=== PATIENT | female | born 1945 | race Caucasian/White ===

== ENCOUNTER 2016-12-31 19:03 | Observation (INO) ==
[2016-12-31] MEDS ORDERED: Naloxone 0.4 MG/ML INJ IVP PRN (21:11)
[2016-12-31] MEDS ORDERED: *HR* Dextrose 50 % in Water (Syg) 50 ML SYRINGE IVP PRN (21:20)
[2016-12-31] MEDS ORDERED: Dextrose Gel 15 GM PO PRN ×2 (21:20)
[2016-12-31] MEDS ORDERED: D5% in Water 1,000 ML IVC PRN (21:20)
--- NOTE | 2016-12-31 21:20 | Internal Med History&Physical ---
Date of Encounter: 12/31/16 Time of Encounter: 21:20 Assessment and Plan (1) Chest pain Current visit: Yes Status: Acute patient with a history of CAD s/p right PDA stent comes in with chest pain atypical in nature, but with significant risk factors as well as history of CAD it will be reasonable to order stress test to r/o ACS, NPO post midnight for that reason, further management depends on test results, continue her existing home CAD medications Qualifiers: Chest pain type: intercostal pain Qualified Code(s): R07.82 - Intercostal pain (2) COPD (chronic obstructive pulmonary disease) Current visit: Yes Status: Chronic stable, will do PRN nebs Qualifiers: COPD type: emphysema Emphysema type: centrilobular Qualified Code(s): J43.2 - Centrilobular emphysema (3) Dyspepsia Current visit: Yes Status: Acute related to her GERD, will continue pepcid (4) Essential hypertension Current visit: Yes Status: Chronic will continue home antihypertensives with BP monitoring (5) Morbid obesity with BMI of 40.0-44.9, adult Current visit: Yes Status: Chronic will benefit from dietary counseling (6) Type 2 diabetes mellitus Current visit: Yes Status: Chronic poorly controlled with hyperglycemia, her A1c was 9.7% in 08/2015, she is on terminal clerk insulin, will continue this with sliding scale insulin for hyperglycemia coverage, will update A1c Qualifiers: Diabetes mellitus complication status: with neurologic complications Diabetes mellitus complication detail: with polyneuropathy Diabetes mellitus terminal clerk insulin use: with alf use Qualified Code(s): E11.42 - Type 2 diabetes mellitus with diabetic polyneuropathy; Z79.4 - [facility] (current) use of insulin; Z79.4 - [facility] (current) use of insulin; Z79.4 - rat exterminator ( current) use of insulin; Z79.4 - [facility] (current) use of insulin (7) CKD (chronic kidney disease) stage 3, GFR 30-59 ml/min Current visit: Yes Status: Chronic seems largely stable, will avoid nephrotoxins, renally dose all medications and follow BMP Internal Medicine - H&P: HPI Chief complaint: Chest pain Admitted From: Hospital to Hospital Transfer Plans for Post Hospital Care: Home History of present illness: Ms. Corbin is a 71 year old female with a history of CAD s/p multiple stents most recent in the right PDA in 11/2014 who comes in today with chest pain. She was reportedly in her usual state of health until a few hours prior to presentation when she began experiencing left-sided chest pain that was dull/ achy in character progressed to pressure like. Per patient the pain was "like someone sitting on my chest". The chest pain radiated to below her left breast across the left flank to the back and left neck. The pain was intermittent in timing, 8/10 in severity, was associated with diaphoresis, lightheadedness, feeling of apprehension, and nausea but no vomiting. Pain improved with nitroglycerin sublingual. Pain started around 2 PM today whilst she was in her primary care physician's office. She initially presented to the ER of [facility] where her EKG was unremarkable for ischemia, initial troponin was unremarkable. She was transferred here for further evaluation and management. Past Med Surg Social Fam HX - Past Medical History Medical history: asthma, cancer, CHF, coronary artery disease, diabetes, fibromyalgia, GERD, hyperlipidemia, hypertension, myocardial infarction, osteoporosis, renal disease, syncope, other Psychiatric history: anxiety, bipolar, depression - Past Surgical History Surgical History: angioplasty/stent, appendectomy, cancer surgery, cholecystectomy, hysterectomy, orthopedic, other - Social History Smoking Status: Former smoker Smokeless Tobacco Status: No Alcohol use: none Drug use: none - Family History Mother Living Status: Sister Living Status: Hx Family Respiratory Disorders: Yes (Lung cancer) Brother Adopted: No Family Member Ethnicity: Non- Living Status: Still Living Hx Family Cardiac Disorders: Yes Hx Family Respiratory Disorders: Yes Hx Family Cancer: Yes Hx Family GI Disorders: No Hx Family Endocrine Disorder: No Hx Family Neuromuscular Disorders: No Hx Family Neurologic Disorders: No Hx Family HEENT Disorders: No Hx Family Autoimmune Disorders: No Father Living Status: Hx Family Cardiac Disorders: Yes Internal Medicine - H&P: Meds BuPROPion XL (24 HR) [Wellbutrin Xl] 150 mg PO DAILY 11/22/14 [History] Cholecalciferol (Vitamin D3) [Vitamin D3] 50,000 unit PO QWEEK 11/22/14 [History ] Fenofibrate [Tricor] 48 mg PO HS 11/22/14 [History] Fluticasone Propionate [Flovent Hfa] 12 gm IH BID PRN 11/22/14 [History] Ranolazine [Ranexa] 1,000 mg PO BID 11/22/14 [History] Trazodone HCl [Oleptro ER] 100 mg PO BID 11/22/14 [History] Aspirin Enteric Coated [Aspirin EC] 81 mg PO DAILY 01/09/15 [History] Acetaminophen [Tylenol] 650 mg PO Q6HR PRN #0 tablet 06/15/15 [Rx] Folic Acid 1 tab PO DAILY #30 tablet 07/16/15 [Rx] Alprazolam [Xanax] 1 mg PO QID PRN 08/30/15 [History] Clopidogrel [Plavix] 75 mg PO DAILY tablet 08/30/15 [Rx] Doxepin [Sinequan] 50 mg PO HS 08/30/15 [History] GuaiFENesin ER [Mucinex] 1,200 mg PO BID PRN #30 tbbp.12hr 08/30/15 [Rx] Insulin Glargine [Lantus] 90 unit SQ HS 08/30/15 [History] Insulin LISPRO [HumaLOG] 0 units SQ TIDWM 08/30/15 [History] Montelukast [Singulair] 10 mg PO HS 08/30/15 [History] Ondansetron ODT [Zofran ODT] 4 mg SL Q8HR PRN 08/30/15 [History] Polyethylene Glycol 3350 [MiraLAX] 17 gm PO DAILY PRN 08/30/15 [History] Ranitidine Oral Soln [Zantac] 150 mg PO DAILY 08/30/15 [History] Tizanidine HCl 4 mg PO HS PRN 08/30/15 [History] Zolpidem Tartrate 12.5 mg SL HS 08/30/15 [History] traMADol [Ultram] 50 mg PO QID PRN 08/30/15 [History] HYDROcodone/Acet 10/325 mg [[place] 10-325 mg] 1 tab PO Q6HR PRN #12 tab 05/01/16 [Rx] Ondansetron [Zofran] 8 mg PO Q8HR PRN #10 tablet 05/01/16 [Rx] DiphenhydraMINE [Benadryl] 25 mg PO Q6HR #20 capsule 07/17/16 [Rx] predniSONE [PredniSONE] 10 mg PO DAILY #5 tablet 07/17/16 [Rx] 3 Allergy/AdvReac Type Severity Reaction Status Date / Time Iodinated Contrast- Oral and Allergy Rash Verified 07/30/16 23:16 IV Dye iron Allergy Hives Verified 07/30/16 23:16 [place] Allergy Nausea Verified 07/30/16 23:16 Sulfa (Sulfonamide Allergy Hives Verified 07/30/16 23:16 Antibiotics) All Systems PM: A 10-system review of systems was performed and is negative for pertinent findings except as documented above in the HPI. - Constitutional Vitals: Temp Pulse Resp BP Pulse Ox 98.2 F 93 14 151/83 95 12/31/16 21:10 12/31/16 21:10 12/31/16 21:10 12/31/16 21:10 12/31/16 21:10 GENERAL: Adult female, obese looking, lying in bed, Alert, not in obvious pain or distress HEENT: NC/AT, EOMI, PERRLA, anicteric sclera, normal conjunctiva, supple, clear nares, moist mucous membranes, RESP: Lungs are clear to auscultation bilaterally, with good AE, no crackles or wheeze CARDIO: Normal heart sounds with RRR, no murmurs, no JVD, no ankle edema GI: Soft, full, diffuse abdominal tenderness mostly in the epigastric area but no guarding, no organomegaly felt, normal bowel sounds heard MUSCULOSKELETAL: Grossly normal movements bilaterally, no deformities noted, NEUROLOGIC: CN 2-12 intact grossly. No gross motor/sensory deficit appreciated, PSYCHIATRY: AAO x 3. Mood is fair SKIN: no skin rash or ulcers noted Internal Med - H&P Results - EKG Data -: EKG Interpreted by Myself (from referring hospital) - Diagnostic Studies Chest x-ray Status: image reviewed by me (from referring hospital)
[2016-12-31] MEDS: *HR* Heparin 5,000 UNIT/ML VIAL SQ SCH (22:09)
[2016-12-31] MEDS: traZODone 50 MG TABLET PO SCH (22:09)
[2016-12-31] MEDS: ALPRAZolam 1 MG TABLET PO PRN (22:22)
[2016-12-31] MEDS: Insulin DETEMIR 100 UNIT/ML X5UNITS SQ SCH (22:48)
[2017-01-01] MEDS: Insulin LISPRO 300 UNITS/3 ML VIAL SQ SCH ×4 (00:14→18:45)
[2017-01-01 05:50] LABS: Hemoglobin A1C 9.5 %
[2017-01-01 05:54] LABS: Calcium 9.9 mg/dL (8.6-10.8); Magnesium 1.6 mg/dL (1.6-2.6); Potassium 4.3 mEq/L (3.5-4.5)
[2017-01-01] MEDS ORDERED: Regadenoson 0.4 MG/5 ML SYRINGE IVP ONE (06:13)
[2017-01-01] MEDS: *HR* Heparin 5,000 UNIT/ML VIAL SQ SCH ×3 (06:49→21:22)
[2017-01-01] MEDS: *HR* Morphine 2 MG/ML SYRINGE IVP PRN ×3 (08:22→21:22)
[2017-01-01] MEDS: traZODone 50 MG TABLET PO SCH ×2 (10:34→21:22)
[2017-01-01] MEDS: Ranolazine 500 MG TAB.ER.12H PO SCH ×2 (10:34→21:22)
[2017-01-01] MEDS: Famotidine 20 MG TABLET PO SCH (10:35)
[2017-01-01] MEDS: BuPROPion XL (24 HR) 150 MG TABLET PO SCH (10:35)
[2017-01-01] MEDS: Aspirin Enteric Coated 81 MG Tablet PO SCH (10:35)
[2017-01-01] MEDS ORDERED: Acetaminophen 325 MG TABLET PO PRN (13:21)
--- NOTE | 2017-01-01 18:49 | Internal Med Progress Note ---
Date of Encounter: 01/01/17 Time of Encounter: 13:45 - Assessment and plan (1) Chest pain Current Visit: Yes Status: Acute Assessment and plan: The patient with a history of coronary artery disease status post right PDA stent, and multiple other stents, was at primary care office when she began having midsternal chest pain with radiation to both right and left chest. The pain is not reproducible to palpation, with movement, or with deep inspiration. She reports the pain being dull/achy, as well as being a pressure. She states it feels like someone sitting on her chest. The pain was intermittent, 8 /10 in severity and had associated diaphoresis, lightheadedness, feeling of apprehension, and nausea but no vomiting. Patient has several month history of nausea, vomiting, and diarrhea and that is why she was at primary care office to begin with. Per patient, the pain improved with nitroglycerin sublingual. EKG was normal sinus rhythm, troponins were negative 3. EKG at outlying emergency department where she came from showed sinus tach with a rate of 108, QRS 82 SD interval 180 QTC 418. The chest x-ray was negative for any acute cardiopulmonary process. Patient's last echocardiogram was in November,. Limited echo showed LVEF was 55-60% with normal LV structure and function and normal wall motion. Patient is a 2 day stress test, will finish test tomorrow. Qualifiers: Chest pain type: intercostal pain Qualified Code(s): R07.82 - Intercostal pain (2) CKD (chronic kidney disease) stage 3, GFR 30-59 ml/min Current Visit: Yes Status: Chronic Assessment and plan: Patient with history of CK D stage IV, states that she was recently told she is stage III. Serum creatinine is 1.90 GFR is 26. GFR is down from earlier values this year. Gentle IV hydration with 0.9 normal saline at 50 mL holes in our overnight. Avoid nephrotoxins. Patient will need to follow with Dr. Chowdary on discharge. (3) Morbid obesity with BMI of 40.0-44.9, adult Current Visit: Yes Status: Chronic Assessment and plan: Chronic. Lifestyle changes. (4) Type 2 diabetes mellitus Current Visit: Yes Status: Chronic Assessment and plan: Poorly controlled diabetes. Hemoglobin A1c is 9.5. While admitted, patient will continue sliding scale insulin, Accu-Cheks before meals at bedtime, and a diabetic diet. Qualifiers: Diabetes mellitus complication status: with neurologic complications Diabetes mellitus complication detail: with polyneuropathy Diabetes mellitus assisted insulin use: with joint terminal attack controller use Qualified Code(s): E11.42 - Type 2 diabetes mellitus with diabetic polyneuropathy; Z79.4 - moth exterminator (current) use of insulin; Z79.4 - shelter (current) use of insulin; Z79.4 - shelter ( current) use of insulin; Z79.4 - shelter (current) use of insulin (5) COPD (chronic obstructive pulmonary disease) Current Visit: Yes Status: Chronic Assessment and plan: No acute exacerbation. Patient is stable. Will continue home medications and when necessary duo nebs. Qualifiers: COPD type: emphysema Emphysema type: centrilobular Qualified Code(s): J43.2 - Centrilobular emphysema (6) Essential hypertension Current Visit: Yes Status: Chronic Assessment and plan: Well-controlled in inpatient setting. Continue home medications. Continue to monitor vital signs. (7) CAD (coronary artery disease) Current Visit: Yes Status: Chronic Assessment and plan: Chronic. Patient will complete 2 day stress tomorrow. Continue aspirin, Plavix, TriCor, Ranexa. Consider cardiology consultation based on results of stress test tomorrow. Qualifiers: Coronary Disease-Associated Artery/Lesion type: [place] artery [place] vs. transplanted heart: [place] heart Associated angina: with unspecified angina Qualified Code(s): I25.119 - Atherosclerotic heart disease of [place] coronary artery with unspecified angina pectoris (8) DVT prophylaxis Current Visit: Yes Status: Acute Assessment and plan: Heparin subcutaneous daily. - Time Spent With Patient less than 15 minutes - Subjective Interval history: Patient was seen and assessed at bedside at 1345. She is a 2 day stress test. Patient reports that she was on her doctor's office to be evaluated for several month history of nausea, vomiting, diarrhea she began having right and left sided chest pain. She was sent to the emergency department for evaluation. She says that the pain remains. It is not reproducible with movement, deep inspiration, or palpation. She reports headache and was requesting Percocet from student nurse. When I asked her what she normally takes for headache, she says she normally takes Tylenol. Patient is tender to palpation over most of body. She reports a history of fibromyalgia. She states that everything hurts. Pending outcome of stress test, patient will most likely be ready for discharge tomorrow. - Constitutional Vitals: Temp Pulse Resp BP Pulse Ox 98.2 F 58 18 106/65 96 01/01/17 15:47 01/01/17 15:47 01/01/17 15:47 01/01/17 15:47 01/01/17 15:47 General appearance: Present: mild distress, A&O X 3, pleasant, answers questions appropriately. Absent: cooperative - Head Head exam: Present: atraumatic, normal inspection, normocephalic - Eye Eye exam: Present: normal appearance, conjuntiva pink, sclera anicteric - Neck Neck exam general surgery: Present: supple, trachea midline. Absent: lymphadenopathy, tenderness - Respiratory Respiratory exam: Present: decreased breath sounds, CTAB. Absent: accessory muscle use, chest wall tenderness, rales, rhonchi, stridor, wheezes - Cardiovascular Cardiovascular exam: Present: RRR, +S1, +S2. Absent: diastolic murmur, gallop, irregular rhythm, rubs, systolic murmur - GI/Abdominal GI/Abdominal exam: Present: distended, normal bowel sounds, soft, tenderness, no peritoneal signs. Absent: hepatomegaly - Extremities Exam Extremities exam: Present: pedal edema, tenderness, warm, radial pulses palpable and symmetrical. Absent: calf tenderness, cyanotic, normal inspection - Neurological Exam Neurological exam: Present: alert, oriented X3, no focal deficits. Absent: facial droop, speech deficit - Skin Skin exam: Present: dry, intact, normal color, warm. Absent: rash Internal Medicine: Result - Labs CBC & Chem 7: 01/01/17 04:59 Labs: BMP 01/01/17 04:59 Sodium 136 Potassium 4.3 Chloride 104 Carbon Dioxide 25 BUN 14 Creatinine 1.90 H Glucose 235 H Calcium 9.9 Cardiac Enzymes 12/31/16 01/01/17 Range/Units 21:39 04:59 Troponin I 0.01 0.01 (0-0.03) ng/mL Consult Discharge Plan - Plan Referrals: Jonna Mcdermott, PACKAGER HAND [Primary Care Provider] -
[2017-01-01] MEDS: ALPRAZolam 1 MG TABLET PO PRN (21:21)
[2017-01-01] MEDS: Insulin DETEMIR 100 UNIT/ML X5UNITS SQ SCH (21:21)
[2017-01-01] MEDS: Fenofibrate 54 MG TABLET PO SCH (21:22)
[2017-01-02] MEDS: Insulin LISPRO 300 UNITS/3 ML VIAL SQ SCH ×4 (00:01→18:18)
[2017-01-02 05:05] LABS: Basophils % 0.7 %; Eosinophils # 0.3 K/mcL (0.0-0.6); Eosinophils % 5.3 %; Hematocrit 36.5 % (35.3-44.9); Hemoglobin 11.9 g/dL (11.5-15.4); Immature Granulocytes % 0.2 % (0-4); Lymphocytes # 2.8 K/mcL (0.6-4.6); Lymphocytes % 49.1 %; Mean Corpuscular HGB Conc 32.6 g/dL (31.6-35.5); Mean Corpuscular Hemoglobin 28.2 pg (28.0-33.3); Mean Corpuscular Volume 86.5 fL (83.0-100.0); Mean Platelet Volume 10.6 fL (9.4-12.4); Monocytes # 0.7 K/mcL (0.0-1.3); Monocytes % 11.6 %; Neutrophils # 1.9 K/mcL (1.6-8.9); Nucleated Red Blood Cells 0.4 /100 WBC (0); Platelet Count 195 K/mcL (140-400); Red Blood Count 4.22 M/mcL (3.82-4.97); Red Cell Distribution Width 13.2 % (11.5-14.5); Segmented Neutrophils % 33.1 %
[2017-01-02 05:15] LABS: Calcium 9.4 mg/dL (8.6-10.8); Potassium 4.4 mEq/L (3.5-4.5)
[2017-01-02] MEDS: *HR* Heparin 5,000 UNIT/ML VIAL SQ SCH ×3 (05:15→21:48)
[2017-01-02] MEDS: traZODone 50 MG TABLET PO SCH ×2 (08:00→21:49)
[2017-01-02] MEDS: Ranolazine 500 MG TAB.ER.12H PO SCH ×2 (08:00→21:48)
[2017-01-02] MEDS: Aspirin Enteric Coated 81 MG Tablet PO SCH (08:00)
[2017-01-02] MEDS: BuPROPion XL (24 HR) 150 MG TABLET PO SCH (08:00)
[2017-01-02] MEDS: Famotidine 20 MG TABLET PO SCH (08:00)
[2017-01-02] MEDS: *HR* Morphine 2 MG/ML SYRINGE IVP PRN ×3 (08:02→22:06)
[2017-01-02] MEDS: ALPRAZolam 1 MG TABLET PO PRN (18:17)
--- NOTE | 2017-01-02 19:44 | Internal Med Progress Note ---
Date of Encounter: 01/02/17 Time of Encounter: 14:00 - Assessment and plan (1) Chest pain Current Visit: Yes Status: Acute Assessment and plan: The patient with a history of coronary artery disease status post right PDA stent, and multiple other stents, was at primary care office when she began having midsternal chest pain with radiation to both right and left chest. The pain is not reproducible to palpation, with movement, or with deep inspiration. She reports the pain being dull/achy, as well as being a pressure. She states it feels like someone sitting on her chest. The pain was intermittent, 8 /10 in severity and had associated diaphoresis, lightheadedness, feeling of apprehension, and nausea but no vomiting. Patient has several month history of nausea, vomiting, and diarrhea and that is why she was at primary care office to begin with. Per patient, the pain improved with nitroglycerin sublingual. EKG was normal sinus rhythm, troponins were negative 3. EKG at outlying emergency department where she came from showed sinus tach with a rate of 108, QRS 82 IA interval 180 QTC 418. The chest x-ray was negative for any acute cardiopulmonary process. Patient's last echocardiogram was in November,. Limited echo showed LVEF was 55-60% with normal LV structure and function and normal wall motion. Stress test was completed today. She has a gated EF of 66% there is a medium size, severe intensity, fixed perfusion defect involving the basal to mid inferolateral wall. Findings are consistent with AL. There is no evidence of reversible myocardial ischemia. I discussed these findings with cardiology PIPE WELDER, she agrees these are not significant for acute, reversible infarct. She has denied chest pain today. The pain is not reproducible with deep inspiration, movement, or palpation. We will continue telemetry since patient is going to be here until Wednesday. Qualifiers: Chest pain type: intercostal pain Qualified Code(s): R07.82 - Intercostal pain (2) CKD (chronic kidney disease) stage 3, GFR 30-59 ml/min Current Visit: Yes Status: Chronic Assessment and plan: Patient with history of CK D stage IV, states that she was recently told she is stage III. Serum creatinine is 1.74 GFR is 29. Anal function is improving since arrival. Gentle IV hydration with 0.9 normal saline at 50 mL overnight. Avoid nephrotoxins. Patient will need to follow with Dr. Chowdary on discharge. (3) Morbid obesity with BMI of 40.0-44.9, adult Current Visit: Yes Status: Chronic Assessment and plan: Chronic. Lifestyle changes. (4) Type 2 diabetes mellitus Current Visit: Yes Status: Chronic Assessment and plan: Poorly controlled diabetes. Hemoglobin A1c is 9.5. While admitted, patient will continue sliding scale insulin, Accu-Cheks before meals at bedtime, and a diabetic diet. Qualifiers: Diabetes mellitus complication status: with neurologic complications Diabetes mellitus complication detail: with polyneuropathy Diabetes mellitus mcfp insulin use: with rodent exterminator use Qualified Code(s): E11.42 - Type 2 diabetes mellitus with diabetic polyneuropathy; Z79.4 - long term acute care registered nurse (current) use of insulin; Z79.4 - long term acute care registered nurse (current) use of insulin; Z79.4 - long term acute care registered nurse ( current) use of insulin; Z79.4 - long term acute care registered nurse (current) use of insulin (5) COPD (chronic obstructive pulmonary disease) Current Visit: Yes Status: Chronic Assessment and plan: No acute exacerbation. Patient is stable. Will continue home medications and when necessary duo nebs. Continue telemetry Pulse ox with vital signs. Qualifiers: COPD type: emphysema Emphysema type: centrilobular Qualified Code(s): J43.2 - Centrilobular emphysema (6) Essential hypertension Current Visit: Yes Status: Chronic Assessment and plan: Well-controlled in inpatient setting. Continue home medications. Continue to monitor vital signs. (7) CAD (coronary artery disease) Current Visit: Yes Status: Chronic Assessment and plan: Chronic. Stress test was negative for acute infarct or ischemia Continue aspirin, Plavix, TriCor, Ranexa. Qualifiers: Coronary Disease-Associated Artery/Lesion type: [place] artery [place] vs. transplanted heart: [place] heart Associated angina: with unspecified angina Qualified Code(s): I25.119 - Atherosclerotic heart disease of [place] coronary artery with unspecified angina pectoris (8) DVT prophylaxis Current Visit: Yes Status: Acute Assessment and plan: Heparin subcutaneous daily. - Time Spent With Patient less than 15 minutes - Subjective Interval history: Patient was seen and assessed at bedside at 1400. Patient is alert, awake, oriented. She states that she is excited to go home and sleep in her own bed and that she has not been resting well here. She denies chest pain today. She denies shortness of breath, nausea, vomiting, diarrhea, headache, blurred vision , stiff neck. Patient is aware that stress test was negative, she was thankful. Is getting ready to discharge patient, a family member called and requested to speak with me. I was unable to speak with this person rationally as he was yelling and threatening that patient was not to be sent home because she has not been treated appropriately. He says he is going to file a complaint with Medicare. He was directed to the cook house laborer, patient will be held until Wednesday when appeal can be reviewed by Medicare. According to primary nurse, patient has had no need for nausea, she has had no diarrhea since arrival. She did not report any nausea, vomiting, diarrhea, or abdominal pain to me today. Stool panel as well as stool occult blood and C. difficile are ordered. If patient has bowel movement, it will be sent to lab for evaluation. Son states that patient has diarrhea every single day constantly for the last 2 months. - Constitutional Vitals: Temp Pulse Resp BP Pulse Ox 98.2 F 93 16 146/59 99 01/02/17 19:00 01/02/17 19:00 01/02/17 19:00 01/02/17 19:00 01/02/17 19:00 General appearance: Present: mild distress, A&O X 3, pleasant, no acute distress , answers questions appropriately. Absent: cooperative - Head Head exam: Present: atraumatic, normal inspection, normocephalic - Eye Eye exam: Present: normal appearance, conjuntiva pink, sclera anicteric - Neck Neck exam general surgery: Present: supple, trachea midline. Absent: lymphadenopathy, tenderness - Respiratory Respiratory exam: Present: CTAB. Absent: accessory muscle use, decreased breath sounds, rales, rhonchi, wheezes - Cardiovascular Cardiovascular exam: Present: RRR, +S1, +S2. Absent: diastolic murmur, gallop, rubs, systolic murmur - GI/Abdominal GI/Abdominal exam: Present: normal bowel sounds, soft. Absent: distended, hepatomegaly, tenderness - Extremities Exam Extremities exam: Present: normal capillary refill, warm, radial pulses palpable and symmetrical. Absent: calf tenderness, cyanotic, pedal edema, tenderness - Neurological Exam Neurological exam: Present: alert, oriented X3, no focal deficits. Absent: facial droop, speech deficit - Skin Skin exam: Present: dry, intact, normal color, warm. Absent: rash Internal Medicine: Result - Labs CBC & Chem 7: 01/02/17 04:43 01/02/17 04:43 Labs: Short CBC 01/02/17 Range/Units 04:43 WBC 5.6 (4.3-11.1) K/mcL Hgb 11.9 D (11.5-15.4) g/dL Hct 36.5 (35.3-44.9) % Plt Count 195 (140-400) K/mcL Neutrophils # 1.9 (1.6-8.9) K/mcL BMP 01/02/17 04:43 Sodium 134 L Potassium 4.4 Chloride 103 Carbon Dioxide 23 BUN 15 Creatinine 1.74 H Glucose 251 H Calcium 9.4 Consult Discharge Plan - Plan Referrals: Jonna Mcdermott, EXAMINATION SUPERVISOR [Primary Care Provider] -
[2017-01-02] MEDS: Insulin DETEMIR 100 UNIT/ML X5UNITS SQ SCH (21:48)
[2017-01-02] MEDS: Fenofibrate 54 MG TABLET PO SCH (21:48)
[2017-01-03] MEDS: ALPRAZolam 1 MG TABLET PO PRN ×3 (00:14→17:59)
[2017-01-03] MEDS: Insulin LISPRO 300 UNITS/3 ML VIAL SQ SCH ×4 (00:27→17:58)
[2017-01-03] MEDS: *HR* Morphine 2 MG/ML SYRINGE IVP PRN ×3 (02:07→17:59)
[2017-01-03] MEDS: *HR* Heparin 5,000 UNIT/ML VIAL SQ SCH ×3 (06:33→21:28)
[2017-01-03 07:43] LABS: Calcium 9.4 mg/dL (8.6-10.8); Potassium 4.8 mEq/L (3.5-4.5)
[2017-01-03] MEDS: Ranolazine 500 MG TAB.ER.12H PO SCH ×2 (09:07→21:27)
[2017-01-03] MEDS: Famotidine 20 MG TABLET PO SCH (09:07)
[2017-01-03] MEDS: BuPROPion XL (24 HR) 150 MG TABLET PO SCH (09:08)
[2017-01-03] MEDS: Aspirin Enteric Coated 81 MG Tablet PO SCH (09:08)
[2017-01-03] MEDS: traZODone 50 MG TABLET PO SCH ×2 (09:08→21:27)
--- NOTE | 2017-01-03 09:14 | Internal Med Progress Note ---
Date of Encounter: 01/03/17 Time of Encounter: 07:50 - Assessment and plan (1) Chest pain Current Visit: Yes Status: Acute Assessment and plan: Patient with a history of coronary artery disease status post right PDA stent, and multiple other stents, was at primary care office when she began having midsternal chest pain with radiation to both right and left chest. The pain is not reproducible to palpation, with movement, or with deep inspiration. She reports the pain being dull/achy, as well as being a pressure. She states it felt like someone was sitting on her chest. The pain was intermittent, 8/10 in severity and had associated diaphoresis, lightheadedness, feeling of apprehension, and nausea but no vomiting. Patient has several month history of nausea, vomiting, and diarrhea and that is why she was at primary care office to begin with. Per patient, the chest pain improved with nitroglycerin sublingual. EKG was normal sinus rhythm, troponins were negative 3. EKG at outlying emergency department where she came from showed sinus tach with a rate of 108, QRS 82 UT interval 180 QTC 418. The chest x-ray was negative for any acute cardiopulmonary process. Patient's last echocardiogram was in November,. Limited echo showed LVEF was 55-60% with normal LV structure and function and normal wall motion. Stress test was completed today. She has a gated EF of 66% there is a medium size, severe intensity, fixed perfusion defect involving the basal to mid inferolateral wall. Findings are consistent with [place]. There is no evidence of reversible myocardial ischemia. I discussed these findings with cardiology SOLAR SYSTEM INSTALLER, she agrees these are not significant for acute, reversible infarct. She has denied chest pain again today. We will continue telemetry, aspirin and nitroglycerin as needed for chest pain. Continue to monitor vital signs and labs, patient condition. Qualifiers: Chest pain type: intercostal pain Qualified Code(s): R07.82 - Intercostal pain (2) CKD (chronic kidney disease) stage 3, GFR 30-59 ml/min Current Visit: Yes Status: Chronic Assessment and plan: Patient with history of CK D stage IV, states that she was recently told she is stage III. Serum creatinine is 1.46 GFR is 35. Renal function is improving since arrival. Avoid nephrotoxins. Patient will need to follow with Dr. Chowdary on discharge. (3) Morbid obesity with BMI of 40.0-44.9, adult Current Visit: Yes Status: Chronic Assessment and plan: Chronic. Lifestyle modifications. (4) Type 2 diabetes mellitus Current Visit: Yes Status: Chronic Assessment and plan: Poorly controlled diabetes. Hemoglobin A1c is 9.5. While admitted, patient will continue sliding scale insulin, Accu-Cheks before meals at bedtime, and a diabetic diet. Qualifiers: Diabetes mellitus complication status: with neurologic complications Diabetes mellitus complication detail: with polyneuropathy Diabetes mellitus group home insulin use: with group home use Qualified Code(s): E11.42 - Type 2 diabetes mellitus with diabetic polyneuropathy; Z79.4 - dedicated intermodal truck driver (current) use of insulin; Z79.4 - [facility] (current) use of insulin; Z79.4 - dedicated intermodal truck driver ( current) use of insulin; Z79.4 - dedicated intermodal truck driver (current) use of insulin (5) COPD (chronic obstructive pulmonary disease) Current Visit: Yes Status: Chronic Assessment and plan: No acute exacerbation. Patient is stable. Will continue home medications and PRN Duo nebs. Continue telemetry Pulse ox with vital signs. Oxygen as needed to maintain sats greater than 92%. Qualifiers: COPD type: emphysema Emphysema type: centrilobular Qualified Code(s): J43.2 - Centrilobular emphysema (6) Essential hypertension Current Visit: Yes Status: Chronic Assessment and plan: Well-controlled in inpatient setting. Continue home medications. Continue to monitor vital signs. (7) CAD (coronary artery disease) Current Visit: Yes Status: Chronic Assessment and plan: Chronic. Stress test was negative for acute infarct or ischemia Continue aspirin, Plavix, TriCor, Ranexa. Continue telemetry and monitoring vital signs. Aspirin and nitroglycerin for chest pain as needed. Qualifiers: Coronary Disease-Associated Artery/Lesion type: [place] artery [place] vs. transplanted heart: [place] heart Associated angina: with unspecified angina Qualified Code(s): I25.119 - Atherosclerotic heart disease of [place] coronary artery with unspecified angina pectoris (8) DVT prophylaxis Current Visit: Yes Status: Acute Assessment and plan: Heparin subcutaneous daily. - Time Spent With Patient less than 15 minutes - Subjective Interval history: Patient was seen and assessed this morning at 7:50 AM. She was asleep, however arouses easily. Patient states she feels "better". She denies diarrhea. She states that it "comes and goes" and states that he has been "several days" since she has had any diarrhea. She still denies nausea and vomiting. She has not had any anti-emetics to this point. She states the only time she vomits is when she has spicy foods. Stool studies are still ordered and pending. Abdomen is soft and nontender to palpation with bowel sounds present. She denies headache, blurred vision, cough, fever, chills, chest pain, shortness of breath. Patient states this morning she is ready to go home and sleep in her own bed. - Constitutional Vitals: Temp Pulse Resp BP Pulse Ox 97.4 F L 72 16 105/64 99 01/03/17 08:21 01/03/17 08:21 01/03/17 08:21 01/03/17 08:21 01/03/17 08:21 General appearance: Present: mild distress, A&O X 3, pleasant, no acute distress , answers questions appropriately. Absent: cooperative - Head Head exam: Present: atraumatic, normal inspection, normocephalic - Eye Eye exam: Present: normal appearance, conjuntiva pink, sclera anicteric - Neck Neck exam general surgery: Present: supple, trachea midline. Absent: lymphadenopathy, tenderness - Respiratory Respiratory exam: Present: CTAB. Absent: accessory muscle use, chest wall tenderness, rales, respiratory distress, rhonchi, wheezes - Cardiovascular Cardiovascular exam: Present: RRR, +S1, +S2. Absent: diastolic murmur, gallop, rubs, systolic murmur - GI/Abdominal GI/Abdominal exam: Present: normal bowel sounds, soft. Absent: distended, hepatomegaly, tenderness - Extremities Exam Extremities exam: Present: normal inspection, pedal edema, warm, radial pulses palpable and symmetrical. Absent: calf tenderness, cyanotic, tenderness - Neurological Exam Neurological exam: Present: alert, oriented X3, no focal deficits. Absent: facial droop, speech deficit - Skin Skin exam: Present: dry, intact, normal color, warm. Absent: rash Internal Medicine: Result - Labs CBC & Chem 7: 01/02/17 04:43 01/03/17 06:27 Labs: BMP 01/03/17 06:27 Sodium 135 L Potassium 4.8 H Chloride 104 Carbon Dioxide 25 BUN 14 Creatinine 1.46 H Glucose 218 H Calcium 9.4 Consult Discharge Plan - Plan Referrals: Jonna Mcdermott CNP [Primary Care Provider] -
[2017-01-03] MEDS: Insulin DETEMIR 100 UNIT/ML X5UNITS SQ SCH (21:27)
[2017-01-03] MEDS: Fenofibrate 54 MG TABLET PO SCH (21:27)
[2017-01-04] MEDS: Insulin LISPRO 300 UNITS/3 ML VIAL SQ SCH ×2 (00:24→06:40)
[2017-01-04] MEDS: *HR* Morphine 2 MG/ML SYRINGE IVP PRN (00:25)
[2017-01-04] MEDS: *HR* Heparin 5,000 UNIT/ML VIAL SQ SCH (06:23)
[2017-01-04 07:21] VITALS: BP 149/77
[2017-01-04] MEDS: traZODone 50 MG TABLET PO SCH (09:54)
[2017-01-04] MEDS: Ranolazine 500 MG TAB.ER.12H PO SCH (09:54)
[2017-01-04] MEDS: Famotidine 20 MG TABLET PO SCH (09:54)
[2017-01-04] MEDS: Aspirin Enteric Coated 81 MG Tablet PO SCH (09:54)
[2017-01-04] MEDS: BuPROPion XL (24 HR) 150 MG TABLET PO SCH (09:54)
--- NOTE | 2017-01-04 10:06 | Discharge Summary ---
Date of Encounter: 01/04/17 Time of Encounter: 09:30 - Discharge Diagnosis (1) Chest pain Priority: Primary Status: Resolved Comments: Patient with a history of coronary artery disease status post right PDA stent, and multiple other stents, was at primary care office when she began having midsternal chest pain with radiation to both right and left chest. The pain is not reproducible to palpation, with movement, or with deep inspiration. She reports the pain being dull/achy, as well as being a pressure. She states it felt like someone was sitting on her chest. The pain was intermittent, 8/10 in severity and had associated diaphoresis, lightheadedness, feeling of apprehension, and nausea but no vomiting. Patient has several month history of nausea, vomiting, and diarrhea and that is why she was at primary care office to begin with. Per patient, the chest pain improved with nitroglycerin sublingual. EKG was normal sinus rhythm, troponins were negative 3. EKG at outlying emergency department where she came from showed sinus tach with a rate of 108, QRS 82 [place] interval 180 QTC 418. The chest x-ray was negative for any acute cardiopulmonary process. Patient's last echocardiogram was in November,. Limited echo showed LVEF was 55-60% with normal LV structure and function and normal wall motion. Stress test was completed today. She has a gated EF of 66% there is a medium size, severe intensity, fixed perfusion defect involving the basal to mid inferolateral wall. Findings are consistent with [place]. There is no evidence of reversible myocardial ischemia. I discussed these findings with cardiology SENIOR CONSTRUCTION MANAGER, she agrees these are not significant for acute, reversible infarct. She has denied chest pain again today. Pain is not reproducible with movement, deep inspiration, or palpation. Pt will be discharged today and will continue her normal home medications. Qualifiers: Chest pain type: intercostal pain Qualified Code(s): R07.82 - Intercostal pain (2) CKD (chronic kidney disease) stage 3, GFR 30-59 ml/min Priority: Secondary Status: Chronic Comments: Renal function has returned patient's baseline. Serum creatinine is 1.46 today , GFR is 35. Continue to avoid nephrotoxins after discharge. Follow up with primary care and nephrology as scheduled. (3) Morbid obesity with BMI of 40.0-44.9, adult Priority: Secondary Status: Chronic Comments: Chronic. Lifestyle changes. (4) Type 2 diabetes mellitus Priority: Secondary Status: Chronic Comments: Hemoglobin A1c is 9.5. Patient has poorly controlled diabetes. At discharge, patient will continue her normal home medications, as well as Accu-Cheks per her routine at home. Patient will need close follow-up with primary care. She could probably benefit from diabetes education. Qualifiers: Diabetes mellitus complication status: with neurologic complications Diabetes mellitus complication detail: with polyneuropathy Diabetes mellitus group home insulin use: with group home use Qualified Code(s): E11.42 - Type 2 diabetes mellitus with diabetic polyneuropathy; Z79.4 - intermodal dispatcher (current) use of insulin; Z79.4 - intermodal dispatcher (current) use of insulin; Z79.4 - intermodal dispatcher ( current) use of insulin; Z79.4 - intermodal dispatcher (current) use of insulin (5) COPD (chronic obstructive pulmonary disease) Priority: Secondary Status: Chronic Comments: No acute exacerbation. Patient is stable. Will continue home medications after discharge. Continue O2 as needed. Lungs are clear and diminished throughout posterior lung shah. Patient is in no respiratory distress. There is no wheezing, stridor, rales, rhonchi. Qualifiers: COPD type: emphysema Emphysema type: centrilobular Qualified Code(s): J43.2 - Centrilobular emphysema (6) Essential hypertension Priority: Secondary Status: Chronic Comments: Patient's blood pressures been well controlled, at goal for age. Continue home medications. Continue monitoring blood pressure and report findings to primary care. (7) CAD (coronary artery disease) Priority: Secondary Status: Chronic Comments: Chronic. Stress test was negative for acute infarct or ischemia. Patient denies chest pain. Continue aspirin, Plavix, TriCor, Ranexa. Qualifiers: Coronary Disease-Associated Artery/Lesion type: [place] artery [place] vs. transplanted heart: [place] heart Associated angina: with unspecified angina Qualified Code(s): I25.119 - Atherosclerotic heart disease of [place] coronary artery with unspecified angina pectoris (8) DVT prophylaxis Priority: Secondary Status: Acute Comments: Heparin subcutaneous daily. Patient has been up to chair. - Discharge Medications Home Medications: Cholecalciferol (Vitamin D3) [Vitamin D3] 50,000 unit PO QWEEK 11/22/14 [History ] Fenofibrate [Tricor] 48 mg PO HS 11/22/14 [History] Fluticasone Propionate [Flovent Hfa] 12 gm IH BID PRN 11/22/14 [History] Ranolazine [Ranexa] 1,000 mg PO BID 11/22/14 [History] Aspirin Enteric Coated [Aspirin EC] 81 mg PO DAILY 01/09/15 [History] Folic Acid 1 tab PO DAILY #30 tablet 07/16/15 [Rx] Clopidogrel [Plavix] 75 mg PO DAILY tablet 08/30/15 [Rx] Doxepin [Sinequan] 50 mg PO HS 08/30/15 [History] Insulin Glargine [Lantus] 90 unit SQ HS 08/30/15 [History] Insulin LISPRO [HumaLOG] 0 units SQ TIDWM 08/30/15 [History] Montelukast [Singulair] 10 mg PO HS 08/30/15 [History] Ondansetron ODT [Zofran ODT] 4 mg SL Q8HR PRN 08/30/15 [History] Polyethylene Glycol 3350 [MiraLAX] 17 gm PO DAILY PRN 08/30/15 [History] Atenolol 100 mg PO DAILY 01/01/17 [History] Atorvastatin Calcium [Lipitor] 80 mg PO HS 01/01/17 [History] Fluticasone Propionate [Flovent Diskus] 1 puff IH BID 01/01/17 [History] Furosemide [Lasix] 40 mg PO QID 01/01/17 [History] Gabapentin [Neurontin] 400 mg PO QID 01/01/17 [History] HydrOXYzine 10 mg PO BID 01/01/17 [History] Liraglutide [Victoza 2-Cristian] 1.2 mg SQ DAILY 01/01/17 [History] Oxycodone HCl/Acetaminophen [Percocet 10-325 mg Tablet] 1 tab PO Q8H PRN [History] Ranitidine HCl [Zantac] 300 mg PO DAILY 01/01/17 [History] Trazodone HCl 100 mg PO HS 01/01/17 [History] buPROPion HCl [Bupropion HCl Sr] 200 mg PO DAILY 01/01/17 [History] ALPRAZolam [Xanax 1 MG Tablet] 1 mg PO QID PRN tablet 01/04/17 [Rx] BuPROPion XL (24 HR) [Wellbutrin Xl] 150 mg PO DAILY tab.er.24h 01/04/17 [Rx] traZODone [TraZODone] 100 mg PO BID tablet 01/04/17 [Rx] Allergies/Adverse Reactions: 3 Allergy/AdvReac Type Severity Reaction Status Date / Time Iodinated Contrast- Oral and Allergy Rash Verified 07/30/16 23:16 IV Dye iron Allergy Hives Verified 07/30/16 23:16 [place] Allergy Nausea Verified 07/30/16 23:16 Sulfa (Sulfonamide Allergy Hives Verified 07/30/16 23:16 Antibiotics) Date of admission: 12/31/16 20:59 Primary care physician: Jonna Mcdermott CNP Consults: 01/01/17 12:40 Consult to Physical Therapy [CONS] Routine Comment: Evaluate, develop and implement POC Reason for Consult: weakness she receives outpatient therapy at home may need SNIF 01/01/17 12:41 Consult to Occupational Therapy [CONS] Routine Comment: Evaluate, develop and implement POC Reason for Consult: weakness was receiving outpatient therapy may need SNIF Discharging clinician: Aidee Preciado Anticipated date of discharge: 01/04/17 - Patient Status Disposition: Home, Self-Care Condition: Good Functional capacity at discharge: uses cane/walker Overall status at discharge: patient is back to baseline - Discharge Instructions Follow Up With: Jonna Mcdermott CNP [Primary Care Provider] - Additional Instructions: Follow up with your family doctor to discuss your hospital stay. Return for continued workup for abdominal pain, nausea, and diarrhea. Take your medications as directed. Return to the closest ER as needed for other problems or concerns, or if your symptoms return or worsen. Return to your normal activities as tolerated. Discuss your uncontrolled diabetes with your family doctor, I recommend that you see healthcare educator. - Diet and Activity Activity: increase activity as tolerated Diet: diabetic diet Hospital course: Ms. Corbin is a 71 year old female who presented to the emergency department from her primary care office with complaint of chest pain. All workup was negative. Patient denies chest pain. Family member states the patient has had persistent diarrhea for 2 months daily multiple times a day. He felt the patient should be worked up while she was in the hospital for this. Patient did not have diarrhea, she denied abdominal pain, nausea or vomiting to me when I assessed her daily. Her abdomen is soft and nontender to palpation. She has bowel sounds. Patient reports that she has no pain, however she was taking IV morphine fairly regularly. Her vital signs have been stable. Patient has told me all along that she is ready to go home. Initially it was stated that the family member was going to appeal her case with Medicare, however per drug abuse social worker he is unable to do so since patient is observation status. The patient states that she was given a cab voucher to go home, she will use this today. She states that her son will be home when she gets there. See assessment and plan per hospital course. Patient's vital signs are stable. Labs were within normal limits and stable. Patient is ready for discharge. - Time Spent with Patient Total time spent providing and/or coordinating discharge services: Less than 30 minutes - Constitutional Vitals: Temp Pulse Resp BP Pulse Ox 98.1 F 81 17 149/77 98 01/04/17 07:18 01/04/17 07:18 01/04/17 07:18 01/04/17 07:18 01/04/17 07:18 General appearance: Present: mild distress, A&O X 3, pleasant, no acute distress , answers questions appropriately. Absent: cooperative - Head Head exam: Present: atraumatic, normal inspection, normocephalic - Eye Eye exam: Present: normal appearance, conjuntiva pink, sclera anicteric - Neck Neck exam general surgery: Present: supple, trachea midline. Absent: lymphadenopathy, tenderness - Respiratory Respiratory exam: Present: decreased breath sounds, CTAB. Absent: accessory muscle use, chest wall tenderness, rales, respiratory distress, rhonchi, wheezes - Cardiovascular Cardiovascular exam: Present: RRR, +S1, +S2. Absent: diastolic murmur, gallop, rubs, systolic murmur - GI/Abdominal GI/Abdominal exam: Present: normal bowel sounds, soft, no peritoneal signs. Absent: distended, hepatomegaly, tenderness - Extremities Exam Extremities exam: Present: warm, radial pulses palpable and symmetrical. Absent : calf tenderness, cyanotic, pedal edema - Neurological Exam Neurological exam: Present: alert, oriented X3, no focal deficits - Skin Skin exam: Present: dry, intact, normal color, rash, warm
== END 2017-01-04 11:40 | disposition home or self-care (01) ==
LOC: 3BNU
PROVIDERS: ADMIT Internal Medicine; ATTEND Registered Nurse

== ENCOUNTER 2017-02-07 16:50 | Inpatient (IN) ==
[2017-02-07] MEDS ORDERED: Acetaminophen IV 1,000 MG/100 ML INFUS..BTL IVPB ONE (19:52)
[2017-02-07] MEDS ORDERED: D5% in Water 1,000 ML IVC PRN (20:09)
[2017-02-07] MEDS ORDERED: Naloxone 0.4 MG/ML INJ IVP PRN (20:10)
[2017-02-07] MEDS ORDERED: Dextrose Gel 15 GM PO PRN ×2 (20:15)
[2017-02-07] MEDS ORDERED: *HR* Dextrose 50 % in Water (Syg) 50 ML SYRINGE IVP PRN ×2 (20:15→20:41)
[2017-02-07] MEDS ORDERED: 0.9 % Sodium Chloride 1,000 ML IVC SCH (20:15)
[2017-02-07] MEDS ORDERED: *HR* Metoprolol 5 MG/5 ML VIAL IVP ONE (20:17)
[2017-02-07] MEDS ORDERED: D5% in 0.45% NACL w KCl 20 MEQ/1,000 ML MLS IVC PRN (20:41)
[2017-02-07] MEDS ORDERED: Insulin Regular, Human 100 UNIT/ML IV PRN (20:41)
[2017-02-07] MEDS ORDERED: Insulin Human Regular 100 UNIT in 0.9 % Sodium Chloride 100 ML IVC SCH (20:45)
[2017-02-07] MEDS ORDERED: 0.45 % Sodium Chloride w/KCl 20 MEQ/1,000 ML MLS IVC PRN (20:45)
--- NOTE | 2017-02-07 20:52 | Internal Med History&Physical ---
<Rory Gold - Last Filed: 02/07/17 21:55> Date of Encounter: 02/07/17 Time of Encounter: 20:50 Assessment and Plan (1) Sepsis Current visit: Yes Status: Acute Unclear etiology. Leukocytosis, with a leftward shif, lactic acidosis, febrile 103.7, tachycardis and AMS changes UA unremarkable, CXR no acute pulmonary process, urine tox negative BCX2 stat, CBC, BMP stat, lactic acid stat and again at midnight Volume replacement 1L fluid bolus now then 70mh/hr d/t h/o CHF Start emperic ATB coverge with Vancomycin 1gm Q12 hrs, and Merrem 1gm q12hrs Continuous tele, continuous O2 monitoring CBC, CMP, mg, phos in the morning Qualifiers: Sepsis type: sepsis due to unspecified organism Qualified Code(s): A41.9 - Sepsis, unspecified organism (2) DKA (diabetic ketoacidoses) Current visit: Yes Status: Acute Patient presents with acidosis, hyperglycemia, ketones in her urine in an anion gap of 19 She is a poorly controlled diabetic. Metabolic panel reveals CASTRO Found unresponsive and continues to have altered mental status Initiate DKA protocol, 0.9 NS bolus x 1 liter then 70ml/hr Start 0.45 saline with 20meq potassium per DKA protocol rate Every hour Accu-Cheks, start insulin gtt Recheck BMP now then Q4hrs Qualifiers: Diabetes mellitus type: type 2 Diabetes mellitus complication detail: without coma Qualified Code(s): E13.10 - Other specified diabetes mellitus with ketoacidosis without coma (3) Poorly controlled diabetes mellitus Current visit: Yes Status: Chronic Hemoglobin A1c in reveals hemoglobin A1c of 9.5. Patient being admitted today due to DKA. Hold home dose of basal insulin and sliding scale. Placed patient on insulin drip. See plan above (4) [id number] kidney injury Current visit: Yes Status: Acute Unclear etiology. Patient has Sepsis and it may be the cause but dehydration d/ t volume loss associated with DKA is also in the differential avoid nephrotoxins, recheck serum Cr in the morning Fluid replacement per Sepsis protocol Qualifiers: Acute renal failure type: unspecified Chronic kidney disease stage: stage 4 (severe) Qualified Code(s): N17.9 - Acute kidney failure, unspecified; N18.4 - Chronic kidney disease, stage 4 (severe); N18.4 - Chronic kidney disease , stage 4 (severe); N18.4 - Chronic kidney disease, stage 4 (severe); N18.4 - Chronic kidney disease, stage 4 (severe) (5) Altered mental status Current visit: Yes Status: Acute AMS changes of unknown etiology. Was found unresponsive this afternoon by her son I suspect it is due to sepsis of unknow origin but could also be r/t new DX of DKA [facility] reports she is admitted frequently and that this is a definite change from her baseline. Appears to have expressive aphasia upon exam, unable to follow commands I do not believe she is had a CVA, but d/t AMS I will continue to monitor closely and workup further MRi head and brain without contrast in the morning neuro check per protocol, NIHSS now, elevate HOB Qualifiers: Altered mental status type: delirium Qualified Code(s): R41.0 - Disorientation, unspecified (6) Hypertensive emergency Current visit: Yes Status: Acute Upon [facility] patient's systolic blood pressure greater than 200. She continues to be hypertensive. She takes a BB for her blood pressure at home. It is unknown if she has taken a dose today as she was found unresponsive. Metoprolol 5mg IVP now and metoprolol 5mg IVP Q6hrs prn for SBP greater than 160 (7) DVT prophylaxis Current visit: Yes Status: Acute Heparin 5000 units SC BID Internal Medicine - H&P: HPI Chief complaint: DKA, SIRS, AMS, HTN urgency Admitted From: Home Plans for Post Hospital Care: Home History of present illness: Ms. Corbin is a 71 year old female with a PMH of asthma, fibromyalgia, CHF, CAD , DM, HLD, HTN, [place], osteoporosis, syncope and stage III renal disease. She presents to [facility] today from an H via EMS. All information obtained from chart review. It is reported the patient was found down by her son for an undetermined amount of time on the floor covered in stool and urine from head to toe. The patient was unresponsive at time of EMS arrival. When presenting to [facility] she was found to have altered mental status changes, [facility] a [facility] is normally alert and oriented. Additionally, she was noted to have hypertensive emergency with systolic blood pressures greater than 200s. Workup at outlying facility revealed lactic acidosis 5.9 leukocytosis and hyperglycemia. Patient continued to have alterations in mental status and changes in level of consciousness and was sent to [facility] for further workup and evaluation Past Med Surg Social Fam HX - Past Medical History Medical history: asthma, cancer, CHF, coronary artery disease, diabetes, fibromyalgia, GERD, hyperlipidemia, hypertension, myocardial infarction, osteoporosis, renal disease, syncope, other Psychiatric history: anxiety, bipolar, depression - Past Surgical History Surgical History: angioplasty/stent, appendectomy, cancer surgery, cholecystectomy, hysterectomy, orthopedic, other - Social History Smoking Status: Former smoker Smokeless Tobacco Status: No Alcohol use: none Drug use: none - Family History Mother History Unknown: Yes Living Status: Sister History Unknown: Yes Living Status: Hx Family Respiratory Disorders: Yes (Lung cancer) Brother History Unknown: Yes Adopted: No Family Member Ethnicity: Non- Living Status: Still Living Hx Family Cardiac Disorders: Yes Hx Family Respiratory Disorders: Yes Hx Family Cancer: Yes Hx Family GI Disorders: No Hx Family Endocrine Disorder: No Hx Family Neuromuscular Disorders: No Hx Family Neurologic Disorders: No Hx Family HEENT Disorders: No Hx Family Autoimmune Disorders: No Father History Unknown: Yes Adopted: No Family Member Ethnicity: Non- Living Status: Hx Family Cardiac Disorders: Yes Hx Family Respiratory Disorders: No Hx Family Cancer: No Hx Family GI Disorders: No Hx Family Endocrine Disorder: No Hx Family Neuromuscular Disorders: No Hx Family Neurologic Disorders: No Hx Family HEENT Disorders: No Hx Family Autoimmune Disorders: No Internal Medicine - H&P: Meds Cholecalciferol (Vitamin D3) [Vitamin D3] 50,000 unit PO QWEEK 11/22/14 [History ] Fenofibrate [Tricor] 48 mg PO HS 11/22/14 [History] Fluticasone Propionate [Flovent Hfa] 12 gm IH BID PRN 11/22/14 [History] Ranolazine [Ranexa] 1,000 mg PO BID 11/22/14 [History] Aspirin Enteric Coated [Aspirin EC] 81 mg PO DAILY 01/09/15 [History] Folic Acid 1 tab PO DAILY #30 tablet 07/16/15 [Rx] Clopidogrel [Plavix] 75 mg PO DAILY tablet 08/30/15 [Rx] Doxepin [Sinequan] 50 mg PO HS 08/30/15 [History] Insulin Glargine [Lantus] 90 unit SQ HS 08/30/15 [History] Insulin LISPRO [HumaLOG] 0 units SQ TIDWM 08/30/15 [History] Montelukast [Singulair] 10 mg PO HS 08/30/15 [History] Ondansetron ODT [Zofran ODT] 4 mg SL Q8HR PRN 08/30/15 [History] Polyethylene Glycol 3350 [MiraLAX] 17 gm PO DAILY PRN 08/30/15 [History] Atenolol 100 mg PO DAILY 01/01/17 [History] Atorvastatin Calcium [Lipitor] 80 mg PO HS 01/01/17 [History] Fluticasone Propionate [Flovent Diskus] 1 puff IH BID 01/01/17 [History] Furosemide [Lasix] 40 mg PO QID 01/01/17 [History] Gabapentin [Neurontin] 400 mg PO QID 01/01/17 [History] HydrOXYzine 10 mg PO BID 01/01/17 [History] Liraglutide [Victoza 2-Cristian] 1.2 mg SQ DAILY 01/01/17 [History] Oxycodone HCl/Acetaminophen [Percocet 10-325 mg Tablet] 1 tab PO Q8H PRN [History] Ranitidine HCl [Zantac] 300 mg PO DAILY 01/01/17 [History] Trazodone HCl 100 mg PO HS 01/01/17 [History] buPROPion HCl [Bupropion HCl Sr] 200 mg PO DAILY 01/01/17 [History] ALPRAZolam [Xanax 1 MG Tablet] 1 mg PO QID PRN tablet 01/04/17 [Rx] BuPROPion XL (24 HR) [Wellbutrin Xl] 150 mg PO DAILY tab.er.24h 01/04/17 [Rx] traZODone [TraZODone] 100 mg PO BID tablet 01/04/17 [Rx] 3 Allergy/AdvReac Type Severity Reaction Status Date / Time Iodinated Contrast- Oral and Allergy Rash Verified 07/30/16 23:16 IV Dye iron Allergy Hives Verified 07/30/16 23:16 [place] Allergy Nausea Verified 07/30/16 23:16 Sulfa (Sulfonamide Allergy Hives Verified 07/30/16 23:16 Antibiotics) ROS unobtainable: due to mental status All Systems PM: A 10-system review of systems was performed and is negative for pertinent findings except as documented above in the HPI. - Constitutional Vitals: Temp Pulse Resp BP 103.7 F H 122 20 177/114 02/07/17 19:47 02/07/17 19:47 02/07/17 19:47 02/07/17 19:47 General appearance: Present: mild distress, obese Exam: Responsive to loud verbal stimuli, ill-appearing obese female, - Head Head exam: Present: atraumatic, normocephalic - Eye Eye exam: Present: PERRL, conjuntiva pink, sclera anicteric. Absent: EOMI ([place]) , periorbital swelling, periorbital tenderness Pupils: Present: PERRL - Neck Neck exam general surgery: Present: supple, trachea midline. Absent: lymphadenopathy - Respiratory Respiratory exam: Present: decreased breath sounds, CTAB, tachypnea. Absent: rales, rhonchi, wheezes - Cardiovascular Cardiovascular exam: Present: RRR, +S1, +S2, tachycardia. Absent: diastolic murmur, irregular rhythm, JVD, systolic murmur - GI/Abdominal GI/Abdominal exam: Present: hypoactive bowel sounds, soft. Absent: tenderness - Extremities Exam Extremities exam: Present: normal capillary refill, warm, radial pulses palpable and symmetrical. Absent: calf tenderness, mottling, pedal edema, tenderness - Neurological Exam Neurological exam: Present: altered, speech deficit. Absent: strengths equal and symetr throughout ([place]), facial droop - Expanded Neurological Exam Neurological exam expanded: Present: expressive aphasia Patient oriented to: Absent: person, place, time Speech: Present: expressive aphasia Coma Scale Eye Opening: To Pain Coma Scale Motor Response: Localizes to Pain Coma Scale Verbal Response: Confused Coma Scale Total: 11 - Skin Skin exam: Present: dry, intact Internal Med - H&P Results - Labs CBC & Chem 7: 02/07/17 21:31 - Diagnostic Studies CT scan - head Status: image reviewed by me Additional comments: Negative for hemorrhage, mass effect or midline shift. Diffuse atrophic changes with findings suggestive of chronic microvascular ischemia. 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 Chest x-ray Status: image reviewed by me Additional comments: No acute pulmonary process. <Jesi Sears Last Filed: 02/07/17 23:56> Date of Encounter: 02/07/17 Internal Medicine - H&P: HPI History of present illness: Ms. Corbin is a 71 year old female All Systems PM: A 10-system review of systems was performed and is negative for pertinent findings except as documented above in the HPI. - Constitutional Vitals: Temp Pulse Resp BP Pulse Ox 100.7 F H 114 16 131/89 100 02/07/17 22:30 02/07/17 22:30 02/07/17 22:30 02/07/17 22:30 02/07/17 22:30 Internal Med - H&P Results - Labs CBC & Chem 7: 02/07/17 21:31 02/07/17 21:26 Labs: Short CBC 02/07/17 Range/Units 21:31 WBC 13.0 H (4.3-11.1) K/mcL Hgb 13.3 D (11.5-15.4) g/dL Hct 40.1 (35.3-44.9) % Plt Count 214 (140-400) K/mcL Neutrophils # 11.5 H (1.6-8.9) K/mcL BMP 02/07/17 21:26 Sodium 138 Potassium 4.8 H Chloride 103 Carbon Dioxide 21 BUN 15 Creatinine 1.67 H Glucose 378 H Calcium 9.9 Cardiac Enzymes 02/07/17 Range/Units 21:26 Troponin I 0.03 (0-0.03) ng/mL - Attending Attestation Patient independently seen and examined at bedside. patient admitted for sepsis of unknown etiology. will treat empirically with IV abx, IV fluids at this time. Lactic acidosis can be secondary to underlying sepsis/DKA. Improved since hospitalization Continue insulin gtt as per DKA protocol. continue accuchecks q1h and bmp q4h. LA q4h until normalization NPO at this time Noted to be in sinus tach and asymptomatic, denying any chest pain or sob BP better controlled Unclear of patient's baseline mental status. Awaiting verification of patient's home medications Case discussed with ARIC Gold, I agree with his documented findings, assessment, and plan.
[2017-02-07] MEDS ORDERED: Insulin DETEMIR 100 UNIT/ML X5UNITS SQ SCH (21:00)
[2017-02-07] MEDS ORDERED: Meropenem 1,000 MG in 0.9 % Sodium Chloride Mini Bag 100 ML IVPB SCH (21:35)
[2017-02-07 21:37] LABS: Basophils % 0.2 %; Hematocrit 40.1 % (35.3-44.9); Hemoglobin 13.3 g/dL (11.5-15.4); Immature Granulocytes % 0.2 % (0-4); Lymphocytes % 7.7 %; Mean Corpuscular HGB Conc 33.2 g/dL (31.6-35.5); Mean Corpuscular Hemoglobin 27.9 pg (28.0-33.3); Mean Corpuscular Volume 84.2 fL (83.0-100.0); Mean Platelet Volume 10.8 fL (9.4-12.4); Monocytes # 0.4 K/mcL (0.0-1.3); Monocytes % 3.2 %; Neutrophils # 11.5 K/mcL (1.6-8.9); Platelet Count 214 K/mcL (140-400); Red Blood Count 4.76 M/mcL (3.82-4.97); Red Cell Distribution Width 13.1 % (11.5-14.5); Segmented Neutrophils % 88.7 %
[2017-02-07] MEDS ORDERED: Vancomycin 1,500 MG in D5% in Water 250 ML IVPB ONE (22:00)
[2017-02-07 22:57] LABS: Calcium 9.9 mg/dL (8.6-10.8); Potassium 4.8 mEq/L (3.5-4.5)
[2017-02-07] MEDS: 0.9 % Sodium Chloride 1,000 ML IVC SCH ×2 (23:17→23:44)
[2017-02-08] MEDS ORDERED: Insulin LISPRO 300 UNITS/3 ML VIAL SQ SCH
[2017-02-08 00:38] LABS: Calcium 10.3 mg/dL (8.6-10.8); Potassium 4.8 mEq/L (3.5-4.5)
[2017-02-08] MEDS ORDERED: D5% in Water 1,000 ML IVC PRN (02:33)
[2017-02-08] MEDS ORDERED: *HR* Dextrose 50 % in Water (Syg) 50 ML SYRINGE IVP PRN (02:33)
[2017-02-08] MEDS ORDERED: Dextrose Gel 15 GM PO PRN ×2 (02:33)
[2017-02-08] MEDS ORDERED: D5% in 0.45% NACL 1,000 ML IVC SCH (02:45)
[2017-02-08] MEDS: Meropenem 1,000 MG in Water for inj. (sterile) 10 ML IVP SCH ×2 (02:57→08:42)
[2017-02-08 03:00] LABS: Basophils % 0.3 %; Hematocrit 36.7 % (35.3-44.9); Hemoglobin 12.2 g/dL (11.5-15.4); Immature Granulocytes % 0.3 % (0-4); Immature Platelets 4.6 % (1.1-6.1); Lymphocytes # 2.8 K/mcL (0.6-4.6); Lymphocytes % 18.7 %; Mean Corpuscular HGB Conc 33.2 g/dL (31.6-35.5); Mean Corpuscular Hemoglobin 28.2 pg (28.0-33.3); Mean Corpuscular Volume 84.8 fL (83.0-100.0); Mean Platelet Volume 10.8 fL (9.4-12.4); Monocytes # 1.4 K/mcL (0.0-1.3); Monocytes % 9.1 %; Neutrophils # 10.8 K/mcL (1.6-8.9); Platelet Count 231 K/mcL (140-400); Red Blood Count 4.33 M/mcL (3.82-4.97); Red Cell Distribution Width 13.2 % (11.5-14.5); Segmented Neutrophils % 71.6 %
[2017-02-08] MEDS: Insulin DETEMIR 100 UNIT/ML X5UNITS SQ SCH (03:08)
[2017-02-08] MEDS: *HR* Metoprolol 5 MG/5 ML VIAL IVP SCH ×4 (03:10→16:47)
[2017-02-08 03:18] LABS: Albumin 2.8 g/dL (3.5-5.0); Albumin/Globulin Ratio 0.7 (1.1-2.2); Bilirubin,Total 0.4 mg/dL (0.2-1.2); Calcium 9.3 mg/dL (8.6-10.8); Globulin 3.8 g/dL (2.4-3.5); Magnesium 1.6 mg/dL (1.6-2.6); Phosphorous 1.9 mg/dL (2.3-4.7); Potassium 4.2 mEq/L (3.5-4.5); Total Protein 6.6 g/dL (6.0-8.3)
[2017-02-08] MEDS: Insulin LISPRO 300 UNITS/3 ML VIAL SQ SCH ×5 (04:17→21:51)
[2017-02-08] MEDS ORDERED: Vancomycin 1,000 MG in D5% in Water 250 ML IVPB SCH (06:00)
[2017-02-08] MEDS: *HR* Heparin 5,000 UNIT/ML VIAL SQ SCH ×2 (07:03→16:47)
[2017-02-08 08:24] LABS: Calcium 9.2 mg/dL (8.6-10.8)
[2017-02-08 08:25] LABS: Potassium 4.8 mEq/L (3.5-4.5)
[2017-02-08] MEDS ORDERED: Acyclovir 500 MG in D5% in Water 250 ML IVPB SCH (11:00)
[2017-02-08 12:04] LABS: Calcium 9.6 mg/dL (8.6-10.8); Potassium 4.3 mEq/L (3.5-4.5)
[2017-02-08] MEDS ORDERED: Acetaminophen IV 500 MG/50 ML INFUS..BTL IVPB PRN (13:07)
[2017-02-08] MEDS ORDERED: Haloperidol Lactate 5 MG/ML VIAL IVP STA (13:46)
[2017-02-08] MEDS ORDERED: Haloperidol Lactate 5 MG/ML VIAL ONE (13:47)
[2017-02-08] MEDS ORDERED: Ringers Solution, Lactated 500 ML IVC ONE (15:22)
[2017-02-08] MEDS ORDERED: Potassium Phosphate 44 MEQ in 0.9 % Sodium Chloride 250 ML IVPB ONE (15:30)
[2017-02-08] MEDS ORDERED: Haloperidol Lactate 5 MG/ML VIAL IVP PRN (16:06)
--- NOTE | 2017-02-08 16:15 | Internal Med Progress Note ---
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; Z79.4 - [facility] (current) use of insulin; 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 - Constitutional Vitals: Temp Pulse Resp BP Pulse Ox 100.6 F H 102 20 155/71 97 02/08/17 11:56 02/08/17 15:16 02/08/17 11:56 02/08/17 11:56 02/08/17 15:16 General appearance: Present: mild distress, obese Internal Medicine: Result - Labs CBC & Chem 7: 02/08/17 02:42 02/08/17 11:43 Labs: Short CBC 02/07/17 02/08/17 Range/Units 21:31 02:42 WBC 13.0 H 15.0 H (4.3-11.1) K/mcL Hgb 13.3 D 12.2 (11.5-15.4) g/dL Hct 40.1 36.7 (35.3-44.9) % Plt Count 214 231 (140-400) K/mcL Neutrophils # 11.5 H 10.8 H (1.6-8.9) K/mcL BMP 02/07/17 02/08/17 02/08/17 21:26 00:15 02:42 Sodium 138 136 136 Potassium 4.8 H 4.8 H 4.2 Chloride 103 102 106 Carbon Dioxide 21 22 21 BUN 15 15 17 Creatinine 1.67 H 1.65 H 1.44 H Glucose 378 H 373 H 240 H Calcium 9.9 10.3 9.3 02/08/17 02/08/17 08:02 11:43 Sodium 136 137 Potassium 4.8 H 4.3 Chloride 107 107 Carbon Dioxide 19 21 BUN 16 13 Creatinine 1.32 H 1.34 H Glucose 250 H 209 H Calcium 9.2 9.6 Cardiac Enzymes 02/07/17 02/08/17 02/08/17 Range/Units 21:26 02:42 08:02 Troponin I 0.03 0.05 H* 0.06 H* (0-0.03) ng/mL Liver Function 02/08/17 Range/Units 02:42 Total Bilirubin 0.4 (0.2-1.2) mg/dL AST 16 (5-34) Units/L ALT 28 (0-55) Units/L Alkaline Phosphatase 49 (38-126) Units/L Albumin 2.8 L D (3.5-5.0) g/dL Consult Discharge Plan - Plan Referrals: Jonna Mcdermott, ARIC [Primary Care Provider] - (OFFICE WILL NOT SCHEDULE A FOLLOW UP APPOINTMENT UNTIL THEY ARE DISCHARGES)
--- NOTE | 2017-02-08 16:37 | Neurology - Consult Note ---
Date of Encounter: 02/08/17 Time of Encounter: 16:00 Assessment and Plan (1) Encephalopathy Current Visit: Yes Status: Acute This patient was found to be unresponsive at home was also in DKA and now very agitated at times though she is moving all 4 extremities the symptoms consistent with metabolic toxic encephalopathy/acute delirium. At the moment does not look like patient had an acute stroke due to the fact that she is moving all 4 extremities but certainly there is a possibility of lacunar infarction. On the other hand certainly infectious etiologies remains in the differential she is already being on broad-spectrum antibiotics as well as on acyclovir. At this time to be very difficult to do a spinal tap due to the agitation and at the same time because of her body habitus it would be very difficult bedside attempt, she may need in radiology. Regardless suggested that she should continue on antibiotics for now for any underlying sepsis at the same time continue to treat her DKA also check for a lacunar infarct and need an MRI of the brain will get an EEG to make sure no underlying seizure type of activity also check for any medication that may be contributing to her symptoms (2) DKA (diabetic ketoacidoses) Current Visit: Yes Status: Acute Qualifiers: Diabetes mellitus type: type 2 Diabetes mellitus complication detail: with coma Qualified Code(s): E11.11 - Type 2 diabetes mellitus with ketoacidosis with coma History of Present Illness HPI: Ms. Corbin is a 71 year old female with PMH of asthma, fibromyalgia, CHF, CAD, DM, HLD, HTN, [place], osteoporosis, syncope and stage III renal disease. was admitted via ER brought in by EMS, was found down by her son for an undetermined amount of time on the floor covered in stool and urine from head to toe. The patient was unresponsive at time of EMS arrival. she was seen at [place] , CT of head was negative, transferred to [place], she was noted to have hypertensive emergency with systolic blood pressures greater than 200s. she had lactic acidosis 5.9 leukocytosis and hyperglycemia. Patient continued to have mental status and changes, been treated for DKA. Noted to be significantly agitated she was taking to the MRI as was not able to lay still as she got very aggressive and has to be sedated she has received multiple doses of Haldol and is very sleepy now Past Med Surg Social Fam HX - Past Medical History Medical history: asthma, cancer, CHF, coronary artery disease, diabetes, fibromyalgia, GERD, hyperlipidemia, hypertension, myocardial infarction, osteoporosis, renal disease, syncope, other Psychiatric history: anxiety, bipolar, depression - Past Surgical History Surgical History: angioplasty/stent, appendectomy, cancer surgery, cholecystectomy, hysterectomy, orthopedic, other - Social History Smoking Status: Former smoker Smokeless Tobacco Status: No Alcohol use: none Drug use: none - Family History Mother History Unknown: Yes Living Status: Sister History Unknown: Yes Living Status: Hx Family Respiratory Disorders: Yes (Lung cancer) Brother History Unknown: Yes Adopted: No Family Member Ethnicity: Non- Living Status: Still Living Hx Family Cardiac Disorders: Yes Hx Family Respiratory Disorders: Yes Hx Family Cancer: Yes Hx Family GI Disorders: No Hx Family Endocrine Disorder: No Hx Family Neuromuscular Disorders: No Hx Family Neurologic Disorders: No Hx Family HEENT Disorders: No Hx Family Autoimmune Disorders: No Father History Unknown: Yes Adopted: No Family Member Ethnicity: Non- Living Status: Hx Family Cardiac Disorders: Yes Hx Family Respiratory Disorders: No Hx Family Cancer: No Hx Family GI Disorders: No Hx Family Endocrine Disorder: No Hx Family Neuromuscular Disorders: No Hx Family Neurologic Disorders: No Hx Family HEENT Disorders: No Hx Family Autoimmune Disorders: No Medications and Allergies Cholecalciferol (Vitamin D3) [Vitamin D3] 50,000 unit PO QWEEK 11/22/14 [History ] Fenofibrate [Tricor] 48 mg PO HS 11/22/14 [History] Ranolazine [Ranexa] 1,000 mg PO BID 11/22/14 [History] Aspirin Enteric Coated [Aspirin EC] 81 mg PO DAILY 01/09/15 [History] Doxepin [Sinequan] 50 mg PO HS 08/30/15 [History] Insulin Glargine [Lantus] 90 unit SQ HS 08/30/15 [History] Insulin LISPRO [HumaLOG] 0 units SQ TIDWM 08/30/15 [History] Ondansetron ODT [Zofran ODT] 4 mg SL Q8HR PRN 08/30/15 [History] Polyethylene Glycol 3350 [MiraLAX] 17 gm PO DAILY PRN 08/30/15 [History] Atorvastatin Calcium [Lipitor] 80 mg PO HS 01/01/17 [History] Gabapentin [Neurontin] 400 mg PO QID 01/01/17 [History] HydrOXYzine 10 mg PO BID 01/01/17 [History] Liraglutide [Victoza 2-Cristian] 1.2 mg SQ DAILY 01/01/17 [History] Oxycodone HCl/Acetaminophen [Percocet 10-325 mg Tablet] 1 tab PO Q8H PRN [History] Ranitidine HCl [Zantac] 300 mg PO DAILY 01/01/17 [History] buPROPion HCl [Bupropion HCl Sr] 200 mg PO DAILY 01/01/17 [History] Trazodone HCl 300 mg PO HS 02/08/17 [History] 3 Allergy/AdvReac Type Severity Reaction Status Date / Time Iodinated Contrast- Oral and Allergy Rash Verified 07/30/16 23:16 IV Dye iron Allergy Hives Verified 07/30/16 23:16 [place] Allergy Nausea Verified 07/30/16 23:16 Sulfa (Sulfonamide Allergy Hives Verified 07/30/16 23:16 Antibiotics) All Systems: not Able to obtain due to mental status changes and sedation as per history she was confused since admission but moving all 4 extremities equally Physical Examination - Vital Signs Vital Signs: Initial Vital Signs Temp Pulse Resp BP 103.7 F H 122 20 177/114 02/07/17 19:47 02/07/17 19:47 02/07/17 19:47 02/07/17 19:47 - Constitutional General appearance: comfortable, other (limited neuro exam, patient has just received sedation very sedated now but arousable she opened eyes able to say her name and but did not follow any commands and goes to sleep again. Pupils are reactive, no facial asymmetry seems to localize pain and withdraws to the deep and equally moving all 4 extremities equally. Reflexes are symmetrical and downgoing toes bilaterally) Results - Laboratory Findings CBC and BMP: 02/08/17 02:42 02/08/17 11:43 Abnormal lab findings: Abnormal lab results WBC 15.0 K/mcL (4.3-11.1) H 02/08/17 02:42 Neutrophils # 10.8 K/mcL (1.6-8.9) H 02/08/17 02:42 Monocytes # 1.4 K/mcL (0.0-1.3) H 02/08/17 02:42 Creatinine 1.34 mg/dL (0.57-1.11) H 02/08/17 11:43 Est GFR ( Amer) 47 (> 60) L 02/08/17 11:43 Est GFR (Non-Af Amer) 39 (> 60) L 02/08/17 11:43 Glucose 209 mg/dL (70-99) H 02/08/17 11:43 POC Glucose 208 (58-89) H 02/08/17 11:19 Lactic Acid 2.4 mmol/L (0.5-2.2) H 02/08/17 09:48 Phosphorus 1.9 mg/dL (2.3-4.7) L 02/08/17 02:42 Troponin I 0.06 ng/mL (0-0.03) H* 02/08/17 08:02 Albumin 2.8 g/dL (3.5-5.0) L D 02/08/17 02:42 Globulin 3.8 g/dL (2.4-3.5) H 02/08/17 02:42 Albumin/Globulin Ratio 0.7 (1.1-2.2) L 02/08/17 02:42 - Diagnostic Findings Additional findings: CT scan of the head in the emergency room did not show any bleed or infarct. Consult Discharge Plan - Plan Referrals: Jonna Mcdermott CNP [Primary Care Provider] - (OFFICE WILL NOT SCHEDULE A FOLLOW UP APPOINTMENT UNTIL THEY ARE DISCHARGES)
[2017-02-08] MEDS: MetroNIDAZOLE 500 MG/100 ML 500 MG/100 ML BAG IVPB SCH (16:43)
[2017-02-08] MEDS: cefTRIAXone 2,000 MG in Water for inj. (sterile) 20 ML IVP SCH (16:46)
--- NOTE | 2017-02-08 16:49 | Internal Med Progress Note ---
<TamaraTerry lai - Last Filed: 02/08/17 17:01> Date of Encounter: 02/08/17 Time of Encounter: 16:47 - Assessment and plan (1) Sepsis Current Visit: Yes Status: Acute Assessment and plan: Patient presented with leukocytosis, fever, tachycardia. Source remains unclear but likely either a GI infection or DOPSTER infection. Patient has had persistent diarrhea, GI panel pending. Given the patient's encephalopathy or covering for DOPSTER infection including herpes encephalitis. Continue antimicrobial therapy with vancomycin, Rocephin, Flagyl, acyclovir. Lactate remains persistently elevated, will give fluids, trend lactate Qualifiers: Sepsis type: sepsis due to unspecified organism Qualified Code(s): A41.9 - Sepsis, unspecified organism (2) Encephalopathy Current Visit: Yes Status: Acute Assessment and plan: Cause unclear, possibly related to underlying psychiatric disorder. DOPSTER infection cannot be ruled out. So far the patient has been unable to get an MRI or EEG given her altered mental status and agitation. We are also unable to perform an LP due to agitation and safety concerns. Treating empirically with vancomycin, Rocephin, and acyclovir. We will attempt to obtain MRI this evening. Neurology has been consulted. Haldol when necessary for agitation. (3) Hyperglycemia due to type 2 diabetes mellitus Current Visit: Yes Status: Acute Assessment and plan: Unlikely that the patient was not sure DKA, her anion gap metabolic acidosis was likely related to lactic acidosis. Patient's sugars have improved and her gap is now closed. Continue sliding scale insulin. Qualifiers: Diabetes mellitus long-term insulin use: with watermelon inspector use Qualified Code( s): E11.65 - Type 2 diabetes mellitus with hyperglycemia; Z79.4 - intermediate card tender ( current) use of insulin; Z79.4 - intermediate card tender (current) use of insulin; Z79.4 - intermediate card tender (current) use of insulin; Z79.4 - MCC (current) use of insulin (4) Hypertension Current Visit: Yes Status: Acute Assessment and plan: Patient's systolic blood pressures greater than 200 upon arrival, may be contributing to her altered mental status however this appears unlikely as she remains altered despite blood pressure improvement. PRES may be contributing as well, continue IV metoprolol for blood pressure control until the patient is able to take by mouth meds. Qualifiers: Hypertension type: essential hypertension Qualified Code(s): I10 - Essential (primary) hypertension (5) Ecduw-po-vxqurzg kidney injury Current Visit: Yes Status: Acute Assessment and plan: Likely related dehydration. Kidney function has improved with fluid hydration. Patient has good urine output. Qualifiers: Acute renal failure type: unspecified Chronic kidney disease stage: stage 3 (moderate) Qualified Code(s): N17.9 - Acute kidney failure, unspecified; N18.3 - Chronic kidney disease, stage 3 (moderate); N18.3 - Chronic kidney disease, stage 3 (moderate) - Subjective Interval history: Patient seen and examined at bedside. Patient is awake but minimally responsive. She will respond to verbal commands but in appropriately. She will answer yes to every question aasked. She does not appear to be in any acute distress. - Constitutional Vitals: Temp Pulse Resp BP Pulse Ox 98.2 F 99 18 154/77 98 02/08/17 16:25 02/08/17 16:25 02/08/17 16:25 02/08/17 16:25 02/08/17 16:25 General appearance: Present: A&O X 0, disheveled, obese. Absent: answers questions appropriately - Respiratory Respiratory exam: Present: decreased breath sounds. Absent: rales, rhonchi, wheezes - Cardiovascular Cardiovascular exam: Present: tachycardia (regular). Absent: gallop, rubs, systolic murmur - GI/Abdominal GI/Abdominal exam: Present: diminished bowel sounds, soft. Absent: distended, tenderness - Extremities Exam Extremities exam: Present: pedal edema (1+) - Neurological Exam Neurological exam: Present: altered Additional comments: Patient is responsive to painful and verbal stimuli but does not answer questions appropriately. She moves all 4 extremities spontaneously. Does not appear to be in any acute distress. Internal Medicine: Result - Labs CBC & Chem 7: 02/08/17 02:42 02/08/17 11:43 Labs: Short CBC 02/07/17 02/08/17 Range/Units 21:31 02:42 WBC 13.0 H 15.0 H (4.3-11.1) K/mcL Hgb 13.3 D 12.2 (11.5-15.4) g/dL Hct 40.1 36.7 (35.3-44.9) % Plt Count 214 231 (140-400) K/mcL Neutrophils # 11.5 H 10.8 H (1.6-8.9) K/mcL BMP 02/07/17 02/08/17 02/08/17 21:26 00:15 02:42 Sodium 138 136 136 Potassium 4.8 H 4.8 H 4.2 Chloride 103 102 106 Carbon Dioxide 21 22 21 BUN 15 15 17 Creatinine 1.67 H 1.65 H 1.44 H Glucose 378 H 373 H 240 H Calcium 9.9 10.3 9.3 02/08/17 02/08/17 08:02 11:43 Sodium 136 137 Potassium 4.8 H 4.3 Chloride 107 107 Carbon Dioxide 19 21 BUN 16 13 Creatinine 1.32 H 1.34 H Glucose 250 H 209 H Calcium 9.2 9.6 Cardiac Enzymes 02/07/17 02/08/17 02/08/17 Range/Units 21:26 02:42 08:02 Troponin I 0.03 0.05 H* 0.06 H* (0-0.03) ng/mL Liver Function 02/08/17 Range/Units 02:42 Total Bilirubin 0.4 (0.2-1.2) mg/dL AST 16 (5-34) Units/L ALT 28 (0-55) Units/L Alkaline Phosphatase 49 (38-126) Units/L Albumin 2.8 L D (3.5-5.0) g/dL Consult Discharge Plan - Plan Referrals: Jonna Mcdermott, CAR REPAIRER APPRENTICE [Primary Care Provider] - (OFFICE WILL NOT SCHEDULE A FOLLOW UP APPOINTMENT UNTIL THEY ARE DISCHARGES) <Maycol Wild - Last Filed: 02/08/17 18:40> Date of Encounter: 02/08/17 - Assessment and plan (1) Acute metabolic encephalopathy Current Visit: Yes Status: Acute Assessment and plan: Cause unknown at this time. 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 Current Visit: Yes Status: Suspected (4) Hypertensive urgency Current Visit: Yes Status: Acute (5) Hyperglycemia due to type 2 diabetes mellitus Current Visit: Yes Status: Chronic Qualifiers: Diabetes mellitus long-term insulin use: with long-term use Qualified Code( s): E11.65 - Type 2 diabetes mellitus with hyperglycemia; Z79.4 - intermediate card tender ( current) use of insulin; Z79.4 - MCC (current) use of insulin; Z79.4 - MCC (current) use of insulin; Z79.4 - intermediate card tender (current) use of insulin (6) CAD (coronary artery disease) Current Visit: Yes Status: Chronic Qualifiers: Coronary Disease-Associated Artery/Lesion type: [place] artery [place] vs. transplanted heart: [place] heart Associated angina: with unspecified angina Qualified Code(s): I25.119 - Atherosclerotic heart disease of [place] coronary artery with unspecified angina pectoris (7) Hyperlipidemia Current Visit: Yes Status: Chronic Qualifiers: Hyperlipidemia type: mixed hyperlipidemia Qualified Code(s): E78.2 - Mixed hyperlipidemia (8) CKD (chronic kidney disease) stage 3, GFR 30-59 ml/min Current Visit: No Status: Chronic - Constitutional Vitals: Temp Pulse Resp BP Pulse Ox 98.2 F 94 18 154/77 98 02/08/17 16:25 02/08/17 17:07 02/08/17 16:25 02/08/17 16:25 02/08/17 17:07 Internal Medicine: Result - Labs CBC & Chem 7: 02/08/17 02:42 02/08/17 11:43 Labs: Short CBC 02/07/17 02/08/17 Range/Units 21:31 02:42 WBC 13.0 H 15.0 H (4.3-11.1) K/mcL Hgb 13.3 D 12.2 (11.5-15.4) g/dL Hct 40.1 36.7 (35.3-44.9) % Plt Count 214 231 (140-400) K/mcL Neutrophils # 11.5 H 10.8 H (1.6-8.9) K/mcL BMP 02/07/17 02/08/17 02/08/17 21:26 00:15 02:42 Sodium 138 136 136 Potassium 4.8 H 4.8 H 4.2 Chloride 103 102 106 Carbon Dioxide 21 22 21 BUN Creatinine 1.67 H 1.65 H 1.44 H Glucose 378 H 373 H 240 H Calcium 9.9 10.3 9.3 02/08/17 02/08/17 08:02 11:43 Sodium 136 137 Potassium 4.8 H 4.3 Chloride 107 107 Carbon Dioxide 19 21 BUN 16 13 Creatinine 1.32 H 1.34 H Glucose 250 H 209 H Calcium 9.2 9.6 Cardiac Enzymes 02/07/17 02/08/17 02/08/17 Range/Units 21:26 02:42 08:02 Troponin I 0.03 0.05 H* 0.06 H* (0-0.03) ng/mL Liver Function 02/08/17 Range/Units 02:42 Total Bilirubin 0.4 (0.2-1.2) mg/dL AST 16 (5-34) Units/L ALT 28 (0-55) Units/L Alkaline Phosphatase 49 (38-126) Units/L Albumin 2.8 L D (3.5-5.0) g/dL - Attending Attestation I examined this patient and my medical decision-making was reviewed with the Resident Physician on 02/08/17. I agree with the documented findings, disposition and treatment plan as described except to the extent set forth below. Ms Corbin has been admitted for acute encephalopathy and concern for encephalitis versus other infection. She remains moderate to high risk due to the potential for worsening clinical status. Ms Corbin was not responsive this AM. She went to MRI and became very confused and agitated. She was given Haldol and is now sedated. She is having loose stools at times. She has also had recorded fevers here. Unable to get history from patient. Exam Alert. Confused. - earlier Mucus membranes moist Heart reg No wheeze Abd soft Moves all extremities. I/P 1. Acute encephalopathy - ? infection versus other (? psych). Placed on meds to cover DOPSTER infection. Neuro eval. MRI pending. 2. DM 3. Lactic acidosis - resolving Further diagnoses and plan as above.
[2017-02-08] MEDS: Acyclovir 700 MG in D5% in Water 250 ML IVPB SCH (21:42)
[2017-02-09] MEDS: *HR* Metoprolol 5 MG/5 ML VIAL IVP SCH ×4 (00:20→16:18)
[2017-02-09] MEDS: MetroNIDAZOLE 500 MG/100 ML 500 MG/100 ML BAG IVPB SCH ×3 (00:20→16:20)
[2017-02-09] MEDS: Insulin LISPRO 300 UNITS/3 ML VIAL SQ SCH ×6 (00:26→20:13)
[2017-02-09] MEDS ORDERED: Vancomycin 1,500 MG in D5% in Water 250 ML IVPB ONE (01:00)
[2017-02-09 05:32] LABS: Basophils # 0.1 K/mcL (0.0-0.2); Basophils % 0.6 %; Eosinophils # 0.2 K/mcL (0.0-0.6); Hemoglobin 12.1 g/dL (11.5-15.4); Immature Granulocytes % 0.2 % (0-4); Lymphocytes # 4.2 K/mcL (0.6-4.6); Lymphocytes % 39.2 %; Mean Corpuscular HGB Conc 32.7 g/dL (31.6-35.5); Mean Corpuscular Volume 85.6 fL (83.0-100.0); Mean Platelet Volume 11.2 fL (9.4-12.4); Monocytes # 0.9 K/mcL (0.0-1.3); Monocytes % 8.4 %; Neutrophils # 5.3 K/mcL (1.6-8.9); Platelet Count 199 K/mcL (140-400); Red Blood Count 4.32 M/mcL (3.82-4.97); Red Cell Distribution Width 13.5 % (11.5-14.5); Segmented Neutrophils % 49.6 %
[2017-02-09 05:43] LABS: Calcium 9.2 mg/dL (8.6-10.8); Magnesium 1.9 mg/dL (1.6-2.6); Potassium 3.7 mEq/L (3.5-4.5)
[2017-02-09 05:44] LABS: Phosphorous 3.1 mg/dL (2.3-4.7)
[2017-02-09] MEDS: *HR* Heparin 5,000 UNIT/ML VIAL SQ SCH ×2 (06:26→16:20)
--- NOTE | 2017-02-09 08:36 | Internal Med Progress Note ---
<Sahil Sutton - Last Filed: 02/09/17 13:19> Date of Encounter: 02/09/17 Time of Encounter: 08:29 - Assessment and plan (1) Sepsis Current Visit: Yes Status: Acute Assessment and plan: Patient presented with leukocytosis (WBC 13.0), fever, tachycardia. Potential etiologies GI infection or RECREATION CLERK infection. When patient came to she admitted to diarrhea x3 months which continues. GI panel pending. Given the patient's encephalopathy we are covering for RECREATION CLERK infection including herpes encephalitis. Continue antimicrobial therapy with vancomycin, Rocephin, Flagyl, acyclovir. Lactate initially elevated, given IV fluids and normalized yesterday at 1.4 Qualifiers: Sepsis type: sepsis due to unspecified organism Qualified Code(s): A41.9 - Sepsis, unspecified organism (2) Encephalopathy Current Visit: Yes Status: Acute Assessment and plan: We appreciate neurology input, consult yesterday: Think stroke less likely because moving all 4 extremities but lacunar infarct possible. Infectious etiology in differential however LP difficult given agitation and body habitus, may need interventional radiology. Agree with continued antibiotics, treat DKA , check MRI for possible lacunar infarct. EEG ordered yesterday afternoon to check for underlying seizure type of activity, pending as of this morning. We will continue vancomycin, Rocephin, Flagyl and acyclovir. Patient's state more amenable to MRI today. Will hold on LP for now pending neurology recommendations. Haldol when necessary for agitation (3) Hyperglycemia due to type 2 diabetes mellitus Current Visit: Yes Status: Chronic Assessment and plan: DKA thought to be less likely, her anion gap metabolic acidosis was likely related to lactic acidosis. Patient's sugars have improved and her gap is now closed. Will change sliding scale insulin to AC/HS Qualifiers: Diabetes mellitus halfway insulin use: with halfway use Qualified Code( s): E11.65 - Type 2 diabetes mellitus with hyperglycemia; Z79.4 - intermodal truck driver ( current) use of insulin; Z79.4 - intermodal truck driver (current) use of insulin; Z79.4 - intermodal truck driver (current) use of insulin; Z79.4 - intermodal truck driver (current) use of insulin (4) Hypertension Current Visit: Yes Status: Acute Assessment and plan: Patient's systolic blood pressures greater than 200 upon arrival, may be contributing to her altered mental status however this appears unlikely as she remains altered despite blood pressure improvement. Posterior reversible encephalopathy syndrome may be contributing as well, continue IV metoprolol for blood pressure control until the patient is able to take PO meds Qualifiers: Hypertension type: essential hypertension Qualified Code(s): I10 - Essential (primary) hypertension (5) Bhyxd-hu-wtonnmu kidney injury Current Visit: Yes Status: Acute Assessment and plan: Likely related to dehydration. Kidney function has improved with fluid hydration. Patient has good urine output. Qualifiers: Acute renal failure type: unspecified Chronic kidney disease stage: stage 3 (moderate) Qualified Code(s): N17.9 - Acute kidney failure, unspecified; N18.3 - Chronic kidney disease, stage 3 (moderate); N18.3 - Chronic kidney disease, stage 3 (moderate) - Subjective Interval history: Ms. Corbin is a 71 year old female with PMH of asthma, fibromyalgia, CHF, CAD, DM, HLD, HTN, [place], osteoporosis, syncope and stage III renal disease. Admitted by Dr. Sears 02/07 for unresponsiveness, found down on the floor by her son for an undetermined amount of time covered in stool and urine. At outside hospital she had altered mental status and hypertensive emergency with systolic blood pressures greater than 200s. Workup revealed lactic acidosis 5.9 leukocytosis and hyperglycemia and patient was transferred to [facility] This morning patient is alert and interactive which is a significant improvement from her status yesterday based on provider notes. She does not recall what happened at home prior to becoming unresponsive. She reports mild substernal chest pain but denies palpitation, shortness of breath, headache, or pain elsewhere. - Constitutional Vitals: Temp Pulse Resp BP Pulse Ox 98.6 F 90 20 149/78 90 02/09/17 07:41 02/09/17 07:41 02/09/17 07:41 02/09/17 07:41 02/09/17 07:41 General appearance: Present: no acute distress, obese, answers questions appropriately - Respiratory Respiratory exam: Present: CTAB. Absent: rales, rhonchi, wheezes, tachypnea - Cardiovascular Cardiovascular exam: Present: RRR. Absent: diastolic murmur, gallop, rubs, systolic murmur - GI/Abdominal GI/Abdominal exam: Present: soft. Absent: distended, tenderness - Extremities Exam Extremities exam: Present: pedal edema (1+) Internal Medicine: Result - Labs CBC & Chem 7: 02/09/17 04:34 02/09/17 04:34 Labs: Short CBC 02/09/17 Range/Units 04:34 WBC 10.8 (4.3-11.1) K/mcL Hgb 12.1 (11.5-15.4) g/dL Hct 37.0 (35.3-44.9) % Plt Count 199 (140-400) K/mcL Neutrophils # 5.3 (1.6-8.9) K/mcL BMP 02/08/17 02/09/17 11:43 04:34 Sodium 137 137 Potassium 4.3 3.7 Chloride 107 106 Carbon Dioxide 21 22 BUN 13 13 Creatinine 1.34 H 1.17 H Glucose 209 H 149 H Calcium 9.6 9.2 Cardiac Enzymes 02/08/17 Range/Units 08:02 Troponin I 0.06 H* (0-0.03) ng/mL Consult Discharge Plan - Plan Referrals: Jonna Mcdermott CNP [Primary Care Provider] - (OFFICE WILL NOT SCHEDULE A FOLLOW UP APPOINTMENT UNTIL THEY ARE DISCHARGES) <Jesi Sears - Last Filed: 02/09/17 17:25> Date of Encounter: 02/09/17 Time of Encounter: 12:10 - Constitutional Vitals: Temp Pulse Resp BP Pulse Ox 98.4 F 86 18 156/76 63 02/09/17 15:36 02/09/17 15:36 02/09/17 15:36 02/09/17 15:36 02/09/17 15:36 Internal Medicine: Result - Labs CBC & Chem 7: 02/09/17 04:34 02/09/17 04:34 Labs: Short CBC 02/09/17 Range/Units 04:34 WBC 10.8 (4.3-11.1) K/mcL Hgb 12.1 (11.5-15.4) g/dL Hct 37.0 (35.3-44.9) % Plt Count 199 (140-400) K/mcL Neutrophils # 5.3 (1.6-8.9) K/mcL BMP 02/09/17 04:34 Sodium 137 Potassium 3.7 Chloride 106 Carbon Dioxide 22 BUN 13 Creatinine 1.17 H Glucose 149 H Calcium 9.2 - Attending Attestation Patient independently seen and examined at bedside. Patient is a 71-year-old female admitted for DKA, metabolic encephalopathy, sepsis of unknown etiology. Patient much more awake and alert today, does not recall the preceding events to her hospitalization or the last 2 days of her hospitalization. Currently she is alert oriented 3. She denies any discomfort at this time. Continues to have watery diarrhea, reported of having 2 bowel movements today. We will continue empiric antibiotic coverage. Schedule for MRI head today. Neurology input appreciated. Blood glucose better controlled. Case discussed with resident physician Sahil Sutotn, I agree with this documented findings, assessment, and plan.
[2017-02-09] MEDS: Acyclovir 700 MG in D5% in Water 250 ML IVPB SCH ×2 (09:57→20:03)
[2017-02-09] MEDS: Insulin DETEMIR 100 UNIT/ML X5UNITS SQ SCH (10:25)
[2017-02-09] MEDS: Acetaminophen 325 MG TABLET PO PRN ×2 (14:30→21:27)
--- NOTE | 2017-02-09 15:17 | Neurology Progress Note ---
Date of Encounter: 02/09/17 Time of Encounter: 07:35 Assessment and Plan (1) Encephalopathy Current Visit: Yes Status: Acute Patient is in much better shape today she is able to have a conversation on neurological examination did not see any focal neurological deficit to be suggestive of a stroke at the same time no clinical signs and symptoms to be suggestive of STILL PUMP OPERATOR infection at this time I suspect that she likely has metabolic toxic encephalopathy related to her significantly elevated elevated blood sugar and note that seemed to resolved. She is on broad-spectrum antibiotics and there is no sign of the infection perhaps could be tapered off and discontinued will review the EEG today and I think that it will show any significant abnormalities again no focal neurological deficits on her current neurological examination other treatment is as per primary care team (2) DKA (diabetic ketoacidoses) Current Visit: Yes Status: Acute Qualifiers: Diabetes mellitus type: type 2 Diabetes mellitus complication detail: without coma Qualified Code(s): E13.10 - Other specified diabetes mellitus with ketoacidosis without coma Subjective Interval history: Patient seen as an follow-up she seemed to be doing much better as compared to yesterday mental status changes has resolved and now she is able to have a communication not able to recall much of the events from yesterday overall she is doing much better now Objective - Constitutional Vitals: Temp Pulse Resp BP Pulse Ox 98.6 F 100 20 175/76 96 02/09/17 11:34 02/09/17 11:34 02/09/17 11:34 02/09/17 11:34 02/09/17 11:34 - Neurological Exam Sensorimotor examination: Present: intact Motor Examination: Present: grossly full strength in all extremities Sensation intact: Present: intact Reflex and gait examination: intact Reflexes: Biceps: 1+, Triceps: 1+, Brachioradialis: 1+, Patella: 1+, Achilles: 1 + Mental Status Examination: Present: awake, alert, oriented to person, oriented to place, oriented to time, follows commands appropriately, answers questions appropriately, makes eye contact, follows simple commands, localizes noxious stimulation Cranial nerve examination: Present: PERRL, EOMI, visual shah intact, mastication intact, no facial asymmetry is present Results - Laboratory Findings CBC and BMP: 02/09/17 04:34 02/09/17 04:34 Abnormal lab findings: Abnormal lab results Creatinine 1.17 mg/dL (0.57-1.11) H 11/21/17 04:34 Est GFR ( Amer) 55 (> 60) L 02/09/17 04:34 Est GFR (Non-Af Amer) 46 (> 60) L 02/09/17 04:34 Glucose 149 mg/dL (70-99) H 02/09/17 04:34 POC Glucose 241 (58-89) H 02/09/17 12:29 Troponin I 0.06 ng/mL (0-0.03) H* 02/08/17 08:02 Albumin 2.8 g/dL (3.5-5.0) L D 02/08/17 02:42 Globulin 3.8 g/dL (2.4-3.5) H 02/08/17 02:42 Albumin/Globulin Ratio 0.7 (1.1-2.2) L 02/08/17 02:42 Consult Discharge Plan - Plan Referrals: Jonna Mcdermott, TRAFFIC CONTROL FLAGGER [Primary Care Provider] - (OFFICE WILL NOT SCHEDULE A FOLLOW UP APPOINTMENT UNTIL THEY ARE DISCHARGES)
[2017-02-09] MEDS: cefTRIAXone 2,000 MG in Water for inj. (sterile) 20 ML IVP SCH (16:19)
[2017-02-09 18:35] LABS: Bilirubin,Urine Negative (Negative); Blood,Urine Trace (Negative); Clarity,Urine Clear (Clear); Color,Urine Yellow (Yellow); Glucose,Urine (UA) >=1000 mg/dL (Normal); Ketones,Urine Negative (Negative); Leukocyte Esterase,Urine Negative (Negative); Nitrite,Urine Negative (Negative); Protein,Urine 30 mg/dL (Neg-Trace); Specific Gravity,Urine 1.024 (1.010-1.025); Urobilinogen,Urine Normal (Normal)
[2017-02-09 18:37] LABS: Bacteria,Urine None Seen per hpf (None-Few); Hyaline Casts,Urine None Seen per lpf (None-Few); Squamous Epithelial Cell,Urine Many per lpf (None-Few)
--- NOTE | 2017-02-09 20:34 | EEG/EMG/Oth Biometrics Report ---
EEG Procedure Report Date of procedure: 02/09/17 EEG Procedure: Routine EEG Procedure Note: Routine 18-channel digital EEG was obtained to rule out any seizure activity or focal abnormalities. FINDINGS: Background rhythm during awake stage shows well-organized, well- developed, average voltage 8 to 9 hertz alpha activity in the posterior regions. It blocks with eye opening and it is bilaterally synchronous and symmetrical. No [id number] discharges or any lateralizing abnormalities are seen. Photic stimulation did not produce any abnormalities. Hyperventilation was not performed f No abnormalities were found during the procedure. Intermittent EMG artifacts were seen. Stage II sleep was not achieved. IMPRESSION: Normal awake study. No epileptiform discharges or any other paroxysmal activities or focal abnormalities seen.
--- NOTE | 2017-02-10 00:07 | Event Note ---
<Ilya Soto - Last Filed: 02/10/17 00:05> Date of Encounter: 02/09/17 Time of Encounter: 23:30 Responded to nursing page with MRI result - performed 02/08/17 and demonstrated subacute infarcts within the right frontal lobe, right temporal lobe, and both cerebellar hemispheres. The infarcts within the cerebellum are mildly hemorrhagic vs artifact. Patient was conversing without deficit during exam Neuro examination was completely benign with no signs or symptoms of CVA - Sensoimotor, Motor, sensation and reflexes intact. Supine leg lift intact. No pronator drift present. - Awake, alert, oriented to person/place/time, follows commands - PERRL, EOMI, visual shah intact, no facial asymmetry No new orders or changes at this time. Patient in stable condition. Neuro team will re-evaluate tomorrow. <Toi Bo - Last Filed: 02/10/17 04:35> Date of Encounter: 02/10/17
[2017-02-10] MEDS: MetroNIDAZOLE 500 MG/100 ML 500 MG/100 ML BAG IVPB SCH ×2 (00:15→08:45)
[2017-02-10 00:17] LABS: Adenovirus F 40/41 PCR Not detected (Not detect); Astrovirus PCR Not detected (Not detect); C.difficile Toxin A/B by PCR Not detected (Not detect); Campylobacter by PCR Not detected (Not detect); Cryptosporidium by PCR Not detected (Not detect); Cyclospora cayetanensis PCR Not detected (Not detect); E. coli O157 by PCR Not detected (Not detect); Entamoeba histolytica PCR Not detected (Not detect); Enteroaggregative E.coli(EAEC) Not detected (Not detect); Enteropathogenic E.coli(EPEC) Not detected (Not detect); Enterotoxigenic E.coli (ETEC) Not detected (Not detect); Giardia lamblia PCR Not detected (Not detect); Norovirus GI/GII PCR Not detected (Not detect); Plesiomonas shigelloides PCR Not detected (Not detect); Rotavirus A PCR Not detected (Not detect); Salmonella PCR Not detected (Not detect); Sapovirus PCR Not detected (Not detect); Shig/EnteroinvasiveE coli EIEC Not detected (Not detect); Shigalike tox-prod E coli STEC Not detected (Not detect); Vibrio PCR Not detected (Not detect); Vibrio cholerae PCR Not detected (Not detect); Yersinia enterocolitica PCR Not detected (Not detect)
[2017-02-10] MEDS: Insulin LISPRO 300 UNITS/3 ML VIAL SQ SCH ×6 (00:17→20:45)
[2017-02-10] MEDS: *HR* Metoprolol 5 MG/5 ML VIAL IVP SCH ×4 (00:28→18:20)
[2017-02-10] MEDS: Vancomycin 1,500 MG in D5% in Water 250 ML IVPB SCH (01:17)
--- NOTE | 2017-02-10 01:53 | Event Note ---
Date of Encounter: 02/10/17 Time of Encounter: 00:15 RN called regarding patient's MRI brain report. This has been reviewed. 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 Patient also has infarct in the cerebellum, with microhemorrhages. I have discussed with on-call neurologist Dr. Dale. He advised to hold off on Aspirin and stop heparin subcutaneous. Advised to continue neurochecks and NIH. He will evaluate patient in the morning. No further intervention required at this time for microhemorrhages. On examination patient is awake and alert. Not in any distress. She is awake and alert and oriented 3. I have done a neuro exam on her. Patient has no focal neurological deficits. Her speech is normal. Cranial nerves intact. Strength 5/5 in all extremities. Patient's only complaint is a mild headache in the frontal region. Describes it as throbbing, rates it 6/10. Denies chest pain or shortness of breath or dizziness. States she feels better at this time. No other acute events or complaints. Heart rate 84, blood pressure 166/74, O2 sat 98% on room air. Heart S1-S2 positive. Lungs bilateral good air entry. Plan is to continue all current medications. Stop heparin subcutaneous. Hold off on aspirin. Patient will be on SCDs for DVT prophylaxis. Echocardiogram and carotid Doppler pending. Continue neurochecks and NIH at this time.
[2017-02-10] MEDS: *HR* Morphine 2 MG/ML SYRINGE IVP PRN ×2 (02:27→12:25)
[2017-02-10 04:20] LABS: Basophils % 0.6 %; Eosinophils # 0.4 K/mcL (0.0-0.6); Eosinophils % 5.5 %; Hematocrit 35.6 % (35.3-44.9); Hemoglobin 11.5 g/dL (11.5-15.4); Immature Granulocytes % 0.1 % (0-4); Lymphocytes # 2.3 K/mcL (0.6-4.6); Lymphocytes % 33.4 %; Mean Corpuscular HGB Conc 32.3 g/dL (31.6-35.5); Mean Corpuscular Hemoglobin 27.6 pg (28.0-33.3); Mean Corpuscular Volume 85.6 fL (83.0-100.0); Mean Platelet Volume 10.8 fL (9.4-12.4); Monocytes # 0.6 K/mcL (0.0-1.3); Neutrophils # 3.6 K/mcL (1.6-8.9); Platelet Count 180 K/mcL (140-400); Red Blood Count 4.16 M/mcL (3.82-4.97); Red Cell Distribution Width 13.3 % (11.5-14.5); Segmented Neutrophils % 52.4 %
[2017-02-10 04:33] LABS: BUN/Creatinine Ratio 10 (6-26); Blood Urea Nitrogen 11 mg/dL (7-20); Calcium 9.1 mg/dL (8.6-10.8); Carbon Dioxide 24 mEq/L (19-29); Chloride 107 mEq/L (98-109); Glucose 148 mg/dL (70-99); Magnesium 1.9 mg/dL (1.6-2.6); Osmolality,Calculated 290 (280-300); Potassium 3.7 mEq/L (3.5-4.5); Sodium 139 mEq/L (136-145); eGFR For African Americans > 60 (> 60); eGFR For Non-African Americans 51 (> 60)
[2017-02-10] MEDS: Acyclovir 700 MG in D5% in Water 250 ML IVPB SCH (08:44)
[2017-02-10] MEDS: Insulin DETEMIR 100 UNIT/ML X5UNITS SQ SCH (08:45)
[2017-02-10] MEDS ORDERED: Perflutren Lipid Microsphere 1.3 ML in 0.9 % Sodium Chloride 8.7 ML IVP ONE (10:40)
--- NOTE | 2017-02-10 10:59 | Neurology Progress Note ---
Date of Encounter: 02/10/17 Time of Encounter: 07:25 Assessment and Plan (1) CVA (cerebral vascular accident) Current Visit: Yes Status: Acute This patient who was admitted earlier with unresponsiveness also fond to have elevated blood pressure, and was in DKA, has improvement in her mental status and now on imaging studies she was found to have right hemispheric infarct as well as bilateral cerebellar infarct and mild hemorrhage in the ischemic area. At this time I suspect that this patient probably has infarct along with her elevated blood pressure and DKA. She did not have any clinical signs and symptoms from the stroke and particularly no paralysis needed any significant dysmetria from the cerebellar stroke , she would likely have some difficulty with her gait and balance but at this time gait was not tested. Considering significant ischemia in the posterior circulation I would suggest get CT angiogram or MRA of the head and neck and particularly to look for any vertebral basilar stenosis or any embolic source. She is also scheduled to get an echocardiogram as well. She has been complaining of these mild headaches which could be due to the cerebellar infarct. There is not much benefit of using any steroids from cytotoxic edema as usually it is not much helpful especially in someone with the recent DKA and continued elevation of the blood sugar may make her symptoms worse. Suggestive treat headaches symptomatically avoiding NSAIDs She has been off all antiplatelet agent as well as any subcutaneous heparin since due to the hemorrhagic component in her cerebellar infarct. Clinically at this time she is quite stable did not have any clinical signs and symptoms and particularly no focal motor weakness suggest repeating imaging studies in the next 2 or 3 days to document the stability. Continue to monitor her blood pressure keep it is stable range due to the hemorrhage competent I would recommend that should be within normal limit as much as possible. Continued to have frequent neuro checks and continue to treat her hyperglycemia. 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 (2) Encephalopathy Current Visit: Yes Status: Acute resolved now back to baseline, no evidence of Seizure, EEG is negative (3) DKA (diabetic ketoacidoses) Current Visit: Yes Status: Acute Qualifiers: Diabetes mellitus type: type 2 Diabetes mellitus complication detail: without coma Qualified Code(s): E13.10 - Other specified diabetes mellitus with ketoacidosis without coma Subjective Interval history: Patient seen as an follow-up , she seem to be stable, she denies any other symptoms except headaches which she has been having since yesterday without any visual changes no evidence of any other focal motor weakness. Patient had an MRI of the brain last night shows an evidence of multiple infarct in her right hemisphere as well as bilateral cerebellar infarct with evidence of mild hemorrhage in the ischemic area. Antiplatelet agent as well as subcutaneous heparin has been discontinued. Her blood pressure and blood sugar seems to be stable mental status changes has resolved and now she is able to have a communication not able to recall much of the events from yesterday overall she is doing much better now Objective - Constitutional Vitals: Temp Pulse Resp BP Pulse Ox 98.1 F 87 18 168/77 97 02/10/17 07:44 02/10/17 07:44 02/10/17 07:44 02/10/17 07:44 02/10/17 07:44 - Neurological Exam Sensorimotor examination: Present: intact Motor Examination: Present: grossly full strength in all extremities, full strength in all major muscle groups Sensation intact: Present: intact Reflex and gait examination: intact Reflexes: Biceps: 1+, Triceps: 1+, Brachioradialis: 1+, Patella: 1+, Achilles: 1 + Mental Status Examination: Present: awake, alert, oriented to person, oriented to place, oriented to time, follows commands appropriately, answers questions appropriately, makes eye contact, follows simple commands, localizes noxious stimulation Cranial nerve examination: Present: PERRL, EOMI, visual shah intact, mastication intact, no facial asymmetry is present - VTE Documentation of Mechanical Device: Intermittent pneumatic compression device Results - Laboratory Findings CBC and BMP: 02/10/17 04:00 02/10/17 04:00 Abnormal lab findings: Abnormal lab results MCH 27.6 pg (28.0-33.3) L 02/10/17 04:00 Est GFR (Non-Af Amer) 51 (> 60) L 02/10/17 04:00 Glucose 148 mg/dL (70-99) H 02/10/17 04:00 POC Glucose 148 (58-89) H 02/10/17 07:47 Troponin I 0.06 ng/mL (0-0.03) H* 02/08/17 08:02 Albumin 2.8 g/dL (3.5-5.0) L D 02/08/17 02:42 Globulin 3.8 g/dL (2.4-3.5) H 02/08/17 02:42 Albumin/Globulin Ratio 0.7 (1.1-2.2) L 02/08/17 02:42 Urine Protein 30 mg/dL (Neg-Trace) H 02/09/17 18:21 Urine Glucose (UA) >=1000 mg/dL (Normal) H 02/09/17 18:21 Urine Blood Trace (Negative) H 02/09/17 18:21 Urine Microscopic RBC 3-5 per hpf (0-3) H 02/09/17 18:21 Urine Microscopic WBC 5-15 per hpf (0-3) H 02/09/17 18:21 Ur Squamous Epith Cells Many per lpf (None-Few) H 02/09/17 18:21 - Diagnostic Findings Additional findings: mRi of Brain, showed Subacute infarcts within the right frontal lobe, right temporal lobe, and both cerebellar hemispheres. The infarcts within the cerebellum are mildly hemorrhagic. Consult Discharge Plan - Plan Referrals: Jonna Mcdermott CNP [Primary Care Provider] - 02/17/17 12:30 pm ()
[2017-02-10] MEDS: Acetaminophen 325 MG TABLET PO PRN (12:24)
[2017-02-10] MEDS ORDERED: Acetaminophen 325 MG TABLET PO PRN (12:55)
--- NOTE | 2017-02-10 15:20 | Internal Med Progress Note ---
<Terry Tariq - Last Filed: 02/10/17 15:18> Date of Encounter: 02/10/17 Time of Encounter: 15:18 - Assessment and plan (1) Sepsis Current Visit: Yes Status: Resolved Assessment and plan: Patient presented with leukocytosis (WBC 13.0), fever, tachycardia. These have resolved. Potential etiologies GI infection or [employer]ER infection however the source remains unclear. GI panel was unremarkable. MRI and EEG are not indicative of a viral encephalitis. Flagyl and acyclovir had been discontinued. Continue with Rocephin and vancomycin, if the patient continues to improve clinically then we will likely discontinue vancomycin tomorrow. Qualifiers: Sepsis type: sepsis due to unspecified organism Qualified Code(s): A41.9 - Sepsis, unspecified organism (2) Encephalopathy Current Visit: Yes Status: Resolved Assessment and plan: Resolved. Patient is alert and oriented 3 and appears to back and her baseline mental status. Likely related to acute CVA. MRI shows multiple infarcts including bilateral cerebellar infarcts as well as frontal lobe infarct which are likely the cause of the patient's altered mental status. (3) CVA (cerebral vascular accident) Current Visit: Yes Status: Acute Assessment and plan: Patient underwent MRI which revealed subacute infarct within the right frontal lobe, right temporal lobe, and both cerebellar hemispheres. The cerebellar hemispheres are mildly hemorrhagic. Antiplatelet and DVT prophylaxis heparin were discontinued given the hemorrhagic nature of her cerebellar infarcts. At this point her symptoms appear to have resolved. 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 No rupture evident. Discussed with neurology, they will continue to follow the patient. They did recommend repeat imaging in 2-3 days to document stability. Continue every 4 neuro checks. 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 Patient's sugars have improved and her gap is now closed. Continue Levemir 45 units daily Will change sliding scale insulin to AC/HS, blood sugars have been under good control Qualifiers: Diabetes mellitus alf insulin use: with alf use Qualified Code( s): E11.65 - Type 2 diabetes mellitus with hyperglycemia; Z79.4 - [place] ( current) use of insulin; Z79.4 - meterman (current) use of insulin; Z79.4 - [place]erman (current) use of insulin; Z79.4 - meterman (current) use of insulin (5) Hypertension Current Visit: Yes Status: Chronic Assessment and plan: Patient's systolic blood pressures greater than 200 upon arrival, may be contributing to her altered mental status however this appears unlikely as she remains altered despite blood pressure improvement. Blood pressures under better control but will allow for some permissive hypertension in the setting of acute CVA. Continue Lopressor 5 mg IV every 6 hours. Qualifiers: Hypertension type: essential hypertension Qualified Code(s): I10 - Essential (primary) hypertension (6) [id number] kidney injury Current Visit: Yes Status: Resolved Assessment and plan: Likely related to dehydration in the setting of severe hyperglycemia. Kidney function has improved with fluid hydration. Patient has good urine output. Qualifiers: Acute renal failure type: unspecified Chronic kidney disease stage: stage 3 (moderate) Qualified Code(s): N17.9 - Acute kidney failure, unspecified; N18.3 - Chronic kidney disease, stage 3 (moderate); N18.3 - Chronic kidney disease, stage 3 (moderate) (7) Diarrhea Current Visit: Yes Status: Acute Assessment and plan: Patient reports continued diarrhea, up to every 2 hours. GI panel for infectious causes was performed and found to be negative. Will check fecal electrolytes, and treat symptomatically with loperamide 2 mg as needed. Qualifiers: Diarrhea type: unspecified type Qualified Code(s): R19.7 - Diarrhea, unspecified - Subjective Interval history: Patient seen and examined at bedside. Patient is awake alert and conversing normally. She reports diarrhea. Otherwise she states that she feels good. She feels like her normal self. She denies confusion, weakness, paralysis, chest pain, shortness of breath. - Constitutional Vitals: Temp Pulse Resp BP Pulse Ox 98 F 93 15 145/60 97 02/10/17 11:49 02/10/17 11:49 02/10/17 11:49 02/10/17 11:49 02/10/17 11:49 General appearance: Present: A&O X 3, no acute distress, obese, answers questions appropriately - Respiratory Respiratory exam: Present: CTAB. Absent: rales, rhonchi, wheezes - Cardiovascular Cardiovascular exam: Present: RRR. Absent: gallop, rubs, systolic murmur - GI/Abdominal GI/Abdominal exam: Present: normal bowel sounds, soft. Absent: distended, tenderness - Extremities Exam Extremities exam: Present: pedal edema (1+), warm. Absent: tenderness - Neurological Exam Neurological exam: Present: alert, CN II-XII intact, oriented X3, no focal deficits, strengths equal and symetr throughout. Absent: facial droop Internal Medicine: Result - Labs CBC & Chem 7: 02/10/17 04:00 02/10/17 04:00 Labs: Short CBC 02/10/17 Range/Units 04:00 WBC 6.9 (4.3-11.1) K/mcL Hgb 11.5 (11.5-15.4) g/dL Hct 35.6 (35.3-44.9) % Plt Count 180 (140-400) K/mcL Neutrophils # 3.6 (1.6-8.9) K/mcL BMP 02/10/17 04:00 Sodium 139 Potassium 3.7 Chloride 107 Carbon Dioxide 24 BUN 11 Creatinine 1.07 Glucose 148 H Calcium 9.1 Urine 02/09/17 Range/Units 18:21 Urine Color Yellow (Yellow) Urine Clarity Clear (Clear) Urine pH 6.0 (5.0-8.0) pH Units Ur Specific [place] 1.024 (1.010-1.025) Urine Protein 30 H (Neg-Trace) mg/dL Urine Glucose (UA) >=1000 H (Normal) mg/dL - Impressions Impressions Brain MRI 02/08/17 20:20 IMPRESSION: Subacute infarcts within the right frontal lobe, right temporal lobe, and both cerebellar hemispheres. The infarcts within the cerebellum are mildly hemorrhagic. The findings were sent to the Radiology Results Communication [facility] at 10:58 pm on 02/09/2017to be communicated to a licensed caregiver. D/ / Bharat Dan MD / Bharat Dan MD Interpreting Provider: Bharat Dan MD Head MRA 02/10/17 10:01 IMPRESSION: 1. No focal stenosis of the [place]. 2. Question of a 2 mm inferiorly projecting aneurysm arising in the region of the anterior communicating artery. These results were sent to the [facility] Communication [facility] ([facility]) on 02/10/2017 at 1:57 pm to be communicated to the referring/covering health care provider/office. D/ / Kaden Lanza MD / Kaden Lanza MD Interpreting Provider: Kaden Lanza MD Echocardiogram 02/10/17 23:47 Impressions: LVEF 70%. Normal LV chamber size and function. Mild concentric left ventricular hypertrophy. Mild left ventricular diastolic dysfunction. Normal right ventricular structure and function. No significant valvular dysfunction. Unable to estimate RVSP due to lack of TR jet. Suboptimal image quality, but no obvious evidence of a PFO with agitated saline contrast. Left Ventricular Wall Motion: Rest Echo Findings All wall segments showed normal motion. Findings: Study Quality * Technically adequate exam. ECG Findings * Sinus tachycardia. Left Ventricle * LVEF 70%. * Normal LV chamber size and function. * Mild concentric left ventricular hypertrophy. * Mild left ventricular diastolic dysfunction. Right Ventricle * Normal right ventricular structure and function. Left Atrium * Mildly dilated left atrium. Right Atrium * Normal right atrial size. Interatrial Septum * Suboptimal image quality, but no obvious evidence of a PFO with agitated saline contrast. Aortic Valve * Aortic valve not well visualized. * No aortic regurgitation. * No aortic stenosis. Mitral Valve * Normal mitral valve structure and function. * No mitral regurgitation. * No mitral stenosis. Tricuspid Valve * Normal tricuspid valve structure and function. * No tricuspid regurgitation. * Unable to estimate RVSP due to lack of TR jet. Pulmonic Valve * Pulmonic valve not well visualized. Aorta * Normally sized aortic root. Pericardium * The pericardium appears normal. IVC * Normal IVC dimensions and inspiratory collapse. Pulmonary Artery * Normal visualized portions of the main pulmonary artery. - VTE Documentation of Mechanical Device: Intermittent pneumatic compression device Consult Discharge Plan - Plan Referrals: Jonna Mcdermott CNP [Primary Care Provider] - 02/17/17 12:30 pm () <Jesi Sears - Last Filed: 02/10/17 17:25> Date of Encounter: 02/10/17 - Constitutional Vitals: Temp Pulse Resp BP Pulse Ox 97.9 F 82 18 152/70 98 02/10/17 16:18 02/10/17 16:18 02/10/17 16:18 02/10/17 16:18 02/10/17 16:18 Internal Medicine: Result - Labs CBC & Chem 7: 02/10/17 04:00 02/10/17 04:00 Labs: Short CBC 02/10/17 Range/Units 04:00 WBC 6.9 (4.3-11.1) K/mcL Hgb 11.5 (11.5-15.4) g/dL Hct 35.6 (35.3-44.9) % Plt Count 180 (140-400) K/mcL Neutrophils # 3.6 (1.6-8.9) K/mcL BMP 02/10/17 04:00 Sodium 139 Potassium 3.7 Chloride 107 Carbon Dioxide 24 BUN 11 Creatinine 1.07 Glucose 148 H Calcium 9.1 Urine 02/09/17 Range/Units 18:21 Urine Color Yellow (Yellow) Urine Clarity Clear (Clear) Urine pH 6.0 (5.0-8.0) pH Units Ur Specific [place] 1.024 (1.010-1.025) Urine Protein 30 H (Neg-Trace) mg/dL Urine Glucose (UA) >=1000 H (Normal) mg/dL - Impressions Impressions Brain MRI 02/08/17 20:20 IMPRESSION: Subacute infarcts within the right frontal lobe, right temporal lobe, and both cerebellar hemispheres. The infarcts within the cerebellum are mildly hemorrhagic. The findings were sent to the Radiology Results Communication [facility] at 10:58 pm on 02/09/2017to be communicated to a licensed caregiver. D/ / Bharat Dan MD / Bharat Dan MD Interpreting Provider: Bharat Dan MD Head MRA 02/10/17 10:01 IMPRESSION: 1. No focal stenosis of the [place]. 2. Question of a 2 mm inferiorly projecting aneurysm arising in the region of the anterior communicating artery. These results were sent to the [facility] ([facility]) on 02/10/2017 at 1:57 pm to be communicated to the referring/covering health care provider/office. D/ / Kaden Lanza MD / Kaden Lanza MD Interpreting Provider: Kaden Lanza MD Echocardiogram 02/10/17 23:47 Impressions: LVEF 70%. Normal LV chamber size and function. Mild concentric left ventricular hypertrophy. Mild left ventricular diastolic dysfunction. Normal right ventricular structure and function. No significant valvular dysfunction. Unable to estimate RVSP due to lack of TR jet. Suboptimal image quality, but no obvious evidence of a PFO with agitated saline contrast. Left Ventricular Wall Motion: Rest Echo Findings All wall segments showed normal motion. Findings: Study Quality * Technically adequate exam. ECG Findings * Sinus tachycardia. Left Ventricle * LVEF 70%. * Normal LV chamber size and function. * Mild concentric left ventricular hypertrophy. * Mild left ventricular diastolic dysfunction. Right Ventricle * Normal right ventricular structure and function. Left Atrium * Mildly dilated left atrium. Right Atrium * Normal right atrial size. Interatrial Septum * Suboptimal image quality, but no obvious evidence of a PFO with agitated saline contrast. Aortic Valve * Aortic valve not well visualized. * No aortic regurgitation. * No aortic stenosis. Mitral Valve * Normal mitral valve structure and function. * No mitral regurgitation. * No mitral stenosis. Tricuspid Valve * Normal tricuspid valve structure and function. * No tricuspid regurgitation. * Unable to estimate RVSP due to lack of TR jet. Pulmonic Valve * Pulmonic valve not well visualized. Aorta * Normally sized aortic root. Pericardium * The pericardium appears normal. IVC * Normal IVC dimensions and inspiratory collapse. Pulmonary Artery * Normal visualized portions of the main pulmonary artery. - Attending Attestation Patient independently seen and examined at bedside. Pt had MRI yesterday evening and reported to have subacute infarct within the right frontal lobe, right temporal lobe, and both cerebellar hemispheres. The cerebellar hemispheres are mildly hemorrhagic. Aspirin and DVT ppx was discontinued. 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 Holliday informed). Pt's neurological exam negative for any focal deficits. D/C Flagyl and Acyclovir continue one more day of empiric Vanco and Ceftriaxone, if remains clinically stable, likely d/c IV abx in am BG better controlled Case discussed with resident physician Terry Tariq, I agree with his documented findings, assessment, and plan except as listed above
[2017-02-10] MEDS: cefTRIAXone 2,000 MG in Water for inj. (sterile) 20 ML IVP SCH (18:11)
[2017-02-10] MEDS: *HR* OxyCODONE Immed Rel 5 MG TABLET PO PRN ×2 (18:21→23:02)
--- NOTE | 2017-02-10 20:05 | Electrocardiograph Report ---
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
[2017-02-10] MEDS: Fenofibrate 54 MG TABLET PO SCH (20:44)
[2017-02-11] MEDS: *HR* Metoprolol 5 MG/5 ML VIAL IVP SCH ×5 (02:15→23:57)
[2017-02-11] MEDS: Insulin LISPRO 300 UNITS/3 ML VIAL SQ SCH ×7 (02:23→23:57)
[2017-02-11] MEDS: Vancomycin 1,500 MG in D5% in Water 250 ML IVPB SCH (03:28)
[2017-02-11 06:10] LABS: BUN/Creatinine Ratio 6 (6-26); Blood Urea Nitrogen 6 mg/dL (7-20); Calcium 8.9 mg/dL (8.6-10.8); Carbon Dioxide 22 mEq/L (19-29); Chloride 108 mEq/L (98-109); Glucose 163 mg/dL (70-99); Magnesium 1.6 mg/dL (1.6-2.6); Osmolality,Calculated 287 (280-300); Potassium 3.6 mEq/L (3.5-4.5); Sodium 138 mEq/L (136-145); eGFR For African Americans > 60 (> 60); eGFR For Non-African Americans 59 (> 60)
[2017-02-11 06:17] LABS: Basophils % 0.6 %; Eosinophils # 0.5 K/mcL (0.0-0.6); Eosinophils % 7.6 %; Hematocrit 35.3 % (35.3-44.9); Hemoglobin 11.5 g/dL (11.5-15.4); Immature Granulocytes % 0.2 % (0-4); Lymphocytes # 2.2 K/mcL (0.6-4.6); Lymphocytes % 34.7 %; Mean Corpuscular HGB Conc 32.6 g/dL (31.6-35.5); Mean Corpuscular Volume 85.9 fL (83.0-100.0); Mean Platelet Volume 10.8 fL (9.4-12.4); Monocytes # 0.6 K/mcL (0.0-1.3); Monocytes % 9.8 %; Platelet Count 195 K/mcL (140-400); Red Blood Count 4.11 M/mcL (3.82-4.97); Red Cell Distribution Width 13.5 % (11.5-14.5); Segmented Neutrophils % 47.1 %
[2017-02-11] MEDS: Insulin DETEMIR 100 UNIT/ML X5UNITS SQ SCH (08:30)
--- NOTE | 2017-02-11 08:34 | Internal Med Progress Note ---
<Sahil Sutton - Last Filed: 02/11/17 08:31> Date of Encounter: 02/11/17 Time of Encounter: 08:31 - Assessment and plan (1) Sepsis Current Visit: Yes Status: Resolved Assessment and plan: Patient presented with leukocytosis (WBC 13.0), fever, tachycardia. These have resolved. Potential etiologies GI infection or LIQUOR GALLERY OPERATOR infection however the source remains unclear. GI panel was unremarkable. MRI and EEG are not indicative of a viral encephalitis. Flagyl and acyclovir had been discontinued. Continue Rocephin, patient is maintaining improved mental status and will discuss discontinuing vancomycin Qualifiers: Sepsis type: sepsis due to unspecified organism Qualified Code(s): A41.9 - Sepsis, unspecified organism (2) CVA (cerebral vascular accident) Current Visit: Yes Status: Acute Assessment and plan: MRI revealed subacute infarct within the right frontal lobe, right temporal lobe , and both cerebellar hemispheres. The cerebellar hemispheres are mildly hemorrhagic. Antiplatelet and DVT prophylaxis heparin were discontinued given the hemorrhagic nature of her cerebellar infarcts. At this point her symptoms appear to have resolved. 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 No rupture evident. Discussed with neurology, they will continue to follow the patient. They did recommend repeat imaging in 2-3 days ( 02/12-02/13) to document stability. 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 Patient is alert and oriented 3 and appears to back and her baseline mental status. MRI shows multiple infarcts including bilateral cerebellar infarcts as well as frontal lobe infarct which are likely the cause of the patient's altered mental status. (4) Hyperglycemia due to type 2 diabetes mellitus Current Visit: Yes Status: Chronic Assessment and plan: DKA thought to be less likely, her anion gap metabolic acidosis was likely related to lactic acidosis. Patient's sugars have improved and her gap is now closed. Continue Levemir 45 units daily, blood sugars have been under good control Qualifiers: Diabetes mellitus termite treater insulin use: with termite treater use Qualified Code( s): E11.65 - Type 2 diabetes mellitus with hyperglycemia; Z79.4 - custodial ( current) use of insulin; Z79.4 - termite exterminator helper (current) use of insulin; Z79.4 - termite exterminator helper (current) use of insulin; Z79.4 - termite exterminator helper (current) use of insulin (5) Hypertension Current Visit: Yes Status: Chronic Assessment and plan: Patient's systolic blood pressures greater than 200 upon arrival in setting of ischemic and mild hemorrhagic infarct. Neurology recommends keeping blood pressure within normal range as much as possible due to hemorrhagic component of stroke. Blood pressure has been stable around 140/70 with a couple of elevated readings last night. Continue Lopressor 5 mg IV every 6 hours Qualifiers: Hypertension type: essential hypertension Qualified Code(s): I10 - Essential (primary) hypertension (6) [id number] kidney injury Current Visit: Yes Status: Resolved Assessment and plan: Likely related to dehydration in the setting of severe hyperglycemia. Kidney function continues to improve with fluid hydration. Patient has good urine output Qualifiers: Acute renal failure type: unspecified Chronic kidney disease stage: stage 3 (moderate) Qualified Code(s): N17.9 - Acute kidney failure, unspecified; N18.3 - Chronic kidney disease, stage 3 (moderate); N18.3 - Chronic kidney disease, stage 3 (moderate) (7) Diarrhea Current Visit: Yes Status: Acute Assessment and plan: Diarrhea is slowing down, none since yesterday. GI panel for infectious causes was performed and found to be negative. Fecal electrolytes pending, will treat symptomatically with loperamide 2 mg as needed. Qualifiers: Diarrhea type: unspecified type Qualified Code(s): R19.7 - Diarrhea, unspecified - Subjective Interval history: Ms. Corbin is a 71 year old female with PMH of asthma, fibromyalgia, CHF, CAD, DM, HLD, HTN, DE, osteoporosis, syncope and stage III renal disease. Admitted by Dr. Sears 02/07 for unresponsiveness, found down on the floor by her son for an undetermined amount of time covered in stool and urine. At outside hospital she had altered mental status and hypertensive emergency with systolic blood pressures greater than 200s. Workup revealed lactic acidosis 5.9 leukocytosis and hyperglycemia and patient was transferred to [facility] Patient seen and examined at bedside this morning. She was awake and alert and conversing with me normally. No diarrhea since yesterday discussed that antidiarrheal is on board and patient should request this if her diarrhea returns. She denies confusion, weakness, paralysis, chest pain, shortness of breath - Constitutional Vitals: Temp Pulse Resp BP Pulse Ox 99.1 F 84 18 141/77 97 02/11/17 07:43 02/11/17 07:43 02/11/17 07:43 02/11/17 07:43 02/11/17 07:43 General appearance: Present: A&O X 3, no acute distress, obese, answers questions appropriately - Respiratory Respiratory exam: Present: CTAB. Absent: accessory muscle use, rales, rhonchi, wheezes - Cardiovascular Cardiovascular exam: Present: RRR, +S1, +S2. Absent: diastolic murmur, gallop, rubs, systolic murmur - GI/Abdominal GI/Abdominal exam: Present: normal bowel sounds, soft, tenderness (mild and diffuse), no peritoneal signs. Absent: distended - Extremities Exam Extremities exam: Present: warm. Absent: calf tenderness, cyanotic, pedal edema - Neurological Exam Neurological exam: Present: alert, oriented X3, no focal deficits. Absent: facial droop, speech deficit Internal Medicine: Result - Labs CBC & Chem 7: 02/11/17 05:50 02/11/17 05:50 Labs: Short CBC 02/11/17 Range/Units 05:50 WBC 6.3 (4.3-11.1) K/mcL Hgb 11.5 (11.5-15.4) g/dL Hct 35.3 (35.3-44.9) % Plt Count 195 (140-400) K/mcL Neutrophils # 3.0 (1.6-8.9) K/mcL BMP 02/11/17 05:50 Sodium 138 Potassium 3.6 Chloride 108 Carbon Dioxide 22 BUN 6 L Creatinine 0.93 Glucose 163 H Calcium 8.9 - Impressions Impressions Head MRA 02/10/17 10:01 IMPRESSION: 1. No focal stenosis of the [place]. 2. Question of a 2 mm inferiorly projecting aneurysm arising in the region of the anterior communicating artery. These results were sent to the [facility] ([facility]) on 02/10/2017 at 1:57 pm to be communicated to the referring/covering health care provider/office. D/ / Kaden Lanza MD / Kaden Lanza MD Interpreting Provider: Kaden Lanza MD Echocardiogram 02/10/17 23:47 Impressions: LVEF 70%. Normal LV chamber size and function. Mild concentric left ventricular hypertrophy. Mild left ventricular diastolic dysfunction. Normal right ventricular structure and function. No significant valvular dysfunction. Unable to estimate RVSP due to lack of TR jet. Suboptimal image quality, but no obvious evidence of a PFO with agitated saline contrast. Left Ventricular Wall Motion: Rest Echo Findings All wall segments showed normal motion. Findings: Study Quality * Technically adequate exam. ECG Findings * Sinus tachycardia. Left Ventricle * LVEF 70%. * Normal LV chamber size and function. * Mild concentric left ventricular hypertrophy. * Mild left ventricular diastolic dysfunction. Right Ventricle * Normal right ventricular structure and function. Left Atrium * Mildly dilated left atrium. Right Atrium * Normal right atrial size. Interatrial Septum * Suboptimal image quality, but no obvious evidence of a PFO with agitated saline contrast. Aortic Valve * Aortic valve not well visualized. * No aortic regurgitation. * No aortic stenosis. Mitral Valve * Normal mitral valve structure and function. * No mitral regurgitation. * No mitral stenosis. Tricuspid Valve * Normal tricuspid valve structure and function. * No tricuspid regurgitation. * Unable to estimate RVSP due to lack of TR jet. Pulmonic Valve * Pulmonic valve not well visualized. Aorta * Normally sized aortic root. Pericardium * The pericardium appears normal. IVC * Normal IVC dimensions and inspiratory collapse. Pulmonary Artery * Normal visualized portions of the main pulmonary artery. - VTE Documentation of Mechanical Device: Intermittent pneumatic compression device Consult Discharge Plan - Plan Referrals: Jonna Mcdermott CNP [Primary Care Provider] - 02/17/17 12:30 pm () <Chico Fink - Last Filed: 02/11/17 13:13> Date of Encounter: 02/11/17 - Constitutional Vitals: Temp Pulse Resp BP Pulse Ox 99.3 F 100 18 157/73 98 02/11/17 11:28 02/11/17 11:28 02/11/17 11:28 02/11/17 11:28 02/11/17 11:28 Internal Medicine: Result - Labs CBC & Chem 7: 02/11/17 05:50 02/11/17 05:50 Labs: Short CBC 02/11/17 Range/Units 05:50 WBC 6.3 (4.3-11.1) K/mcL Hgb 11.5 (11.5-15.4) g/dL Hct 35.3 (35.3-44.9) % Plt Count 195 (140-400) K/mcL Neutrophils # 3.0 (1.6-8.9) K/mcL BMP 02/11/17 05:50 Sodium 138 Potassium 3.6 Chloride 108 Carbon Dioxide 22 BUN 6 L Creatinine 0.93 Glucose 163 H Calcium 8.9 - Impressions Impressions Head MRA 02/10/17 10:01 IMPRESSION: 1. No focal stenosis of the [place]. 2. Question of a 2 mm inferiorly projecting aneurysm arising in the region of the anterior communicating artery. These results were sent to the [facility] ([facility]) on 02/10/2017 at 1:57 pm to be communicated to the referring/covering health care provider/office. D/ / Kaden Lanza MD / Kaden Lanza MD Interpreting Provider: Kaden Lanza MD Echocardiogram 02/10/17 23:47 Impressions: LVEF 70%. Normal LV chamber size and function. Mild concentric left ventricular hypertrophy. Mild left ventricular diastolic dysfunction. Normal right ventricular structure and function. No significant valvular dysfunction. Unable to estimate RVSP due to lack of TR jet. Suboptimal image quality, but no obvious evidence of a PFO with agitated saline contrast. Left Ventricular Wall Motion: Rest Echo Findings All wall segments showed normal motion. Findings: Study Quality * Technically adequate exam. ECG Findings * Sinus tachycardia. Left Ventricle * LVEF 70%. * Normal LV chamber size and function. * Mild concentric left ventricular hypertrophy. * Mild left ventricular diastolic dysfunction. Right Ventricle * Normal right ventricular structure and function. Left Atrium * Mildly dilated left atrium. Right Atrium * Normal right atrial size. Interatrial Septum * Suboptimal image quality, but no obvious evidence of a PFO with agitated saline contrast. Aortic Valve * Aortic valve not well visualized. * No aortic regurgitation. * No aortic stenosis. Mitral Valve * Normal mitral valve structure and function. * No mitral regurgitation. * No mitral stenosis. Tricuspid Valve * Normal tricuspid valve structure and function. * No tricuspid regurgitation. * Unable to estimate RVSP due to lack of TR jet. Pulmonic Valve * Pulmonic valve not well visualized. Aorta * Normally sized aortic root. Pericardium * The pericardium appears normal. IVC * Normal IVC dimensions and inspiratory collapse. Pulmonary Artery * Normal visualized portions of the main pulmonary artery. - Attending Attestation (1) Sepsis Current Visit: Yes Status: Resolved Assessment and plan: Patient presented with leukocytosis (WBC 13.0), fever, tachycardia. These have resolved. Potential etiologies GI infection or LIQUOR GALLERY OPERATOR infection however the source remains unclear. GI panel was unremarkable. MRI and EEG are not indicative of a viral encephalitis. Flagyl and acyclovir had been discontinued. Continue Rocephin, patient is maintaining improved mental status and will discuss discontinuing vancomycin Qualifiers: Sepsis type: sepsis due to unspecified organism Qualified Code(s): A41.9 - Sepsis, unspecified organism (2) CVA (cerebral vascular accident) Current Visit: Yes Status: Acute Assessment and plan: MRI revealed subacute infarct within the right frontal lobe, right temporal lobe , and both cerebellar hemispheres. The cerebellar hemispheres are mildly hemorrhagic. Antiplatelet and DVT prophylaxis heparin were discontinued given the hemorrhagic nature of her cerebellar infarcts. At this point her symptoms appear to have resolved. 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 No rupture evident. Discussed with neurology, they will continue to follow the patient. They did recommend repeat imaging in 2-3 days ( 02/12-02/13) to document stability. 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 Patient is alert and oriented 3 and appears to back and her baseline mental status. MRI shows multiple infarcts including bilateral cerebellar infarcts as well as frontal lobe infarct which are likely the cause of the patient's altered mental status. (4) Hyperglycemia due to type 2 diabetes mellitus Current Visit: Yes Status: Chronic Assessment and plan: DKA thought to be less likely, her anion gap metabolic acidosis was likely related to lactic acidosis. Patient's sugars have improved and her gap is now closed. Continue Levemir 45 units daily, blood sugars have been under good control I indepently interviewed and examined this pt. I agree with the findings, assessement and plan of Dr. Sutton, Texture Artist. Neurology note reviewed. Agree with stopping abx (rocephin.vanco, as well as acyclovir) as LIQUOR GALLERY OPERATOR infection less likely. Pt clinically improved. Antiplatelets on hold for now as recc by neurology. BS remain under good control. Continue to increase activity. All else as above.
[2017-02-11] MEDS: *HR* OxyCODONE Immed Rel 5 MG TABLET PO PRN ×2 (08:37→14:41)
[2017-02-11] MEDS ORDERED: Aminoglycoside Consult 1 EACH MC ONE (11:39)
--- NOTE | 2017-02-11 12:12 | Neurology Progress Note ---
Date of Encounter: 02/11/17 Time of Encounter: 12:08 Assessment and Plan (1) Encephalopathy Current Visit: Yes Status: Resolved As stated previously are believed that the acute encephalopathy was likely multifactorial; I believe that metabolic disturbances from the DKA, hypertension , and acute cerebral infarcts and underlying infection may all have played a role. However this time she is improved clinically. I would recommend withholding all anticoagulation and antiplatelet therapy at least over the next 2 weeks or so to allow the brain to heal from the hemorrhages. Sometime in this interim I would recommend a transesophageal echocardiogram to further rule out the possibility of an embolic source for the multiple infarcts. If no embolic source is identified then I would recommend restarting aspirin 325 mg unless there is some other contraindication. I will also recommend having her seen and evaluated by a neuro-interventionalist perhaps Dr. López at [facility] for further assessment of the anterior communicating aneurysm, and to comment on whether or not it should be watched or ablated. I will like to follow up with her within the next 2 weeks or so after she is discharged to be assured that things are in place. Subjective Interval history: The chart is reviewed, the patient was seen and examined independently. Case was discussed and signed out to me by Dr. Dale. Patient today is back to her normal cognitive baseline. She is currently sitting up in the chair and one of the MAs is tending to her hair. She is alert and oriented. Etiology of the mental status change was likely met multifactorial including acute cerebral infarcts, and sepsis. The MRA scan of the brain does reveal a small possible aneurysm in the region of the anterior communicating artery. The posterior circulation however was intact. Echocardiogram did not reveal a PFO or embolic source. Carotid duplex Doppler study was normal. She is off anticoagulation as well as antiplatelet therapy due to the slight hemorrhagic transformation of the infarcts in the cerebellar hemispheres bilaterally. However the MRI scans did not reveal any evidence of edema or mass effect. Objective - Constitutional Vitals: Temp Pulse Resp BP Pulse Ox 99.3 F 100 18 157/73 98 02/11/17 11:28 02/11/17 11:28 02/11/17 11:28 02/11/17 11:28 02/11/17 11:28 - Neurological Exam Sensorimotor examination: Present: intact Motor Examination: Present: grossly full strength in all extremities, full strength in all major muscle groups Sensation intact: Present: intact Reflex and gait examination: intact Mental Status Examination: Present: awake, alert, oriented to person, oriented to place, oriented to time, follows commands appropriately, answers questions appropriately, no agnosia, no aphasia, no aproxia, lucid, makes eye contact, follows simple commands, localizes noxious stimulation Cranial nerve examination: Present: PERRL, EOMI, visual shah intact, sensory to face intact, mastication intact, no facial asymmetry is present, no dysarthria, hearing is intact symmetrically - VTE Documentation of Mechanical Device: Intermittent pneumatic compression device Results - Laboratory Findings CBC and BMP: 02/11/17 05:50 02/11/17 05:50 Abnormal lab findings: Abnormal lab results BUN 6 mg/dL (7-20) L 02/11/17 05:50 Est GFR (Non-Af Amer) 59 (> 60) L 02/11/17 05:50 Glucose 163 mg/dL (70-99) H 02/11/17 05:50 POC Glucose 168 (58-89) H 02/11/17 01:28 Troponin I 0.06 ng/mL (0-0.03) H* 02/08/17 08:02 Albumin 2.8 g/dL (3.5-5.0) L D 02/08/17 02:42 Globulin 3.8 g/dL (2.4-3.5) H 02/08/17 02:42 Albumin/Globulin Ratio 0.7 (1.1-2.2) L 02/08/17 02:42 Urine Protein 30 mg/dL (Neg-Trace) H 02/09/17 18:21 Urine Glucose (UA) >=1000 mg/dL (Normal) H 02/09/17 18:21 Urine Blood Trace (Negative) H 02/09/17 18:21 Urine Microscopic RBC 3-5 per hpf (0-3) H 02/09/17 18:21 Urine Microscopic WBC 5-15 per hpf (0-3) H 02/09/17 18:21 Ur Squamous Epith Cells Many per lpf (None-Few) H 02/09/17 18:21 Consult Discharge Plan - Plan Referrals: Jonna Mcdermott CNP [Primary Care Provider] - 02/17/17 12:30 pm ()
[2017-02-11] MEDS: cefTRIAXone 2,000 MG in Water for inj. (sterile) 20 ML IVP SCH (17:57)
[2017-02-11] MEDS: Fenofibrate 54 MG TABLET PO SCH (20:44)
[2017-02-12] MEDS: Insulin LISPRO 300 UNITS/3 ML VIAL SQ SCH ×5 (04:11→20:52)
[2017-02-12] MEDS: *HR* OxyCODONE Immed Rel 5 MG TABLET PO PRN ×2 (04:25→15:28)
[2017-02-12 04:44] LABS: Basophils % 0.5 %; Eosinophils # 0.4 K/mcL (0.0-0.6); Eosinophils % 6.4 %; Hematocrit 36.4 % (35.3-44.9); Hemoglobin 11.8 g/dL (11.5-15.4); Immature Granulocytes % 0.2 % (0-4); Lymphocytes % 36.9 %; Mean Corpuscular HGB Conc 32.4 g/dL (31.6-35.5); Mean Corpuscular Hemoglobin 27.7 pg (28.0-33.3); Mean Corpuscular Volume 85.4 fL (83.0-100.0); Mean Platelet Volume 10.8 fL (9.4-12.4); Monocytes # 0.7 K/mcL (0.0-1.3); Neutrophils # 2.4 K/mcL (1.6-8.9); Platelet Count 222 K/mcL (140-400); Red Blood Count 4.26 M/mcL (3.82-4.97); Red Cell Distribution Width 13.4 % (11.5-14.5)
[2017-02-12 04:53] LABS: BUN/Creatinine Ratio 5 (6-26); Calcium 9.3 mg/dL (8.6-10.8); Carbon Dioxide 24 mEq/L (19-29); Chloride 108 mEq/L (98-109); Glucose 138 mg/dL (70-99); Magnesium 1.8 mg/dL (1.6-2.6); Osmolality,Calculated 287 (280-300); Potassium 3.6 mEq/L (3.5-4.5); Sodium 139 mEq/L (136-145); eGFR For African Americans > 60 (> 60); eGFR For Non-African Americans 57 (> 60)
[2017-02-12 05:00] LABS: Blood Urea Nitrogen 5 mg/dL (7-20)
[2017-02-12] MEDS: *HR* Metoprolol 5 MG/5 ML VIAL IVP SCH ×2 (06:01→11:12)
[2017-02-12] MEDS: Insulin DETEMIR 100 UNIT/ML X5UNITS SQ SCH (09:34)
--- NOTE | 2017-02-12 16:32 | Internal Med Progress Note ---
<Sahil Sutton - Last Filed: 02/12/17 16:30> Date of Encounter: 02/12/17 Time of Encounter: 08:00 - Assessment and plan (1) Sepsis Current Visit: Yes Status: Resolved Assessment and plan: Patient presented with leukocytosis (WBC 13.0), fever, tachycardia. These have resolved. Potential etiologies GI infection or TAX MANAGER CPA infection however the source remains unclear. GI panel was unremarkable. MRI and EEG are not indicative of a viral encephalitis. Vancomycin, Flagyl and acyclovir have been discontinued. Continue Rocephin, patient is maintaining improved mental status Qualifiers: Sepsis type: sepsis due to unspecified organism Qualified Code(s): A41.9 - Sepsis, unspecified organism (2) CVA (cerebral vascular accident) Current Visit: Yes Status: Acute Assessment and plan: MRI revealed subacute infarct within the right frontal lobe, right temporal lobe , and both cerebellar hemispheres. The cerebellar hemispheres are mildly hemorrhagic. Antiplatelet and DVT prophylaxis heparin were discontinued given the hemorrhagic nature of her cerebellar infarcts. At this point her symptoms appear to have resolved. 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 No rupture evident. Discussed with neurology, they will continue to follow the patient. Repeat MRI brain as per neurology recommendations still pending. 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 Patient is alert and oriented 3 and appears to back and her baseline mental status. MRI shows multiple infarcts including bilateral cerebellar infarcts as well as frontal lobe infarct which are likely the cause of the patient's altered mental status. (4) Hyperglycemia due to type 2 diabetes mellitus Current Visit: Yes Status: Chronic Assessment and plan: DKA thought to be less likely, her anion gap metabolic acidosis was likely related to lactic acidosis. Patient's sugars have improved and her gap is now closed. Continue Levemir 45 units daily, blood sugars have been under good control Qualifiers: Diabetes mellitus alf insulin use: with alf use Qualified Code( s): E11.65 - Type 2 diabetes mellitus with hyperglycemia; Z79.4 - FDC ( current) use of insulin; Z79.4 - veneer sawyer (current) use of insulin; Z79.4 - FDC (current) use of insulin; Z79.4 - veneer sawyer (current) use of insulin (5) Hypertension Current Visit: Yes Status: Chronic Assessment and plan: Patient's systolic blood pressures greater than 200 upon arrival in setting of ischemic and mild hemorrhagic infarct. Neurology recommends keeping blood pressure within normal range as much as possible due to hemorrhagic component of stroke. Blood pressure has been stable around 140/70 with a few elevated readings. Continue Lopressor 5 mg IV every 6 hours Qualifiers: Hypertension type: essential hypertension Qualified Code(s): I10 - Essential (primary) hypertension (6) [id number]-axlfmvh kidney injury Current Visit: Yes Status: Resolved Assessment and plan: Likely related to dehydration in the setting of severe hyperglycemia. Kidney function continues to improve with fluid hydration. Patient has good urine output Qualifiers: Acute renal failure type: unspecified Chronic kidney disease stage: stage 3 (moderate) Qualified Code(s): N17.9 - Acute kidney failure, unspecified; N18.3 - Chronic kidney disease, stage 3 (moderate); N18.3 - Chronic kidney disease, stage 3 (moderate) (7) Diarrhea Current Visit: Yes Status: Acute Qualifiers: Diarrhea type: unspecified type Qualified Code(s): R19.7 - Diarrhea, unspecified - Subjective Interval history: Ms. Corbin is a 71 year old female with PMH of asthma, fibromyalgia, CHF, CAD, DM, HLD, HTN, MD, osteoporosis, syncope and stage III renal disease. Admitted by Dr. Sears 02/07 for unresponsiveness, found down on the floor by her son for an undetermined amount of time covered in stool and urine. At outside hospital she had altered mental status and hypertensive emergency with systolic blood pressures greater than 200s. Workup revealed lactic acidosis 5.9 leukocytosis and hyperglycemia and patient was transferred to [facility] Patient seen and examined at bedside this morning. She was awake and alert and conversing with me normally and mental status is stable. She denies confusion, weakness, paralysis, chest pain, shortness of breath - Constitutional Vitals: Temp Pulse Resp BP Pulse Ox 98.3 F 90 18 178/82 98 02/12/17 15:30 02/12/17 15:30 02/12/17 15:30 02/12/17 15:30 02/12/17 15:30 General appearance: Present: A&O X 3, no acute distress, obese, answers questions appropriately - Respiratory Respiratory exam: Present: CTAB. Absent: accessory muscle use, rales, rhonchi, wheezes - Cardiovascular Cardiovascular exam: Present: RRR, +S1, +S2. Absent: diastolic murmur, gallop, rubs, systolic murmur - GI/Abdominal GI/Abdominal exam: Present: normal bowel sounds, soft, no peritoneal signs. Absent: distended, tenderness - Extremities Exam Extremities exam: Present: warm, radial pulses palpable and symmetrical. Absent : pedal edema, tenderness - Neurological Exam Neurological exam: Present: oriented X3, no focal deficits Internal Medicine: Result - Labs CBC & Chem 7: 02/12/17 04:29 02/12/17 04:29 Labs: Short CBC 02/12/17 Range/Units 04:29 WBC 5.5 (4.3-11.1) K/mcL Hgb 11.8 (11.5-15.4) g/dL Hct 36.4 (35.3-44.9) % Plt Count 222 (140-400) K/mcL Neutrophils # 2.4 (1.6-8.9) K/mcL BMP 02/12/17 04:29 Sodium 139 Potassium 3.6 Chloride 108 Carbon Dioxide 24 BUN 5 L Creatinine 0.96 Glucose 138 H Calcium 9.3 - VTE Documentation of Mechanical Device: Intermittent pneumatic compression device Consult Discharge Plan - Plan Referrals: Jonna Mcdermott CNP [Primary Care Provider] - 02/17/17 12:30 pm () <Chico Fink - Last Filed: 02/12/17 16:45> Date of Encounter: 02/12/17 - Constitutional Vitals: Temp Pulse Resp BP Pulse Ox 98.3 F 90 18 178/82 98 02/12/17 15:30 02/12/17 15:30 02/12/17 15:30 02/12/17 15:30 02/12/17 15:30 Internal Medicine: Result - Labs CBC & Chem 7: 02/12/17 04:29 02/12/17 04:29 Labs: Short CBC 02/12/17 Range/Units 04:29 WBC 5.5 (4.3-11.1) K/mcL Hgb 11.8 (11.5-15.4) g/dL Hct 36.4 (35.3-44.9) % Plt Count 222 (140-400) K/mcL Neutrophils # 2.4 (1.6-8.9) K/mcL BMP 02/12/17 04:29 Sodium 139 Potassium 3.6 Chloride 108 Carbon Dioxide 24 BUN 5 L Creatinine 0.96 Glucose 138 H Calcium 9.3 - Attending Attestation I performed an independent interview and examine this patient. I agree with the findings, assessment, and plan of Dr. Sutton, buyer internship. Her encephalopathy has resolved. She continues to have high blood pressure and RE inhibitor was added as well, especially given her recent stroke. Neurology input is appreciated and she will start aspirin in the future. This is currently being held due to microhemorrhages. Patient has shown no further signs of sepsis and tomorrow will be day 7 of Rocephin. Anticipate we can stop antibiotics at that time. He continues to do well. We will continue to monitor. All else as outlined above.
[2017-02-12] MEDS: cefTRIAXone 2,000 MG in Water for inj. (sterile) 20 ML IVP SCH (17:47)
[2017-02-12] MEDS: Fenofibrate 54 MG TABLET PO SCH (19:36)
[2017-02-12] MEDS: Acetaminophen 325 MG TABLET PO PRN (19:37)
[2017-02-13] MEDS: *HR* OxyCODONE Immed Rel 5 MG TABLET PO PRN ×2 (00:02→06:09)
[2017-02-13] MEDS: Insulin LISPRO 300 UNITS/3 ML VIAL SQ SCH ×3 (00:05→08:23)
[2017-02-13] MEDS: Acetaminophen 325 MG TABLET PO PRN (04:13)
[2017-02-13 05:42] LABS: Basophils % 0.5 %; Eosinophils # 0.3 K/mcL (0.0-0.6); Eosinophils % 5.3 %; Hematocrit 35.8 % (35.3-44.9); Hemoglobin 11.6 g/dL (11.5-15.4); Immature Granulocytes % 0.3 % (0-4); Lymphocytes # 2.6 K/mcL (0.6-4.6); Lymphocytes % 42.1 %; Mean Corpuscular HGB Conc 32.4 g/dL (31.6-35.5); Mean Corpuscular Hemoglobin 27.8 pg (28.0-33.3); Mean Corpuscular Volume 85.6 fL (83.0-100.0); Mean Platelet Volume 10.7 fL (9.4-12.4); Monocytes # 0.6 K/mcL (0.0-1.3); Monocytes % 10.6 %; Neutrophils # 2.5 K/mcL (1.6-8.9); Platelet Count 226 K/mcL (140-400); Red Blood Count 4.18 M/mcL (3.82-4.97); Red Cell Distribution Width 13.5 % (11.5-14.5); Segmented Neutrophils % 41.2 %
[2017-02-13 05:55] LABS: BUN/Creatinine Ratio 6 (6-26); Blood Urea Nitrogen 6 mg/dL (7-20); Calcium 9.5 mg/dL (8.6-10.8); Carbon Dioxide 23 mEq/L (19-29); Chloride 107 mEq/L (98-109); Glucose 159 mg/dL (70-99); Magnesium 1.4 mg/dL (1.6-2.6); Osmolality,Calculated 285 (280-300); Potassium 3.7 mEq/L (3.5-4.5); Sodium 137 mEq/L (136-145); eGFR For African Americans > 60 (> 60); eGFR For Non-African Americans 55 (> 60)
[2017-02-13 07:07] VITALS: BP 177/89
--- NOTE | 2017-02-13 08:32 | Discharge Summary ---
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 (3) Encephalopathy Priority: Primary Status: Resolved (4) Hyperglycemia due to type 2 diabetes mellitus Priority: Secondary Status: Chronic Qualifiers: Diabetes mellitus intermediate insulin use: with terminal manager use Qualified Code( s): E11.65 - Type 2 diabetes mellitus with hyperglycemia; Z79.4 - ocean transportation intermediary ( current) use of insulin; Z79.4 - skilled nursing (current) use of insulin; Z79.4 - skilled nursing (current) use of insulin; Z79.4 - skilled nursing (current) use of insulin (5) Hypertension Priority: Secondary Status: Chronic Qualifiers: Hypertension type: essential hypertension Qualified Code(s): I10 - Essential (primary) hypertension (6) Efqub-do-aihbvtj kidney injury Priority: Secondary Status: Resolved Qualifiers: Acute renal failure type: unspecified Chronic kidney disease stage: stage 3 (moderate) Qualified Code(s): N17.9 - Acute kidney failure, unspecified; N18.3 - Chronic kidney disease, stage 3 (moderate); N18.3 - Chronic kidney disease, stage 3 (moderate) (7) Diarrhea Priority: Secondary Status: Acute Qualifiers: Diarrhea type: unspecified type Qualified Code(s): R19.7 - Diarrhea, unspecified - Discharge Medications Home Medications: Cholecalciferol (Vitamin D3) [Vitamin D3] 50,000 unit PO QWEEK 11/22/14 [History ] Fenofibrate [Tricor] 48 mg PO HS 11/22/14 [History] Ranolazine [Ranexa] 1,000 mg PO BID 11/22/14 [History] Doxepin [Sinequan] 50 mg PO HS 08/30/15 [History] Insulin Glargine [Lantus] 90 unit SQ HS 08/30/15 [History] Insulin LISPRO [HumaLOG] 0 units SQ TIDWM 08/30/15 [History] Ondansetron ODT [Zofran ODT] 4 mg SL Q8HR PRN 08/30/15 [History] Polyethylene Glycol 3350 [MiraLAX] 17 gm PO DAILY PRN 08/30/15 [History] Atorvastatin Calcium [Lipitor] 80 mg PO HS 01/01/17 [History] Gabapentin [Neurontin] 400 mg PO QID 01/01/17 [History] HydrOXYzine 10 mg PO BID 01/01/17 [History] Liraglutide [Victoza 2-Crsitian] 1.2 mg SQ DAILY 01/01/17 [History] Oxycodone HCl/Acetaminophen [Percocet 10-325 mg Tablet] 1 tab PO Q8H PRN [History] Ranitidine HCl [Zantac] 300 mg PO DAILY 01/01/17 [History] buPROPion HCl [Bupropion HCl Sr] 200 mg PO DAILY 01/01/17 [History] Trazodone HCl 300 mg PO HS 02/08/17 [History] Lisinopril [Zestril] 10 mg PO DAILY tablet 02/13/17 [Rx] Metoprolol [Lopressor] 50 mg PO BID tablet 02/13/17 [Rx] Allergies/Adverse Reactions: 3 Allergy/AdvReac Type Severity Reaction Status Date / Time Iodinated Contrast- Oral and Allergy Rash Verified 07/30/16 23:16 IV Dye iron Allergy Hives Verified 07/30/16 23:16 Register Allergy Nausea Verified 07/30/16 23:16 Sulfa (Sulfonamide Allergy Hives Verified 07/30/16 23:16 Antibiotics) Procedures/tests Complete & Pending: Procedures Performed prior 72 hours Category Date Time Status MR angio head wo con [MR] Routine MRI 02/10/17 10:01 Completed MR head/brain wo con [MR] Routine MRI 02/12/17 08:00 Completed EV carotid duplex imaging BI Stat Y 02/10/17 23:47 Completed EV echocardiogram w enhance Routine Y 02/10/17 23:47 Completed Date of admission: 02/07/17 19:04 Primary care physician: Jonna Mcdermott CNP Consults: 02/08/17 11:37 Consult to Interpret Exam [CONS] Routine Consulting Provider: Mayuri Dale I Consult to Interpret Exam: Interpret EEG Consult to Neurology [CONS] Routine Consulting Provider: Neu[facility] Reason for Consult: AMS Call Completed: Yes 02/08/17 14:22 Consult to Speech Therapy [CONS] Routine Comment: Evaluate, develop and implement POC Reason for Consult: AMS Call Completed: No 02/09/17 07:52 Consult to Invasive Line Access Team [CONS] Routine Reason for Consult: no IV and difficult stick Line Type: EPIV 02/09/17 09:54 Consult to Occupational Therapy [CONS] Routine Comment: Evaluate, develop and implement POC Reason for Consult: difficult with ADLs Consult to Physical Therapy [CONS] Routine Comment: Evaluate, develop and implement POC Reason for Consult: difficult walking Discharging clinician: Chico Fink Anticipated date of discharge: 02/13/17 - Patient Status Disposition: Home Health Service Condition: Fair Functional capacity at discharge: uses cane/walker Overall status at discharge: patient is progressing back to baseline - Ambulatory Orders Ambulatory Orders: ECG holter monitor [ECG] Time Frame: 5 Days, Facility: [facility], Location: Cardiopulmonary Svc Consult to Home Health [CONS] Time Frame: 5 Days, Facility: [facility], Location: Home Health Services EV FARIBA transesophageal echo Time Frame: 5 Days, Facility: [facility], Location: Radiology - Discharge Instructions Instructions: Lisinopril (By mouth), Meal Planning with Diabetes Exchanges (DC) , Hemorrhagic Stroke (DC) Follow Up With: Dalila Dominguez CNP [Advanced Practice Nurse] - (WEB REQUEST SENT 02/13/17. OFFICE WILL CALL YOU WITH APPOINTMENT TO GET FARIBA SCHEDULED.) Terry Holliday DO [Partnered Physician] - (Web request sent to physicians office, they will call you with an appointment. ) Taye Post [Non-Partnered Physician] - (71 yoF with recent CVA, imaging revealed anterior communicating aneurism. Watch vs. ablate. [facility] to schedule appointment.) Jonna Mcdermott CNP [Primary Care Provider] - 02/17/17 12:30 pm () Interval History: Patient seen and examined at bedside this morning. She is maintaining her return to baseline mental status. Hospital course: Ms. Corbin is a 71 year old female with PMH of asthma, fibromyalgia, CHF, CAD, DM, HLD, HTN, [place], osteoporosis, syncope and stage III renal disease. Admitted to [facility] 02/07 for unresponsiveness, found down on the floor by her son for an undetermined amount of time covered in stool and urine. At outside hospital she had altered mental status and hypertensive emergency with systolic blood pressures greater than 200s. Workup revealed lactic acidosis 5.9 leukocytosis and hyperglycemia and patient was transferred to [facility]. Patient was septic with leukocytosis, fever, and tachycardia all of which have since resolved. MRI brain revealed subacute infarct within the right frontal lobe, right temporal lobe, and both cerebellar hemispheres. Also , the cerebellar hemispheres were mildly hemorrhagic. Antiplatelet and DVT prophylaxis heparin were discontinued given the hemorrhagic component of her cerebellar infarcts. Following several days in the hospital, patient had a remarkable return to her baseline mental status. She was evaluated by PT/OT who recommends continuation of her pre-existing home health visits where they will do physical and occupational rehabilitation. Her blood pressure fluctuated somewhat during her hospital stay and lisinopril 10 mg daily was added to her home antihypertensive regimen. Repeat MRI showed stable changes relative to her initial infarct/hemorrhage. 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 Given her stable MRI findings, neurology has recommended resuming aspirin in 1-2 weeks which would be sometime during the week of January 23 - Time Spent with Patient Total time spent providing and/or coordinating discharge services: Greater than 30 minutes - Constitutional Vitals: Temp Pulse Resp BP Pulse Ox 98.4 F 71 17 177/89 95 02/13/17 06:58 02/13/17 04:10 02/13/17 06:58 02/13/17 06:58 02/13/17 06:58 General appearance: Present: A&O X 3, no acute distress, obese, answers questions appropriately - Respiratory Respiratory exam: Present: CTAB. Absent: accessory muscle use, rales, rhonchi, wheezes - Cardiovascular Cardiovascular exam: Present: RRR, +S1, +S2. Absent: diastolic murmur, gallop, rubs, systolic murmur - GI/Abdominal GI/Abdominal exam: Present: normal bowel sounds, soft, no peritoneal signs. Absent: distended, tenderness - Extremities Exam Extremities exam: Present: warm, radial pulses palpable and symmetrical. Absent : calf tenderness, cyanotic, pedal edema - Neurological Exam Neurological exam: Present: alert, oriented X3, no focal deficits - VTE Documentation of Mechanical Device: Intermittent pneumatic compression device <Chico Fink Shar - Last Filed: 02/13/17 12:43> Date of Encounter: 02/13/17 Procedures/tests Complete & Pending: Procedures Performed prior 72 hours Category Date Time Status MR head/brain wo con [MR] Routine MRI 02/12/17 08:00 Completed EV carotid duplex imaging BI Stat Y 02/10/17 23:47 Completed EV echocardiogram w enhance Routine Y 02/10/17 23:47 Completed Date of admission: 02/07/17 19:04 Primary care physician: Jonna Mcdermott CNP Consults: 02/08/17 11:37 Consult to Interpret Exam [CONS] Routine Consulting Provider: Mayuir Dale I Consult to Interpret Exam: Interpret EEG Consult to Neurology [CONS] Routine Consulting Provider: Neurology [facility] Reason for Consult: AMS Call Completed: Yes 02/08/17 14:22 Consult to Speech Therapy [CONS] Routine Comment: Evaluate, develop and implement POC Reason for Consult: AMS Call Completed: No 02/09/17 07:52 Consult to Invasive Line Access Team [CONS] Routine Reason for Consult: no IV and difficult stick Line Type: EPIV 02/09/17 09:54 Consult to Occupational Therapy [CONS] Routine Comment: Evaluate, develop and implement POC Reason for Consult: difficult with ADLs Consult to Physical Therapy [CONS] Routine Comment: Evaluate, develop and implement POC Reason for Consult: difficult walking Hospital course: Ms. Corbin is a 71 year old female - Time Spent with Patient Total time spent providing and/or coordinating discharge services: - Constitutional Vitals: Temp Pulse Resp BP Pulse Ox 98.4 F 71 17 177/89 95 02/13/17 06:58 02/13/17 04:10 02/13/17 06:58 02/13/17 06:58 02/13/17 06:58 - Attending Attestation I personally examined and interviewed this patient. I agree with the findings, assessment, and plan of Dr. Sutton, internet cafe manager. Patient stable for discharge. We did uptitrate her blood pressure medications to include lisinopril given her recent stroke. She will need close outpatient follow-up of her blood pressure. She will remain off all antiplatelet agents for at least 2 weeks. He will follow up with her primary care physician within the next week or so, as well as neurology for any further testing as discussed above. Patient otherwise has a nonfocal neurological exam and is feeling well, and is stable for discharge. To a total of 34 minutes was spent on discharge and coordination of care. Please see discharge summary for details.
[2017-02-13] MEDS: Insulin DETEMIR 100 UNIT/ML X5UNITS SQ SCH (08:45)
--- NOTE | 2017-02-13 10:51 | Physician Discharge Referral ---
Home Health/Hosp Referral Info Transfer to: Home Health Provider in Charge Post Discharge: PCP - Diagnosis (1) Sepsis Priority: Secondary Status: Resolved (2) CVA (cerebral vascular accident) Priority: Primary Status: Acute (3) Encephalopathy Priority: Primary Status: Resolved (4) Hyperglycemia due to type 2 diabetes mellitus Priority: Secondary Status: Chronic (5) Hypertension Priority: Secondary Status: Chronic (6) Hslqz-re-ofkrqva kidney injury Priority: Secondary Status: Resolved (7) Diarrhea Priority: Secondary Status: Acute - Respiratory Orders Smoking Cessation: Smoking cessation has been advised. For more information, call the [place] Tobacco Quit Line at 3-663-EFDT-NOW. - Diet/Nutrition Diet/Nutrition Orders: Regular - Activity Activity Orders: Up ad naman - Services Needed Following services are medically necessary services: Physical Therapy, Occupational Therapy - Transfer Medications Home Medications: Cholecalciferol (Vitamin D3) [Vitamin D3] 50,000 unit PO QWEEK 11/22/14 [History ] Fenofibrate [Tricor] 48 mg PO HS 11/22/14 [History] Ranolazine [Ranexa] 1,000 mg PO BID 11/22/14 [History] Aspirin Enteric Coated [Aspirin EC] 81 mg PO DAILY 01/09/15 [History] Doxepin [Sinequan] 50 mg PO HS 08/30/15 [History] Insulin Glargine [Lantus] 90 unit SQ HS 08/30/15 [History] Insulin LISPRO [HumaLOG] 0 units SQ TIDWM 08/30/15 [History] Ondansetron ODT [Zofran ODT] 4 mg SL Q8HR PRN 08/30/15 [History] Polyethylene Glycol 3350 [MiraLAX] 17 gm PO DAILY PRN 08/30/15 [History] Atorvastatin Calcium [Lipitor] 80 mg PO HS 01/01/17 [History] Gabapentin [Neurontin] 400 mg PO QID 01/01/17 [History] HydrOXYzine 10 mg PO BID 01/01/17 [History] Liraglutide [Victoza 2-Cristian] 1.2 mg SQ DAILY 01/01/17 [History] Oxycodone HCl/Acetaminophen [Percocet 10-325 mg Tablet] 1 tab PO Q8H PRN [History] Ranitidine HCl [Zantac] 300 mg PO DAILY 01/01/17 [History] buPROPion HCl [Bupropion HCl Sr] 200 mg PO DAILY 01/01/17 [History] Trazodone HCl 300 mg PO HS 02/08/17 [History] Lisinopril [Zestril] 10 mg PO DAILY tablet 02/13/17 [Rx] Metoprolol [Lopressor] 50 mg PO BID tablet 02/13/17 [Rx] Allergies/Adverse Reactions: 3 Allergy/AdvReac Type Severity Reaction Status Date / Time Iodinated Contrast- Oral and Allergy Rash Verified 07/30/16 23:16 IV Dye iron Allergy Hives Verified 07/30/16 23:16 [place] Allergy Nausea Verified 07/30/16 23:16 Sulfa (Sulfonamide Allergy Hives Verified 07/30/16 23:16 Antibiotics) Certification: Further, I certify that my clinical findings support that this patient is homebound (i.e. absences from home require considerable and taxing effort and are for medical reasons or [facility] or infrequently or short duration when for other reasons) because: Homebound Reason: Patient requires assistance of a person or device to safely leave home, Leaving home requires considerable and taxing effort due to condition Attestation: My signature below is to certify that this patient is under my care and that I, or nurse practitioner, or a physician's sound assistant working with me, has a face-to -face encounter with this patient.
== END 2017-02-13 11:40 | disposition home health service (06) | DRG 871 ==
LOC: SUATTDRO 19:04 → 2NNU 19:04
PROVIDERS: ADMIT Internal Medicine; ATTEND Internal Medicine

== ENCOUNTER 2017-07-25 00:13 | Inpatient (IN) ==
[2017-07-25] MEDS ORDERED: Naloxone 0.4 MG/ML INJ IVP PRN (03:21)
[2017-07-25] MEDS ORDERED: Ringers Solution, Lactated 1,000 ML IVC SCH (03:30)
[2017-07-25] MEDS ORDERED: *HR* Dextrose 50 % in Water (Syg) 50 ML SYRINGE IVP PRN (03:48)
[2017-07-25] MEDS ORDERED: D5% in Water 1,000 ML IVC PRN (03:48)
[2017-07-25] MEDS ORDERED: Dextrose Gel 15 GM/37.5 ML TUBE PO PRN ×2 (03:48)
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
[2017-07-25] MEDS ORDERED: *HR* Heparin 5,000 UNIT/ML VIAL SQ SCH (06:00)
[2017-07-25 07:43] LABS: Basophils % 0.2 %; Eosinophils # 0.1 K/mcL (0.0-0.6); Eosinophils % 0.6 %; Hematocrit 33.1 % (35.3-44.9); Hemoglobin 10.7 g/dL (11.5-15.4); Immature Granulocytes % 0.2 % (0-4); Lymphocytes # 1.8 K/mcL (0.6-4.6); Lymphocytes % 18.3 %; Mean Corpuscular HGB Conc 32.3 g/dL (31.6-35.5); Mean Corpuscular Hemoglobin 28.3 pg (28.0-33.3); Mean Corpuscular Volume 87.6 fL (83.0-100.0); Monocytes # 1.1 K/mcL (0.0-1.3); Monocytes % 11.2 %; Neutrophils # 6.8 K/mcL (1.6-8.9); Platelet Count 197 K/mcL (140-400); Red Blood Count 3.78 M/mcL (3.82-4.97); Red Cell Distribution Width 13.9 % (11.5-14.5); Segmented Neutrophils % 69.5 %
[2017-07-25 07:57] LABS: Calcium 9.6 mg/dL (8.6-10.3); Magnesium 1.6 mg/dL (1.6-2.6); Potassium 4.7 mEq/L (3.5-5.1); Troponin I 3.1 ng/mL (< 0.04)
[2017-07-25] MEDS: Insulin LISPRO 300 UNITS/3 ML VIAL SQ SCH ×4 (08:49→20:16)
[2017-07-25 09:05] LABS: Estimated Average Glucose 237 mg/dl; Hemoglobin A1C 9.9 %
[2017-07-25] MEDS ORDERED: *HR* Heparin 5,000 UNIT/ML VIAL IVP ONE (15:53)
[2017-07-25] MEDS ORDERED: *HR* Heparin 5,000 UNIT/ML VIAL IVP PRN ×2 (15:53)
--- NOTE | 2017-07-25 15:59 | Event Note ---
Date of Encounter: 07/25/17 Time of Encounter: 15:50 seen and examined at bedside. Patient is new to me, information obtained from chart review and patient report although patient is only alert to self, she did she is in the hospital. She does report intermittent chest pain. Points to the middle of chest but unable to describe. (1 ) Sepsis presented with fever, tachycardia, confusion, due to likely UTI; continue IV hydration and antibiotics; lactic acid normal; monitor vital signs closely; (2) Acute kidney injury superimposed on chronic kidney disease baseline serum creatinine around 1.4-1.5, currently at 2.47; likely due to rhabdomyolysis, dehydration and UTI; continue IV hydration and monitor serum creatinine closely; avoid nephrotoxins; monitor urine output; holding home RE (3) Acute metabolic encephalopathy baseline mental status unclear but probably oriented per ER records; confusion likely due to CASTRO and UTI; CT head showed no acute abnormality. fall precautions and supportive care; PT/OT evaluation; social services specialist consult for safe discharge; patient will benefit from placement. Alert to self and knows she is in a hospital on 07/25 exam. No family at bedside for collateral. (4) Rhabdomyolysis likely due to multiple falls; poor history; monitor serum CK levels closely, admitted with 2482; continue IV hydration and monitor urine output; troponin elevation may be due to sepsis and rhabdomyolysis; repeat CK trending down. (5) Urinary tract infection initial UA in the ER suggestive of UTI, culture pending; continue IV Rocephin; (6) CAD (coronary artery disease) h/o- coronary stents; resume home meds when med rec is available; serial troponin 3.1, 3.6. Patient did report chest pain. Start heparin drip. Cardiology consult. Monitor on telemetry. (7) COPD (chronic obstructive pulmonary disease) PRN breathing treatments and supplemental O2; not in acute exacerbation; (8) Hypertension BP currently low; hold antihypertensives and continue IV hydration; (9) Type 2 diabetes mellitus Accucheck blood glucose monitoring with basal bolus insulin regimen; diabetic diet; check HbA1C;
[2017-07-25] MEDS: 0.9 % Sodium Chloride 1,000 ML IVC SCH (16:27)
[2017-07-25] MEDS: Heparin 25,000 UNIT/500 ML D5W 25,000 UNIT/500 ML BAG IVC SCH (16:29)
[2017-07-25 16:44] LABS: Hematocrit 31.9 % (35.3-44.9); Hemoglobin 10.2 g/dL (11.5-15.4); Mean Corpuscular Hemoglobin 28.3 pg (28.0-33.3); Mean Corpuscular Volume 88.6 fL (83.0-100.0); Mean Platelet Volume 10.3 fL (9.4-12.4); Platelet Count 194 K/mcL (140-400); Red Cell Distribution Width 13.8 % (11.5-14.5)
[2017-07-25 16:50] LABS: INR 1.3
[2017-07-25 16:53] LABS: Activated Partial Thrombo Time 28.5 Seconds (26.0-36.0)
[2017-07-25] MEDS: Acetaminophen 325 MG TABLET PO PRN (20:15)
[2017-07-25] MEDS: Fenofibrate 54 MG TABLET PO SCH (20:16)
[2017-07-25] MEDS: Ranolazine 500 MG TAB.ER.12H PO SCH (20:16)
[2017-07-25] MEDS ORDERED: *HR* HYDROcodone/Acet 5/325 mg TABLET PO PRN (22:53)
[2017-07-25] MEDS: cefTRIAXone 2,000 MG in Water for inj. (sterile) 20 ML 20 ML IVPB SCH (23:27)
[2017-07-26] MEDS: 0.9 % Sodium Chloride 1,000 ML IVC SCH ×3 (02:04→13:04)
[2017-07-26 02:22] LABS: Calcium 9.2 mg/dL (8.6-10.3); Potassium 4.3 mEq/L (3.5-5.1)
[2017-07-26 03:10] LABS: Hematocrit 29.1 % (35.3-44.9); Hemoglobin 9.3 g/dL (11.5-15.4); Mean Corpuscular Hemoglobin 28.7 pg (28.0-33.3); Mean Corpuscular Volume 89.8 fL (83.0-100.0); Mean Platelet Volume 10.5 fL (9.4-12.4); Platelet Count 169 K/mcL (140-400); Red Blood Count 3.24 M/mcL (3.82-4.97)
[2017-07-26] MEDS: Ranolazine 500 MG TAB.ER.12H PO SCH ×2 (08:08→21:41)
[2017-07-26] MEDS: Acetaminophen 325 MG TABLET PO PRN (08:10)
[2017-07-26] MEDS: Insulin LISPRO 300 UNITS/3 ML VIAL SQ SCH ×4 (08:10→21:42)
[2017-07-26 08:14] LABS: Troponin I 2.44 ng/mL (< 0.04)
--- NOTE | 2017-07-26 11:22 | Cardiology Consult Note ---
Date of Encounter: 07/26/17 Time of Encounter: 09:30 Assessment and Plan (1) Elevated troponin Current Visit: Yes Status: Acute Per cardiology: -Troponins elevated 0.09, 3.1, 3.65, 3.52, 2.44 in the setting of sepsis, ?UTI, CASTRO on CKD, rhabdomyolysis. NSTEMI vs demand ischemia. -Reports chronic chest pain, different from angina. -Chest pain reproduceable with palpation. -ECG with no acute ischemic changes -On statin, ranexa, heparin drip. -11/2014 C with 30% proximal and mid LAD, 50% OM2, 20% ramus, 90% RPDA with BMS placed. -TTE 01/2017 with LVEF 70%, mild concentric LVH, mild diastolic dysufnction, no segmental wall motion abnormalities. -TTE pending -Will add asa, BB -Further recommendations pending TTE. (2) Hrbga-ce-wooedpg kidney injury Current Visit: No Status: Chronic Per cardiology: -Baseline creatinine 1.3-1.6. -Creatinine on admission 2.47, now down trending. -Per primary service, likely rhabdomyolysis. -Management per primary service. Qualifiers: Acute renal failure type: unspecified Chronic kidney disease stage: unspecified stage Qualified Code(s): N17.9 - Acute kidney failure, unspecified ; N18.9 - Chronic kidney disease, unspecified; N18.9 - Chronic kidney disease, unspecified Discussion w patient/family: The assessment and plan as outlined above was discussed with the patient who expressed understanding and agreement. All questions were answered. Thank you for involving us in the care of your patient. Please call with any questions. Discussed and reviewed with . History of Present Illness Consult date: 07/25/17 Requesting physician: Vikki Smith Consult reason: chest pain, elevated troponin Chief complaint: fall History of present illness: Ms. Corbin is a 71 year old female with a relevant past medical history of CAD s /p [place] and PCI, lung cancer, HTN, HLD, TAMMIE, CKD, bipolar, GERD, depression, anxiety who presented to [facility] after a fall at home. Patient reports that she fall frequently at home. States she does not lose consciousness. Patient reports some intermittent chest pain that has been chronic. Denies current chest pain. Patient reports this chronic chest pain is different from previous angina. Denies increased shortness of breath or increased fatigue. Past Med Surg Social Fam HX - Past Medical History Attestation: Yes The following information was validated with the patient. Source: patient, old records reviewed Medical history: asthma, cancer, CHF, coronary artery disease, CVA, diabetes, fibromyalgia, GERD, hyperlipidemia, hypertension, myocardial infarction, osteoporosis, renal disease, syncope, other Psychiatric history: anxiety, bipolar, depression - Past Surgical History Surgical History: angioplasty/stent, appendectomy, cancer surgery, cholecystectomy, hysterectomy, orthopedic, other - Social History Smoking Status: Former smoker Smokeless Tobacco Status: No Alcohol use: none Drug use: none - Family History Mother Living Status: Sister Living Status: Hx Family Cardiac Disorders: Yes Hx Family Respiratory Disorders: Yes (Lung cancer) Brother Adopted: No Family Member Ethnicity: Non- Living Status: Still Living Hx Family Cardiac Disorders: Yes Hx Family Respiratory Disorders: Yes Hx Family Cancer: Yes Hx Family GI Disorders: No Hx Family Endocrine Disorder: No Hx Family Neuromuscular Disorders: No Hx Family Neurologic Disorders: No Hx Family HEENT Disorders: No Hx Family Autoimmune Disorders: No Father Adopted: No Family Member Ethnicity: Non- Living Status: Hx Family Cardiac Disorders: Yes Hx Family Respiratory Disorders: No Hx Family Cancer: No Hx Family GI Disorders: No Hx Family Endocrine Disorder: No Hx Family Neuromuscular Disorders: No Hx Family Neurologic Disorders: No Hx Family HEENT Disorders: No Hx Family Autoimmune Disorders: No Medications and Allergies Cholecalciferol (Vitamin D3) [Vitamin D3] 50,000 unit PO FR 11/22/14 [History] Fenofibrate [Tricor] 48 mg PO HS 11/22/14 [History] Ranolazine [Ranexa] 1,000 mg PO BID 11/22/14 [History] Doxepin [Sinequan] 50 mg PO HS 08/30/15 [History] Insulin Glargine [Lantus] 90 unit SQ HS 08/30/15 [History] Insulin LISPRO [HumaLOG] 30 - 50 units SQ TIDWM 08/30/15 [History] Gabapentin [Neurontin] 400 mg PO TID 01/01/17 [History] HydrOXYzine 10 mg PO BID 01/01/17 [History] Liraglutide [Victoza 2-Cristian] 1.2 mg SQ DAILY 01/01/17 [History] Ranitidine HCl [Zantac] 300 mg PO DAILY 01/01/17 [History] buPROPion HCl [Bupropion HCl Sr] 200 mg PO DAILY 01/01/17 [History] Trazodone HCl 300 mg PO HS 02/08/17 [History] Lisinopril [Zestril] 10 mg PO DAILY tablet 02/13/17 [Rx] Dicyclomine [Bentyl] 10 mg PO QID 02/27/17 [History] Acetaminophen [Tylenol] 650 mg PO Q6HR PRN #16 tablet 06/12/17 [Rx] Ciprofloxacin [Cipro] 500 mg PO BID 07/24/17 [History] Atorvastatin Calcium [Lipitor] 80 mg PO HS 07/25/17 [History] Cyclobenzaprine [Flexeril] 10 mg PO BID 07/25/17 [History] Montelukast [Singulair] 10 mg PO DAILY 07/25/17 [History] Pantoprazole Sodium [Protonix] 40 mg PO DAILY 07/25/17 [History] 3 Allergy/AdvReac Type Severity Reaction Status Date / Time Iodinated Contrast- Oral and Allergy Rash Verified 07/24/17 21:15 IV Dye iron Allergy Hives Verified 07/24/17 21:15 [place] Allergy Nausea Verified 07/24/17 21:15 Sulfa (Sulfonamide Allergy Hives Verified 07/24/17 21:15 Antibiotics) All Systems Review: The remainder of the systems were reviewed and are negative - Constitutional Constitutional: frequent falls - Cardiovascular Cardiovascular: as per HPI, chest pain at rest Physical Examination Vital Signs, Last 4 Hours Temp Pulse Resp BP Pulse Ox 07/26/17 07:21 100.1 F H 99 18 108/66 93 General: Conversant, No Apparent Distress HEENT: Atraumatic, Normocephaly, Mucus Membranes Moist Neck: No JVD, Normal carotid pulses Cardiac: Reg Rate and Rhythm, Normal S1 and S2, No Murmur Lungs: Normal Breath Sounds, No Wheeze, Rales, Rhonchi Neuro: Alert and responsive, No focal deficits noted Abdomen: Soft, Non-Tender Skin: No rashes noted on visualized skin Musculoskeletal: Other (Chest pain reproduceable with palpation. ) Extremities: No Clubbing, No Cyanosis, Normal Pulses, Other (Mild bilateral lower extremity edema noted. ) Results 07/26/17 01:31 07/26/17 01:31 Lab Results Active Medications Acetaminophen (Tylenol) 650 mg PO Q6HR PRN PRN Reason: Mild Pain/Fever Stop: 01/24/18 03:22 Last Admin: 07/26/17 08:10 Dose: 650 mg Hydrocodone Bitart/Acetaminophen (Felt 5-325 Mg) 1 tab PO Q6HR PRN PRN Reason: BREAKTHROUGH PAIN Stop: 01/24/18 22:54 Last Admin: 07/25/17 23:28 Dose: 1 tab Atorvastatin Calcium (Lipitor) 80 mg PO HS KATIA Stop: 01/24/18 21:01 Last Admin: 07/25/17 20:15 Dose: 80 mg Dextrose/Water (Dextrose 50% (Syg)) 25 ml IVP AD PRN PRN Reason: Hypoglycemia Stop: 01/24/18 03:49 Fenofibrate (Tricor) 54 mg PO HS KATIA PRN Reason: Protocol Stop: 01/24/18 21:01 Last Admin: 07/25/17 20:16 Dose: 54 mg Glucagon (Glucagen) 1 mg IM ONCE PRN PRN Reason: Hypoglycemia Stop: 01/24/18 03:49 Glucose (Gluctose) 15 gm PO ONCE PRN PRN Reason: Hypoglycemia Stop: 01/24/18 03:49 Glucose (Gluctose) 30 gm PO ONCE PRN PRN Reason: Hypoglycemia Stop: 01/24/18 03:49 Heparin Sodium (Porcine) (Heparin) 4,000 unit IVP Q6HR PRN PRN Reason: SEE COMMENTS Stop: 01/24/18 15:54 Heparin Sodium (Porcine) (Heparin) 2,000 unit IVP Q6H PRN PRN Reason: SEE COMMENTS Stop: 01/24/18 15:54 Last Admin: 07/26/17 08:07 Dose: 2,000 unit Ceftriaxone Sodium 2,000 mg/ (Sterile Water) 20 mls @ 40 mls/hr IVPB Q24H KATIA Stop: 01/24/18 23:01 Last Admin: 07/25/17 23:27 Dose: 40 mls/hr Dextrose (Dextrose 5%) 1,000 mls @ 100 mls/hr IVC .Q10H PRN PRN Reason: HYPOGLYCEMIA Stop: 01/24/18 03:49 Sodium Chloride (0.9 % Sodium Chloride) 1,000 mls @ 100 mls/hr IVC .Q10H KATIA Stop: 01/24/18 10:01 Last Admin: 07/26/17 05:44 Dose: Not Given Heparin Sodium/Dextrose (Heparin 25,000 Unit/500 Ml D5w) 25,000 unit in 500 mls @ 20 mls/hr IVC .Q24H KATIA PRN Reason: Protocol Stop: 01/24/18 16:01 Last Titration: 07/26/17 08:11 Dose: 24 mls/hr Insulin Human Lispro (Humalog) 0 units SQ TIDAC KATIA PRN Reason: Protocol Stop: 01/24/18 07:31 Last Admin: 07/26/17 08:10 Dose: 4 units Insulin Human Lispro (Humalog) 0 units SQ HS KATIA PRN Reason: Protocol Stop: 01/24/18 21:01 Last Admin: 07/25/17 20:16 Dose: 3 units Naloxone HCl (Narcan) 0.4 mg IVP Q2MIN PRN PRN Reason: SEE COMMENTS Stop: 01/24/18 03:22 Ranolazine (Ranexa) 1,000 mg PO BID [facility] Stop: 01/24/18 21:01 Last Admin: 07/26/17 08:08 Dose: 1,000 mg Laboratory Tests 07/24/17 07/25/17 07/25/17 21:30 06:00 11:53 Hgb Creatinine 2.47 H 2.06 H Creatine Kinase 2482 H 2478 H 1798 H Troponin I 0.09 H* 3.10 H* 07/25/17 07/25/17 07/25/17 11:53 17:42 17:42 Hgb Creatinine Creatine Kinase 1792 H Troponin I 3.65 H* 3.52 H* 07/26/17 07/26/17 01:31 01:31 Hgb 9.3 L Creatinine 1.59 H Creatine Kinase Troponin I 2.44 H* - Imaging and Cardiology Chest Xray: report reviewed Stress Test: report reviewed Echo: report reviewed Cardiac cath: report reviewed - EKG Interpretation EKG results cardiology: personally reviewed (ECG with ST, HR 105.), other ( Telemetry reviewed with average HR previous 12 hours noted to be 104, ST. PVCs noted.) Consult Discharge Plan - Plan Referrals: Jonna Mcdermott, MAINTENANCE AND REPAIR WORKER [Primary Care Provider] -
[2017-07-26] MEDS ORDERED: Perflutren Lipid Microsphere 1.3 ML in 0.9 % Sodium Chloride 8.7 ML IVP ONE (11:44)
[2017-07-26] MEDS: Metoprolol XL (24 HR) Succ 25 MG TAB.ER.24H PO SCH (13:00)
[2017-07-26] MEDS: Aspirin Enteric Coated 81 MG Tablet PO SCH (13:00)
--- NOTE | 2017-07-26 13:53 | Internal Med Progress Note ---
Date of Encounter: 07/26/17 Time of Encounter: 13:48 - Assessment and plan (1) CAD (coronary artery disease) Current Visit: Yes Status: Chronic Assessment and plan: per hx. 11/2014 [facility] with 30% proximal and mid LAD, 50% OM2, 20% ramus, 90% RPDA with BMS placed. Serial troponins elevated 0.09, 3.1, 3.65, 3.52, 2.44 and in the setting of sepsis, UTI, CASTRO on CKD, rhabdomyolysis. Evaluated by Cardiology who noted NSTEMI vs demand ischemia. Cont heparin gtt for now. Repeat echo pending. Cont ASA, statin, Ranexa, BB. Further recommendations pending repeat echo Qualifiers: Coronary Disease-Associated Artery/Lesion type: [place] artery [place] vs. transplanted heart: [place] heart Associated angina: without angina Qualified Code(s): I25.10 - Atherosclerotic heart disease of [place] coronary artery without angina pectoris (2) Rhabdomyolysis Current Visit: Yes Status: Inactive Assessment and plan: Secondary to fall. CK 2482 on admission, now trending down. Continue IV fluids. Monitor repeat CK. Qualifiers: Rhabdomyolysis type: non-traumatic Qualified Code(s): M62.82 - Rhabdomyolysis (3) Urinary tract infection Current Visit: Yes Status: Acute Assessment and plan: UA suggestive of UTI, culture pending; continue IV Rocephin (day 2) Qualifiers: Urinary tract infection type: acute cystitis Hematuria presence: without hematuria Qualified Code(s): N30.00 - Acute cystitis without hematuria (4) Acute kidney injury superimposed on chronic kidney disease Current Visit: Yes Status: Acute Assessment and plan: Cr 2.47 on admission (baseline 1.4-1.5); likely due to rhabdomyolysis, dehydration and UTI. Renal function improving with IV fluids. Avoid nephrotoxic agents as possible. Holding home RE. Monitor repeat renal function (5) Acute metabolic encephalopathy Current Visit: Yes Status: Suspected Assessment and plan: confusion likely due to CASTRO and UTI; CT head showed no acute abnormality. Mentation back to baseline, LOC 4. No further workup indicated at this time. (6) Hyperlipidemia Current Visit: Yes Status: Chronic Assessment and plan: per hx. Cont home statin Qualifiers: Hyperlipidemia type: mixed hyperlipidemia Qualified Code(s): E78.2 - Mixed hyperlipidemia (7) COPD (chronic obstructive pulmonary disease) Current Visit: Yes Status: Chronic Assessment and plan: per hx. No evidence of exacerbation. Continue home inhalers, PRN breathing treatments Qualifiers: COPD type: emphysema Emphysema type: centrilobular Qualified Code(s): J43.2 - Centrilobular emphysema (8) Type 2 diabetes mellitus Current Visit: Yes Status: Chronic Assessment and plan: per hx. Hgb A1c 9.9%. Holding home oral hypoglycemics. SSI. 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 [facility] use Diabetes mellitus complication status: with kidney complications Diabetes mellitus complication detail: with chronic kidney disease Chronic kidney disease stage : stage 3 (moderate) Qualified Code(s): E11.22 - Type 2 diabetes mellitus with diabetic chronic kidney disease; N18.3 - Chronic kidney disease, stage 3 ( moderate); N18.3 - Chronic kidney disease, stage 3 (moderate); Z79.4 - skilled nursing (current) use of insulin; Z79.4 - superintendent marine oil terminal (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 Resolving Qualifiers: Sepsis type: sepsis due to unspecified organism Qualified Code(s): A41.9 - Sepsis, unspecified organism (11) Hypertension Current Visit: Yes Status: Chronic Assessment and plan: per hx. BP soft/borderline. Holding home RE. Low dose BB added per Cardiology. Monitor BP Qualifiers: Hypertension type: essential hypertension Qualified Code(s): I10 - Essential (primary) hypertension (12) DVT prophylaxis Current Visit: Yes Status: Acute Assessment and plan: heparin gtt - Time Spent With Patient Total time spent is greater than 50% in coordination of care (as documented) at patient's floor/unit and/or counseling patient: - Subjective Interval history: Seen and examined at the bedside, she is now LOC X4. Says she feel better. Still having left hip pain. No CP or SOB - Constitutional Vitals: Temp Pulse Resp BP Pulse Ox 98.8 F 81 16 113/70 98 07/26/17 11:38 07/26/17 11:38 07/26/17 11:38 07/26/17 11:38 07/26/17 11:38 General appearance: Present: A&O X 3, morbidly obese, no acute distress. Absent : answers questions appropriately - Head Head exam: Present: atraumatic, normocephalic - Eye Eye exam: Present: PERRL, conjuntiva pink, sclera anicteric Pupils: Present: PERRL - Neck Neck exam general surgery: Present: supple, trachea midline. Absent: lymphadenopathy - Respiratory Respiratory exam: Present: CTAB. Absent: accessory muscle use, rales, rhonchi, wheezes - Cardiovascular Cardiovascular exam: Present: RRR, +S1, +S2. Absent: diastolic murmur, gallop, rubs, systolic murmur - GI/Abdominal GI/Abdominal exam: Present: normal bowel sounds, soft, no peritoneal signs. Absent: distended, tenderness - Extremities Exam Extremities exam: Present: pedal edema, warm, radial pulses palpable and symmetrical. Absent: calf tenderness, cyanotic - Neurological Exam Neurological exam: Present: CN II-XII intact, oriented X3, no focal deficits. Absent: pronater drift, facial droop, speech deficit - Skin Skin exam: Present: dry, intact Internal Medicine: Result - Labs CBC & Chem 7: 07/26/17 01:31 07/26/17 01:31 Labs: Short CBC 07/25/17 07/26/17 Range/Units 16:18 01:31 WBC 7.5 6.0 (4.3-11.1) K/mcL Hgb 10.2 L 9.3 L (11.5-15.4) g/dL Hct 31.9 L 29.1 L (35.3-44.9) % Plt Count 194 169 (140-400) K/mcL BMP 07/26/17 01:31 Sodium 133 L Potassium 4.3 Chloride 105 Carbon Dioxide 24 BUN 22 Creatinine 1.59 H Glucose 208 H Calcium 9.2 Cardiac Enzymes 07/25/17 07/26/17 Range/Units 17:42 01:31 Troponin I 3.52 H* 2.44 H* (< 0.04) ng/mL - ABG Interpretation ABG results: PT/INR, D-dimer PT 14.0 Seconds (9.4-12.1) H 07/25/17 16:18 Consult Discharge Plan - Plan Referrals: Jonna Mcdermott CNP [Primary Care Provider] -
[2017-07-26] MEDS: Heparin 25,000 UNIT/500 ML D5W 25,000 UNIT/500 ML BAG IVC SCH (18:10)
[2017-07-26] MEDS: Doxycycline 100 MG in 0.9 % Sodium Chloride Mini Bag 100 ML IVPB SCH (18:10)
[2017-07-26] MEDS: Fenofibrate 54 MG TABLET PO SCH (21:41)
[2017-07-26] MEDS: cefTRIAXone 2,000 MG in Water for inj. (sterile) 20 ML 20 ML IVPB SCH (23:04)
[2017-07-27] MEDS: 0.9 % Sodium Chloride 1,000 ML IVC SCH ×2 (04:36→15:00)
[2017-07-27 05:01] LABS: Hematocrit 26.8 % (35.3-44.9); Hemoglobin 8.7 g/dL (11.5-15.4); Mean Corpuscular HGB Conc 32.5 g/dL (31.6-35.5); Mean Corpuscular Hemoglobin 28.3 pg (28.0-33.3); Mean Corpuscular Volume 87.3 fL (83.0-100.0); Mean Platelet Volume 10.3 fL (9.4-12.4); Platelet Count 181 K/mcL (140-400); Red Blood Count 3.07 M/mcL (3.82-4.97); Red Cell Distribution Width 14.1 % (11.5-14.5)
[2017-07-27 05:17] LABS: Calcium 8.9 mg/dL (8.6-10.3); Potassium 3.9 mEq/L (3.5-5.1)
[2017-07-27 05:21] LABS: Troponin I 1.49 ng/mL (< 0.04)
[2017-07-27 05:27] LABS: Heparin anti-factor XA UFH 0.79 IU/mL (0.30-0.70)
[2017-07-27] MEDS: Doxycycline 100 MG in 0.9 % Sodium Chloride Mini Bag 100 ML IVPB SCH ×2 (05:43→16:57)
[2017-07-27] MEDS: Ranolazine 500 MG TAB.ER.12H PO SCH ×2 (07:48→21:32)
[2017-07-27] MEDS: Aspirin Enteric Coated 81 MG Tablet PO SCH (07:48)
[2017-07-27] MEDS: Metoprolol XL (24 HR) Succ 25 MG TAB.ER.24H PO SCH (07:48)
[2017-07-27] MEDS: Acetaminophen 325 MG TABLET PO PRN (07:49)
[2017-07-27] MEDS: Insulin LISPRO 300 UNITS/3 ML VIAL SQ SCH ×4 (07:50→21:32)
--- NOTE | 2017-07-27 09:45 | Cardiology Progress Note ---
Date of Encounter: 07/27/17 Time of Encounter: 08:30 Assessment and Plan (1) Elevated troponin Current Visit: Yes Status: Acute Per cardiology: -Troponins elevated 0.09, 3.1, 3.65, 3.52, 2.44, 1.49 in the setting of sepsis, ?UTI, CASTRO on CKD, rhabdomyolysis. NSTEMI vs demand ischemia. -Reported chronic chest pain, different from angina. Denies current chest pain. -ECG with no acute ischemic changes -On statin, ranexa, heparin drip, asa, BB. -11/2014 [facility] with 30% proximal and mid LAD, 50% OM2, 20% ramus, 90% RPDA with BMS placed. -TTE 01/2017 with LVEF 70%, mild concentric LVH, mild diastolic dysufnction, no segmental wall motion abnormalities. -TTE with LVEF 65%, no segmental wall motion abnormalities. -Discussed and reviewed with , do not suspect NSTEMI, suspect demand ischemia related to above. NO cardiac rehab consulted warranted. -Will discontinue heparin drip. -Of note, patient states she follows with assistant account executive in [place], recommend patient follow up with primary assistant account executive after discharge. (2) [id number] kidney injury Current Visit: No Status: Chronic Per cardiology: -Baseline creatinine 1.3-1.6. -Creatinine on admission 2.47, now down trending. -Per primary service, likely rhabdomyolysis. -Management per primary service. Qualifiers: Acute renal failure type: unspecified Chronic kidney disease stage: unspecified stage Qualified Code(s): N17.9 - Acute kidney failure, unspecified ; N18.9 - Chronic kidney disease, unspecified; N18.9 - Chronic kidney disease, unspecified Discussion w patient/family: The assessment and plan as outlined above was discussed with the patient who expressed understanding and agreement. All questions were answered. Thank you for involving us in the care of your patient. Please call with any questions. Discussed and reviewed with . Subjective Principal diagnosis: Fall Interval history: Patient denies current chest pain. States she feels well today. Objective Vital Signs, Last 4 Hours Temp Pulse Resp BP Pulse Ox 07/27/17 07:37 98.2 F 85 16 162/65 97 General: Conversant, No Apparent Distress HEENT: Atraumatic, Normocephaly, Mucus Membranes Moist Neck: No JVD, Normal carotid pulses Cardiac: Reg Rate and Rhythm, Normal S1 and S2, No Murmur Lungs: Normal Breath Sounds, No Wheeze, Rales, Rhonchi Neuro: Alert and responsive, No focal deficits noted Abdomen: Soft, Non-Tender Skin: No rashes noted on visualized skin Musculoskeletal: No Chest Wall Tenderness Extremities: No Clubbing, No Cyanosis, Normal Pulses, Other (Mild bilateral pedal edema. ) Results 07/27/17 04:30 07/27/17 04:30 Lab Results Impressions Echocardiogram 07/26/17 16:10 Impressions: LVEF 65%. Not al LV segments were well visualized, but overall LVEF is normal. Mild concentric left ventricular hypertrophy. Mild left ventricular diastolic dysfunction. Normal right ventricular structure and function. Mild aortic regurgitation. No evidence of pulmonary hypertension. Findings: Study Quality * Technically sub-optimal due to poor echocardiographic windows. ECG Findings * Normal sinus rhythm. Left Ventricle * LVEF 65%. Not al LV segments were well visualized, but overall LVEF is normal. * Normal LV chamber size. Mild concentric left ventricular hypertrophy. * Mild left ventricular diastolic dysfunction. Right Ventricle * Normal right ventricular structure and function. Left Atrium * Mildly dilated left atrium. Right Atrium * Normal right atrial size. Interatrial Septum * Interatrial septum not well evaluated. Aortic Valve * Aortic valve not well visualized. * Mild aortic regurgitation. * No aortic stenosis. Mitral Valve * Normal mitral valve structure and function. * No mitral regurgitation. * No mitral stenosis. Tricuspid Valve * Normal tricuspid valve structure and function. * Trace tricuspid regurgitation. * No evidence of pulmonary hypertension. Pulmonic Valve * Normal pulmonic valve structure and function. * No pulmonic regurgitation. Aorta * Normally sized aortic root. Pericardium * Trivial pericardial effusion. IVC * Normal IVC dimensions and inspiratory collapse. Pulmonary Artery * Normal visualized portions of the main pulmonary artery. Chest CT 07/26/17 17:00 IMPRESSION: Stable examination with stable post treatment changes of the right lung. No new or enlarging pulmonary nodules. No evidence of metastatic disease. D/ / 07/26/2017 22:19:18 Mt Medina MD / leora Interpreting Provider: Mt Medina MD Active Medications Acetaminophen (Tylenol) 650 mg PO Q6HR PRN PRN Reason: Mild Pain/Fever Stop: 01/24/18 03:22 Last Admin: 07/27/17 07:49 Dose: 650 mg Hydrocodone Bitart/Acetaminophen ([place] 5-325 Mg) 1 tab PO Q6HR PRN PRN Reason: BREAKTHROUGH PAIN Stop: 01/24/18 22:54 Last Admin: 07/25/17 23:28 Dose: 1 tab Aspirin (Aspirin Ec) 81 mg PO DAILY KATIA Stop: 01/25/18 12:01 Last Admin: 07/27/17 07:48 Dose: 81 mg Atorvastatin Calcium (Lipitor) 80 mg PO HS KATIA Stop: 01/24/18 21:01 Last Admin: 07/26/17 21:42 Dose: 80 mg Dextrose/Water (Dextrose 50% (Syg)) 25 ml IVP AD PRN PRN Reason: Hypoglycemia Stop: 01/24/18 03:49 Fenofibrate (Tricor) 54 mg PO HS KATIA PRN Reason: Protocol Stop: 01/24/18 21:01 Last Admin: 07/26/17 21:41 Dose: 54 mg Glucagon (Glucagen) 1 mg IM ONCE PRN PRN Reason: Hypoglycemia Stop: 01/24/18 03:49 Glucose (Gluctose) 15 gm PO ONCE PRN PRN Reason: Hypoglycemia Stop: 01/24/18 03:49 Glucose (Gluctose) 30 gm PO ONCE PRN PRN Reason: Hypoglycemia Stop: 01/24/18 03:49 Heparin Sodium (Porcine) (Heparin) 4,000 unit IVP Q6HR PRN PRN Reason: SEE COMMENTS Stop: 01/24/18 15:54 Last Admin: 07/26/17 23:02 Dose: 4,000 unit Heparin Sodium (Porcine) (Heparin) 2,000 unit IVP Q6H PRN PRN Reason: SEE COMMENTS Stop: 01/24/18 15:54 Last Admin: 07/26/17 08:07 Dose: 2,000 unit Ceftriaxone Sodium 2,000 mg/ (Sterile Water) 20 mls @ 40 mls/hr IVPB Q24H KATIA Stop: 01/24/18 23:01 Last Infusion: 07/26/17 23:35 Dose: Infused Dextrose (Dextrose 5%) 1,000 mls @ 100 mls/hr IVC .Q10H PRN PRN Reason: HYPOGLYCEMIA Stop: 01/24/18 03:49 Sodium Chloride (0.9 % Sodium Chloride) 1,000 mls @ 100 mls/hr IVC .Q10H [facility] Stop: 01/24/18 10:01 Last Admin: 07/27/17 04:36 Dose: 100 mls/hr Heparin Sodium/Dextrose (Heparin 25,000 Unit/500 Ml D5w) 25,000 unit in 500 mls @ 20 mls/hr IVC .Q24H KATIA PRN Reason: Protocol Stop: 01/24/18 16:01 Last Titration: 07/27/17 06:29 Dose: 22 mls/hr Doxycycline Hyclate 100 mg/ (Sodium Chloride) 100 mls @ 100 mls/hr IVPB Q12HR [facility] Stop: 01/25/18 18:01 Last Admin: 07/27/17 05:43 Dose: 100 mls/hr Insulin Human Lispro (Humalog) 0 units SQ TIDAC [facility] PRN Reason: Protocol Stop: 01/24/18 07:31 Last Admin: 07/27/17 07:50 Dose: 4 units Insulin Human Lispro (Humalog) 0 units SQ HS [facility] PRN Reason: Protocol Stop: 01/24/18 21:01 Last Admin: 07/26/17 21:42 Dose: 3 units Metoprolol Succinate (Toprol Xl) 12.5 mg PO DAILY [facility] Stop: 01/25/18 12:01 Last Admin: 07/27/17 07:48 Dose: 12.5 mg Naloxone HCl (Narcan) 0.4 mg IVP Q2MIN PRN PRN Reason: SEE COMMENTS Stop: 01/24/18 03:22 Ranolazine (Ranexa) 1,000 mg PO BID [facility] Stop: 01/24/18 21:01 Last Admin: 07/27/17 07:48 Dose: 1,000 mg Laboratory Tests 07/25/17 07/25/17 07/27/17 06:00 07:31 04:30 Hgb 10.7 L D 8.7 L Creatinine 2.06 H Troponin I 07/27/17 07/27/17 04:30 04:30 Hgb Creatinine 1.15 Troponin I 1.49 H* - Imaging and Cardiology Chest Xray: report reviewed Echo: report reviewed - EKG Interpretation EKG results cardiology: other (Telemetry reviewed with average HR previous 12 hours noted to be 82, SR. PVCS, PACs noted. One run of atrial tachycardia noted , lasting 8 beats.) Consult Discharge Plan - Plan Referrals: Jonna Mcdermott CNP [Primary Care Provider] -
--- NOTE | 2017-07-27 15:16 | Internal Med Progress Note ---
Date of Encounter: 07/27/17 Time of Encounter: 09:40 - Assessment and plan (1) Hyperlipidemia Current Visit: Yes Status: Chronic Assessment and plan: Chronic. Continue statin. Qualifiers: Hyperlipidemia type: mixed hyperlipidemia Qualified Code(s): E78.2 - Mixed hyperlipidemia (2) CAD (coronary artery disease) Current Visit: Yes Status: Chronic Assessment and plan: Chronic. November, echo showed 30% proximal and mid LAD, 50% OM2, 20% ramus, 90% RPDA with BMS placed in right PDA. Serial troponins elevated 0.09, 3.1, 3.65, 3.52, 2.44 and in the setting of sepsis, UTI, CASTRO on CKD, rhabdomyolysis. Evaluated by Cardiology who noted NSTEMI vs demand ischemia. Heparin drip stopped this morning by cardiology. Repeat echo showed an LVEF of 60%, mild concentric LV hypertrophy, mild LV DD, mild AR Cont ASA, statin, Ranexa, BB. Continue telemetry. Qualifiers: Coronary Disease-Associated Artery/Lesion type: [place] artery [place] vs. transplanted heart: [place] heart Associated angina: without angina Qualified Code(s): I25.10 - Atherosclerotic heart disease of [place] coronary artery without angina pectoris (3) COPD (chronic obstructive pulmonary disease) Current Visit: Yes Status: Chronic Assessment and plan: Chronic. No acute exacerbation. Lungs are clear, she is not requiring supplemental 02. Continue home medications and PRN nebulizer treatments. Qualifiers: COPD type: emphysema Emphysema type: centrilobular Qualified Code(s): J43.2 - Centrilobular emphysema (4) Type 2 diabetes mellitus Current Visit: Yes Status: Chronic Assessment and plan: Uncontrolled. A1c 9.9% Continue SSI, accuchecks achs, diabetic diet. Pt could benefit from diabetes education after discharge. 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 Diabetes mellitus complication status: with kidney complications Diabetes mellitus complication detail: with chronic kidney disease Chronic kidney disease stage : stage 3 (moderate) Qualified Code(s): E11.22 - Type 2 diabetes mellitus with diabetic chronic kidney disease; N18.3 - Chronic kidney disease, stage 3 ( moderate); N18.3 - Chronic kidney disease, stage 3 (moderate); Z79.4 - intermodal customer service (current) use of insulin; Z79.4 - alf (current) use of insulin; Z79.4 - intermodal customer service (current) use of insulin; Z79.4 - intermodal customer service (current) use of insulin (5) Morbid obesity with BMI of 40.0-44.9, adult Current Visit: Yes Status: Chronic Assessment and plan: Chronic. Encourage lifestyle modifications. (6) Sepsis Current Visit: Yes Status: Acute Assessment and plan: Resolved. No leukocytosis, fever, tachycardia. Qualifiers: Sepsis type: sepsis due to unspecified organism Qualified Code(s): A41.9 - Sepsis, unspecified organism (7) Hypertension Current Visit: Yes Status: Chronic Assessment and plan: Chronic. Continue home medications. Monitor blood pressure. Well controlled. Qualifiers: Hypertension type: essential hypertension Qualified Code(s): I10 - Essential (primary) hypertension (8) Acute metabolic encephalopathy Current Visit: Yes Status: Suspected Assessment and plan: Resolved. (9) Urinary tract infection Current Visit: Yes Status: Acute Assessment and plan: UA suggestive of UTI, culture pending Rocephin 1 gram IV day 3 today. Gram negative rods today. Test was done outpatient, may have to call lab for final results. Qualifiers: Urinary tract infection type: acute cystitis Hematuria presence: without hematuria Qualified Code(s): N30.00 - Acute cystitis without hematuria (10) Rhabdomyolysis Current Visit: Yes Status: Inactive Assessment and plan: CK continues to decrease, 799 today. Continue IVF hydration. Continue to monitor labs. Qualifiers: Rhabdomyolysis type: non-traumatic Qualified Code(s): M62.82 - Rhabdomyolysis (11) Acute kidney injury superimposed on chronic kidney disease Current Visit: Yes Status: Acute Assessment and plan: . Improving. Continue to avoid nephrotoxins and monitor labs. (12) DVT prophylaxis Current Visit: Yes Status: Acute Assessment and plan: Heparin gtt stopped by cardiology. HEATHER ignacio ordered, Heparin SQ BID. - Time Spent With Patient Total time spent is greater than 50% in coordination of care (as documented) at patient's floor/unit and/or counseling patient: less than 15 minutes - Subjective Interval history: Patient was seen and assessed at bedside at 9:40 AM. She states that she is feeling better, she reports feeling short of breath and having chest tightness as if she is getting a cold. We will start Claritin and Flonase. PT/OT have recommended patient go to inpatient rehabilitation, she wants to go to [place]. pharmacy services director note indicates that patient can be transferred tomorrow to [place] rehabilitation. She denies nausea, vomiting, diaphoresis , abdominal pain, headache or blurred vision. - Constitutional Vitals: Temp Pulse Resp BP Pulse Ox 97.8 F 84 16 130/73 97 07/27/17 12:00 07/27/17 12:00 07/27/17 12:00 07/27/17 12:00 07/27/17 12:00 General appearance: Present: cooperative, A&O X 3, morbidly obese, pleasant, no acute distress, answers questions appropriately - Head Head exam: Present: atraumatic, normal inspection, normocephalic - Eye Eye exam: Present: normal appearance, conjuntiva pink, sclera anicteric - Neck Neck exam general surgery: Present: supple, trachea midline. Absent: lymphadenopathy - Respiratory Respiratory exam: Present: CTAB. Absent: accessory muscle use, rales, respiratory distress, rhonchi, wheezes - Cardiovascular Cardiovascular exam: Present: RRR, +S1, +S2. Absent: diastolic murmur, gallop, rubs, systolic murmur - GI/Abdominal GI/Abdominal exam: Present: normal bowel sounds, soft. Absent: distended, hepatomegaly, tenderness - Extremities Exam Extremities exam: Present: normal capillary refill, normal inspection, warm, radial pulses palpable and symmetrical. Absent: calf tenderness, cyanotic, pedal edema, tenderness - Neurological Exam Neurological exam: Present: alert, oriented X3, no focal deficits. Absent: facial droop, speech deficit - Skin Skin exam: Present: dry, intact, normal color, warm. Absent: rash Internal Medicine: Result - Labs CBC & Chem 7: 07/27/17 04:30 07/27/17 04:30 Labs: Short CBC 07/27/17 Range/Units 04:30 WBC 3.9 L (4.3-11.1) K/mcL Hgb 8.7 L (11.5-15.4) g/dL Hct 26.8 L (35.3-44.9) % Plt Count 181 (140-400) K/mcL BMP 07/27/17 04:30 Sodium 139 Potassium 3.9 Chloride 108 H Carbon Dioxide 21 L BUN 15 Creatinine 1.15 Glucose 216 H Calcium 8.9 Cardiac Enzymes 07/27/17 Range/Units 04:30 Troponin I 1.49 H* (< 0.04) ng/mL - ABG Interpretation ABG results: PT/INR, D-dimer PT 14.0 Seconds (9.4-12.1) H 07/25/17 16:18 - Impressions Impressions Echocardiogram 07/26/17 16:10 Impressions: LVEF 65%. Not al LV segments were well visualized, but overall LVEF is normal. Mild concentric left ventricular hypertrophy. Mild left ventricular diastolic dysfunction. Normal right ventricular structure and function. Mild aortic regurgitation. No evidence of pulmonary hypertension. Findings: Study Quality * Technically sub-optimal due to poor echocardiographic windows. ECG Findings * Normal sinus rhythm. Left Ventricle * LVEF 65%. Not al LV segments were well visualized, but overall LVEF is normal. * Normal LV chamber size. Mild concentric left ventricular hypertrophy. * Mild left ventricular diastolic dysfunction. Right Ventricle * Normal right ventricular structure and function. Left Atrium * Mildly dilated left atrium. Right Atrium * Normal right atrial size. Interatrial Septum * Interatrial septum not well evaluated. Aortic Valve * Aortic valve not well visualized. * Mild aortic regurgitation. * No aortic stenosis. Mitral Valve * Normal mitral valve structure and function. * No mitral regurgitation. * No mitral stenosis. Tricuspid Valve * Normal tricuspid valve structure and function. * Trace tricuspid regurgitation. * No evidence of pulmonary hypertension. Pulmonic Valve * Normal pulmonic valve structure and function. * No pulmonic regurgitation. Aorta * Normally sized aortic root. Pericardium * Trivial pericardial effusion. IVC * Normal IVC dimensions and inspiratory collapse. Pulmonary Artery * Normal visualized portions of the main pulmonary artery. Chest CT 07/26/17 17:00 IMPRESSION: Stable examination with stable post treatment changes of the right lung. No new or enlarging pulmonary nodules. No evidence of metastatic disease. D/ / 07/26/2017 22:19:18 Mt Medina MD / leora Interpreting Provider: Mt Medina MD Consult Discharge Plan - Plan Referrals: Jonna Mcdermott, GARMENT WORKER [Primary Care Provider] -
[2017-07-27] MEDS: *HR* Heparin 5,000 UNIT/ML VIAL SQ SCH (16:58)
[2017-07-27] MEDS: Fluticasone Propionate Nasal 50 MCG/SPRAY BOTTLE NS SCH (17:00)
[2017-07-27] MEDS: Loratadine 10 MG TABLET PO SCH (17:01)
[2017-07-27] MEDS: Fenofibrate 54 MG TABLET PO SCH (21:32)
[2017-07-27] MEDS: cefTRIAXone 2,000 MG in Water for inj. (sterile) 20 ML 20 ML IVPB SCH (22:58)
[2017-07-28] MEDS: 0.9 % Sodium Chloride 1,000 ML IVC SCH ×2 (01:57→08:51)
[2017-07-28] MEDS: *HR* Heparin 5,000 UNIT/ML VIAL SQ SCH (06:19)
[2017-07-28] MEDS: Doxycycline 100 MG in 0.9 % Sodium Chloride Mini Bag 100 ML IVPB SCH (06:19)
[2017-07-28 07:03] LABS: Basophils % 0.3 %; Eosinophils # 0.1 K/mcL (0.0-0.6); Hematocrit 30.8 % (35.3-44.9); Immature Granulocytes % 0.3 % (0-4); Lymphocytes # 1.1 K/mcL (0.6-4.6); Lymphocytes % 33.1 %; Mean Corpuscular HGB Conc 32.5 g/dL (31.6-35.5); Mean Corpuscular Hemoglobin 28.4 pg (28.0-33.3); Mean Corpuscular Volume 87.5 fL (83.0-100.0); Mean Platelet Volume 10.7 fL (9.4-12.4); Monocytes # 0.3 K/mcL (0.0-1.3); Monocytes % 8.3 %; Neutrophils # 1.8 K/mcL (1.6-8.9); Platelet Count 217 K/mcL (140-400); Red Blood Count 3.52 M/mcL (3.82-4.97); Red Cell Distribution Width 14.1 % (11.5-14.5)
[2017-07-28 07:11] LABS: BUN/Creatinine Ratio 10 (6-26); Blood Urea Nitrogen 9 mg/dL (8-23); Calcium 9.1 mg/dL (8.6-10.3); Carbon Dioxide 21 mEq/L (23-29); Chloride 111 mEq/L (98-107); Glucose 163 mg/dL (70-105); Osmolality,Calculated 292 (280-300); Potassium 3.9 mEq/L (3.5-5.1); Sodium 140 mEq/L (136-145); eGFR For African Americans > 60 (> 60); eGFR For Non-African Americans > 60 (> 60)
[2017-07-28] MEDS: Insulin LISPRO 300 UNITS/3 ML VIAL SQ SCH ×2 (07:42→12:22)
[2017-07-28] MEDS: Ranolazine 500 MG TAB.ER.12H PO SCH (08:51)
[2017-07-28] MEDS: Aspirin Enteric Coated 81 MG Tablet PO SCH (08:52)
[2017-07-28] MEDS: Metoprolol XL (24 HR) Succ 25 MG TAB.ER.24H PO SCH (08:52)
[2017-07-28] MEDS: Loratadine 10 MG TABLET PO SCH (08:52)
[2017-07-28] MEDS: Fluticasone Propionate Nasal 50 MCG/SPRAY BOTTLE NS SCH (08:53)
[2017-07-28] MEDS ORDERED: levoFLOXacin 750 MG TABLET PO SCH (09:00)
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
--- NOTE | 2017-07-28 11:40 | Physician Discharge Referral ---
ExtendedCare Referral Info [facility] Provider in Charge after Transfer: PCP Institutional Level of Care: Skilled - Diagnosis (1) Hyperlipidemia Priority: Secondary Status: Chronic (2) CAD (coronary artery disease) Priority: Secondary Status: Chronic (3) COPD (chronic obstructive pulmonary disease) Priority: Secondary Status: Chronic (4) Type 2 diabetes mellitus Priority: Secondary Status: Chronic (5) Morbid obesity with BMI of 40.0-44.9, adult Priority: Secondary Status: Chronic (6) Sepsis Priority: Primary Status: Resolved (7) Hypertension Priority: Secondary Status: Chronic (8) Acute metabolic encephalopathy Priority: Secondary Status: Suspected (9) Urinary tract infection Priority: Secondary Status: Acute (10) Rhabdomyolysis Priority: Secondary Status: Resolved (11) Acute kidney injury superimposed on chronic kidney disease Priority: Secondary Status: Acute (12) DVT prophylaxis Priority: Secondary Status: Acute Prognosis: Good Aware of Diagnosis: Patient - Transfer Medications Prescriptions: levoFLOXacin [Levaquin] 750 mg PO DAILY 7 Days #7 tablet Home Medications: Cholecalciferol (Vitamin D3) [Vitamin D3] 50,000 unit PO FR 11/22/14 [History] Fenofibrate [Tricor] 48 mg PO HS 11/22/14 [History] Ranolazine [Ranexa] 1,000 mg PO BID 11/22/14 [History] Doxepin [Sinequan] 50 mg PO HS 08/30/15 [History] Insulin Glargine [Lantus] 90 unit SQ HS 08/30/15 [History] Insulin LISPRO [HumaLOG] 30 - 50 units SQ TIDWM 08/30/15 [History] Gabapentin [Neurontin] 400 mg PO TID 01/01/17 [History] HydrOXYzine 10 mg PO BID 01/01/17 [History] Liraglutide [Victoza 2-Cristian] 1.2 mg SQ DAILY 01/01/17 [History] Ranitidine HCl [Zantac] 300 mg PO DAILY 01/01/17 [History] buPROPion HCl [Bupropion HCl Sr] 200 mg PO DAILY 01/01/17 [History] Trazodone HCl 300 mg PO HS 02/08/17 [History] Lisinopril [Zestril] 10 mg PO DAILY tablet 02/13/17 [Rx] Dicyclomine [Bentyl] 10 mg PO QID 02/27/17 [History] Acetaminophen [Tylenol] 650 mg PO Q6HR PRN #16 tablet 06/12/17 [Rx] Atorvastatin Calcium [Lipitor] 80 mg PO HS 07/25/17 [History] Cyclobenzaprine [Flexeril] 10 mg PO BID 07/25/17 [History] Montelukast [Singulair] 10 mg PO DAILY 07/25/17 [History] Pantoprazole Sodium [Protonix] 40 mg PO DAILY 07/25/17 [History] Aspirin Enteric Coated [Aspirin EC] 81 mg PO DAILY tablet. 07/28/17 [Rx] Loratadine [Claritin] 10 mg PO DAILY tablet 07/28/17 [Rx] Metoprolol XL (24 HR) Succ [Toprol Xl] 12.5 mg PO DAILY tab.er.24h 07/28/17 [Rx ] levoFLOXacin [Levaquin] 750 mg PO DAILY 7 Days #7 tablet 07/28/17 [Rx] Allergies/Adverse Reactions: 3 Allergy/AdvReac Type Severity Reaction Status Date / Time Iodinated Contrast- Oral and Allergy Rash Verified 07/24/17 21:15 IV Dye iron Allergy Hives Verified 07/24/17 21:15 [place] Allergy Nausea Verified 07/24/17 21:15 Sulfa (Sulfonamide Allergy Hives Verified 07/24/17 21:15 Antibiotics) - Respiratory Orders Smoking Cessation: Smoking cessation has been advised. For more information, call the [place] Tobacco Quit Line at 8-078-JSSV-NOW. - Lab Orders Lab Orders: CBC, U/A, Franky 17, CXR yearly - Ancillary Orders May use pressure relief devices daily prn, May go on DOYLE w/family/respon alliance party w /meds at nurse discretion PRN, May consult with Dentist, Brake Shoe Rebuilder, Peer Tutor PRN - Advance Directives Code Status: Full Code - Mobility Orders Chair, Ambulate - Rehabiliation Orders Rehab Potential: Fair Rehab Orders: Sternal Precautions, ROM Exercises, Evaluation for Physical Therapy, Evaluation for Occupational Therapy - Treatments Skin tear care topically daily PRN per policy, May check for fecal impaction rectally daily PRN, Fleet enema rectally every other day PRN cleansing purposes - Diet Orders No Concentrated Sweets, Cardiac CERTIFICATION: I certify that the transfer of the above named patient to an Extended Care Facility is necessary for the continuing treatment of the diagnosis listed. The above information is true and accurate reflection of patient's current condition. Confidential - Redisclosure prohibited without a patient's written consent.
[2017-07-28] MEDS ORDERED: hydrALAZINE 10 MG TABLET PO ONE (13:40)
[2017-07-28 14:18] VITALS: BP 168/86
== END 2017-07-28 13:06 | DRG 871 ==
LOC: 3BNU
PROVIDERS: ADMIT Internal Medicine; ATTEND Internal Medicine

== ENCOUNTER 2017-12-05 20:48 | Inpatient (IN) ==
[2017-12-05] MEDS ORDERED: *HR* Morphine 2 MG/ML SYRINGE IVP PRN (22:59)
[2017-12-05] MEDS ORDERED: Nitroglycerin 0.4 MG TAB.SUBL SL PRN (22:59)
[2017-12-05] MEDS ORDERED: Naloxone 0.4 MG/ML INJ IVP PRN (22:59)
[2017-12-05] MEDS ORDERED: GI Cocktail 40 ML EACH PO ONE (22:59)
[2017-12-05] MEDS ORDERED: Aspirin 325 MG TABLET PO ONE (22:59)
[2017-12-05] MEDS ORDERED: *HR* Dextrose 50 % in Water (Syg) 50 ML SYRINGE IVP PRN (22:59)
[2017-12-05] MEDS ORDERED: Dextrose Gel 15 GM/37.5 ML TUBE PO PRN ×2 (22:59)
[2017-12-05] MEDS ORDERED: D5% in Water 1,000 ML IVC PRN (22:59)
[2017-12-05] MEDS ORDERED: 0.9 % Sodium Chloride 1,000 ML IVC SCH (23:00)
[2017-12-05] MEDS ORDERED: Insulin LISPRO 300 UNITS/3 ML VIAL SQ SCH (23:00)
[2017-12-05] MEDS ORDERED: Vancomycin (wt based) 1,000 MG VIAL IVPB SCH (23:00)
--- NOTE | 2017-12-05 23:00 | Internal Med History&Physical ---
<Enrique Delarosa - Last Filed: 12/06/17 01:11> Date of Encounter: 12/05/17 Time of Encounter: 22:59 Internal Medicine - H&P: HPI Chief complaint: SOB Admitted From: Intrahospital Transfer ([facility]) History of present illness: Ms. Corbin is a 72 year old female with a past medical history of DM type 2, hypertension, hyperlipidemia, COPD, CKD 4, CVA without residual deficits, remote lung cancer, and multiple recent ER visits who presented complaining of shortness of breath, chest pain secondary to productive cough, nausea, vomiting , and diarrhea multiple times per day for the past 1 week. She reports associated subjective fever, chills and recent immobilization secondary to weakness. Patient denies recent antibiotic use. In the ED, patient met sepsis criteria with leukocytosis 14.4, tachycardia heart rate 144, and tachypnea respiratory rate 24. Blood cultures 2 were collected and she was started on empiric Cipro and Flagyl. CT abdomen pelvis was performed which showed no acute intra-abdominal abnormality. Initial troponin level was elevated at 0.06 and EKG revealed no acute changes from previous EKGs. Past Med Surg Social Fam HX - Past Medical History Medical history: asthma, cancer, CHF, coronary artery disease, CVA, diabetes, fibromyalgia, GERD, hyperlipidemia, hypertension, myocardial infarction, osteoporosis, renal disease, syncope, other Additional medical history: CHRONIC BACK/KNEE PAIN Psychiatric history: anxiety, bipolar, depression - Past Surgical History Surgical History: angioplasty/stent, appendectomy, cancer surgery, cholecystectomy, hysterectomy, orthopedic, other Additional surgical history: 6 stents. - Social History Smoking Status: Former smoker Smokeless Tobacco Status: No Alcohol use: none Drug use: none Current living situation: Home Activity Level: Uses cane/walker - Family History Mother Living Status: Sister Living Status: Hx Family Cardiac Disorders: Yes Hx Family Respiratory Disorders: Yes (Lung cancer) Brother Adopted: No Family Member Ethnicity: Non- Living Status: Still Living Hx Family Cardiac Disorders: Yes Hx Family Respiratory Disorders: Yes Hx Family Cancer: Yes Hx Family GI Disorders: No Hx Family Endocrine Disorder: No Hx Family Neuromuscular Disorders: No Hx Family Neurologic Disorders: No Hx Family HEENT Disorders: No Hx Family Autoimmune Disorders: No Father Adopted: No Family Member Ethnicity: Non- Living Status: Hx Family Cardiac Disorders: Yes Hx Family Respiratory Disorders: No Hx Family Cancer: No Hx Family GI Disorders: No Hx Family Endocrine Disorder: No Hx Family Neuromuscular Disorders: No Hx Family Neurologic Disorders: No Hx Family HEENT Disorders: No Hx Family Autoimmune Disorders: No Internal Medicine - H&P: Meds Dicyclomine [Bentyl] 10 mg PO QID 11/23/17 [History] Ergocalciferol (VITAMIN D2) [Vitamin D2] 50,000 unit PO QWEEK 11/23/17 [History] Gabapentin [Neurontin] 400 mg PO TID 11/23/17 [History] Lisinopril [Zestril] 20 mg PO DAILY 11/23/17 [History] Montelukast [Singulair] 10 mg PO HS 11/23/17 [History] Pantoprazole Sodium [Protonix] 40 mg PO HS 11/23/17 [History] Ranitidine HCl [Zantac] 300 mg PO HS 11/23/17 [History] Ranolazine [Ranexa] 1,000 mg PO BID 11/23/17 [History] Atorvastatin Calcium [Atorvastatin Calcium] 80 mg PO HS 12/06/17 [History] Doxepin HCl [Doxepin HCl] 50 mg PO HS 12/06/17 [History] HydrOXYzine 10 mg PO BID PRN 12/06/17 [History] Insulin Glargine,Hum.rec.anlog [Lantus Solostar] 80 unit SQ DAILY 12/06/17 [ History] Insulin LISPRO [HumaLOG] 0 units SQ TIDWM MDD 90 UNIT 12/06/17 [History] Metoclopramide [Reglan] 5 mg PO Q8H 12/06/17 [History] Ondansetron ODT [Zofran ODT] 4 mg SL Q4H PRN 12/06/17 [History] 3 Allergy/AdvReac Type Severity Reaction Status Date / Time Iodinated Contrast- Oral and Allergy Rash Verified 12/01/17 12:39 IV Dye iron Allergy Hives Verified 12/01/17 12:39 Elrama Allergy Nausea Verified 12/01/17 12:39 Sulfa (Sulfonamide Allergy Hives Verified 12/01/17 12:39 Antibiotics) All Systems PM: A 10-system review of systems was performed and is negative for pertinent findings except as documented above in the HPI. - Constitutional Constitutional: anorexia, chills, fatigue, fever(s), weakness, no falls, no weight gain, no weight loss - EENT Eyes: no blurry vision, no change in vision Nose, mouth and throat: dry mouth, nasal congestion, no sinus pain, no sore throat - Cardiovascular Cardiovascular ROS IM: chest pain, dyspnea, dyspnea on exertion, orthopnea, palpitations, paroxysmal nocturnal dyspnea - Respiratory Respiratory: cough, dyspnea, dyspnea on exertion, chest congestion, excessive phlegm production, change in phlegm color - Gastrointestinal Gastrointestinal: abdominal pain, diarrhea, heartburn, nausea, vomiting - Genitourinary Genitourinary: no dysuria, no urinary frequency, no urinary urgency - Musculoskeletal Musculoskeletal ROS IM: no back pain, no numbness, no tingling - Integumentary Integumentary IM: no erythema, no rash - Neurological Neurological ROS: weakness, no headache(s), no numbness, no tingling - Psychiatric Psychiatric: no anxiety, no depression - Endocrine Endocrine IM: no polydipsia, no polyphagia, no polyuria - Hematologic/Lymphatic Hematologic/Lymphatic: no easy bleeding, no easy bruising - Constitutional Vitals: Temp Pulse Resp BP Pulse Ox 97.8 F 104 13 177/90 99 12/05/17 22:30 12/05/17 22:30 12/05/17 22:30 12/05/17 22:30 12/05/17 22:30 General appearance: Present: cooperative, pleasant, no acute distress, obese, answers questions appropriately Exam: Conversant - Head Head exam: Present: atraumatic, normocephalic - Eye Eye exam: Present: EOMI, conjuntiva pink, sclera anicteric - ENT ENT exam: Present: mucous membranes dry, normal oropharynx - Neck Neck exam general surgery: Present: normal inspection, supple, trachea midline. Absent: lymphadenopathy, tenderness - Respiratory Respiratory exam: Present: decreased breath sounds. Absent: accessory muscle use, rales, respiratory distress, rhonchi, wheezes - Cardiovascular Cardiovascular exam: Present: RRR, +S1, +S2. Absent: diastolic murmur, gallop, rubs, systolic murmur - GI/Abdominal GI/Abdominal exam: Present: guarding, normal bowel sounds, soft, tenderness ( Diffuse), no peritoneal signs. Absent: distended - Extremities Exam Extremities exam: Present: normal capillary refill, warm, radial pulses palpable and symmetrical. Absent: calf tenderness, cyanotic, pedal edema - Back Exam Back exam: Present: normal inspection. Absent: paraspinal tenderness, tenderness - Neurological Exam Neurological exam: Present: alert, oriented X3, no focal deficits. Absent: pronater drift, facial droop, speech deficit Additional comments: Left eye droop, chronic status post cataract surgery - Psychiatric Psychiatric exam: Present: normal affect, normal mood - Skin Skin exam: Present: dry, intact, normal color, warm Internal Med - H&P Results - Labs Labs: Lab Results 12/05/17 12/05/17 12/05/17 Range/Units 17:15 17:15 17:15 WBC 14.4 H D (4.3-11.1) K/mcL RBC 5.58 H (3.82-4.97) M/mcL Hgb 15.9 H D (11.5-15.4) g/dL Hct 47.6 H (35.3-44.9) % MCV 85.3 (83.0-100.0) fL MCH 28.5 (28.0-33.3) pg MCHC 33.4 (31.6-35.5) g/dL RDW 13.6 (11.5-14.5) % Plt Count 437 H D (140-400) K/mcL MPV 11.0 (9.4-12.4) fL Immature Gran % 0.2 (0-4) % Seg Neutrophils % 61.0 % Lymphocytes % 32.9 % Monocytes % 5.1 % Eosinophils % 0.4 % Basophils % 0.4 % Neutrophils # 8.8 (1.6-8.9) K/mcL Lymphocytes # 4.7 H (0.6-4.6) K/mcL Monocytes # 0.7 (0.0-1.3) K/mcL Eosinophils # 0.1 (0.0-0.6) K/mcL Basophils # 0.1 (0.0-0.2) K/mcL PT 12.2 H (9.4-12.1) Seconds INR 1.1 D-Dimer 607 H (0-500) ng/mLFEU ABG pH (7.32-7.45) pH Units ABG pCO2 (35-45) mmHg ABG pO2 (85-104) mmHg ABG HCO3 (21-27) mEq/L ABG Total CO2 (20-26) mEq/L ABG O2 Saturation (95-98) % ABG Base Excess (-2 to 3) mEq/L Sodium 135 L (136-145) mEq/L Potassium 4.5 (3.5-5.1) mEq/L Chloride 96 L (98-107) mEq/L Carbon Dioxide 22 L (23-29) mEq/L BUN 13 (8-23) mg/dL Creatinine 1.30 H (0.60-1.20) mg/dL Est GFR ( Amer) 49 L (> 60) Est GFR (Non-Af Amer) 40 L (> 60) BUN/Creatinine Ratio 10 (6-26) Glucose 375 H (70-105) mg/dL Calculated Osmolality 295 (280-300) Lactic Acid (0.5-2.2) mmol/L Calcium 11.1 H (8.6-10.3) mg/dL Troponin I 0.06 H* (< 0.04) ng/mL B-Natriuretic Peptide (Less than 100) pg/mL Lipase 49 (11-82) Units/L 12/05/17 12/05/17 12/05/17 Range/Units 17:15 19:40 19:40 WBC (4.3-11.1) K/mcL RBC (3.82-4.97) M/mcL Hgb (11.5-15.4) g/dL Hct (35.3-44.9) % MCV (83.0-100.0) fL MCH (28.0-33.3) pg MCHC (31.6-35.5) g/dL RDW (11.5-14.5) % Plt Count (140-400) K/mcL MPV (9.4-12.4) fL Immature Gran % (0-4) % Seg Neutrophils % % Lymphocytes % % Monocytes % % Eosinophils % % Basophils % % Neutrophils # (1.6-8.9) K/mcL Lymphocytes # (0.6-4.6) K/mcL Monocytes # (0.0-1.3) K/mcL Eosinophils # (0.0-0.6) K/mcL Basophils # (0.0-0.2) K/mcL PT (9.4-12.1) Seconds INR D-Dimer (0-500) ng/mLFEU ABG pH (7.32-7.45) pH Units ABG pCO2 (35-45) mmHg ABG pO2 (85-104) mmHg ABG HCO3 (21-27) mEq/L ABG Total CO2 (20-26) mEq/L ABG O2 Saturation (95-98) % ABG Base Excess (-2 to 3) mEq/L Sodium (136-145) mEq/L Potassium (3.5-5.1) mEq/L Chloride (98-107) mEq/L Carbon Dioxide (23-29) mEq/L BUN (8-23) mg/dL Creatinine (0.60-1.20) mg/dL Est GFR ( Amer) (> 60) Est GFR (Non-Af Amer) (> 60) BUN/Creatinine Ratio (6-26) Glucose (70-105) mg/dL Calculated Osmolality (280-300) Lactic Acid 5.7 H* 3.3 H (0.5-2.2) mmol/L Calcium (8.6-10.3) mg/dL Troponin I (< 0.04) ng/mL B-Natriuretic Peptide 146 H (Less than 100) pg/mL Lipase (11-82) Units/L 12/05/17 Range/Units 19:47 WBC (4.3-11.1) K/mcL RBC (3.82-4.97) M/mcL Hgb (11.5-15.4) g/dL Hct (35.3-44.9) % MCV (83.0-100.0) fL MCH (28.0-33.3) pg MCHC (31.6-35.5) g/dL RDW (11.5-14.5) % Plt Count (140-400) K/mcL MPV (9.4-12.4) fL Immature Gran % (0-4) % Seg Neutrophils % % Lymphocytes % % Monocytes % % Eosinophils % % Basophils % % Neutrophils # (1.6-8.9) K/mcL Lymphocytes # (0.6-4.6) K/mcL Monocytes # (0.0-1.3) K/mcL Eosinophils # (0.0-0.6) K/mcL Basophils # (0.0-0.2) K/mcL PT (9.4-12.1) Seconds INR D-Dimer (0-500) ng/mLFEU ABG pH 7.40 (7.32-7.45) pH Units ABG pCO2 42 (35-45) mmHg ABG pO2 114 H (85-104) mmHg ABG HCO3 26 (21-27) mEq/L ABG Total CO2 27 H (20-26) mEq/L ABG O2 Saturation 99 H (95-98) % ABG Base Excess 1 (-2 to 3) mEq/L Sodium (136-145) mEq/L Potassium (3.5-5.1) mEq/L Chloride (98-107) mEq/L Carbon Dioxide (23-29) mEq/L BUN (8-23) mg/dL Creatinine (0.60-1.20) mg/dL Est GFR ( Amer) (> 60) Est GFR (Non-Af Amer) (> 60) BUN/Creatinine Ratio (6-26) Glucose (70-105) mg/dL Calculated Osmolality (280-300) Lactic Acid (0.5-2.2) mmol/L Calcium (8.6-10.3) mg/dL Troponin I (< 0.04) ng/mL B-Natriuretic Peptide (Less than 100) pg/mL Lipase (11-82) Units/L - Pulse Oximetry Interpretation Digit-Finger O2 Sat by Pulse Oximetry: 95 (on RA) - EKG Data -: EKG Interpreted by Myself EKG shows normal: sinus rhythm Rate: tachycardia (Heart rate 109, PVCs, sinus tachycardia, T-wave abnormality, no signs of ischemia) - Impressions XR/XR chest 1V portable IMPRESSION: No evidence of acute cardiopulmonary disease. D/ / 12/05/2017 18:15:51 Farshad Love MD / [email or web address] Interpreting Provider: Farshad Love MD CT/CT abd pelvis wo no iv no oral IMPRESSION: No acute findings. D/ / 12/05/2017 20:09:12 Wilbert Molina MD / [email or web address] Interpreting Provider: Wilbert Molina MD - Assessment and plan (1) Sepsis Current Visit: No Status: Resolved Assessment and plan: Patient met sepsis criteria with leukocytosis 14.4, tachycardia heart rate 144, and tachypnea respiratory rate 24. Blood cultures 2 were collected She was started on empiric Cipro and Flagyl. CT abdomen pelvis was performed which showed no acute intra-abdominal abnormality. Empiric antibiotics changed to Vancomycin and Zosyn Continue close monitoring Qualifiers: Sepsis type: sepsis due to unspecified organism Qualified Code(s): A41.9 - Sepsis, unspecified organism (2) Healthcare-associated pneumonia Current Visit: Yes Status: Acute Assessment and plan: Patient with leukocytosis, subjective fever, productive cough, shortness of breath, and multiple recent hospital visits CXR reveals no evidence of acute cardiopulmonary disease. Patient is hypovolemic on exam, will continue gentle hydration and perform CT chest for further evaluation Blood cultures collected at [facility] Sputum culture pending Urine Legionella and strep pneumo antigens pending Continue empiric antibiotics vancomycin and Zosyn (day 1) De-escalate antibiotics based on culture results (3) Elevated d-dimer Current Visit: Yes Status: Acute Assessment and plan: Patient with acute onset shortness of breath, pleuritic chest pain, tachycardia , remote lung cancer, and recent immobilization sedation secondary to weakness D-dimer elevated at 607 CTA ordered to rule out PE, if negative order bilateral lower extremity DVT study Patient has IV contrast allergy, will pre-treat with Benadryl and Solu-Medrol 13 hours, 7 hours, and 1 hour before CTA Continue supplemental oxygen as needed (4) Chest pain Current Visit: Yes Status: Acute Assessment and plan: Patient with acute onset pleuritic chest pain, history of CAD and 6 cardiac stents CTA pending to rule out acute PE EKGs reveals sinus tachycardia with T-wave abnormality, repeat EKG shows no acute changes Continue aspirin Morphine IV and nitroglycerin prn chest pain If CTA negative, consider cardiology consultation for further recommendations Qualifiers: Chest pain type: unspecified Qualified Code(s): R07.9 - Chest pain, unspecified (5) Elevated troponin Current Visit: No Status: Acute Assessment and plan: Patient transferred from [facility] secondary to possible NSTEMI Initial troponin level 0.06, repeat troponin level 0.03, trend serial troponins EKGs reveals sinus tachycardia with T-wave abnormality, repeat EKG shows no acute changes (6) CAD (coronary artery disease) Current Visit: Yes Status: Chronic Assessment and plan: Patient has [address] Continue home aspirin Qualifiers: Coronary Disease-Associated Artery/Lesion type: [place] artery [place] vs. transplanted heart: [place] heart Associated angina: without angina Qualified Code(s): I25.10 - Atherosclerotic heart disease of [place] coronary artery without angina pectoris (7) Essential hypertension Current Visit: Yes Status: Chronic Assessment and plan: Continue home meds (8) Hyperlipidemia Current Visit: Yes Status: Chronic Assessment and plan: Continue home meds Qualifiers: Hyperlipidemia type: mixed hyperlipidemia Qualified Code(s): E78.2 - Mixed hyperlipidemia (9) Type 2 diabetes mellitus Current Visit: Yes Status: Chronic Assessment and plan: Hemoglobin A1c 9.9 on 07/25/17, repeat level pending Continue low dose SSI and Accu-Cheks ADA diet Qualifiers: Diabetes mellitus snf insulin use: with terminal system operator use Diabetes mellitus complication status: with kidney complications Diabetes mellitus complication detail: with chronic kidney disease Chronic kidney disease stage : stage 3 (moderate) Qualified Code(s): E11.22 - Type 2 diabetes mellitus with diabetic chronic kidney disease; N18.3 - Chronic kidney disease, stage 3 ( moderate); Z79.4 - intermediate (current) use of insulin (10) Weakness Current Visit: Yes Status: Acute Assessment and plan: Patient usually walks with a walker but has not been able to get out of bed for several days secondary to weakness PT/OT consulted (11) Obesity (BMI 30-39.9) Current Visit: Yes Status: Chronic Assessment and plan: BMI 37.2, lifestyle modification (12) DVT prophylaxis Current Visit: No Status: Acute Assessment and plan: Heparin subcutaneous TID - Time Spent With Patient Total time spent is greater than 50% in coordination of care (as documented) at patient's floor/unit and/or counseling patient: Sepsis Reassessment Note - Evaluation Sepsis Screen: Sepsis Risk Current Stage of Sepsis: sepsis Possible Source of Sepsis: pulmonary - Focused Exam Date of Encounter: 12/05/17 Time of Encounter: 23:00 Vital Signs: Vital Signs Temp Pulse Resp BP Pulse Ox 12/05/17 22:30 97.8 F 104 13 177/90 99 Respiratory Exam: Present: decreased breath sounds Cardiovascular Exam: Present: tachycardia Capillary Refill: < 2 seconds Peripheral Pulse Strength: 3+ normal Peripheral Pulse Location: Radial Skin Exam: pink <Otis Velasquez - Last Filed: 12/07/17 08:48> Date of Encounter: 12/06/17 Internal Medicine - H&P: HPI History of present illness: Ms. Corbin is a 72 year old female All Systems PM: A 10-system review of systems was performed and is negative for pertinent findings except as documented above in the HPI. - Constitutional Vitals: Temp Pulse Resp BP Pulse Ox 97.8 F 105 17 164/86 99 12/05/17 22:30 12/06/17 00:35 12/06/17 00:13 12/05/17 23:00 12/06/17 00:13 Internal Med - H&P Results - Labs CBC & Chem 7: 12/06/17 01:35 12/06/17 01:35 Labs: Short CBC 12/06/17 Range/Units 01:35 WBC 10.9 (4.3-11.1) K/mcL Hgb 13.2 D (11.5-15.4) g/dL Hct 39.9 (35.3-44.9) % Plt Count 286 (140-400) K/mcL Neutrophils # 7.6 (1.6-8.9) K/mcL BMP 12/06/17 01:35 Sodium 136 Potassium 4.2 Chloride 100 Carbon Dioxide 26 BUN 16 Creatinine 1.32 H Glucose 344 H Calcium 10.0 Cardiac Enzymes 12/06/17 Range/Units 00:00 Troponin I 0.03 (< 0.04) ng/mL Liver Function 12/06/17 Range/Units 01:35 Total Bilirubin 0.5 (0.3-1.0) mg/dL AST 14 (13-39) Units/L ALT 16 (7-52) Units/L Alkaline Phosphatase 62 (34-104) Units/L Albumin 3.8 (3.5-5.7) g/dL - Assessment and plan (1) Essential hypertension Current Visit: Yes Status: Chronic (2) Hyperlipidemia Current Visit: Yes Status: Chronic Qualifiers: Hyperlipidemia type: mixed hyperlipidemia Qualified Code(s): E78.2 - Mixed hyperlipidemia (3) DVT prophylaxis Current Visit: No Status: Acute (4) CAD (coronary artery disease) Current Visit: Yes Status: Chronic Qualifiers: Coronary Disease-Associated Artery/Lesion type: [place] artery [place] vs. transplanted heart: [place] heart Associated angina: without angina Qualified Code(s): I25.10 - Atherosclerotic heart disease of [place] coronary artery without angina pectoris (5) Type 2 diabetes mellitus Current Visit: Yes Status: Chronic Qualifiers: Diabetes mellitus snf insulin use: with snf use Diabetes mellitus complication status: with kidney complications Diabetes mellitus complication detail: with chronic kidney disease Chronic kidney disease stage : stage 3 (moderate) Qualified Code(s): E11.22 - Type 2 diabetes mellitus with diabetic chronic kidney disease; N18.3 - Chronic kidney disease, stage 3 ( moderate); Z79.4 - intermediate (current) use of insulin (6) Chest pain Current Visit: Yes Status: Acute Qualifiers: Chest pain type: unspecified Qualified Code(s): R07.9 - Chest pain, unspecified (7) Sepsis Current Visit: No Status: Resolved Qualifiers: Sepsis type: sepsis due to unspecified organism Qualified Code(s): A41.9 - Sepsis, unspecified organism (8) Weakness Current Visit: Yes Status: Acute (9) Elevated troponin Current Visit: No Status: Acute (10) Healthcare-associated pneumonia Current Visit: Yes Status: Acute (11) Obesity (BMI 30-39.9) Current Visit: Yes Status: Chronic (12) Elevated d-dimer Current Visit: Yes Status: Acute - Time Spent With Patient Total time spent is greater than 50% in coordination of care (as documented) at patient's floor/unit and/or counseling patient: - Attending Attestation Patient seen and examined. Case discussed with resident. Agree with assessment and plan. Patient currently stable. Surgery consult in the morning for assessment of abdominal mass residing in the skin and soft tissue. Sepsis Reassessment Note - Focused Exam Vital Signs: Vital Signs Temp Pulse Resp BP Pulse Ox 12/06/17 00:35 105 12/06/17 00:13 17 99 12/05/17 23:00 105 17 164/86 99 12/05/17 22:30 97.8 F 104 13 177/90 99
[2017-12-05] MEDS ORDERED: Ipratropium/Albuterol Neb 3 ML ONE (23:30)
[2017-12-05] MEDS ORDERED: Isovue-370 500 ML INFUS..BTL IV ONE (23:30)
[2017-12-06] MEDS ORDERED: MethylPREDNISolone 40 MG/ML VIAL IVP ONE
[2017-12-06] MEDS: Pantoprazole 40 MG VIAL IVP SCH ×2 (00:08→09:28)
[2017-12-06] MEDS: *HR* HYDROcodone/Acet 5/325 mg TABLET PO PRN ×3 (00:09→20:25)
[2017-12-06] MEDS: Ondansetron 4 MG/2 ML VIAL IVP PRN ×2 (00:09→21:50)
[2017-12-06] MEDS: Piperacillin/Tazobactam 3.375 GM in 0.9 % Sodium Chloride Mini Bag 100 ML IVPB SCH ×4 (00:09→23:01)
[2017-12-06] MEDS: Ipratropium/Albuterol Neb 3 ML IH SCH ×7 (00:12→23:22)
[2017-12-06] MEDS ORDERED: Naloxone 0.4 MG/ML INJ IVP PRN (00:33)
[2017-12-06 01:49] LABS: Basophils % 0.3 %; Eosinophils % 0.4 %; Hematocrit 39.9 % (35.3-44.9); Hemoglobin 13.2 g/dL (11.5-15.4); Immature Granulocytes % 0.2 % (0-4); Lymphocytes # 2.5 K/mcL (0.6-4.6); Lymphocytes % 22.7 %; Mean Corpuscular HGB Conc 33.1 g/dL (31.6-35.5); Mean Corpuscular Hemoglobin 27.9 pg (28.0-33.3); Mean Corpuscular Volume 84.4 fL (83.0-100.0); Mean Platelet Volume 10.4 fL (9.4-12.4); Monocytes # 0.7 K/mcL (0.0-1.3); Monocytes % 6.7 %; Neutrophils # 7.6 K/mcL (1.6-8.9); Platelet Count 286 K/mcL (140-400); Red Blood Count 4.73 M/mcL (3.82-4.97); Red Cell Distribution Width 13.6 % (11.5-14.5); Segmented Neutrophils % 69.7 %
[2017-12-06 02:11] LABS: Albumin 3.8 g/dL (3.5-5.7); Albumin/Globulin Ratio 1.2 (1.1-2.2); Bilirubin,Total 0.5 mg/dL (0.3-1.0); Globulin 3.3 g/dL (2.4-3.5); Magnesium 1.6 mg/dL (1.6-2.6); Phosphorous 2.7 mg/dL (2.7-4.5); Potassium 4.2 mEq/L (3.5-5.1); Total Protein 7.1 g/dL (6.4-8.9)
[2017-12-06] MEDS: *HR* Heparin 5,000 UNIT/ML VIAL SQ SCH ×3 (05:55→20:25)
[2017-12-06] MEDS ORDERED: methylPREDNISolone 125 MG/2 ML VIAL IVP ONE ×2 (06:00→12:00)
[2017-12-06 07:02] LABS: Estimated Average Glucose 229 mg/dl; Hemoglobin A1C 9.6 %
[2017-12-06] MEDS ORDERED: Insulin LISPRO 300 UNITS/3 ML VIAL SQ SCH (07:30)
--- NOTE | 2017-12-06 07:52 | Internal Med Progress Note ---
Hospitalist Progress Note - Encounter Date of Encounter: 12/06/17 Time of Encounter: 11:00 - Subjective Interval History: Patient presented from [facility] with shortness of breath/chest pain due to concerns for PE/DVT (elevated d-dimer) in addition to sepsis with suspected HAP. Continuing IV Zosyn for coverage of HAP; CT PA negative for acute PE Cardiology following for elevated troponin which is now negative. - Exam Vitals: Temp Pulse Resp BP Pulse Ox 97.7 F 90 17 157/75 99 12/06/17 03:00 12/06/17 03:30 12/06/17 03:25 12/06/17 03:00 12/06/17 03:25 Exam: Gen.: Nonacute distress, alert and oriented 3 ENT: Mucosal membranes moist Respiratory: Lungs are clear to auscultation bilaterally without any wheezing rhonchi or rales Cardiovascular: Normal S1 and S2 regular rate rhythm no murmurs rubs or gallops Abdomen: Soft, nontender and nondistended with positive bowel sounds Extremities: No lower extremity edema Skin: Normal color - Assessment and Plan (1) Sepsis Current Visit: No Status: Resolved Assessment and Plan: Patient met sepsis criteria with leukocytosis 14.4, tachycardia heart rate 144, and tachypnea respiratory rate 24. Blood cultures 2 were collected Empiric antibiotics with IV Zosyn for suspected HAP. Continue close monitoring (2) Healthcare-associated pneumonia Current Visit: Yes Status: Acute Assessment and Plan: Patient with leukocytosis, subjective fever, productive cough, shortness of breath, and multiple recent hospital visits CXR reveals no evidence of acute cardiopulmonary disease. Blood cultures collected at [facility] Sputum culture pending Urine Legionella and strep pneumo antigens are negative Continue empiric antibiotics with IV Zosyn De-escalate antibiotics based on culture results (3) Chest pain Current Visit: Yes Status: Acute Assessment and Plan: Patient with acute onset pleuritic chest pain, history of CAD and 6 cardiac stents CTA showed eccentric chronic appearing thrombus within the right distal main pulmonary artery without any evidence of acute pulmonary artery embolism. EKGs reveals sinus tachycardia with T-wave abnormality, repeat EKG shows no acute changes Continue aspirin Cardiology consulted with recommendations for echocardiogram which showed LVEF of 6065% with atypical septal motion consistent with bundle branch block Recommendations to start beta chiquis (4) Elevated troponin Current Visit: No Status: Acute Assessment and Plan: Patient transferred from [facility] secondary to possible NSTEMI Initial troponin level 0.06, repeat troponins are negative EKGs reveals sinus tachycardia with T-wave abnormality, repeat EKG shows no acute changes Cardiology following with recommendations as above (5) CAD (coronary artery disease) Current Visit: Yes Status: Chronic (6) Essential hypertension Current Visit: Yes Status: Chronic Assessment and Plan: Continue home meds (7) Hyperlipidemia Current Visit: Yes Status: Chronic Assessment and Plan: Continue home meds (8) Type 2 diabetes mellitus Current Visit: Yes Status: Chronic Assessment and Plan: Hemoglobin A1c 9.6 Continue low dose SSI and Accu-Cheks ADA diet (9) Obesity (BMI 30-39.9) Current Visit: Yes Status: Chronic Assessment and Plan: BMI 37.2, lifestyle modification (10) DVT prophylaxis Current Visit: No Status: Acute Assessment and Plan: Heparin subcutaneous TID - Time Spent with Patient Total time spent is greater than 50% in coordination of care (as documented) at patient's floor/unit and/or counseling patient: Internal Medicine: Result - Labs CBC & Chem 7: 12/06/17 01:35 12/06/17 01:35 Labs: Short CBC 12/06/17 Range/Units 01:35 WBC 10.9 (4.3-11.1) K/mcL Hgb 13.2 D (11.5-15.4) g/dL Hct 39.9 (35.3-44.9) % Plt Count 286 (140-400) K/mcL Neutrophils # 7.6 (1.6-8.9) K/mcL BMP 12/06/17 01:35 Sodium 136 Potassium 4.2 Chloride 100 Carbon Dioxide 26 BUN 16 Creatinine 1.32 H Glucose 344 H Calcium 10.0 Cardiac Enzymes 12/06/17 12/06/17 Range/Units 00:00 05:56 Troponin I 0.03 0.03 (< 0.04) ng/mL Liver Function 12/06/17 Range/Units 01:35 Total Bilirubin 0.5 (0.3-1.0) mg/dL AST 14 (13-39) Units/L ALT 16 (7-52) Units/L Alkaline Phosphatase 62 (34-104) Units/L Albumin 3.8 (3.5-5.7) g/dL - Impressions Impressions Chest X-Ray 12/06/17 04:00 IMPRESSION: No acute cardiopulmonary findings. D/ / Natalie Corbett MD / Natalie Corbett MD Interpreting Provider: Natalie Corbett MD Consult Discharge Plan - Plan Referrals: Jonna Mcdermott BRUSH TRIMMING MACHINE SETTER [Primary Care Provider] - (1) Sepsis Qualifiers: Sepsis type: sepsis due to unspecified organism Qualified Code(s): A41.9 - Sepsis, unspecified organism (3) Chest pain Qualifiers: Chest pain type: unspecified Qualified Code(s): R07.9 - Chest pain, unspecified (5) CAD (coronary artery disease) Qualifiers: Coronary Disease-Associated Artery/Lesion type: [place] artery [place] vs. transplanted heart: [place] heart Associated angina: without angina Qualified Code(s): I25.10 - Atherosclerotic heart disease of [place] coronary artery without angina pectoris (7) Hyperlipidemia Qualifiers: Hyperlipidemia type: mixed hyperlipidemia Qualified Code(s): E78.2 - Mixed hyperlipidemia (8) Type 2 diabetes mellitus Qualifiers: Diabetes mellitus terminal operations supervisor insulin use: with fpc use Diabetes mellitus complication status: with kidney complications Diabetes mellitus complication detail: with chronic kidney disease Chronic kidney disease stage: stage 3 (moderate) Qualified Code(s): E11.22 - Type 2 diabetes mellitus with diabetic chronic kidney disease; N18.3 - Chronic kidney disease, stage 3 ( moderate); Z79.4 - [facility] (current) use of insulin
[2017-12-06] MEDS ORDERED: Aminoglycoside Consult 1 EACH MC ONE (07:56)
[2017-12-06] MEDS: Aspirin 81 MG TAB.CHEW PO SCH (09:28)
[2017-12-06] MEDS: Insulin LISPRO 300 UNITS/3 ML VIAL SQ SCH ×3 (11:22→20:23)
[2017-12-06] MEDS ORDERED: Insulin DETEMIR 100 UNIT/ML X5UNITS SQ SCH (12:00)
--- NOTE | 2017-12-06 15:52 | Cardiology Consult Note ---
Date of Encounter: 12/06/17 Time of Encounter: 15:00 Assessment and Plan (1) Chest pain Current Visit: Yes Status: Acute Per cardiology: -Reports atypical pleurtic chest pain. -Denies exertional symptoms. -TTE pending. Qualifiers: Chest pain type: unspecified Qualified Code(s): R07.9 - Chest pain, unspecified (2) Elevated troponin Current Visit: No Status: Acute Per cardiology: -Troponins 0.06, then negative x2 in the setting of luekocytosis, ?pneumonia. -Reports atypical, pleuritic chest pain. -No acute ischemic ECG changes. -TTE 07/2017 LVEF 65%, mild concentric LVH, mild diastolic dysfunction, mild AR, no segmental wall motion abnormalities noted. -LHC 2014 with 30% prox and mid LAD, 50% OM2, 20% ramus, 90% RPDA with BMS placed. -Stress 12/2016 negative for ischemia, previous infarct noted. -ON asa, statin. -NSTEMI II, no cardiac rehab consult warranted. -Will add BB. -Limited TTE to assess LVEF, wall motion abnormalities. If no significant changes, anticipate cardiology sign off. (3) CAD (coronary artery disease) Current Visit: Yes Status: Chronic Per cardiology: -Known history of CAD s/p PCI. -Most recent LHC as above, -On asa, statin. -BB added Qualifiers: Coronary Disease-Associated Artery/Lesion type: [place] artery [place] vs. transplanted heart: [place] heart Associated angina: without angina Qualified Code(s): I25.10 - Atherosclerotic heart disease of [place] coronary artery without angina pectoris Discussion w patient/family: The assessment and plan as outlined above was discussed with the patient who expressed understanding and agreement. All questions were answered. Thank you for involving us in the care of your patient. Please call with any questions. Discussed and reviewed with . History of Present Illness Consult date: 12/06/17 Requesting physician: Rhett Collier Consult reason: elevated troponin Chief complaint: shortness of breath History of present illness: Ms. Corbin is a 72 year old female with a relevant past medical history of lung cancer, CAD s/p PCI, HTN, DM, TAMMIE, HLD, renal insufficiency, bipolar, GERD, syncope, depression, anxiety who presented to [facility] with complaints of increased shortness of breath. Patient reported productive cough. Patient states also had some chest pain. Reports chest pain worsens with deep inspiration. Deneis exertional chest pain. Past Med Surg Social Fam HX - Past Medical History Attestation: Yes The following information was validated with the patient. Source: patient, old records reviewed Medical history: asthma, cancer, CHF, coronary artery disease, CVA, diabetes, fibromyalgia, GERD, hyperlipidemia, hypertension, myocardial infarction, osteoporosis, renal disease, syncope, other Additional medical history: CHRONIC BACK/KNEE PAIN Psychiatric history: anxiety, bipolar, depression - Past Surgical History Surgical History: angioplasty/stent, appendectomy, cancer surgery, cholecystectomy, hysterectomy, orthopedic, other Additional surgical history: 6 stents. - Social History Smoking Status: Former smoker Smokeless Tobacco Status: No Alcohol use: none Drug use: none - Family History Mother Living Status: Sister Living Status: Hx Family Cardiac Disorders: Yes Hx Family Respiratory Disorders: Yes (Lung cancer) Brother Adopted: No Family Member Ethnicity: Non- Living Status: Still Living Hx Family Cardiac Disorders: Yes Hx Family Respiratory Disorders: Yes Hx Family Cancer: Yes Hx Family GI Disorders: No Hx Family Endocrine Disorder: No Hx Family Neuromuscular Disorders: No Hx Family Neurologic Disorders: No Hx Family HEENT Disorders: No Hx Family Autoimmune Disorders: No Father Adopted: No Family Member Ethnicity: Non- Living Status: Hx Family Cardiac Disorders: Yes Hx Family Respiratory Disorders: No Hx Family Cancer: No Hx Family GI Disorders: No Hx Family Endocrine Disorder: No Hx Family Neuromuscular Disorders: No Hx Family Neurologic Disorders: No Hx Family HEENT Disorders: No Hx Family Autoimmune Disorders: No Medications and Allergies Dicyclomine [Bentyl] 10 mg PO QID 11/23/17 [History] Ergocalciferol (VITAMIN D2) [Vitamin D2] 50,000 unit PO QWEEK 11/23/17 [History] Gabapentin [Neurontin] 400 mg PO TID 11/23/17 [History] Lisinopril [Zestril] 20 mg PO DAILY 11/23/17 [History] Montelukast [Singulair] 10 mg PO HS 11/23/17 [History] Pantoprazole Sodium [Protonix] 40 mg PO HS 11/23/17 [History] Ranitidine HCl [Zantac] 300 mg PO HS 11/23/17 [History] Ranolazine [Ranexa] 1,000 mg PO BID 11/23/17 [History] Atorvastatin Calcium [Atorvastatin Calcium] 80 mg PO HS 12/06/17 [History] Doxepin HCl [Doxepin HCl] 50 mg PO HS 12/06/17 [History] HydrOXYzine 10 mg PO BID PRN 12/06/17 [History] Insulin Glargine,Hum.rec.anlog [Lantus Solostar] 80 unit SQ DAILY 12/06/17 [ History] Insulin LISPRO [HumaLOG] 0 units SQ TIDWM MDD 90 UNIT 12/06/17 [History] Metoclopramide [Reglan] 5 mg PO Q8H 12/06/17 [History] Ondansetron ODT [Zofran ODT] 4 mg SL Q4H PRN 12/06/17 [History] 3 Allergy/AdvReac Type Severity Reaction Status Date / Time Iodinated Contrast- Oral and Allergy Rash Verified 12/01/17 12:39 IV Dye iron Allergy Hives Verified 12/01/17 12:39 [place] Allergy Nausea Verified 12/01/17 12:39 Sulfa (Sulfonamide Allergy Hives Verified 12/01/17 12:39 Antibiotics) All Systems Review: The remainder of the systems were reviewed and are negative - Cardiovascular Cardiovascular: as per HPI, chest pain at rest, dyspnea at rest, dyspnea on exertion Physical Examination Vital Signs, Last 4 Hours Temp Pulse Resp BP Pulse Ox 12/06/17 15:20 119 12/06/17 14:00 120 18 156/81 94 12/06/17 12:00 97.8 F 116 13 169/91 94 General: Conversant, No Apparent Distress HEENT: Atraumatic, Normocephaly, Mucus Membranes Moist Neck: No JVD, Normal carotid pulses Cardiac: Reg Rate and Rhythm, Normal S1 and S2, No Murmur Lungs: Other (Lung sounds diminished throughout. ) Neuro: Alert and responsive, No focal deficits noted Abdomen: Soft, Non-Tender Skin: No rashes noted on visualized skin Musculoskeletal: No Chest Wall Tenderness Extremities: No Clubbing, No Cyanosis, No Edema, Normal Pulses Results 12/06/17 01:35 12/06/17 01:35 Lab Results Impressions Chest X-Ray 12/06/17 04:00 IMPRESSION: No acute cardiopulmonary findings. D/ / Natalie Corbett MD / Natalie Corbett MD Interpreting Provider: Natalie Corbett MD Chest CTA 12/06/17 13:15 IMPRESSION: Eccentric chronic appearing thrombus within the right distal main pulmonary artery. There is no evidence of acute pulmonary artery embolism. Stable post treatment changes right lung. No recurrent or metastatic disease compared to prior examination. D/ / 12/06/2017 14:23:42 Sal Nelson MD / Patricia Bustamante Interpreting Provider: Sal Nelson MD Active Medications Acetaminophen (Tylenol) 650 mg PO Q6HR PRN PRN Reason: Mild Pain/Fever Stop: 06/06/18 23:00 Hydrocodone Bitart/Acetaminophen (Holden 5-325 Mg) 1 tab PO Q6HR PRN PRN Reason: Moderate Pain Stop: 06/06/18 23:00 Last Admin: 12/06/17 15:12 Dose: 1 tab Albuterol/Ipratropium (Duoneb) 3 ml IH [id number] KATIA Stop: 06/07/18 00:01 Last Admin: 12/06/17 11:08 Dose: 3 ml Aspirin (Aspirin) 81 mg PO DAILY KATIA Stop: 06/07/18 09:01 Last Admin: 12/06/17 09:28 Dose: 81 mg Atorvastatin Calcium (Lipitor) 80 mg PO HS KATIA Stop: 06/06/18 23:01 Last Admin: 12/06/17 00:09 Dose: 80 mg Dextrose/Water (Dextrose 50% (Syg)) 25 ml IVP AD PRN PRN Reason: Hypoglycemia Stop: 06/06/18 23:00 Glucagon (Glucagen) 1 mg IM ONCE PRN PRN Reason: Hypoglycemia Stop: 06/06/18 23:00 Glucose (Gluctose) 15 gm PO ONCE PRN PRN Reason: Hypoglycemia Stop: 06/06/18 23:00 Glucose (Gluctose) 30 gm PO ONCE PRN PRN Reason: Hypoglycemia Stop: 06/06/18 23:00 Heparin Sodium (Porcine) (Heparin) 5,000 unit SQ Q8HCO KATIA Stop: 06/07/18 06:01 Last Admin: 12/06/17 14:26 Dose: 5,000 unit Dextrose (Dextrose 5%) 1,000 mls @ 100 mls/hr IVC .Q10H PRN PRN Reason: HYPOGLYCEMIA Stop: 06/06/18 23:00 Piperacillin Sod/Tazobactam (Sod 3.375 gm/ Sodium Chloride) 100 mls @ 25 mls/ hr IVPB Q8HR [facility] Stop: 06/07/18 00:01 Last Admin: 12/06/17 15:17 Dose: 25 mls/hr Insulin Detemir (Levemir) 10 unit SQ DAILY [facility] Stop: 06/07/18 12:01 Last Admin: 12/06/17 11:22 Dose: 10 unit Insulin Human Lispro (Humalog) 0 units SQ TIDAC [facility] PRN Reason: Protocol Stop: 06/07/18 11:31 Last Admin: 12/06/17 15:13 Dose: 14 unit Insulin Human Lispro (Humalog) 0 units SQ HS [facility] PRN Reason: Protocol Stop: 06/07/18 21:01 Morphine Sulfate (Morphine Sulfate) 2 mg IVP Q2H PRN PRN Reason: Chest Pain Stop: 06/06/18 23:00 Last Admin: 12/06/17 09:36 Dose: 2 mg Naloxone HCl (Narcan) 0.4 mg IVP Q2MIN PRN PRN Reason: SEE COMMENTS Stop: 06/07/18 00:34 Nitroglycerin (Nitroglycerin) 0.4 mg SL Q5MIN PRN PRN Reason: Chest Pain Stop: 06/06/18 23:00 Ondansetron HCl (Zofran) 4 mg IVP Q6HR PRN; Protocol PRN Reason: Nausea And Vomiting Stop: 06/06/18 23:00 Last Admin: 12/06/17 00:09 Dose: 4 mg Pantoprazole Sodium (Protonix) 40 mg IVP DAILY [facility] Stop: 06/06/18 23:01 Last Admin: 12/06/17 09:28 Dose: 40 mg Laboratory Tests 12/05/17 12/05/17 12/06/17 17:15 17:15 00:00 WBC 14.4 H D Creatinine Troponin I 0.06 H* 0.03 12/06/17 12/06/17 01:35 05:56 WBC Creatinine 1.32 H Troponin I 0.03 - Imaging and Cardiology Chest Xray: report reviewed Echo: pending, report reviewed Cardiac cath: report reviewed - EKG Interpretation EKG results cardiology: personally reviewed (ECG with ST, HR 109. PVCs noted.), other (Telemetry reveiwed with average HR previous 12 hours noted to be 107, ST. PVCs and PACs noted.) Consult Discharge Plan - Plan Referrals: Jonna Mcdermott, ACOUSTIC SENSOR OPERATOR [Primary Care Provider] -
[2017-12-06] MEDS: Insulin DETEMIR 100 UNIT/ML X5UNITS SQ SCH (20:56)
[2017-12-07] MEDS: Ipratropium/Albuterol Neb 3 ML IH SCH ×5 (03:49→20:40)
[2017-12-07] MEDS: *HR* Heparin 5,000 UNIT/ML VIAL SQ SCH ×2 (05:08→13:03)
[2017-12-07] MEDS: Pantoprazole 40 MG VIAL IVP SCH (07:46)
[2017-12-07] MEDS: Piperacillin/Tazobactam 3.375 GM in 0.9 % Sodium Chloride Mini Bag 100 ML IVPB SCH (07:47)
[2017-12-07] MEDS: Aspirin 81 MG TAB.CHEW PO SCH (07:47)
[2017-12-07] MEDS: Insulin DETEMIR 100 UNIT/ML X5UNITS SQ SCH ×2 (07:47→20:50)
[2017-12-07] MEDS: Insulin LISPRO 300 UNITS/3 ML VIAL SQ SCH ×4 (07:49→20:50)
[2017-12-07] MEDS: *HR* HYDROcodone/Acet 5/325 mg TABLET PO PRN ×3 (07:53→22:54)
[2017-12-07] MEDS: Ondansetron 4 MG/2 ML VIAL IVP PRN (07:53)
--- NOTE | 2017-12-07 09:34 | Event Note ---
Date of Encounter: 12/07/17 Time of Encounter: 09:32 - Cardiology Event Note Patient with atypical, pleuritic chest pain. Initial troponin 0.06, then negative x2. No acute ECG changes. Repeat limited TTE with LVEF preserved, no segmental wall motion abnormalities noted. Cardiology will sign off and will arrange outpatient follow up.
[2017-12-07] MEDS ORDERED: Insulin DETEMIR 100 UNIT/ML X5UNITS SQ ONE (11:00)
--- NOTE | 2017-12-07 11:22 | Internal Med Progress Note ---
Hospitalist Progress Note - Encounter Date of Encounter: 12/07/17 Time of Encounter: 09:20 - Subjective Interval History: continued left chest pain, intermittent. no associated nausea, emesis, worsened sob or diaphoresis. No sob at rest. Denies cough, sputum, wheezing or orthopnea. Denies fevers or chills - Exam Vitals: Temp Pulse Resp BP Pulse Ox 97.8 F 82 16 138/72 94 12/07/17 08:12 12/07/17 10:00 12/07/17 10:00 12/07/17 10:00 12/07/17 10:00 Exam: General: awake, alert, appears stated age HEENT:EOM intact, pupils equal, round, moist mucus membranes Neck: supple, trachea midline Cardiovascular:regular rate and rhythm, normal S1 & S2, no rubs, murmurs or gallops appreciated. No JVD. radial pulses 2+, no lower extremity edema Lungs:Normal breath sounds, no wheezes,rhonchi or crackles. Normal respiratory effort Abdomen:Soft, non-tender, non-distended,+ bowel sounds Extremities:No deformity, no edema or tenderness, no joint swelling or clubbing. 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 There is no evidence of acute pulmonary artery embolism -hematology consulted 12/07 with my taking over of case today for AC recs, pending eval -previously on AC in past per pt? though denies hx of any clots -confirmed with pharmacy pt has been receiving vte ppx dosing of heparin this admit (2) Elevated d-dimer Current Visit: Yes Status: Acute Assessment and Plan: Patient with acute onset shortness of breath, pleuritic chest pain, tachycardia , remote lung cancer, and recent immobilization sedation secondary to weakness D-dimer elevated at 607 CTA ordered to rule out PE and chronic clot identified obtain BL LE US (3) Chest pain Current Visit: Yes Status: Acute Assessment and Plan: Patient with acute onset pleuritic chest pain, history of CAD and 6 cardiac stents and now confirmed chronic pulm artery thrombus; ACS ruled out by Cards, Pain Possibly related to possible pna and PE CTA showed eccentric chronic appearing thrombus within the right distal main pulmonary artery without any evidence of acute pulmonary artery embolism. EKGs reveals sinus tachycardia with T-wave abnormality, repeat EKG shows no acute changes Continue aspirin + statin and BB Cardiology consulted with recommendations for echocardiogram which showed preserved LVEF with atypical septal motion consistent with bundle branch block Recommendations to start beta chiquis cards has signed off and she may fu outpt Heme consult regarding rec for AC with chronic thrombus on CTA -possible pna treatment as below (4) Sepsis Current Visit: No Status: Resolved Assessment and Plan: Patient met sepsis criteria with leukocytosis 14.4, tachycardia heart rate 144, and tachypnea respiratory rate 24. Treated empirically by previous provider for HAP Blood cultures 2 were collected though were not ever received by lab sputum cx not collected as pt without sputum No UA was ever obtained, pt without any symptoms, cont to monitor CXR no acute findings CT chest showed stable changes post lung Ca and no clear consolidation/pna Empiric antibiotics with IV Zosyn for suspected HAP started on admit 12/07 d/w pharmacy--will change to augmentin to complete course for possible pna given sepsis picture on admit leukocytosis resolved, afebrile, cont to monitor with abx change (5) Healthcare-associated pneumonia Current Visit: Yes Status: Acute Assessment and Plan: Patient with leukocytosis, subjective fever, productive cough, shortness of breath, and multiple recent hospital visits Possible Pna CXR reveals no evidence of acute cardiopulmonary disease. Blood cultures collected at [facility] Sputum culture not able to be collected as no sputum Urine Legionella and strep pneumo antigens are negative empiric antibiotics with IV Zosyn De-escalate to Augmentin 12/07 incentive spirometry, nebs (6) CAD (coronary artery disease) Current Visit: Yes Status: Chronic Assessment and Plan: Patient has [address] -has been evaluated by cards and stable from cardiac standpoint -may fu outpt -cont asa, statin, coreg, prn nitro (7) Hyperlipidemia Current Visit: Yes Status: Chronic Assessment and Plan: Continue statin (8) Elevated troponin Current Visit: No Status: Acute Assessment and Plan: Patient transferred from [facility] secondary to possible NSTEMI Initial troponin level 0.06, repeat troponins are negative EKGs reveals sinus tachycardia with T-wave abnormality, repeat EKG shows no acute changes Cardiology following with recommendations as above (9) Essential hypertension Current Visit: Yes Status: Chronic Assessment and Plan: Currently at goal -cont coreg -fu with pcp outpt for further management and monitoring (10) Weakness Current Visit: Yes Status: Acute Assessment and Plan: Patient usually walks with a walker but has not been able to get out of bed for several days secondary to weakness PT/OT consulted (11) Type 2 diabetes mellitus Current Visit: Yes Status: Chronic Assessment and Plan: Hemoglobin A1c 9.6, Hyperglycemia this admission Continue SSI and Accu-Checks Levemir up titrated this admission cont to monitor ADA diet will require pcp follow up (12) Obesity (BMI 30-39.9) Current Visit: Yes Status: Chronic Assessment and Plan: BMI 37.2, lifestyle modification (13) DVT prophylaxis Current Visit: No Status: Acute Assessment and Plan: Heparin subcutaneous - Time Spent with Patient Total time spent is greater than 50% in coordination of care (as documented) at patient's floor/unit and/or counseling patient: 25 - 35 minutes Plan of Care Discussed with: patient Internal Medicine: Result - Labs CBC & Chem 7: 12/06/17 01:35 12/06/17 01:35 - Impressions Impressions Echocardiogram Limited Views 12/06/17 12:20 Impressions: LVEF 60-65%. Normal LV chamber size and function. Atypical septal motion consistent with bundle branch block. Future studies should be completed with Definity contrast. Left Ventricular Wall Motion: Rest Echo Findings All wall segments showed normal motion. Findings: Study Quality * Technically adequate exam. ECG Findings * Sinus rhythm with BBB. Left Ventricle * LVEF 60-65%. * Normal LV chamber size and function. * Atypical septal motion consistent with bundle branch block. Right Ventricle * Normal right ventricular structure and function. Aorta * Normally sized aortic root. Pericardium * There is a trivial pericardial effusion present. IVC * The IVC is not well evaluated. Chest CTA 12/06/17 13:15 IMPRESSION: Eccentric chronic appearing thrombus within the right distal main pulmonary artery. There is no evidence of acute pulmonary artery embolism. Stable post treatment changes right lung. No recurrent or metastatic disease compared to prior examination. D/ / 12/06/2017 14:23:42 Sal Nelson MD / Patricia Bustamante Interpreting Provider: Sal Nelson MD Consult Discharge Plan - Plan Referrals: Jonna Mcdermott, DRIVER UTILITY WORKER [Primary Care Provider] - (3) Chest pain Qualifiers: Chest pain type: unspecified Qualified Code(s): R07.9 - Chest pain, unspecified (4) Sepsis Qualifiers: Sepsis type: sepsis due to unspecified organism Qualified Code(s): A41.9 - Sepsis, unspecified organism (6) CAD (coronary artery disease) Qualifiers: Coronary Disease-Associated Artery/Lesion type: [place] artery [place] vs. transplanted heart: [place] heart Associated angina: without angina Qualified Code(s): I25.10 - Atherosclerotic heart disease of [place] coronary artery without angina pectoris (7) Hyperlipidemia Qualifiers: Hyperlipidemia type: mixed hyperlipidemia Qualified Code(s): E78.2 - Mixed hyperlipidemia (11) Type 2 diabetes mellitus Qualifiers: Diabetes mellitus retirement insulin use: with retirement use Diabetes mellitus complication status: with kidney complications Diabetes mellitus complication detail: with chronic kidney disease Chronic kidney disease stage: stage 3 (moderate) Qualified Code(s): E11.22 - Type 2 diabetes mellitus with diabetic chronic kidney disease; N18.3 - Chronic kidney disease, stage 3 ( moderate); Z79.4 - shelter (current) use of insulin
[2017-12-07] MEDS: Artificial Tears SOLN 15 ML BOTTLE BOTH EYES PRN (13:03)
--- NOTE | 2017-12-07 14:54 | Oncology Inp Consult Note ---
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 Unclear if this is causing patient symptoms as her symptoms are acutely in the thrombus appears chronic. Agree with lower extremity Dopplers. We will start Eliquis 5 mg twice a day with planned treatment for 3 months. (2) Cancer of right lung Status: Chronic Assessment and plan: Remote history. No evidence of recurrence. Continue monitor as an outpatient. Qualifiers: Lung location: hilum of lung Qualified Code(s): C34.01 - Malignant neoplasm of right main bronchus - Data of Consult Patient: known to practice within the last 3 years Consult date: 12/07/17 Requesting Physician: Karla Lopez Primary Care Provider: Jonna Mcdermott CNP - Consult Narrative Reason for consult: Chronic pulmonary embolism History of present illness: Ms. Corbin is a 72 year old female with history of. 6 treated lung cancer, coronary disease, chronic kidney disease, CVA presents with chest pain. Patient reports yesterday she had sudden onset chest pain while at rest. She reports the pain was associated with shortness of breath. She reports the pain was worse with deep breaths. She did not feel that the pain was exacerbated with activity. She reports feeling chilled at home but denies fevers. She denies any lower extremity pain or swelling. She states she has felt weaker than normal however she has been able to get up and move around and perform her activities of daily living. Patient reports a remote history of lung cancer. She denies any personal or family history of venous thromboembolic disease. She reports being on "blood thinners" in the past and upon further questioning she states that this was Plavix. She does also report that she was on warfarin for a short time immediately after she received several cardiac stents many years ago. Past Med Surg Social Fam HX - Past Medical History Medical history: asthma, cancer, CHF, coronary artery disease, CVA, diabetes, fibromyalgia, GERD, hyperlipidemia, hypertension, myocardial infarction, osteoporosis, renal disease, syncope, other Additional medical history: CHRONIC BACK/KNEE PAIN Psychiatric history: anxiety, bipolar, depression - Past Surgical History Surgical History: angioplasty/stent, appendectomy, cancer surgery, cholecystectomy, hysterectomy, orthopedic, other Additional surgical history: 6 stents. - Social History Smoking Status: Former smoker Smokeless Tobacco Status: No Alcohol use: none Drug use: none - Family History Mother Living Status: Sister Living Status: Hx Family Cardiac Disorders: Yes Hx Family Respiratory Disorders: Yes (Lung cancer) Brother Adopted: No Family Member Ethnicity: Non- Living Status: Still Living Hx Family Cardiac Disorders: Yes Hx Family Respiratory Disorders: Yes Hx Family Cancer: Yes Hx Family GI Disorders: No Hx Family Endocrine Disorder: No Hx Family Neuromuscular Disorders: No Hx Family Neurologic Disorders: No Hx Family HEENT Disorders: No Hx Family Autoimmune Disorders: No Father Adopted: No Family Member Ethnicity: Non- Living Status: Hx Family Cardiac Disorders: Yes Hx Family Respiratory Disorders: No Hx Family Cancer: No Hx Family GI Disorders: No Hx Family Endocrine Disorder: No Hx Family Neuromuscular Disorders: No Hx Family Neurologic Disorders: No Hx Family HEENT Disorders: No Hx Family Autoimmune Disorders: No Medications and Allergies Dicyclomine [Bentyl] 10 mg PO QID 11/23/17 [History] Ergocalciferol (VITAMIN D2) [Vitamin D2] 50,000 unit PO QWEEK 11/23/17 [History] Gabapentin [Neurontin] 400 mg PO TID 11/23/17 [History] Lisinopril [Zestril] 20 mg PO DAILY 11/23/17 [History] Montelukast [Singulair] 10 mg PO HS 11/23/17 [History] Pantoprazole Sodium [Protonix] 40 mg PO HS 11/23/17 [History] Ranitidine HCl [Zantac] 300 mg PO HS 11/23/17 [History] Ranolazine [Ranexa] 1,000 mg PO BID 11/23/17 [History] Atorvastatin Calcium [Atorvastatin Calcium] 80 mg PO HS 12/06/17 [History] Doxepin HCl [Doxepin HCl] 50 mg PO HS 12/06/17 [History] HydrOXYzine 10 mg PO BID PRN 12/06/17 [History] Insulin Glargine,Hum.rec.anlog [Lantus Solostar] 80 unit SQ DAILY 12/06/17 [ History] Insulin LISPRO [HumaLOG] 0 units SQ TIDWM MDD 90 UNIT 12/06/17 [History] Metoclopramide [Reglan] 5 mg PO Q8H 12/06/17 [History] Ondansetron ODT [Zofran ODT] 4 mg SL Q4H PRN 12/06/17 [History] 3 Allergy/AdvReac Type Severity Reaction Status Date / Time Iodinated Contrast- Oral and Allergy Rash Verified 12/01/17 12:39 IV Dye iron Allergy Hives Verified 12/01/17 12:39 Bear Allergy Nausea Verified 12/01/17 12:39 Sulfa (Sulfonamide Allergy Hives Verified 12/01/17 12:39 Antibiotics) Constitutional: Present: chills. Absent: fever(s) Eyes: Absent: diplopia Nose, mouth and throat: Absent: dizziness, sore throat Cardiovascular: Present: chest pain, dyspnea. Absent: edema, leg edema, pedal edema, syncope Respiratory: Present: dyspnea, pain on inspiration. Absent: cough Gastrointestinal: Present: nausea. Absent: abdominal pain, vomiting Genitourinary: Absent: dysuria, hematuria Musculoskeletal: Absent: muscle cramps, numbness, tingling Integumentary: Absent: bleeding lesions, new lesions Neurological: Present: weakness. Absent: headache(s) Hematologic/Lymphatic: Absent: easy bleeding, easy bruising Oncology - Exam - Constitutional Vitals: Temp Pulse Resp BP Pulse Ox 97.9 F 94 14 151/67 99 12/07/17 12:00 12/07/17 14:00 12/07/17 14:00 12/07/17 14:00 12/07/17 14:00 General appearance: cooperative, no acute distress - Head Head exam: Present: atraumatic, normal inspection, normocephalic - Eye Eye exam: Present: EOMI - ENT ENT exam: Present: mucous membranes moist - Respiratory Respiratory exam: Present: CTAB. Absent: rales, rhonchi, wheezes - Cardiovascular Cardiovascular exam: Absent: diastolic murmur, RRR, systolic murmur - GI/Abdominal GI/Abdominal exam: Present: normal bowel sounds, soft. Absent: distended, firm , tenderness - Extremities Exam Extremities exam: Present: normal inspection. Absent: calf tenderness, joint swelling, pedal edema, tenderness - Neurological Exam Neurological exam: Present: alert, oriented X3 - Skin Skin exam: Present: dry, intact, warm Oncology - Results Labs: 3 12/07/17 12/07/17 12/06/17 11:11 07:13 19:30 WBC RBC Hgb Hct MCV MCH MCHC RDW Plt Count MPV Immature Gran % Seg Neutrophils % Lymphocytes % Monocytes % Eosinophils % Basophils % Neutrophils # Lymphocytes # Monocytes # Eosinophils # Basophils # Sodium Potassium Chloride Carbon Dioxide BUN Creatinine Est GFR ( Amer) Est GFR (Non-Af Amer) BUN/Creatinine Ratio Glucose POC Glucose 281 H 294 H 353 H Est Mean Plasma Glucose Hemoglobin A1c Calculated Osmolality Lactic Acid Calcium Phosphorus Magnesium Total Bilirubin AST ALT Alkaline Phosphatase Troponin I Serum Total Protein Albumin Globulin Albumin/Globulin Ratio TSH Nasal Screen MRSA (PCR) 3 12/06/17 12/06/17 12/06/17 15:07 11:20 11:18 WBC RBC Hgb Hct MCV MCH MCHC RDW Plt Count MPV Immature Gran % Seg Neutrophils % Lymphocytes % Monocytes % Eosinophils % Basophils % Neutrophils # Lymphocytes # Monocytes # Eosinophils # Basophils # Sodium Potassium Chloride Carbon Dioxide BUN Creatinine Est GFR ( Amer) Est GFR (Non-Af Amer) BUN/Creatinine Ratio Glucose POC Glucose 327 H 431 H* 414 H* Est Mean Plasma Glucose Hemoglobin A1c Calculated Osmolality Lactic Acid Calcium Phosphorus Magnesium Total Bilirubin AST ALT Alkaline Phosphatase Troponin I Serum Total Protein Albumin Globulin Albumin/Globulin Ratio TSH Nasal Screen MRSA (PCR) 3 12/06/17 12/06/17 12/06/17 09:24 09:23 05:56 WBC RBC Hgb Hct MCV MCH MCHC RDW Plt Count MPV Immature Gran % Seg Neutrophils % Lymphocytes % Monocytes % Eosinophils % Basophils % Neutrophils # Lymphocytes # Monocytes # Eosinophils # Basophils # Sodium Potassium Chloride Carbon Dioxide BUN Creatinine Est GFR ( Amer) Est GFR (Non-Af Amer) BUN/Creatinine Ratio Glucose POC Glucose 427 H* 435 H* Est Mean Plasma Glucose Hemoglobin A1c Calculated Osmolality Lactic Acid Calcium Phosphorus Magnesium Total Bilirubin AST ALT Alkaline Phosphatase Troponin I 0.03 Serum Total Protein Albumin Globulin Albumin/Globulin Ratio TSH Nasal Screen MRSA (PCR) 3 12/06/17 12/06/17 12/06/17 01:35 01:35 01:35 WBC 10.9 RBC 4.73 Hgb 13.2 D Hct 39.9 MCV 84.4 MCH 27.9 L MCHC 33.1 RDW 13.6 Plt Count 286 MPV 10.4 Immature Gran % 0.2 Seg Neutrophils % 69.7 Lymphocytes % 22.7 Monocytes % 6.7 Eosinophils % 0.4 Basophils % 0.3 Neutrophils # 7.6 Lymphocytes # 2.5 Monocytes # 0.7 Eosinophils # 0.0 Basophils # 0.0 Sodium 136 Potassium 4.2 Chloride 100 Carbon Dioxide 26 BUN 16 Creatinine 1.32 H Est GFR ( Amer) 48 L Est GFR (Non-Af Amer) 40 L BUN/Creatinine Ratio 12 Glucose 344 H POC Glucose Est Mean Plasma Glucose Hemoglobin A1c Calculated Osmolality 297 Lactic Acid 3.0 H Calcium 10.0 Phosphorus 2.7 Magnesium 1.6 Total Bilirubin 0.5 AST 14 ALT 16 Alkaline Phosphatase 62 Troponin I Serum Total Protein 7.1 Albumin 3.8 Globulin 3.3 Albumin/Globulin Ratio 1.2 TSH Nasal Screen MRSA (PCR) 3 12/06/17 12/06/17 12/06/17 00:20 00:00 00:00 WBC RBC Hgb Hct MCV MCH MCHC RDW Plt Count MPV Immature Gran % Seg Neutrophils % Lymphocytes % Monocytes % Eosinophils % Basophils % Neutrophils # Lymphocytes # Monocytes # Eosinophils # Basophils # Sodium Potassium Chloride Carbon Dioxide BUN Creatinine Est GFR ( Amer) Est GFR (Non-Af Amer) BUN/Creatinine Ratio Glucose POC Glucose Est Mean Plasma Glucose 229 Hemoglobin A1c 9.6 H Calculated Osmolality Lactic Acid Calcium Phosphorus Magnesium Total Bilirubin AST ALT Alkaline Phosphatase Troponin I Serum Total Protein Albumin Globulin Albumin/Globulin Ratio TSH 2.823 Nasal Screen MRSA (PCR) Negative 3 12/06/17 12/05/17 00:00 22:15 WBC RBC Hgb Hct MCV MCH MCHC RDW Plt Count MPV Immature Gran % Seg Neutrophils % Lymphocytes % Monocytes % Eosinophils % Basophils % Neutrophils # Lymphocytes # Monocytes # Eosinophils # Basophils # Sodium Potassium Chloride Carbon Dioxide BUN Creatinine Est GFR ( Amer) Est GFR (Non-Af Amer) BUN/Creatinine Ratio Glucose POC Glucose 364 H Est Mean Plasma Glucose Hemoglobin A1c Calculated Osmolality Lactic Acid Calcium Phosphorus Magnesium Total Bilirubin AST ALT Alkaline Phosphatase Troponin I 0.03 Serum Total Protein Albumin Globulin Albumin/Globulin Ratio TSH Nasal Screen MRSA (PCR) Consult Discharge Plan - Plan Referrals: Jonna Mcdermott BUSINESS INFORMATION MANAGER [Primary Care Provider] - <Neela Urban - Last Filed: 12/08/17 16:43> Date of Encounter: 12/07/17 - Data of Consult Requesting Physician: Karla Lopez Primary Care Provider: Jonna Mcdermott, BUSINESS INFORMATION MANAGER - Consult Narrative History of present illness: Ms. Corbin is a 72 year old female Oncology - Exam - Constitutional Vitals: Temp Pulse Resp BP Pulse Ox 98.2 F 82 16 141/82 96 12/08/17 16:23 12/08/17 16:23 12/08/17 16:23 12/08/17 16:23 12/08/17 16:23 Oncology - Results Labs: 3 12/08/17 12/08/17 12/08/17 15:13 11:35 07:12 WBC RBC Hgb Hct MCV MCH MCHC RDW Plt Count MPV Immature Gran % Seg Neutrophils % Lymphocytes % Monocytes % Eosinophils % Basophils % Neutrophils # Lymphocytes # Monocytes # Eosinophils # Basophils # PT INR Sodium Potassium Chloride Carbon Dioxide BUN Creatinine Est GFR ( Amer) Est GFR (Non-Af Amer) BUN/Creatinine Ratio Glucose POC Glucose 139 H 170 H 144 H Est Mean Plasma Glucose Hemoglobin A1c Calculated Osmolality Lactic Acid Calcium Phosphorus Magnesium Total Bilirubin AST ALT Alkaline Phosphatase Troponin I Serum Total Protein Albumin Globulin Albumin/Globulin Ratio TSH Nasal Screen MRSA (PCR) 3 12/08/17 12/08/17 12/08/17 03:50 03:50 03:50 WBC 9.8 RBC 4.08 Hgb 11.4 L D Hct 35.0 L MCV 85.8 MCH 27.9 L MCHC 32.6 RDW 13.8 Plt Count 233 MPV 10.7 Immature Gran % 0.3 Seg Neutrophils % 60.6 Lymphocytes % 32.6 Monocytes % 5.2 Eosinophils % 1.0 Basophils % 0.3 Neutrophils # 5.9 Lymphocytes # 3.2 Monocytes # 0.5 Eosinophils # 0.1 Basophils # 0.0 PT 13.4 H INR 1.2 Sodium 140 Potassium 3.6 Chloride 106 Carbon Dioxide 26 BUN 20 Creatinine 1.11 Est GFR ( Amer) 59 L Est GFR (Non-Af Amer) 48 L BUN/Creatinine Ratio 18 Glucose 134 H POC Glucose Est Mean Plasma Glucose Hemoglobin A1c Calculated Osmolality 295 Lactic Acid Calcium 9.9 Phosphorus Magnesium 1.8 Total Bilirubin AST ALT Alkaline Phosphatase Troponin I Serum Total Protein Albumin Globulin Albumin/Globulin Ratio TSH Nasal Screen MRSA (PCR) 3 12/07/17 12/07/17 12/07/17 19:25 15:46 11:11 WBC RBC Hgb Hct MCV MCH MCHC RDW Plt Count MPV Immature Gran % Seg Neutrophils % Lymphocytes % Monocytes % Eosinophils % Basophils % Neutrophils # Lymphocytes # Monocytes # Eosinophils # Basophils # PT INR Sodium Potassium Chloride Carbon Dioxide BUN Creatinine Est GFR ( Amer) Est GFR (Non-Af Amer) BUN/Creatinine Ratio Glucose POC Glucose 222 H 205 H 281 H Est Mean Plasma Glucose Hemoglobin A1c Calculated Osmolality Lactic Acid Calcium Phosphorus Magnesium Total Bilirubin AST ALT Alkaline Phosphatase Troponin I Serum Total Protein Albumin Globulin Albumin/Globulin Ratio TSH Nasal Screen MRSA (PCR) 3 12/07/17 12/06/17 12/06/17 07:13 19:30 15:07 WBC RBC Hgb Hct MCV MCH MCHC RDW Plt Count MPV Immature Gran % Seg Neutrophils % Lymphocytes % Monocytes % Eosinophils % Basophils % Neutrophils # Lymphocytes # Monocytes # Eosinophils # Basophils # PT INR Sodium Potassium Chloride Carbon Dioxide BUN Creatinine Est GFR ( Amer) Est GFR (Non-Af Amer) BUN/Creatinine Ratio Glucose POC Glucose 294 H 353 H 327 H Est Mean Plasma Glucose Hemoglobin A1c Calculated Osmolality Lactic Acid Calcium Phosphorus Magnesium Total Bilirubin AST ALT Alkaline Phosphatase Troponin I Serum Total Protein Albumin Globulin Albumin/Globulin Ratio TSH Nasal Screen MRSA (PCR) 3 12/06/17 12/06/17 12/06/17 11:20 11:18 09:24 WBC RBC Hgb Hct MCV MCH MCHC RDW Plt Count MPV Immature Gran % Seg Neutrophils % Lymphocytes % Monocytes % Eosinophils % Basophils % Neutrophils # Lymphocytes # Monocytes # Eosinophils # Basophils # PT INR Sodium Potassium Chloride Carbon Dioxide BUN Creatinine Est GFR ( Amer) Est GFR (Non-Af Amer) BUN/Creatinine Ratio Glucose POC Glucose 431 H* 414 H* 427 H* Est Mean Plasma Glucose Hemoglobin A1c Calculated Osmolality Lactic Acid Calcium Phosphorus Magnesium Total Bilirubin AST ALT Alkaline Phosphatase Troponin I Serum Total Protein Albumin Globulin Albumin/Globulin Ratio TSH Nasal Screen MRSA (PCR) 3 12/06/17 12/06/17 12/06/17 09:23 05:56 01:35 WBC RBC Hgb Hct MCV MCH MCHC RDW Plt Count MPV Immature Gran % Seg Neutrophils % Lymphocytes % Monocytes % Eosinophils % Basophils % Neutrophils # Lymphocytes # Monocytes # Eosinophils # Basophils # PT INR Sodium 136 Potassium 4.2 Chloride 100 Carbon Dioxide 26 BUN 16 Creatinine 1.32 H Est GFR ( Amer) 48 L Est GFR (Non-Af Amer) 40 L BUN/Creatinine Ratio 12 Glucose 344 H POC Glucose 435 H* Est Mean Plasma Glucose Hemoglobin A1c Calculated Osmolality 297 Lactic Acid Calcium 10.0 Phosphorus 2.7 Magnesium 1.6 Total Bilirubin 0.5 AST 14 ALT 16 Alkaline Phosphatase 62 Troponin I 0.03 Serum Total Protein 7.1 Albumin 3.8 Globulin 3.3 Albumin/Globulin Ratio 1.2 TSH Nasal Screen MRSA (PCR) 3 12/06/17 12/06/17 12/06/17 01:35 01:35 00:20 WBC 10.9 RBC 4.73 Hgb 13.2 D Hct 39.9 MCV 84.4 MCH 27.9 L MCHC 33.1 RDW 13.6 Plt Count 286 MPV 10.4 Immature Gran % 0.2 Seg Neutrophils % 69.7 Lymphocytes % 22.7 Monocytes % 6.7 Eosinophils % 0.4 Basophils % 0.3 Neutrophils # 7.6 Lymphocytes # 2.5 Monocytes # 0.7 Eosinophils # 0.0 Basophils # 0.0 PT INR Sodium Potassium Chloride Carbon Dioxide BUN Creatinine Est GFR ( Amer) Est GFR (Non-Af Amer) BUN/Creatinine Ratio Glucose POC Glucose Est Mean Plasma Glucose Hemoglobin A1c Calculated Osmolality Lactic Acid 3.0 H Calcium Phosphorus Magnesium Total Bilirubin AST ALT Alkaline Phosphatase Troponin I Serum Total Protein Albumin Globulin Albumin/Globulin Ratio TSH Nasal Screen MRSA (PCR) Negative 3 12/06/17 12/06/17 12/06/17 00:00 00:00 00:00 WBC RBC Hgb Hct MCV MCH MCHC RDW Plt Count MPV Immature Gran % Seg Neutrophils % Lymphocytes % Monocytes % Eosinophils % Basophils % Neutrophils # Lymphocytes # Monocytes # Eosinophils # Basophils # PT INR Sodium Potassium Chloride Carbon Dioxide BUN Creatinine Est GFR ( Amer) Est GFR (Non-Af Amer) BUN/Creatinine Ratio Glucose POC Glucose Est Mean Plasma Glucose 229 Hemoglobin A1c 9.6 H Calculated Osmolality Lactic Acid Calcium Phosphorus Magnesium Total Bilirubin AST ALT Alkaline Phosphatase Troponin I 0.03 Serum Total Protein Albumin Globulin Albumin/Globulin Ratio TSH 2.823 Nasal Screen MRSA (PCR) 3 12/05/17 22:15 WBC RBC Hgb Hct MCV MCH MCHC RDW Plt Count MPV Immature Gran % Seg Neutrophils % Lymphocytes % Monocytes % Eosinophils % Basophils % Neutrophils # Lymphocytes # Monocytes # Eosinophils # Basophils # PT INR Sodium Potassium Chloride Carbon Dioxide BUN Creatinine Est GFR ( Amer) Est GFR (Non-Af Amer) BUN/Creatinine Ratio Glucose POC Glucose 364 H Est Mean Plasma Glucose Hemoglobin A1c Calculated Osmolality Lactic Acid Calcium Phosphorus Magnesium Total Bilirubin AST ALT Alkaline Phosphatase Troponin I Serum Total Protein Albumin Globulin Albumin/Globulin Ratio TSH Nasal Screen MRSA (PCR) - Attending Attestation Patient known to me in the past last visit was March 2016 Oncological history T4 N0 M0, two lung nodules; diagnosis 01/21/2010 one in the 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 She finished [employer] to both nodules and continued to be in remission. Her medical history significant for Atypical retrosternal chest pain hospitalized on 12-20-13. Another hospitalization 05/24/2014 and a VQ scan at that time negative. A technetium stress test on 12-23-13 showed ejection fraction 70% and negative for ischemia. Bilateral lower extremity venous Doppler negative on 12-22-13. Non-ST NH on 11/20/2014 with troponin 1.3. Currently she had about 08/29 since then. Echocardiogram November 2013 showed ejection fraction 60%. EGD Dr. Magdaleno December 2014 and biopsies showed mild chronic gastritis. She is admitted this time with chest pain CT angiogram chest 12/06/2017 showed chronic appearing thrombus right distal main pulmonary artery. Otherwise stable postsurgical treatment changes from lung cancer Bilateral lower extremity venous Doppler negative 12/07/2017. Echocardiogram normal ejection fraction 60-65% otherwise negative She had no previous history of venous thromboembolism She has 2 mm brain aneurysm which is being observed and she does not need any active treatment Given the above findings recommend Eliquis 5 mg by mouth twice a day without a loading dose. We will follow her as an out patient
[2017-12-07] MEDS: Amoxicillin/Clavulanate 500 MG TABLET PO SCH (16:49)
--- NOTE | 2017-12-07 17:37 | Electrocardiograph Report ---
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
[2017-12-07] MEDS: Apixaban 5 MG TABLET PO SCH (20:50)
[2017-12-08] MEDS: Ipratropium/Albuterol Neb 3 ML IH SCH ×7 (00:14→23:43)
[2017-12-08 04:45] LABS: Basophils % 0.3 %; Eosinophils # 0.1 K/mcL (0.0-0.6); Immature Granulocytes % 0.3 % (0-4); Lymphocytes # 3.2 K/mcL (0.6-4.6); Lymphocytes % 32.6 %; Mean Corpuscular HGB Conc 32.6 g/dL (31.6-35.5); Mean Corpuscular Hemoglobin 27.9 pg (28.0-33.3); Mean Corpuscular Volume 85.8 fL (83.0-100.0); Mean Platelet Volume 10.7 fL (9.4-12.4); Monocytes # 0.5 K/mcL (0.0-1.3); Monocytes % 5.2 %; Neutrophils # 5.9 K/mcL (1.6-8.9); Platelet Count 233 K/mcL (140-400); Red Blood Count 4.08 M/mcL (3.82-4.97); Red Cell Distribution Width 13.8 % (11.5-14.5); Segmented Neutrophils % 60.6 %
[2017-12-08 04:47] LABS: Hemoglobin 11.4 g/dL (11.5-15.4)
[2017-12-08 04:49] LABS: INR 1.2; Prothrombin Time 13.4 Seconds (9.4-12.1)
[2017-12-08 06:58] LABS: Potassium 3.6 mEq/L (3.5-5.1)
[2017-12-08 06:59] LABS: Calcium 9.9 mg/dL (8.6-10.3); Magnesium 1.8 mg/dL (1.6-2.6)
[2017-12-08] MEDS ORDERED: *HR* Metoprolol 5 MG/5 ML VIAL IVP ONE (07:37)
[2017-12-08] MEDS: Aspirin 81 MG TAB.CHEW PO SCH (07:44)
[2017-12-08] MEDS: *HR* Metoprolol 5 MG/5 ML VIAL IVP PRN ×2 (07:44→13:15)
[2017-12-08] MEDS: Pantoprazole 40 MG VIAL IVP SCH (07:44)
[2017-12-08] MEDS: Amoxicillin/Clavulanate 500 MG TABLET PO SCH ×2 (07:44→17:01)
[2017-12-08] MEDS: Apixaban 5 MG TABLET PO SCH ×2 (07:44→20:41)
[2017-12-08] MEDS: Insulin LISPRO 300 UNITS/3 ML VIAL SQ SCH ×4 (07:45→20:49)
[2017-12-08] MEDS: Insulin DETEMIR 100 UNIT/ML X5UNITS SQ SCH ×2 (07:49→20:40)
[2017-12-08] MEDS ORDERED: *HR* Labetalol 20 MG/4 ML SYRINGE IVP ONE (09:19)
--- NOTE | 2017-12-08 09:23 | Internal Med Progress Note ---
Hospitalist Progress Note - Encounter Date of Encounter: 12/08/17 Time of Encounter: 10:45 - Subjective Interval History: no cp, palpitations. states she is sob, but resting comfortably in bed and no resp distress on room air. generalized fatigue. clark this morning with bp elevation. no vision changes, speech changes, numbness or tingling or weakness. counseled on monitoring for bleeding with aC initation and verbalized understanding. - Exam Vitals: Temp Pulse Resp BP Pulse Ox 98.4 F 82 16 203/91 95 12/08/17 07:10 12/08/17 07:58 12/08/17 07:57 12/08/17 07:57 12/08/17 07:57 Exam: General: awake, alert, appears stated age Neck: supple, trachea midline Cardiovascular:regular rate and rhythm, normal S1 & S2, no rubs, murmurs or gallops appreciated. No JVD. radial pulses 2+, no lower extremity edema Lungs:Normal breath sounds, no wheezes,rhonchi or crackles. 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 There is no evidence of acute pulmonary artery embolism -hematology consulted 12/07 with my taking over of case today for AC recs--rec to begin Eliquis BID x3 months -previously on AC in past per pt? though denies hx of any clots -confirmed with pharmacy pt has been receiving vte ppx dosing of heparin this admit -AC as above -Dopplers bl le prelim read negative for dvt, fu final read (2) Elevated d-dimer Current Visit: Yes Status: Acute Assessment and Plan: Patient with acute onset shortness of breath, pleuritic chest pain, tachycardia , remote lung cancer, and recent immobilization sedation secondary to weakness D-dimer elevated at 607 CTA ordered to rule out PE and chronic clot identified. treatment as above BL LE US as above (3) Chest pain Current Visit: Yes Status: Acute Assessment and Plan: Patient with acute onset pleuritic chest pain, history of CAD and 6 cardiac stents and now confirmed chronic pulm artery thrombus; ACS ruled out by Cards, Pain Possibly related to possible pna and PE CTA showed eccentric chronic appearing thrombus within the right distal main pulmonary artery without any evidence of acute pulmonary artery embolism. EKGs reveals sinus tachycardia with T-wave abnormality, repeat EKG shows no acute changes Continue aspirin + statin and BB Cardiology consulted with recommendations for echocardiogram which showed preserved LVEF with atypical septal motion consistent with bundle branch block Recommendations to start beta chiquis cards has signed off and she may fu outpt Heme consult regarding rec for AC with chronic thrombus on CTA as above -possible pna treatment as below -working for improved BP control (4) Sepsis Current Visit: No Status: Resolved Assessment and Plan: Patient met sepsis criteria with leukocytosis 14.4, tachycardia heart rate 144, and tachypnea respiratory rate 24. Treated empirically by previous provider for HAP Blood cultures 2 were collected though were not ever received by lab sputum cx not collected as pt without sputum, legionella and strep ag neg No UA was ever obtained, pt without any symptoms, cont to monitor CXR no acute findings CT chest showed stable changes post lung Ca and no clear consolidation/pna Empiric antibiotics with IV Zosyn for suspected HAP started on admit 12/07 d/w pharmacy--will change to augmentin to complete course for possible pna given sepsis picture on admit leukocytosis resolved, afebrile, cont to monitor with abx change (5) Healthcare-associated pneumonia Current Visit: Yes Status: Acute Assessment and Plan: Patient with leukocytosis, subjective fever, productive cough, shortness of breath, and multiple recent hospital visits Possible Pna CXR reveals no evidence of acute cardiopulmonary disease. Blood cultures collected at [facility] Sputum culture not able to be collected as no sputum Urine Legionella and strep pneumo antigens are negative empiric antibiotics with IV Zosyn De-escalate to Augmentin 12/07 incentive spirometry, nebs (6) CAD (coronary artery disease) Current Visit: Yes Status: Chronic Assessment and Plan: Patient has [address] -has been evaluated by cards and stable from cardiac standpoint -may fu outpt -cont asa, statin, coreg, prn nitro -need to have pharmacy to confirm home meds--then resume acei if still actively taking (7) Hyperlipidemia Current Visit: Yes Status: Chronic Assessment and Plan: Continue statin (8) Elevated troponin Current Visit: No Status: Acute Assessment and Plan: Patient transferred from [facility] secondary to possible NSTEMI Initial troponin level 0.06, repeat troponins are negative EKGs reveals sinus tachycardia with T-wave abnormality, repeat EKG shows no acute changes Cardiology following with recommendations as above (9) Essential hypertension Current Visit: Yes Status: Acute Assessment and Plan: ncontrolled and has been labile -cont coreg, up titrating -prn hydralazine -pharmacy to review home meds as appear not confirmed this admit 12/08--and resume home meds once confirmed which appear to be lisinopril -added back acei 12/08 and up titrate as needed -cont to monitor closely -will require fu with pcp outpt for further management and monitoring (10) Weakness Current Visit: Yes Status: Acute Assessment and Plan: Patient usually walks with a walker but has not been able to get out of bed for several days secondary to weakness PT/OT consulted-rec for ecf on dc (11) Type 2 diabetes mellitus Current Visit: Yes Status: Chronic Assessment and Plan: Hemoglobin A1c 9.6, Hyperglycemia this admission Continue SSI and Accu-Checks Levemir up titrated this admission cont to monitor ADA diet will require pcp follow up (12) Obesity (BMI 30-39.9) Current Visit: Yes Status: Chronic Assessment and Plan: BMI 37.2, lifestyle modification (13) DVT prophylaxis Current Visit: No Status: Acute Assessment and Plan: eliquis (14) Anemia Current Visit: Yes Status: Acute Assessment and Plan: admitting hgb 13.2, on recheck two days later 11.4 with drop in all 3 cell lines noted, no active bleeding, plts wnl -she is now taking eliquis -will need to monitor for active bleeding and hgb stability on new med - Time Spent with Patient Total time spent is greater than 50% in coordination of care (as documented) at patient's floor/unit and/or counseling patient: 25 - 35 minutes Plan of Care Discussed with: patient Internal Medicine: Result - Labs CBC & Chem 7: 12/08/17 03:50 12/08/17 03:50 Labs: Short CBC 12/08/17 Range/Units 03:50 WBC 9.8 (4.3-11.1) K/mcL Hgb 11.4 L D (11.5-15.4) g/dL Hct 35.0 L (35.3-44.9) % Plt Count 233 (140-400) K/mcL Neutrophils # 5.9 (1.6-8.9) K/mcL BMP 12/08/17 03:50 Sodium 140 Potassium 3.6 Chloride 106 Carbon Dioxide 26 BUN 20 Creatinine 1.11 Glucose 134 H Calcium 9.9 - ABG Interpretation ABG results: PT/INR, D-dimer PT 13.4 Seconds (9.4-12.1) H 12/08/17 03:50 Consult Discharge Plan - Plan Referrals: Jonna Mcdermott, [employer] [facility] [Primary Care Provider] - (3) Chest pain Qualifiers: Chest pain type: unspecified Qualified Code(s): R07.9 - Chest pain, unspecified (4) Sepsis Qualifiers: Sepsis type: sepsis due to unspecified organism Qualified Code(s): A41.9 - Sepsis, unspecified organism (6) CAD (coronary artery disease) Qualifiers: Coronary Disease-Associated Artery/Lesion type: [place] artery [place] vs. transplanted heart: [place] heart Associated angina: without angina Qualified Code(s): I25.10 - Atherosclerotic heart disease of [place] coronary artery without angina pectoris (7) Hyperlipidemia Qualifiers: Hyperlipidemia type: mixed hyperlipidemia Qualified Code(s): E78.2 - Mixed hyperlipidemia (11) Type 2 diabetes mellitus Qualifiers: Diabetes mellitus fpc insulin use: with fpc use Diabetes mellitus complication status: with kidney complications Diabetes mellitus complication detail: with chronic kidney disease Chronic kidney disease stage: stage 3 (moderate) Qualified Code(s): E11.22 - Type 2 diabetes mellitus with diabetic chronic kidney disease; N18.3 - Chronic kidney disease, stage 3 ( moderate); 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
[2017-12-08] MEDS: *HR* HYDROcodone/Acet 5/325 mg TABLET PO PRN (11:47)
[2017-12-08] MEDS ORDERED: Lisinopril 20 MG TABLET PO SCH (12:00)
[2017-12-08] MEDS: Ondansetron 4 MG/2 ML VIAL IVP PRN ×2 (13:15→20:40)
[2017-12-09] MEDS: Ondansetron 4 MG/2 ML VIAL IVP PRN ×3 (04:05→17:14)
[2017-12-09] MEDS: Ipratropium/Albuterol Neb 3 ML IH SCH ×6 (04:06→23:55)
[2017-12-09] MEDS: *HR* HYDROcodone/Acet 5/325 mg TABLET PO PRN ×3 (04:16→21:14)
[2017-12-09 05:16] LABS: Basophils % 0.3 %; Eosinophils # 0.2 K/mcL (0.0-0.6); Eosinophils % 1.7 %; Hematocrit 38.6 % (35.3-44.9); Hemoglobin 12.8 g/dL (11.5-15.4); Immature Granulocytes % 0.2 % (0-4); Lymphocytes # 2.7 K/mcL (0.6-4.6); Lymphocytes % 26.6 %; Mean Corpuscular HGB Conc 33.2 g/dL (31.6-35.5); Mean Corpuscular Hemoglobin 28.3 pg (28.0-33.3); Mean Corpuscular Volume 85.4 fL (83.0-100.0); Mean Platelet Volume 10.2 fL (9.4-12.4); Monocytes # 0.8 K/mcL (0.0-1.3); Monocytes % 7.6 %; Neutrophils # 6.5 K/mcL (1.6-8.9); Platelet Count 295 K/mcL (140-400); Red Blood Count 4.52 M/mcL (3.82-4.97); Segmented Neutrophils % 63.6 %
[2017-12-09 05:28] LABS: BUN/Creatinine Ratio 19 (6-26); Blood Urea Nitrogen 18 mg/dL (8-23); Calcium 10.3 mg/dL (8.6-10.3); Carbon Dioxide 25 mEq/L (23-29); Chloride 105 mEq/L (98-107); Glucose 203 mg/dL (70-105); Magnesium 1.9 mg/dL (1.6-2.6); Osmolality,Calculated 294 (280-300); Potassium 4.1 mEq/L (3.5-5.1); Sodium 138 mEq/L (136-145); eGFR For Non-African Americans 56 (> 60)
[2017-12-09] MEDS: Insulin DETEMIR 100 UNIT/ML X5UNITS SQ SCH ×2 (08:03→21:15)
[2017-12-09] MEDS: Amoxicillin/Clavulanate 500 MG TABLET PO SCH ×2 (08:03→17:14)
[2017-12-09] MEDS: Insulin LISPRO 300 UNITS/3 ML VIAL SQ SCH ×4 (08:03→21:16)
[2017-12-09] MEDS: Apixaban 5 MG TABLET PO SCH ×2 (08:04→21:14)
[2017-12-09] MEDS: Aspirin 81 MG TAB.CHEW PO SCH (08:04)
[2017-12-09] MEDS: Lisinopril 20 MG TABLET PO SCH (08:04)
--- NOTE | 2017-12-09 10:06 | Internal Med Progress Note ---
Hospitalist Progress Note - Encounter Date of Encounter: 12/09/17 Time of Encounter: 11:15 - Subjective Interval History: No chest pain today, no sob or cough. Denies wheezing, fevers or chills. Headache this morning with elevated bps. She routinely has dry heaving after med administration. No emesis, no abd pain. - Exam Vitals: Temp Pulse Resp BP Pulse Ox 98.1 F 96 18 174/85 95 12/09/17 06:59 12/09/17 06:59 12/09/17 07:44 12/09/17 06:59 12/09/17 07:44 Exam: General: awake, alert, appears stated age Cardiovascular:regular rate and rhythm, normal S1 & S2, no rubs, murmurs or gallops appreciated. No JVD. no lower extremity edema Lungs:Normal breath sounds, no wheezes,rhonchi or crackles. 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 There is no evidence of acute pulmonary artery embolism -hematology consulted 12/07 with my taking over of case today for AC recs--rec to begin Eliquis BID x3 months -previously on AC in past per pt? though denies hx of any clots -AC as above -Dopplers bl le neg (2) Elevated d-dimer Current Visit: Yes Status: Acute Assessment and Plan: Patient with acute onset shortness of breath, pleuritic chest pain, tachycardia , remote lung cancer, and recent immobilization sedation secondary to weakness D-dimer elevated at 607 CTA ordered to rule out PE and chronic clot identified. treatment as above BL LE US as above (3) Chest pain Current Visit: Yes Status: Resolved Assessment and Plan: Patient with acute onset pleuritic chest pain, history of CAD and 6 cardiac stents and now confirmed chronic pulm artery thrombus; ACS ruled out by Cards, Pain Possibly related to possible pna and PE CTA showed eccentric chronic appearing thrombus within the right distal main pulmonary artery without any evidence of acute pulmonary artery embolism. EKGs reveals sinus tachycardia with T-wave abnormality, repeat EKG shows no acute changes Continue aspirin + statin and BB, resume home ranexa Cardiology consulted with recommendations for echocardiogram which showed preserved LVEF with atypical septal motion consistent with bundle branch block Recommendations to start beta chiquis cards has signed off and she may fu outpt Heme consult regarding rec for AC with chronic thrombus on CTA as above -possible pna treatment as below -working for improved BP control (4) Sepsis Current Visit: No Status: Resolved Assessment and Plan: Patient met sepsis criteria with leukocytosis 14.4, tachycardia heart rate 144, and tachypnea respiratory rate 24. Treated empirically by previous provider for HAP Blood cultures 2 were collected though were not ever received by lab sputum cx not collected as pt without sputum, legionella and strep ag neg No UA was ever obtained, pt without any symptoms, cont to monitor CXR no acute findings CT chest showed stable changes post lung Ca and no clear consolidation/pna Empiric antibiotics with IV Zosyn for suspected HAP started on admit 12/07 d/w pharmacy--will change to augmentin to complete course for possible pna given sepsis picture on admit leukocytosis resolved, afebrile, cont to monitor with abx change (5) Healthcare-associated pneumonia Current Visit: Yes Status: Acute Assessment and Plan: Patient with leukocytosis, subjective fever, productive cough, shortness of breath, and multiple recent hospital visits Possible Pna CXR reveals no evidence of acute cardiopulmonary disease. Blood cultures collected at [facility] Sputum culture not able to be collected as no sputum Urine Legionella and strep pneumo antigens are negative empiric antibiotics with IV Zosyn De-escalate to Augmentin 12/07 incentive spirometry, nebs (6) CAD (coronary artery disease) Current Visit: Yes Status: Chronic Assessment and Plan: Patient has [address] -has been evaluated by cards and stable from cardiac standpoint -may fu outpt -cont asa, statin, coreg, prn nitro, ranexa -pharmacy has confirmed all meds (7) Hyperlipidemia Current Visit: Yes Status: Chronic Assessment and Plan: Continue statin (8) Elevated troponin Current Visit: No Status: Acute Assessment and Plan: Patient transferred from [facility] secondary to possible NSTEMI Initial troponin level 0.06, repeat troponins are negative EKGs reveals sinus tachycardia with T-wave abnormality, repeat EKG shows no acute changes Cardiology following with recommendations as above (9) Essential hypertension Current Visit: Yes Status: Acute (10) Weakness Current Visit: Yes Status: Acute Assessment and Plan: Patient usually walks with a walker but has not been able to get out of bed for several days secondary to weakness PT/OT consulted-rec for ecf on dc (11) Type 2 diabetes mellitus Current Visit: Yes Status: Chronic Assessment and Plan: Hemoglobin A1c 9.6, Hyperglycemia this admission Continue SSI and Accu-Checks Levemir up titrated this admission cont to monitor ADA diet resume home gabapentin, reglan will require pcp follow up (12) Obesity (BMI 30-39.9) Current Visit: Yes Status: Chronic Assessment and Plan: BMI 37.2, lifestyle modification (13) DVT prophylaxis Current Visit: No Status: Acute Assessment and Plan: eliquis (14) Anemia Current Visit: Yes Status: Acute Assessment and Plan: admitting hgb 13.2, on recheck two days later 11.4 with drop in all 3 cell lines noted, no active bleeding, plts wnl -she is now taking eliquis -hgb stable and of normal value now - Time Spent with Patient Total time spent is greater than 50% in coordination of care (as documented) at patient's floor/unit and/or counseling patient: 25 - 35 minutes Plan of Care Discussed with: patient Internal Medicine: Result - Labs CBC & Chem 7: 12/09/17 04:51 12/09/17 04:51 Labs: Short CBC 12/09/17 Range/Units 04:51 WBC 10.3 (4.3-11.1) K/mcL Hgb 12.8 (11.5-15.4) g/dL Hct 38.6 (35.3-44.9) % Plt Count 295 (140-400) K/mcL Neutrophils # 6.5 (1.6-8.9) K/mcL BMP 12/09/17 04:51 Sodium 138 Potassium 4.1 Chloride 105 Carbon Dioxide 25 BUN 18 Creatinine 0.97 Glucose 203 H Calcium 10.3 - ABG Interpretation ABG results: PT/INR, D-dimer PT 13.4 Seconds (9.4-12.1) H 12/08/17 03:50 Consult Discharge Plan - Plan Referrals: Jonna Mcdermott, [employer] [Primary Care Provider] - 12/15/17 3:15 pm (3) Chest pain Qualifiers: Chest pain type: unspecified Qualified Code(s): R07.9 - Chest pain, unspecified (4) Sepsis Qualifiers: Sepsis type: sepsis due to unspecified organism Qualified Code(s): A41.9 - Sepsis, unspecified organism (6) CAD (coronary artery disease) Qualifiers: Coronary Disease-Associated Artery/Lesion type: [place] artery [place] vs. transplanted heart: [place] heart Associated angina: without angina Qualified Code(s): I25.10 - Atherosclerotic heart disease of [place] coronary artery without angina pectoris (7) Hyperlipidemia Qualifiers: Hyperlipidemia type: mixed hyperlipidemia Qualified Code(s): E78.2 - Mixed hyperlipidemia (11) Type 2 diabetes mellitus Qualifiers: Diabetes mellitus shelter insulin use: with shelter use Diabetes mellitus complication status: with kidney complications Diabetes mellitus complication detail: with chronic kidney disease Chronic kidney disease stage: stage 3 (moderate) Qualified Code(s): E11.22 - Type 2 diabetes mellitus with diabetic chronic kidney disease; N18.3 - Chronic kidney disease, stage 3 ( moderate); Z79.4 - [employer] (current) use of 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
[2017-12-09] MEDS: Gabapentin 400 MG CAPSULE PO SCH ×2 (14:55→21:14)
[2017-12-09] MEDS: Ranolazine 500 MG TAB.ER.12H PO SCH (21:13)
[2017-12-10] MEDS: Ipratropium/Albuterol Neb 3 ML IH SCH ×6 (04:43→23:55)
--- NOTE | 2017-12-10 08:08 | Internal Med Progress Note ---
Hospitalist Progress Note - Encounter Date of Encounter: 12/10/17 Time of Encounter: 10:15 - Subjective Interval History: awake in bed, got bathed today and overall feeling better. No sob, cough. No chest pain today. nausea improved with resuming of home bentyl and reglan. BPs with significant decrease overnight and this morning with med adjustments yesterday. Pt reporting she was lightheaded with drops to 110s/90s. 3AM bps were recorded as low as 96/53. She noted today that her BPs have a history of wild fluctuations. Will closely monitor today and adjsut as needed. d/w pt nurse and goal bps are less than 160/90 and ideally sbp 130-150 - Exam Vitals: Temp Pulse Resp BP Pulse Ox 97.6 F 82 16 159/72 94 12/10/17 06:54 12/10/17 06:54 12/10/17 07:22 12/10/17 06:54 12/10/17 07:22 Exam: General: awake, alert, appears stated age, improved energy Cardiovascular:regular rate and rhythm, normal S1 & S2, no murmurs appreciated No JVD. no lower extremity edema Lungs:Normal breath sounds, no wheezes,rhonchi or crackles. Normal respiratory effort on ra Abdomen:Soft, non-tender, non-distended,+ bowel sounds Neurological: AAOx3, CN grossly intact, has chronic left lid ptosis s/p prior cva Skin:Normal color, no rash, no pallor - Assessment and Plan (1) Chest pain Current Visit: Yes Status: Resolved Assessment and Plan: Patient with acute onset pleuritic chest pain, history of CAD and 6 cardiac stents and now confirmed chronic pulm artery thrombus; ACS ruled out by Cards, Pain Possibly related to possible pna and PE and chronic chest pain with CAD on ranexa CTA showed eccentric chronic appearing thrombus within the right distal main pulmonary artery without any evidence of acute pulmonary artery embolism. 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 There is no evidence of acute pulmonary artery embolism -hematology consulted 12/07 with my taking over of case today for AC recs-- Eliquis BID x3 months -previously on AC in past per pt? though denies hx of any clots -AC as above -Dopplers bl le neg (3) Elevated d-dimer Current Visit: Yes Status: Acute Assessment and Plan: Patient with acute onset shortness of breath, pleuritic chest pain, tachycardia , remote lung cancer, and recent immobilization sedation secondary to weakness D-dimer elevated at 607 CTA ordered to rule out PE and chronic clot identified. treatment as above BL LE US as above (4) Sepsis Current Visit: No Status: Resolved Assessment and Plan: Patient met sepsis criteria with leukocytosis 14.4, tachycardia heart rate 144, and tachypnea respiratory rate 24. Treated empirically by previous provider for HAP Blood cultures 2 were collected though were not ever received by lab sputum cx not collected as pt without sputum, legionella and strep ag neg No UA was ever obtained, pt without any symptoms, cont to monitor CXR no acute findings CT chest showed stable changes post lung Ca and no clear consolidation/pna Empiric antibiotics with IV Zosyn for suspected HAP started on admit 12/07 d/w pharmacy--changed to augmentin to complete course for possible pna given sepsis picture on admit leukocytosis resolved, afebrile (5) Healthcare-associated pneumonia Current Visit: Yes Status: Acute Assessment and Plan: Patient with leukocytosis, subjective fever, productive cough, shortness of breath, and multiple recent hospital visits Possible Pna, organism unknown CXR reveals no evidence of acute cardiopulmonary disease. Sputum culture not able to be collected as no sputum Urine Legionella and strep pneumo antigens are negative empiric antibiotics with IV Zosyn De-escalate to Augmentin 12/07 incentive spirometry, nebs complete augmentin course on dc (6) CAD (coronary artery disease) Current Visit: Yes Status: Chronic Assessment and Plan: Patient has [address] -has been evaluated by cards and stable from cardiac standpoint -july fu outpt -cont asa, statin, coreg, prn nitro, ranexa -pharmacy has confirmed all meds (7) Hyperlipidemia Current Visit: Yes Status: Chronic Assessment and Plan: Continue statin (8) Elevated troponin Current Visit: No Status: Acute Assessment and Plan: Patient transferred from [facility] secondary to possible NSTEMI Initial troponin level 0.06, repeat troponins are negative EKGs reveals sinus tachycardia with T-wave abnormality, repeat EKG shows no acute changes Cardiology following with recommendations as above (9) Essential hypertension Current Visit: Yes Status: Chronic Assessment and Plan: uncontrolled in last 2 days and history of wildly fluctuating BPs in past BP dropped below goal with changes made 12/09, -uptitrated coreg and lisinopril this admission -prn hydralazine -12/10 need to decrease dosing of coreg this evening and likely acei in am, close monitoring of her very labile bp, not yet stable for dc, hope will be improved tomorrow for dc to snf -will require fu with pcp outpt for further management and monitoring (10) Weakness Current Visit: Yes Status: Acute Assessment and Plan: Patient usually walks with a walker but has not been able to get out of bed for several days secondary to weakness from deconditioning, no focal deficits PT/OT consulted-rec for ecf on dc (11) Type 2 diabetes mellitus Current Visit: Yes Status: Chronic Assessment and Plan: Hemoglobin A1c 9.6, Hyperglycemia this admission, labile bs Continue SSI and Accu-Checks Levemir up titrated this admission cont to monitor ADA diet resume home gabapentin, reglan will require pcp follow up (12) Obesity (BMI 30-39.9) Current Visit: Yes Status: Chronic Assessment and Plan: BMI 37.2, lifestyle modification (13) Anemia Current Visit: Yes Status: Acute Assessment and Plan: admitting hgb 13.2, on recheck two days later 11.4 with drop in all 3 cell lines noted, no active bleeding, plts wnl -she is now taking eliquis -hgb stable and of normal value now (14) DVT prophylaxis Current Visit: No Status: Acute Assessment and Plan: eliquis - Time Spent with Patient Total time spent is greater than 50% in coordination of care (as documented) at patient's floor/unit and/or counseling patient: Internal Medicine: Result - Labs CBC & Chem 7: 12/09/17 04:51 12/09/17 04:51 - ABG Interpretation ABG results: PT/INR, D-dimer PT 13.4 Seconds (9.4-12.1) H 12/08/17 03:50 Consult Discharge Plan - Plan Referrals: Jonna Mcdermott CNP [Primary Care Provider] - 12/15/17 3:15 pm (1) Chest pain Qualifiers: Chest pain type: unspecified Qualified Code(s): R07.9 - Chest pain, unspecified (4) Sepsis Qualifiers: Sepsis type: sepsis due to unspecified organism Qualified Code(s): A41.9 - Sepsis, unspecified organism (6) CAD (coronary artery disease) Qualifiers: Coronary Disease-Associated Artery/Lesion type: [place] artery [place] vs. transplanted heart: [place] heart Associated angina: without angina Qualified Code(s): I25.10 - Atherosclerotic heart disease of [place] coronary artery without angina pectoris (7) Hyperlipidemia Qualifiers: Hyperlipidemia type: mixed hyperlipidemia Qualified Code(s): E78.2 - Mixed hyperlipidemia (11) Type 2 diabetes mellitus Qualifiers: Diabetes mellitus intermodal dispatcher insulin use: with half-way use Diabetes mellitus complication status: with kidney complications Diabetes mellitus complication detail: with chronic kidney disease Chronic kidney disease stage: stage 3 (moderate) Qualified Code(s): E11.22 - Type 2 diabetes mellitus with diabetic chronic kidney disease; N18.3 - Chronic kidney disease, stage 3 ( moderate); Z79.4 - senior living (current) use of insulin (13) Anemia Qualifiers: Anemia type: unspecified type Qualified Code(s): D64.9 - Anemia, unspecified
[2017-12-10] MEDS: Insulin DETEMIR 100 UNIT/ML X5UNITS SQ SCH ×2 (08:27→21:11)
[2017-12-10] MEDS: Amoxicillin/Clavulanate 500 MG TABLET PO SCH ×2 (08:28→17:16)
[2017-12-10] MEDS: *HR* HYDROcodone/Acet 5/325 mg TABLET PO PRN ×3 (08:28→21:06)
[2017-12-10] MEDS: Ranolazine 500 MG TAB.ER.12H PO SCH ×2 (08:28→21:05)
[2017-12-10] MEDS: Apixaban 5 MG TABLET PO SCH ×2 (08:28→21:06)
[2017-12-10] MEDS: Aspirin 81 MG TAB.CHEW PO SCH (08:28)
[2017-12-10] MEDS: Lisinopril 20 MG TABLET PO SCH (08:28)
[2017-12-10] MEDS: Gabapentin 400 MG CAPSULE PO SCH ×3 (08:28→21:06)
[2017-12-10] MEDS: Insulin LISPRO 300 UNITS/3 ML VIAL SQ SCH ×4 (08:33→21:09)
[2017-12-10] MEDS: Ondansetron 4 MG/2 ML VIAL IVP PRN (10:12)
[2017-12-11] MEDS: Ipratropium/Albuterol Neb 3 ML IH SCH ×5 (04:43→19:56)
[2017-12-11] MEDS: Insulin LISPRO 300 UNITS/3 ML VIAL SQ SCH ×4 (07:52→21:58)
[2017-12-11] MEDS: Aspirin 81 MG TAB.CHEW PO SCH (08:07)
[2017-12-11] MEDS: Gabapentin 400 MG CAPSULE PO SCH ×3 (08:08→22:00)
[2017-12-11] MEDS: Amoxicillin/Clavulanate 500 MG TABLET PO SCH ×2 (08:08→17:28)
[2017-12-11] MEDS: Apixaban 5 MG TABLET PO SCH ×2 (08:08→21:57)
--- NOTE | 2017-12-11 08:09 | Internal Med Progress Note ---
Hospitalist Progress Note - Encounter Date of Encounter: 12/11/17 Time of Encounter: 10:10 - Subjective Interval History: awake in bed. no sob, cough, wheezing. energy continues to improve. nauseated this morning and lightheaded. BP variable with range 110s sbp but to minimum 94/ 52. Held morning meds. no headache, cp, palpitation. - Exam Vitals: Temp Pulse Resp BP Pulse Ox 98.4 F 83 16 115/70 92 12/11/17 07:16 12/11/17 07:16 12/11/17 07:49 12/11/17 07:16 12/11/17 07:49 Exam: General: awake, alert, appears stated age Cardiovascular:regular rate and rhythm, normal S1 & S2, no murmurs appreciated No JVD. no lower extremity edema Lungs:Normal breath sounds, no wheezes,rhonchi or crackles. Normal respiratory effort on ra Abdomen:Soft, non-tender, non-distended,+ bowel sounds Neurological: AAOx3 Skin:Normal color, no rash, no pallor - Assessment and Plan (1) Chest pain Current Visit: Yes Status: Resolved Assessment and Plan: Patient with acute onset pleuritic chest pain, history of CAD and 6 cardiac stents and now confirmed chronic pulm artery thrombus; ACS ruled out by Cards, Pain Possibly related to possible pna and PE and chronic chest pain with CAD on ranexa CTA showed eccentric chronic appearing thrombus within the right distal main pulmonary artery without any evidence of acute pulmonary artery embolism. 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 There is no evidence of acute pulmonary artery embolism -hematology consulted 12/07 with my taking over of case today for AC recs-- Eliquis BID x3 months -previously on AC in past per pt? though denies hx of any clots -AC as above -Dopplers bl le neg (3) Elevated d-dimer Current Visit: Yes Status: Acute Assessment and Plan: Patient with acute onset shortness of breath, pleuritic chest pain, tachycardia , remote lung cancer, and recent immobilization sedation secondary to weakness D-dimer elevated at 607 CTA ordered to rule out PE and chronic clot identified. treatment as above BL LE US as above (4) Sepsis Current Visit: No Status: Resolved Assessment and Plan: Patient met sepsis criteria with leukocytosis 14.4, tachycardia heart rate 144, and tachypnea respiratory rate 24. Treated empirically by previous provider for HAP Correction to prior documentation of no blood cultures received: bl cx obtained 12/05 at [facility] sputum cx not collected as pt without sputum, legionella and strep ag neg No UA was ever obtained on admit by previous provider, pt without any symptoms CXR no acute findings CT chest showed stable changes post lung Ca and no clear consolidation/pna Empiric antibiotics with IV Zosyn for suspected HAP started on admit 12/07 d/w pharmacy--changed to augmentin to complete course for possible pna given sepsis picture on admit leukocytosis resolved, afebrile -12/11 received call from micro lab that [facility] bl cx from 12/05 resulted today 1 set + yeast, no species identified as of yet -consulted ID and discussed (not available to see inpt until wednesday) - - stat repeat bl cxs, stat ua and ucx, as she has no cvc only a peripheral IV will remove peripheral and place new iv, repeat cbc without leukocytosis, however, given her cont nausea and low bps in the last day will treat empirically with Micafungin 100 mg IV daily and cont to monitor--ID agrees this is odd that 6 days later yeast would result one set + and pt clinically improved, but risk vs benefit will treat as such until proven otherwise. (5) Fungemia Current Visit: Yes Status: Suspected Assessment and Plan: 1/2 bl cx + yeast reported from [facility] on 12/11 as above -treatment plan and work up as above -ID consulted (6) Healthcare-associated pneumonia Current Visit: Yes Status: Acute Assessment and Plan: Patient with leukocytosis, subjective fever, productive cough, shortness of breath, and multiple recent hospital visits Possible Pna, organism unknown CXR reveals no evidence of acute cardiopulmonary disease. Sputum culture not able to be collected as no sputum Urine Legionella and strep pneumo antigens are negative empiric antibiotics with IV Zosyn De-escalate to Augmentin 12/07 incentive spirometry, nebs complete augmentin course on dc (7) CAD (coronary artery disease) Current Visit: Yes Status: Chronic Assessment and Plan: Patient has [address] -has been evaluated by cards and stable from cardiac standpoint -july fu outpt -cont asa, statin, coreg, prn nitro, ranexa -pharmacy has confirmed all meds (8) Hyperlipidemia Current Visit: Yes Status: Chronic Assessment and Plan: Continue statin (9) Elevated troponin Current Visit: No Status: Acute Assessment and Plan: Patient transferred from [facility] secondary to possible NSTEMI Initial troponin level 0.06, repeat troponins are negative EKGs reveals sinus tachycardia with T-wave abnormality, repeat EKG shows no acute changes Cardiology followed with recommendations as above (10) Essential hypertension Current Visit: Yes Status: Chronic Assessment and Plan: uncontrolled at times and history of wildly fluctuating BPs in past BP dropped below goal with changes made 12/09, Improved control this admission -uptitrated coreg and lisinopril this admission -prn hydralazine -12/10 decrease dosing of coreg and acei close monitoring of her very labile bp -12/11 cont low normotensive to hypotensive BP--hold am meds, NS 500 cc bolus and improvement to 130s/90s, cont to monitor re evening med doses and treatment of possible fungemia as above -will require fu with pcp outpt for further management and monitoring upon dc (11) Weakness Current Visit: Yes Status: Acute Assessment and Plan: Patient usually walks with a walker but has not been able to get out of bed for several days secondary to weakness from deconditioning, no focal deficits PT/OT consulted-rec for ecf on dc (12) Type 2 diabetes mellitus Current Visit: Yes Status: Chronic Assessment and Plan: Hemoglobin A1c 9.6, Hyperglycemia this admission, labile bs Continue SSI and Accu-Checks Levemir up titrated this admission cont to monitor ADA diet resume home gabapentin, reglan will require pcp follow up (13) Obesity (BMI 30-39.9) Current Visit: Yes Status: Chronic Assessment and Plan: BMI 37.2, lifestyle modification (14) Anemia Current Visit: Yes Status: Acute Assessment and Plan: admitting hgb 13.2, on recheck two days later 11.4 with drop in all 3 cell lines noted, no active bleeding, plts wnl -she is now taking eliquis -hgb stable and of normal value now (15) DVT prophylaxis Current Visit: No Status: Acute Assessment and Plan: eliquis - Time Spent with Patient Total time spent is greater than 50% in coordination of care (as documented) at patient's floor/unit and/or counseling patient: 25 - 35 minutes Plan of Care Discussed with: patient Internal Medicine: Result - Labs CBC & Chem 7: 12/11/17 11:53 12/09/17 04:51 - ABG Interpretation ABG results: PT/INR, D-dimer PT 13.4 Seconds (9.4-12.1) H 12/08/17 03:50 Consult Discharge Plan - Plan Referrals: Jonna Mcdermott CNP [Primary Care Provider] - 12/15/17 3:15 pm (1) Chest pain Qualifiers: Chest pain type: unspecified Qualified Code(s): R07.9 - Chest pain, unspecified (4) Sepsis Qualifiers: Sepsis type: sepsis due to unspecified organism Qualified Code(s): A41.9 - Sepsis, unspecified organism (7) CAD (coronary artery disease) Qualifiers: Coronary Disease-Associated Artery/Lesion type: [place] artery [place] vs. transplanted heart: [place] heart Associated angina: without angina Qualified Code(s): I25.10 - Atherosclerotic heart disease of [place] coronary artery without angina pectoris (8) Hyperlipidemia Qualifiers: Hyperlipidemia type: mixed hyperlipidemia Qualified Code(s): E78.2 - Mixed hyperlipidemia (12) Type 2 diabetes mellitus Qualifiers: Diabetes mellitus senior living insulin use: with senior living use Diabetes mellitus complication status: with kidney complications Diabetes mellitus complication detail: with chronic kidney disease Chronic kidney disease stage: stage 3 (moderate) Qualified Code(s): E11.22 - Type 2 diabetes mellitus with diabetic chronic kidney disease; N18.3 - Chronic kidney disease, stage 3 ( moderate); 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
[2017-12-11] MEDS: Ranolazine 500 MG TAB.ER.12H PO SCH ×2 (08:10→22:00)
[2017-12-11] MEDS: Insulin DETEMIR 100 UNIT/ML X5UNITS SQ SCH ×2 (08:11→21:58)
[2017-12-11] MEDS ORDERED: Lisinopril 20 MG TABLET PO SCH (09:00)
[2017-12-11] MEDS ORDERED: 0.9 % Sodium Chloride 500 ML IVC ONE (11:20)
[2017-12-11 12:04] LABS: Basophils % 0.3 %; Eosinophils # 0.3 K/mcL (0.0-0.6); Eosinophils % 2.6 %; Hematocrit 36.1 % (35.3-44.9); Hemoglobin 11.8 g/dL (11.5-15.4); Immature Granulocytes % 0.4 % (0-4); Lymphocytes # 2.3 K/mcL (0.6-4.6); Lymphocytes % 23.1 %; Mean Corpuscular HGB Conc 32.7 g/dL (31.6-35.5); Mean Corpuscular Volume 88.7 fL (83.0-100.0); Mean Platelet Volume 10.6 fL (9.4-12.4); Monocytes # 0.8 K/mcL (0.0-1.3); Monocytes % 7.9 %; Neutrophils # 6.5 K/mcL (1.6-8.9); Platelet Count 249 K/mcL (140-400); Red Blood Count 4.07 M/mcL (3.82-4.97); Red Cell Distribution Width 13.8 % (11.5-14.5); Segmented Neutrophils % 65.7 %
[2017-12-11] MEDS: Acetaminophen 325 MG TABLET PO PRN (12:10)
[2017-12-11] MEDS: Micafungin 100 MG in 0.9 % Sodium Chloride Mini Bag 100 ML IVPB SCH (14:58)
[2017-12-11 16:32] LABS: Bilirubin,Urine Negative (Negative); Blood,Urine Negative (Negative); Clarity,Urine Cloudy (Clear); Color,Urine Yellow (Yellow); Glucose,Urine (UA) 100 mg/dL (Normal); Ketones,Urine Negative (Negative); Leukocyte Esterase,Urine Moderate (Negative); Nitrite,Urine Negative (Negative); Protein,Urine Negative (Neg-Trace); Urobilinogen,Urine Normal (Normal)
[2017-12-12] MEDS: Ipratropium/Albuterol Neb 3 ML IH SCH ×7 (00:01→23:27)
[2017-12-12] MEDS: Ondansetron 4 MG/2 ML VIAL IVP PRN ×3 (03:31→20:59)
[2017-12-12] MEDS: *HR* HYDROcodone/Acet 5/325 mg TABLET PO PRN ×3 (03:37→21:07)
[2017-12-12 05:00] LABS: Basophils % 0.3 %; Eosinophils # 0.3 K/mcL (0.0-0.6); Hematocrit 36.1 % (35.3-44.9); Hemoglobin 11.7 g/dL (11.5-15.4); Immature Granulocytes % 0.3 % (0-4); Lymphocytes # 2.2 K/mcL (0.6-4.6); Lymphocytes % 23.3 %; Mean Corpuscular HGB Conc 32.4 g/dL (31.6-35.5); Mean Corpuscular Hemoglobin 28.4 pg (28.0-33.3); Mean Corpuscular Volume 87.6 fL (83.0-100.0); Mean Platelet Volume 10.7 fL (9.4-12.4); Monocytes # 0.8 K/mcL (0.0-1.3); Monocytes % 8.6 %; Platelet Count 237 K/mcL (140-400); Red Blood Count 4.12 M/mcL (3.82-4.97); Red Cell Distribution Width 13.9 % (11.5-14.5); Segmented Neutrophils % 64.5 %
[2017-12-12 05:21] LABS: Calcium 9.9 mg/dL (8.6-10.3); Potassium 4.6 mEq/L (3.5-5.1)
--- NOTE | 2017-12-12 07:52 | Internal Med Progress Note ---
Hospitalist Progress Note - Encounter Date of Encounter: 12/12/17 Time of Encounter: 09:40 - Subjective Interval History: she has continued intermittent anusea and had mesis after eating this morning. She is currently taking her gastroparesis meds. ? new med side effect, though is a daily issue (nausea) for pt). She denies any abd pain, no bm in >2 days despite oral laxative yesterday. No diarrhea, fevers or chills. No dysuria, supra pubic tenderness or increased urinary urgency or frequency. Overall states she is starting to feel much better - Exam Vitals: Temp Pulse Resp BP Pulse Ox 98.0 F 80 18 139/85 100 12/12/17 07:03 12/12/17 07:03 12/12/17 07:03 12/12/17 07:03 12/12/17 07:03 Exam: General: awake, alert, appears stated age Cardiovascular:regular rate and rhythm, normal S1 & S2, no murmurs appreciated No JVD. no lower extremity edema Lungs:Normal breath sounds, no wheezes,rhonchi or crackles. Normal respiratory effort on ra Abdomen:Soft, non-tender, non-distended,+ bowel sounds Neurological: AAOx3 Skin:Normal color, no rash, no pallor - Assessment and Plan (1) Sepsis Current Visit: No Status: Resolved Assessment and Plan: Patient met sepsis criteria with leukocytosis 14.4, tachycardia heart rate 144, and tachypnea respiratory rate 24. Treated empirically by previous provider for HAP Correction to prior documentation of no blood cultures received: bl cx obtained 12/05 at [facility] sputum cx not collected as pt without sputum, legionella and strep ag neg No UA was ever obtained on admit by previous provider, pt without any symptoms CXR no acute findings CT chest showed stable changes post lung Ca and no clear consolidation/pna Empiric antibiotics with IV Zosyn for suspected HAP started on admit 12/07 d/w pharmacy--changed to augmentin to complete course for possible pna given sepsis picture on admit leukocytosis resolved, afebrile -12/11 received call from micro lab that [facility] bl cx from 12/05 resulted today 1 set + yeast, no species identified as of yet -consulted ID and discussed (not available to see inpt until wednesday) - - stat repeat bl cxs, stat ua and ucx, as she has no cvc only a peripheral IV will remove peripheral and place new iv, repeat cbc without leukocytosis, however, given her cont nausea and low bps in the last day will treat empirically with Micafungin 100 mg IV daily and cont to monitor--ID agrees this is odd that 6 days later yeast would result one set + and pt clinically improved, but risk vs benefit will treat as such until proven otherwise. -12/11 bl cxs pending -UA cloudy with glucose and mod LE, neg nitrites -12/11 ucx pending (2) Fungemia Current Visit: Yes Status: Suspected Assessment and Plan: 03/23 bl cx + yeast reported from [facility] on 12/11 as above -treatment plan and work up as above -ID consulted (3) Chest pain Current Visit: Yes Status: Resolved Assessment and Plan: Patient with acute onset pleuritic chest pain, history of CAD and 6 cardiac stents and now confirmed chronic pulm artery thrombus; ACS ruled out by Cards, Pain Possibly related to possible pna and PE and chronic chest pain with CAD on ranexa CTA showed eccentric chronic appearing thrombus within the right distal main pulmonary artery without any evidence of acute pulmonary artery embolism. 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 There is no evidence of acute pulmonary artery embolism -hematology consulted 12/07 with my taking over of case today for AC recs-- Eliquis BID x3 months -previously on AC in past per pt? though denies hx of any clots -AC as above -Dopplers bl le neg (5) Elevated d-dimer Current Visit: Yes Status: Acute Assessment and Plan: Patient with acute onset shortness of breath, pleuritic chest pain, tachycardia , remote lung cancer, and recent immobilization sedation secondary to weakness D-dimer elevated at 607 CTA ordered to rule out PE and chronic clot identified. treatment as above BL LE US as above (6) Healthcare-associated pneumonia Current Visit: Yes Status: Acute Assessment and Plan: Patient with leukocytosis, subjective fever, productive cough, shortness of breath, and multiple recent hospital visits Possible Pna, organism unknown CXR reveals no evidence of acute cardiopulmonary disease. Sputum culture not able to be collected as no sputum Urine Legionella and strep pneumo antigens are negative empiric antibiotics with IV Zosyn De-escalate to Augmentin 12/07 incentive spirometry, nebs complete augmentin course on dc (7) CAD (coronary artery disease) Current Visit: Yes Status: Chronic Assessment and Plan: Patient has [address] -has been evaluated by cards and stable from cardiac standpoint -july fu outpt -cont asa, statin, coreg, prn nitro, ranexa -pharmacy has confirmed all meds (8) Hyperlipidemia Current Visit: Yes Status: Chronic Assessment and Plan: Continue statin (9) Elevated troponin Current Visit: No Status: Acute Assessment and Plan: Patient transferred from [facility] secondary to possible NSTEMI Initial troponin level 0.06, repeat troponins are negative EKGs reveals sinus tachycardia with T-wave abnormality, repeat EKG shows no acute changes Cardiology followed with recommendations as above (10) Essential hypertension Current Visit: Yes Status: Chronic Assessment and Plan: uncontrolled at times and history of wildly fluctuating BPs in past BP dropped below goal with changes made 12/09, Improved control this admission -uptitrated coreg and lisinopril this admission -prn hydralazine -12/10 decrease dosing of coreg and acei close monitoring of her very labile bp -12/11 cont low normotensive to hypotensive BP--hold am meds, NS 500 cc bolus and improvement to 130s/90s, cont to monitor re evening med doses and treatment of possible fungemia as above, was having dizziness with low bps, orthostat neg and no focal deficits on neuro exam -12/12 Bp stable with coreg 12.5 mg bid, will cont to mnoitor, hold acei for creat increase -will require fu with pcp outpt for further management and monitoring upon dc (11) Weakness Current Visit: Yes Status: Acute Assessment and Plan: Patient usually walks with a walker but has not been able to get out of bed for several days secondary to weakness from deconditioning, no focal deficits PT/OT consulted-rec for ecf on dc (12) Type 2 diabetes mellitus Current Visit: Yes Status: Chronic Assessment and Plan: Hemoglobin A1c 9.6, Hyperglycemia this admission, labile bs Continue SSI and Accu-Checks Levemir up titrated this admission cont to monitor ADA diet resume home gabapentin, reglan will require pcp follow up (13) Obesity (BMI 30-39.9) Current Visit: Yes Status: Chronic Assessment and Plan: BMI 37.2, lifestyle modification (14) Anemia Current Visit: Yes Status: Resolved Assessment and Plan: admitting hgb 13.2, on recheck two days later 11.4 with drop in all 3 cell lines noted, no active bleeding, plts wnl -she is now taking eliquis -hgb stable and of normal value now (15) DVT prophylaxis Current Visit: No Status: Acute Assessment and Plan: eliquis - Time Spent with Patient Total time spent is greater than 50% in coordination of care (as documented) at patient's floor/unit and/or counseling patient: 25 - 35 minutes Plan of Care Discussed with: patient Internal Medicine: Result - Labs CBC & Chem 7: 12/12/17 04:25 12/12/17 04:25 Labs: Short CBC 12/11/17 12/12/17 Range/Units 11:53 04:25 WBC 9.8 9.3 (4.3-11.1) K/mcL Hgb 11.8 11.7 (11.5-15.4) g/dL Hct 36.1 36.1 (35.3-44.9) % Plt Count 249 237 (140-400) K/mcL Neutrophils # 6.5 6.0 (1.6-8.9) K/mcL BMP 12/12/17 04:25 Sodium 136 Potassium 4.6 Chloride 106 Carbon Dioxide 25 BUN 17 Creatinine 1.23 H Glucose 145 H Calcium 9.9 Urine 12/11/17 Range/Units 16:21 Urine Color Yellow (Yellow) Urine Clarity Cloudy A (Clear) Urine pH 6.0 (5.0-8.0) pH Units Ur Specific [place] 1.010 (1.010-1.025) Urine Protein Negative (Neg-Trace) mg/dL Urine Glucose (UA) 100 H (Normal) mg/dL - ABG Interpretation ABG results: PT/INR, D-dimer PT 13.4 Seconds (9.4-12.1) H 12/08/17 03:50 Consult Discharge Plan - Plan Referrals: Jonna Mcdermott CNP [Primary Care Provider] - 12/15/17 3:15 pm (1) Sepsis Qualifiers: Sepsis type: sepsis due to unspecified organism Qualified Code(s): A41.9 - Sepsis, unspecified organism (3) Chest pain Qualifiers: Chest pain type: unspecified Qualified Code(s): R07.9 - Chest pain, unspecified (7) CAD (coronary artery disease) Qualifiers: Coronary Disease-Associated Artery/Lesion type: [place] artery [place] vs. transplanted heart: [place] heart Associated angina: without angina Qualified Code(s): I25.10 - Atherosclerotic heart disease of [place] coronary artery without angina pectoris (8) Hyperlipidemia Qualifiers: Hyperlipidemia type: mixed hyperlipidemia Qualified Code(s): E78.2 - Mixed hyperlipidemia (12) Type 2 diabetes mellitus Qualifiers: Diabetes mellitus custodial insulin use: with buttermaker continuous churn use Diabetes mellitus complication status: with kidney complications Diabetes mellitus complication detail: with chronic kidney disease Chronic kidney disease stage: stage 3 (moderate) Qualified Code(s): E11.22 - Type 2 diabetes mellitus with diabetic chronic kidney disease; N18.3 - Chronic kidney disease, stage 3 ( moderate); Z79.4 - detention (current) use of 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
[2017-12-12] MEDS: Insulin LISPRO 300 UNITS/3 ML VIAL SQ SCH ×4 (08:22→21:09)
[2017-12-12] MEDS: Amoxicillin/Clavulanate 500 MG TABLET PO SCH ×2 (10:36→16:45)
[2017-12-12] MEDS: Gabapentin 400 MG CAPSULE PO SCH ×3 (10:36→21:08)
[2017-12-12] MEDS: Apixaban 5 MG TABLET PO SCH ×2 (10:36→21:07)
[2017-12-12] MEDS: Aspirin 81 MG TAB.CHEW PO SCH (10:36)
[2017-12-12] MEDS: Micafungin 100 MG in 0.9 % Sodium Chloride Mini Bag 100 ML IVPB SCH (10:36)
[2017-12-12] MEDS: Ranolazine 500 MG TAB.ER.12H PO SCH ×2 (11:16→21:07)
[2017-12-12] MEDS: Insulin DETEMIR 100 UNIT/ML X5UNITS SQ SCH ×2 (11:20→21:10)
[2017-12-12] MEDS ORDERED: Bisacodyl 10 MG RECTAL SUPPOSITORY RC ONE (11:25)
--- NOTE | 2017-12-12 14:18 | Oncology Inp Progress Note ---
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 HGB/ HCT stable. pt was dscussed bedside plan of care. Oncology: Subj Interval history: denes any bleeding, breathing is stable. nausea per hospitalist notes - Constitutional Vitals: Vital Signs Temp Pulse Pulse Pulse Resp BP BP 12/12/17 11:13 18 12/12/17 11:10 98.0 F 80 18 199/116 12/12/17 07:03 98.0 F 80 18 139/85 12/12/17 03:42 16 12/12/17 03:06 97.8 F 83 18 155/67 12/12/17 00:01 16 12/11/17 23:45 97.7 F 83 16 149/69 12/11/17 22:09 82 12/11/17 19:56 16 12/11/17 19:46 98.2 F 86 18 152/88 12/11/17 19:05 87 84 148/57 12/11/17 17:30 85 148/72 12/11/17 16:19 16 12/11/17 15:00 97.9 F 80 17 143/80 BP Pulse Ox 12/12/17 11:13 97 12/12/17 11:10 99 12/12/17 07:03 100 12/12/17 03:42 95 12/12/17 03:06 94 12/12/17 00:01 97 12/11/17 23:45 92 12/11/17 22:09 12/11/17 19:56 96 12/11/17 19:46 96 12/11/17 19:05 151/75 12/11/17 17:30 12/11/17 16:19 96 12/11/17 15:00 94 Intake and Output 12/11/17 12/12/17 12/12/17 23:59 07:59 15:59 Intake Total 100 / 100 100 / 100 360 / 360 Output Total 1100 / 1100 200 / 200 Balance -1000 / -1000 -100 / -100 360 / 360 Intake: IV Fluids 100 / 100 Mycamine 100 MG In 0.9 % Sodium 100 / 100 Chloride (Mini-Bag +) 100 ML @ 100 mls/hr IVPB DAILY [facility] Rx#: [id number] Oral 0 / 0 100 / 100 360 / 360 Output: Urine 1100 / 1100 200 / 200 Other: Meal Lunch Percent of Meal Consumed 25% # Urine Diapers 1 Weight 100.8 kg Blood Glucose* 149 139 159 Patient Weight 12/12/17 23:59 Weight 100.8 kg General appearance: no acute distress - Head Head exam: Present: atraumatic, normal inspection - Eye Eye exam: Present: sclera anicteric - Respiratory Respiratory exam: Present: CTAB - Cardiovascular Cardiovascular exam: Present: +S1, +S2 - GI/Abdominal GI/Abdominal exam: Present: normal bowel sounds, soft - Extremities Exam Extremities exam: Present: normal inspection Additional comments: venodyne - Neurological Exam Neurological exam: Present: alert, oriented X3, no focal deficits Oncology: Obj Data - Labs CBC & Chem 7: 12/12/17 04:25 12/12/17 04:25 Labs: Laboratory Results - last 24 hr 12/11/17 12/11/17 12/11/17 07:15 12:11 16:21 WBC RBC Hgb Hct MCV MCH MCHC RDW Plt Count MPV Immature Gran % Seg Neutrophils % Lymphocytes % Monocytes % Eosinophils % Basophils % Neutrophils # Lymphocytes # Monocytes # Eosinophils # Basophils # Sodium Potassium Chloride Carbon Dioxide BUN Creatinine Est GFR ( Amer) Est GFR (Non-Af Amer) BUN/Creatinine Ratio Glucose POC Glucose 121 H 172 H Calculated Osmolality Calcium Urine Color Yellow Urine Clarity Cloudy A Urine pH 6.0 Ur Specific [place] 1.010 Urine Protein Negative Urine Glucose (UA) 100 H Urine Ketones Negative Urine Blood Negative Urine Nitrite Negative Urine Bilirubin Negative Urine Urobilinogen Normal Ur Leukocyte Esterase Moderate H 12/11/17 12/11/17 12/12/17 16:26 19:49 04:25 WBC 9.3 RBC 4.12 Hgb 11.7 Hct 36.1 MCV 87.6 MCH 28.4 MCHC 32.4 RDW 13.9 Plt Count 237 MPV 10.7 Immature Gran % 0.3 Seg Neutrophils % 64.5 Lymphocytes % 23.3 Monocytes % 8.6 Eosinophils % 3.0 Basophils % 0.3 Neutrophils # 6.0 Lymphocytes # 2.2 Monocytes # 0.8 Eosinophils # 0.3 Basophils # 0.0 Sodium Potassium Chloride Carbon Dioxide BUN Creatinine Est GFR ( Amer) Est GFR (Non-Af Amer) BUN/Creatinine Ratio Glucose POC Glucose 127 H 149 H Calculated Osmolality Calcium Urine Color Urine Clarity Urine pH Ur Specific [place] Urine Protein Urine Glucose (UA) Urine Ketones Urine Blood Urine Nitrite Urine Bilirubin Urine Urobilinogen Ur Leukocyte Esterase 12/12/17 04:25 WBC RBC Hgb Hct MCV MCH MCHC RDW Plt Count MPV Immature Gran % Seg Neutrophils % Lymphocytes % Monocytes % Eosinophils % Basophils % Neutrophils # Lymphocytes # Monocytes # Eosinophils # Basophils # Sodium 136 Potassium 4.6 Chloride 106 Carbon Dioxide 25 BUN 17 Creatinine 1.23 H Est GFR ( Amer) 52 L Est GFR (Non-Af Amer) 43 L BUN/Creatinine Ratio 14 Glucose 145 H POC Glucose Calculated Osmolality 286 Calcium 9.9 Urine Color Urine Clarity Urine pH Ur Specific [place] Urine Protein Urine Glucose (UA) Urine Ketones Urine Blood Urine Nitrite Urine Bilirubin Urine Urobilinogen Ur Leukocyte Esterase - ABG Interpretation ABG results: PT/INR, D-dimer PT 13.4 Seconds (9.4-12.1) H 12/08/17 03:50 Consult Discharge Plan - Plan Referrals: Jonna Mcdermott CNP [Primary Care Provider] - 12/15/17 3:15 pm Inpatient Charges Provider: Dr. Isiah Naidu Follow Up: [id number]
[2017-12-12] MEDS: amLODIPine 5 MG TABLET PO SCH (16:45)
[2017-12-13 05:11] LABS: BUN/Creatinine Ratio 11 (6-26); Blood Urea Nitrogen 12 mg/dL (8-23); Calcium 10.6 mg/dL (8.6-10.3); Carbon Dioxide 25 mEq/L (23-29); Chloride 100 mEq/L (98-107); Glucose 166 mg/dL (70-105); Osmolality,Calculated 280 (280-300); Potassium 4.9 mEq/L (3.5-5.1); Sodium 133 mEq/L (136-145); eGFR For Non-African Americans 51 (> 60)
[2017-12-13] MEDS: Ipratropium/Albuterol Neb 3 ML IH SCH ×6 (05:20→23:47)
[2017-12-13] MEDS: Micafungin 100 MG in 0.9 % Sodium Chloride Mini Bag 100 ML IVPB SCH (07:56)
[2017-12-13] MEDS: Insulin DETEMIR 100 UNIT/ML X5UNITS SQ SCH ×2 (07:56→20:48)
[2017-12-13] MEDS: Ondansetron 4 MG/2 ML VIAL IVP PRN (07:56)
[2017-12-13] MEDS: Insulin LISPRO 300 UNITS/3 ML VIAL SQ SCH ×4 (07:57→20:48)
--- NOTE | 2017-12-13 09:07 | Internal Med Progress Note ---
Hospitalist Progress Note - Encounter Date of Encounter: 12/13/17 Time of Encounter: 08:00 - Subjective Interval History: asleep, awakes to name. denies any issues overnight. ate dinner with nausea but denies emesis. Denies fevers, chills, chest pain, sob. Remains generally fatigued. Mild clark this morning as BPs cont to fluctuate - Exam Vitals: Temp Pulse Resp BP Pulse Ox 98.1 F 106 18 138/64 94 12/13/17 07:19 12/13/17 08:20 12/13/17 07:40 12/13/17 08:20 12/13/17 07:40 Exam: General: awake, alert, appears stated age Cardiovascular:regular rate and rhythm, normal S1 & S2, no murmurs appreciated No JVD. no lower extremity edema Lungs:Normal breath sounds, no wheezes,rhonchi or crackles. Normal respiratory effort on ra Abdomen:Soft, non-tender, non-distended,+ bowel sounds Neurological: AAOx3 Skin:Normal color, no rash, no pallor - Assessment and Plan (1) Sepsis Current Visit: No Status: Resolved Assessment and Plan: Patient met sepsis criteria with leukocytosis 14.4, tachycardia heart rate 144, and tachypnea respiratory rate 24. Treated empirically by previous provider for HAP Correction to prior documentation of no blood cultures received: bl cx obtained 12/05 at [facility] sputum cx not collected as pt without sputum, legionella and strep ag neg No UA was ever obtained on admit by previous provider, pt without any symptoms CXR no acute findings CT chest showed stable changes post lung Ca and no clear consolidation/pna Empiric antibiotics with IV Zosyn for suspected HAP started on admit 12/07 d/w pharmacy--changed to augmentin to complete course for possible pna given sepsis picture on admit leukocytosis resolved, afebrile -12/11 received call from micro lab that [facility] bl cx from 12/05 resulted today 1 set + yeast, no species identified as of yet -consulted ID and discussed (not available to see inpt until wednesday) - - stat repeat bl cxs, stat ua and ucx, as she has no cvc only a peripheral IV will remove peripheral and place new iv, repeat cbc without leukocytosis, however, given her cont nausea and low bps in the last day will treat empirically with Micafungin 100 mg IV daily and cont to monitor--ID agrees this is odd that 6 days later yeast would result one set + and pt clinically improved, but risk vs benefit will treat as such until proven otherwise. -12/11 bl cxs ngtd -UA cloudy with glucose and mod LE, neg nitrites -12/11 ucx no growth -cont current treatment, ID RESEARCH SPECIALIST to see today (2) Fungemia Current Visit: Yes Status: Suspected Assessment and Plan: 03/23 bl cx + yeast reported from [facility] on 12/11 as above -treatment plan and work up as above -ID consulted (3) Chest pain Current Visit: Yes Status: Resolved Assessment and Plan: Patient with acute onset pleuritic chest pain, history of CAD and 6 cardiac stents and now confirmed chronic pulm artery thrombus; ACS ruled out by Cards, Pain Possibly related to possible pna and PE and chronic chest pain with CAD on ranexa CTA showed eccentric chronic appearing thrombus within the right distal main pulmonary artery without any evidence of acute pulmonary artery embolism. 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 There is no evidence of acute pulmonary artery embolism -hematology consulted 12/07 with my taking over of case today for AC recs-- Eliquis BID x3 months -previously on AC in past per pt? though denies hx of any clots -AC as above -Dopplers bl le neg (5) Elevated d-dimer Current Visit: Yes Status: Acute Assessment and Plan: Patient with acute onset shortness of breath, pleuritic chest pain, tachycardia , remote lung cancer, and recent immobilization sedation secondary to weakness D-dimer elevated at 607 CTA ordered to rule out PE and chronic clot identified. treatment as above BL LE US as above (6) Healthcare-associated pneumonia Current Visit: Yes Status: Acute Assessment and Plan: Patient with leukocytosis, subjective fever, productive cough, shortness of breath, and multiple recent hospital visits Possible Pna, organism unknown CXR reveals no evidence of acute cardiopulmonary disease. Sputum culture not able to be collected as no sputum Urine Legionella and strep pneumo antigens are negative empiric antibiotics with IV Zosyn De-escalate to Augmentin 12/07 incentive spirometry, nebs complete augmentin course on dc (7) CAD (coronary artery disease) Current Visit: Yes Status: Chronic Assessment and Plan: Patient has [address] -has been evaluated by cards and stable from cardiac standpoint -july fu outpt -cont asa, statin, coreg, prn nitro, ranexa, holding acei as became hypotensive on it and she had [place] with it -added norvasc this admit -pharmacy has confirmed all meds (8) Hyperlipidemia Current Visit: Yes Status: Chronic Assessment and Plan: Continue statin (9) Elevated troponin Current Visit: No Status: Acute Assessment and Plan: Patient transferred from [facility] secondary to possible NSTEMI Initial troponin level 0.06, repeat troponins are negative EKGs reveals sinus tachycardia with T-wave abnormality, repeat EKG shows no acute changes Cardiology followed with recommendations as above (10) Essential hypertension Current Visit: Yes Status: Chronic Assessment and Plan: uncontrolled at times and history of wildly fluctuating BPs in past BP dropped below goal with changes made 12/09, Improved control this admission -uptitrated coreg and lisinopril this admission -prn hydralazine -12/10 decrease dosing of coreg and acei close monitoring of her very labile bp -12/11 cont low normotensive to hypotensive BP--hold am meds, NS 500 cc bolus and improvement to 130s/90s, cont to monitor re evening med doses and treatment of possible fungemia as above, was having dizziness with low bps, orthostat neg and no focal deficits on neuro exam -12/12 Bp stable with coreg 12.5 mg bid, will cont to mnoitor, hold acei for creat increaseand bps first started to get very low when it was added on -norvasc added and thus far good effect -will require fu with pcp outpt for further management and monitoring upon dc (11) Weakness Current Visit: Yes Status: Acute Assessment and Plan: Patient usually walks with a walker but has not been able to get out of bed for several days secondary to weakness from deconditioning, no focal deficits PT/OT consulted-rec for ecf on dc (12) Type 2 diabetes mellitus Current Visit: Yes Status: Chronic Assessment and Plan: Hemoglobin A1c 9.6, Hyperglycemia this admission, labile bs Continue SSI and Accu-Checks Levemir up titrated this admission cont to monitor ADA diet resume home gabapentin, reglan will require pcp follow up (13) Obesity (BMI 30-39.9) Current Visit: Yes Status: Chronic Assessment and Plan: BMI 37.2, lifestyle modification (14) Anemia Current Visit: Yes Status: Resolved Assessment and Plan: admitting hgb 13.2, on recheck two days later 11.4 with drop in all 3 cell lines noted, no active bleeding, plts wnl -she is now taking eliquis -hgb stable and of normal value now (15) DVT prophylaxis Current Visit: No Status: Acute Assessment and Plan: eliquis - Time Spent with Patient Total time spent is greater than 50% in coordination of care (as documented) at patient's floor/unit and/or counseling patient: 25 - 35 minutes Plan of Care Discussed with: patient Internal Medicine: Result - Labs CBC & Chem 7: 12/12/17 04:25 12/13/17 04:15 Labs: BMP 12/13/17 04:15 Sodium 133 L Potassium 4.9 Chloride 100 Carbon Dioxide 25 BUN 12 Creatinine 1.06 Glucose 166 H Calcium 10.6 H - ABG Interpretation ABG results: PT/INR, D-dimer PT 13.4 Seconds (9.4-12.1) H 12/08/17 03:50 - Impressions Impressions [facility]UB X-Ray 12/12/17 11:26 IMPRESSION: No acute abdominal radiographic abnormality. D/ / Dotty Hernandez Cha, MD / Dotty Hernandez Cha, MD Interpreting Provider: Dotty Hernandez Cha, MD Consult Discharge Plan - Plan Referrals: Jonna Mcdermott, AUTOMOBILE SERVICE WRITER [Primary Care Provider] - (1) Sepsis Qualifiers: Qualified Code(s): A41.9 - Sepsis, unspecified organism (3) Chest pain Qualifiers: Qualified Code(s): R07.9 - Chest pain, unspecified (7) CAD (coronary artery disease) Qualifiers: Qualified Code(s): I25.10 - Atherosclerotic heart disease of [place] coronary artery without angina pectoris (8) Hyperlipidemia Qualifiers: Qualified Code(s): E78.2 - Mixed hyperlipidemia (12) Type 2 diabetes mellitus Qualifiers: Qualified Code(s): E11.22 - Type 2 diabetes mellitus with diabetic chronic kidney disease; N18.3 - Chronic kidney disease, stage 3 (moderate); Z79.4 - penitentiary (current) use of insulin (14) Anemia Qualifiers: Qualified Code(s): D64.9 - Anemia, unspecified
[2017-12-13] MEDS: Amoxicillin/Clavulanate 500 MG TABLET PO SCH ×2 (09:43→17:19)
[2017-12-13] MEDS: Gabapentin 400 MG CAPSULE PO SCH ×3 (09:43→20:46)
[2017-12-13] MEDS: amLODIPine 5 MG TABLET PO SCH (09:43)
[2017-12-13] MEDS: Aspirin 81 MG TAB.CHEW PO SCH (09:43)
[2017-12-13] MEDS: Apixaban 5 MG TABLET PO SCH ×2 (09:43→20:46)
[2017-12-13] MEDS: Ranolazine 500 MG TAB.ER.12H PO SCH ×2 (09:43→20:46)
--- NOTE | 2017-12-13 11:11 | Infectious Disease Consult ---
Date of Encounter: 12/13/17 Time of Encounter: 11:06 Assessment and Plan (1) Sepsis Status: Resolved Assessment and plan: The patient had 3 sepsis criteria plus lactic acidosis and acute kidney injury on admission. Likely secondary to candidemia. Improved. White blood cell count is normalized. Tachycardia has improved. Tachypnea has resolved. Acute kidney injury and lactic acidosis are resolved. Blood cultures obtained 12/05/17 her +1 out of 2 sets for yeast species, final ID and sensitivities are pending. Repeat blood cultures 12/11/17 are no growth to date 2 sets. Additional repeat blood cultures obtained 12/12/17 are pending 2 sets. Qualifiers: Sepsis type: sepsis due to unspecified organism Qualified Code(s): A41.9 - Sepsis, unspecified organism (2) Fungemia Status: Acute Assessment and plan: Causative organism: Unclear. Source: Unclear, although given the patient's persistent nausea and vomiting, concern for intra-abdominal. Blood cultures obtained 12/05/17 her +1 out of 2 sets for yeast species, final ID and sensitivities are pending. PCR was negative. Repeat blood cultures obtained 12/11/17 are no growth to date 2 sets. Additional blood cultures obtained 12/12/17 are pending 2 sets. Continue micafungin 100 mg IV daily. Await final ID and sensitivities. De-escalate if/when able. Await repeat blood cultures to finalize. Recommend ophthalmology to evaluate. Monitor liver and renal function and dose adjust antifungals. Re-check LFTs now. (3) Nausea, vomiting and diarrhea Status: Acute Assessment and plan: Etiology unclear. Check LFTs, amylase, and lipase. No urinary symptoms reported. May need to consider repeat imaging. Send stool for GI panel. Consider GI consult. (4) Abdominal pain Status: Acute Assessment and plan: Location: Epigastric and RUQ. CT of the abdomen and pelvis 12/05/17 negative. Re-check LFTs, amylase, and lipase. Consider GI to evaluate. Pain management per the primary team. Qualifiers: Abdominal location: epigastric Qualified Code(s): R10.13 - Epigastric pain (5) Acute kidney injury superimposed on chronic kidney disease Status: Acute Assessment and plan: Likely pre-renal from poor PO intake and N/V/D prior to admission. Resolved. (6) Pulmonary artery thrombosis Status: Chronic Assessment and plan: CTA of the chest showed a chronic thrombus in the right distal main artery. Hem/Onc consulted for AC management. (7) Chest pain Status: Resolved Assessment and plan: Cardiology consulted and signed off. Qualifiers: Chest pain type: unspecified Qualified Code(s): R07.9 - Chest pain, unspecified (8) CAD (coronary artery disease) Status: Chronic Qualifiers: Coronary Disease-Associated Artery/Lesion type: [place] artery [place] vs. transplanted heart: [place]ake heart Associated angina: without angina Qualified Code(s): I25.10 - Atherosclerotic heart disease of [place] coronary artery without angina pectoris (9) Essential hypertension Status: Chronic (10) Hyperlipidemia Status: Chronic Qualifiers: Hyperlipidemia type: mixed hyperlipidemia Qualified Code(s): E78.2 - Mixed hyperlipidemia (11) Type 2 diabetes mellitus Status: Chronic Qualifiers: Diabetes mellitus senior care insulin use: with senior care use Diabetes mellitus complication status: with kidney complications Diabetes mellitus complication detail: with chronic kidney disease Chronic kidney disease stage : stage 3 (moderate) Qualified Code(s): E11.22 - Type 2 diabetes mellitus with diabetic chronic kidney disease; N18.3 - Chronic kidney disease, stage 3 ( moderate); 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 Corbin is a 72 year old female with a past medical history of asthma, CAD status post cardiac stents, CVA, diabetes, fibromyalgia, hyperlipidemia, hypertension, chronic kidney disease, gastroparesis, and remote history of lung cancer. The patient was admitted to the hospital December 05 for shortness of breath. We are consulted December 13 for further recommendations for candidemia. Briefly, the patient is a 72-year-old female with past medical history as stated above. The patient presented to the emergency department with complaints of shortness of breath and upper respiratory tract infection symptoms as well as nausea and vomiting and diarrhea. According to the notes, the patient has been evaluated in the emergency department for nausea and vomiting and diarrhea several times prior to this ER visit. Upon arrival, the patient was tachycardic and tachypneic and had leukocytosis with a normal differential. She was also noted to have an acute kidney injury and lactic acidosis. Her troponin was mildly elevated at 0.06. Lipase was normal at 49. D-dimer was mildly elevated at 607. Chest x-ray was negative. CT abdomen and pelvis is negative. She had blood cultures obtained 2 sets. She was started empirically on Cipro and Flagyl and transferred here for further evaluation. On admission, the patient was started on Vanc and Zosyn. Since admission, the patient has remained afebrile. Her tachycardia has improved. Her white blood cell count has normalized. Repeat chest x-ray on December 06 was negative. She did undergo a CTA of the chest that was negative for PE, but did show chronic thrombus in the right distal main artery. Hematology/oncology was consulted to assist with anticoagulation management. She did have a DVT study that was negative. Blood cultures obtained in the emergency department came back +1 out of 2 sets for yeast species, but the PCR is negative. Repeat blood cultures obtained December 11 are no growth to date 2 sets as well as December 12 2 sets. This morning, her heart rate is mildly elevated. She has remained afebrile. Her white blood cell count was normal yesterday. Her antibiotics were de-escalated to PO Augmentin. Currently, she is on IV micafungin and oral Augmentin. We have been asked to evaluate and make further recommendations. During my exam today, the patient states that the main reason she came to the emergency department was because of the nausea and vomiting and diarrhea that has been chronic for the past few months, but worse in the few days prior to admission. She reported subjective fevers and chills. She also reported some intermittent headaches, but denies weakness or focal neuro deficits. She reports floaters in the left eye since having her cataract removed in June. She denies any chest pain or shortness of breath, but does report a cough that is nonproductive. She reports persistent nausea with vomiting of what is sounds like bilious contents. She reports some epigastric and right upper quadrant abdominal pain. She states her nausea and vomiting have improved and she has been able to eat some food while hospitalized. She reports no urinary complaints. She does report some new lumbar back pain that does not radiate anywhere. She denies any oral thrush or new skin rashes. The patient states she lives at home with her son. She denies any tobacco, alcohol, or illicit drug use. CC: Karla Lopez Past Med Surg Social Fam HX - Past Medical History Attestation: Yes The following information was validated with the patient. Source: patient, old records reviewed, nursing notes reviewed Medical history: asthma, cancer (Lung Cancer), CHF, coronary artery disease, CVA , diabetes, fibromyalgia, GERD, hyperlipidemia, hypertension, myocardial infarction, osteoporosis, renal disease, syncope, other Additional medical history: CHRONIC BACK/KNEE PAIN Psychiatric history: anxiety, bipolar, depression - Past Surgical History Surgical History: angioplasty/stent, appendectomy, cancer surgery, cholecystectomy, hysterectomy, orthopedic, other Additional surgical history: 6 stents. - Social History Smoking Status: Former smoker Smokeless Tobacco Status: No Alcohol use: none Drug use: none - Family History Mother Living Status: Sister Living Status: Hx Family Cardiac Disorders: Yes Hx Family Respiratory Disorders: Yes (Lung cancer) Brother Adopted: No Family Member Ethnicity: Non- Living Status: Still Living Hx Family Cardiac Disorders: Yes Hx Family Respiratory Disorders: Yes Hx Family Cancer: Yes Hx Family GI Disorders: No Hx Family Endocrine Disorder: No Hx Family Neuromuscular Disorders: No Hx Family Neurologic Disorders: No Hx Family HEENT Disorders: No Hx Family Autoimmune Disorders: No Father Adopted: No Family Member Ethnicity: Non- Living Status: Hx Family Cardiac Disorders: Yes Hx Family Respiratory Disorders: No Hx Family Cancer: No Hx Family GI Disorders: No Hx Family Endocrine Disorder: No Hx Family Neuromuscular Disorders: No Hx Family Neurologic Disorders: No Hx Family HEENT Disorders: No Hx Family Autoimmune Disorders: No Infectious Disease-CN:Meds Dicyclomine [Bentyl] 10 mg PO QID 11/23/17 [History] Ergocalciferol (VITAMIN D2) [Vitamin D2] 50,000 unit PO QWEEK 11/23/17 [History] Gabapentin [Neurontin] 400 mg PO TID 11/23/17 [History] Lisinopril [Zestril] 20 mg PO DAILY 11/23/17 [History] Montelukast [Singulair] 10 mg PO HS 11/23/17 [History] Pantoprazole Sodium [Protonix] 40 mg PO HS 11/23/17 [History] Ranitidine HCl [Zantac] 300 mg PO HS 11/23/17 [History] Ranolazine [Ranexa] 1,000 mg PO BID 11/23/17 [History] Atorvastatin Calcium [Atorvastatin Calcium] 80 mg PO HS 12/06/17 [History] Doxepin HCl [Doxepin HCl] 50 mg PO HS 12/06/17 [History] HydrOXYzine 10 mg PO BID PRN 12/06/17 [History] Insulin Glargine,Hum.rec.anlog [Lantus Solostar] 80 unit SQ DAILY 12/06/17 [ History] Insulin LISPRO [HumaLOG] 0 units SQ TIDWM MDD 90 UNIT 12/06/17 [History] Metoclopramide [Reglan] 5 mg PO Q8H 12/06/17 [History] Ondansetron ODT [Zofran ODT] 4 mg SL Q4H PRN 12/06/17 [History] 3 Allergy/AdvReac Type Severity Reaction Status Date / Time Iodinated Contrast- Oral and Allergy Rash Verified 12/01/17 12:39 IV Dye iron Allergy Hives Verified 12/01/17 12:39 [place] Allergy Nausea Verified 12/01/17 12:39 Sulfa (Sulfonamide Allergy Hives Verified 12/01/17 12:39 Antibiotics) All systems: reviewed and no additional remarkable complaints except as stated Exam - Constitutional Vitals: Temp Pulse Resp BP Pulse Ox 98.1 F 95 18 150/64 94 12/13/17 07:19 12/13/17 09:45 12/13/17 07:40 12/13/17 09:45 12/13/17 07:40 General appearance: cooperative, no acute distress, obese - Head Head exam: Present: atraumatic, normal inspection, normocephalic - Eye Eye exam: Present: EOMI, normal appearance, PERRL Pupils: Present: normal accommodation - ENT ENT exam: Present: mucous membranes moist - Neck Neck exam: Present: normal inspection - Respiratory Respiratory exam: Present: CTAB. Absent: rales, respiratory distress, rhonchi, wheezes - Cardiovascular Cardiovascular exam: Present: +S1, +S2, tachycardia. Absent: irregular rhythm - GI/Abdominal GI/Abdominal exam: Present: distended (obese), normal bowel sounds, soft, tenderness (Epigastric, RUQ) - Extremities Exam Extremities exam: Absent: joint swelling, pedal edema, tenderness - Neurological Exam Neurological exam: Present: alert, oriented X3, no focal deficits - Psychiatric Psychiatric exam: Present: normal affect, normal mood - Skin Skin exam: Present: dry, intact, normal color, warm Infectious Disease CN: Results - Labs CBC & Chem 7: 12/14/17 04:24 12/13/17 04:15 Cultures: Cultures 12/12/17 23:15 Blood Culture - Preliminary Peripheral Venipuncture Culture is incubating and being continuously monitored for growth. Final report to follow. 12/12/17 23:15 Blood Culture - Preliminary Peripheral Venipuncture Culture is incubating and being continuously monitored for growth. Final report to follow. 12/11/17 16:21 Urine Culture - Preliminary Urine,Clean Catch No growth. 12/11/17 11:11 Blood Culture - Preliminary Peripheral Venipuncture Culture is incubating and being continuously monitored for growth. Final report to follow. 12/11/17 11:12 Blood Culture - Preliminary Peripheral Venipuncture Culture is incubating and being continuously monitored for growth. Final report to follow. 12/06/17 00:20 Legionella Antigen - Final Urine,[place] Streptococcus pneumoniae Antigen (M - Final Serology: Serology 12/11/17 12/06/17 Range/Units 16:21 00:20 Urine Color Yellow (Yellow) Urine Clarity Cloudy A (Clear) Urine pH 6.0 (5.0-8.0) pH Units Ur Specific [place] 1.010 (1.010-1.025) Urine Protein Negative (Neg-Trace) mg/dL Urine Glucose (UA) 100 H (Normal) mg/dL Urine Ketones Negative (Negative) mg/dL Urine Blood Negative (Negative) Urine Nitrite Negative (Negative) Urine Bilirubin Negative (Negative) Urine Urobilinogen Normal (Normal) mg/dL Ur Leukocyte Esterase Moderate H (Negative) Nasal Screen MRSA (PCR) Negative (Negative) Consult Discharge Plan - Plan Referrals: Jonna Mcdermott, PROJECT ENGINEERING DIRECTOR [Primary Care Provider] - - Attending Attestation I examined this patient and my medical decision-making was reviewed with the Resident Physician. I agree with the documented findings, disposition and treatment plan as described except to the extent set forth below. This is an addendum to original report dictated by Ade Burnette CNP. Please refer to Ade's note for full detail. Patient is a 72-year-old woman with past medical history mentioned below who has chronic diarrhea and nausea and vomiting and maybe gastroparesis presented to [facility] with shortness of breath and fatigue not feeling well and was found to have candidemia. We are consulted for candidemia. Exact source of the candidemia is not clear. Patient has no urinary symptoms. Intra-abdominal source is possible. Patient also has remote lung CA and recently had her most recent radiation therapy about 3 months ago. I am not sure if that could be an possible source but unlikely. Assessment and plan: Sepsis Fungemia - Causative organism: Unclear. Source: Unclear, although given the patient's persistent nausea and vomiting, concern for intra-abdominal. Blood cultures obtained 12/05/17 her +1 out of 2 sets for yeast species, final ID and sensitivities are pending. PCR was negative. Repeat blood cultures obtained 12/11/17 are no growth to date 2 sets. Additional blood cultures obtained 12/12/17 are pending 2 sets. Continue micafungin 100 mg IV daily. Await final ID and sensitivities. De-escalate if/when able. Await repeat blood cultures to finalize. Recommend ophthalmology to evaluate. Monitor liver and renal function and dose adjust antifungals. Re-check LFTs now. Chronic diarrhea concern for inflammatory bowel disease Chronic nausea and vomiting likely secondary to gastroparesis
[2017-12-13 14:04] LABS: Albumin 3.6 g/dL (3.5-5.7); Albumin/Globulin Ratio 1.1 (1.1-2.2); Bilirubin,Direct 0.1 mg/dL (0.0-0.2); Bilirubin,Indirect 0.3 mg/dL (0.0-1.2); Bilirubin,Total 0.4 mg/dL (0.3-1.0); Globulin 3.2 g/dL (2.4-3.5); Total Protein 6.8 g/dL (6.4-8.9)
[2017-12-14] MEDS: Ipratropium/Albuterol Neb 3 ML IH SCH ×6 (03:52→23:21)
[2017-12-14 05:05] LABS: Basophils % 0.2 %; Eosinophils # 0.2 K/mcL (0.0-0.6); Eosinophils % 1.6 %; Hematocrit 36.9 % (35.3-44.9); Hemoglobin 12.1 g/dL (11.5-15.4); Immature Granulocytes % 0.4 % (0-4); Lymphocytes % 16.2 %; Mean Corpuscular HGB Conc 32.8 g/dL (31.6-35.5); Mean Corpuscular Hemoglobin 28.7 pg (28.0-33.3); Mean Corpuscular Volume 87.6 fL (83.0-100.0); Mean Platelet Volume 10.7 fL (9.4-12.4); Monocytes # 1.1 K/mcL (0.0-1.3); Neutrophils # 8.9 K/mcL (1.6-8.9); Platelet Count 296 K/mcL (140-400); Red Blood Count 4.21 M/mcL (3.82-4.97); Red Cell Distribution Width 13.9 % (11.5-14.5); Segmented Neutrophils % 72.6 %
[2017-12-14] MEDS: Insulin LISPRO 300 UNITS/3 ML VIAL SQ SCH ×4 (07:57→20:54)
[2017-12-14] MEDS: Amoxicillin/Clavulanate 500 MG TABLET PO SCH (07:58)
[2017-12-14] MEDS: Micafungin 100 MG in 0.9 % Sodium Chloride Mini Bag 100 ML IVPB SCH (07:58)
[2017-12-14] MEDS: amLODIPine 5 MG TABLET PO SCH (07:59)
[2017-12-14] MEDS: Gabapentin 400 MG CAPSULE PO SCH ×3 (07:59→20:53)
[2017-12-14] MEDS: Ranolazine 500 MG TAB.ER.12H PO SCH ×2 (07:59→20:53)
[2017-12-14] MEDS: Apixaban 5 MG TABLET PO SCH ×2 (07:59→20:53)
[2017-12-14] MEDS: Insulin DETEMIR 100 UNIT/ML X5UNITS SQ SCH ×2 (08:15→23:25)
--- NOTE | 2017-12-14 10:33 | Infectious Disease Progress No ---
Date of Encounter: 12/14/17 Time of Encounter: 09:40 - Assessment and Plan (1) Sepsis Current Visit: No Status: Resolved The patient had 3 sepsis criteria plus lactic acidosis and acute kidney injury on admission. Likely secondary to candidemia. Improved. White blood cell count is normalized. Tachycardia has improved. Tachypnea has resolved. Acute kidney injury and lactic acidosis are resolved. Blood cultures obtained 12/05/17 her +1 out of 2 sets for yeast species, final ID and sensitivities are pending. Repeat blood cultures 12/11/17 are no growth to date 2 sets. Additional repeat blood cultures obtained 12/12/17 are no growth today 2 sets. Imaging negative for PNA. Will discontinue Augmentin (already received 8 days). 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 Source: Unclear, although given the patient's persistent nausea and vomiting, concern for intra-abdominal. Blood cultures obtained 12/05/17 her +1 out of 2 sets for Stephanoascus cifferii. Repeat blood cultures obtained 12/11/17 are no growth to date 2 sets. Additional blood cultures obtained 12/12/17 are no growth today 2 sets. Continue micafungin 100 mg IV daily. Await sensitivities. De-escalate if/when able. Await repeat blood cultures to finalize. Recommend ophthalmology to evaluate. Monitor liver and renal function and dose adjust antifungals. LFTs are normal. (3) Nausea, vomiting and diarrhea Current Visit: Yes Status: Acute Etiology unclear. Appears improved. No urinary symptoms reported. Amylase, lipase, and LFTs are normal. May need to consider repeat imaging. Send stool for GI panel.--> Ordered yesterday, but the patient has not had a bowel movement since ordering. Consider GI consult if symptoms persist. (4) Abdominal pain Current Visit: Yes Status: Acute Location: Epigastric and RUQ. CT of the abdomen and pelvis 12/05/17 negative. Re-check LFTs, amylase, and lipase are normal. Abdomen does appear distended and firm this morning. Consider GI to evaluate. Pain management per the primary team. Qualifiers: Abdominal location: epigastric Qualified Code(s): R10.13 - Epigastric pain (5) Acute kidney injury superimposed on chronic kidney disease Current Visit: No Status: Acute Likely pre-renal from poor PO intake and N/V/D prior to admission. Resolved. 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 Hem/Onc consulted for AC management. (7) Chest pain Current Visit: Yes Status: Resolved Cardiology consulted and signed off. Qualifiers: Chest pain type: unspecified Qualified Code(s): R07.9 - Chest pain, unspecified (8) CAD (coronary artery disease) Current Visit: Yes Status: Chronic Qualifiers: Coronary Disease-Associated Artery/Lesion type: [place] artery [place] vs. transplanted heart: [place] heart Associated angina: without angina Qualified Code(s): I25.10 - Atherosclerotic heart disease of [place] coronary artery without angina pectoris (9) Essential hypertension Current Visit: Yes Status: Chronic (10) Hyperlipidemia Current Visit: Yes Status: Chronic Qualifiers: Hyperlipidemia type: mixed hyperlipidemia Qualified Code(s): E78.2 - Mixed hyperlipidemia (11) Type 2 diabetes mellitus Current Visit: Yes Status: Chronic Qualifiers: Diabetes mellitus fpc insulin use: with intermediate designer use Diabetes mellitus complication status: with kidney complications Diabetes mellitus complication detail: with chronic kidney disease Chronic kidney disease stage : stage 3 (moderate) Qualified Code(s): E11.22 - Type 2 diabetes mellitus with diabetic chronic kidney disease; N18.3 - Chronic kidney disease, stage 3 ( moderate); Z79.4 - nursing home (current) use of insulin (12) Elevated troponin Current Visit: No Status: Acute (13) COPD (chronic obstructive pulmonary disease) Current Visit: No Status: Chronic Qualifiers: COPD type: emphysema Emphysema type: centrilobular Qualified Code(s): J43.2 - Centrilobular emphysema - Subjective Interval history: Patient seen and examined. No acute events noted overnight. Patient states overall she feels better today. Denies any fevers or chills or rigors. Denies any shortness of breath or cough or chest pain. She denies any nausea or vomiting this morning and states she was able to eat breakfast. She reports abdominal distention and bloating and generalized discomfort in her abdomen. She denies any urinary complaints. She states she has not had a bowel movement since yesterday for I saw her. Denies any oral thrush or new skin lesions. Infect Dis PN-Objective Data - Labs CBC & Chem 7: 12/14/17 04:24 12/13/17 04:15 Labs: Laboratory Results - last 24 hr 12/13/17 12/13/17 12/13/17 07:25 11:12 13:01 WBC RBC Hgb Hct MCV MCH MCHC RDW Plt Count MPV Immature Gran % Seg Neutrophils % Lymphocytes % Monocytes % Eosinophils % Basophils % Neutrophils # Lymphocytes # Monocytes # Eosinophils # Basophils # POC Glucose 178 H 202 H Total Bilirubin 0.4 Direct Bilirubin 0.1 Indirect Bilirubin 0.3 AST 12 L ALT 12 Alkaline Phosphatase 53 Serum Total Protein 6.8 Albumin 3.6 Globulin 3.2 Albumin/Globulin Ratio 1.1 Amylase 21 L Lipase 22 12/13/17 12/13/17 12/14/17 16:25 20:24 04:24 WBC 12.2 H RBC 4.21 Hgb 12.1 Hct 36.9 MCV 87.6 MCH 28.7 MCHC 32.8 RDW 13.9 Plt Count 296 MPV 10.7 Immature Gran % 0.4 Seg Neutrophils % 72.6 Lymphocytes % 16.2 Monocytes % 9.0 Eosinophils % 1.6 Basophils % 0.2 Neutrophils # 8.9 Lymphocytes # 2.0 Monocytes # 1.1 Eosinophils # 0.2 Basophils # 0.0 POC Glucose 193 H 164 H Total Bilirubin Direct Bilirubin Indirect Bilirubin AST ALT Alkaline Phosphatase Serum Total Protein Albumin Globulin Albumin/Globulin Ratio Amylase Lipase Cultures: Cultures 12/11/17 16:21 Urine Culture - Final Urine,Clean Catch No significant growth. 12/12/17 23:15 Blood Culture - Preliminary Peripheral Venipuncture Culture is incubating and being continuously monitored for growth. Final report to follow. 12/12/17 23:15 Blood Culture - Preliminary Peripheral Venipuncture Culture is incubating and being continuously monitored for growth. Final report to follow. 12/11/17 11:11 Blood Culture - Preliminary Peripheral Venipuncture Culture is incubating and being continuously monitored for growth. Final report to follow. 12/11/17 11:12 Blood Culture - Preliminary Peripheral Venipuncture Culture is incubating and being continuously monitored for growth. Final report to follow. 12/06/17 00:20 Legionella Antigen - Final Urine,[place] Streptococcus pneumoniae Antigen (M - Final Serology 12/11/17 12/06/17 Range/Units 16:21 00:20 Urine Color Yellow (Yellow) Urine Clarity Cloudy A (Clear) Urine pH 6.0 (5.0-8.0) pH Units Ur Specific [place] 1.010 (1.010-1.025) Urine Protein Negative (Neg-Trace) mg/dL Urine Glucose (UA) 100 H (Normal) mg/dL Urine Ketones Negative (Negative) mg/dL Urine Blood Negative (Negative) Urine Nitrite Negative (Negative) Urine Bilirubin Negative (Negative) Urine Urobilinogen Normal (Normal) mg/dL Ur Leukocyte Esterase Moderate H (Negative) Nasal Screen MRSA (PCR) Negative (Negative) Exam - Constitutional Vitals: Temp Pulse Resp BP Pulse Ox 98.3 F 94 18 166/79 97 12/14/17 07:43 12/14/17 07:43 12/14/17 07:43 12/14/17 07:43 12/14/17 07:43 General appearance: cooperative, no acute distress, obese - Head Head exam: Present: atraumatic, normal inspection, normocephalic - Eye Eye exam: Present: EOMI, normal appearance, PERRL Pupils: Present: normal accommodation - ENT ENT exam: Present: mucous membranes moist - Neck Neck exam: Present: normal inspection - Respiratory Respiratory exam: Present: CTAB. Absent: rales, respiratory distress, rhonchi, wheezes - Cardiovascular Cardiovascular exam: Present: RRR, +S1, +S2 - GI/Abdominal GI/Abdominal exam: Present: distended, firm, normal bowel sounds, tenderness ( Generalized) - Extremities Exam Extremities exam: Present: normal inspection. Absent: joint swelling, pedal edema, tenderness - Neurological Exam Neurological exam: Present: alert, oriented X3, no focal deficits - Psychiatric Psychiatric exam: Present: normal affect, normal mood - Skin Skin exam: Present: dry, intact, normal color, warm Consult Discharge Plan - Plan Referrals: Jonna Mcdermott, [employer] [Primary Care Provider] - - Attending Attestation I examined this patient and my medical decision-making was reviewed with the Resident Physician. I agree with the documented findings, disposition and treatment plan as described except to the extent set forth below. 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 literature review from articles of J Mycol med 2013 Mar;23(1):21-6. doi: 10.1016/[email or web address].2012.12.002. Epub 2012Apr 20. Study of fungal isolates in patients with chronic diarrhea at a tertiary care hospital in [facility]. Lyndon Kamara, Jenny Myles, Loc Hernandez. in these articles they dont mention micafungin. they say such isolates are usually susceptible to all four antifungal agents i.e., fluconazole, flucytosine , amphotericin B and voriconazole. 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 Case report]." mention resistance to azole group. Patient clinically doing better so I will not change the micafungin until susceptibility comes back from [facility]
[2017-12-14] MEDS: Aspirin 81 MG TAB.CHEW PO SCH (10:50)
[2017-12-14] MEDS: Artificial Tears SOLN 15 ML BOTTLE BOTH EYES PRN (12:53)
[2017-12-14] MEDS: Acetaminophen 325 MG TABLET PO PRN ×2 (12:58→21:31)
--- NOTE | 2017-12-14 15:02 | Internal Med Progress Note ---
Hospitalist Progress Note - Encounter Date of Encounter: 12/14/17 Time of Encounter: 14:58 - Subjective Interval History: Patient complains of abdominal distension. She denies fevers/chills, chest pain , SOB, n/v. Ate breakfast okay. KUB pending. - Exam Vitals: Temp Pulse Resp BP Pulse Ox 97.4 F L 81 18 119/63 97 12/14/17 11:36 12/14/17 11:36 12/14/17 11:36 12/14/17 11:36 12/14/17 07:43 Exam: General: awake, alert, appears stated age Cardiovascular:regular rate and rhythm, normal S1 & S2, no murmurs appreciated No JVD. no lower extremity edema Lungs:Normal breath sounds, no wheezes,rhonchi or crackles. Normal respiratory effort on ra Abdomen:Soft, non-tender, + distension today. Neurological: AAOx3 Skin:Normal color, no rash, no pallor - Assessment and Plan (1) Sepsis Current Visit: No Status: Resolved Assessment and Plan: Patient met sepsis criteria with leukocytosis 14.4, tachycardia heart rate 144, and tachypnea respiratory rate 24. Treated empirically by previous provider for HAP Correction to prior documentation of no blood cultures received: bl cx obtained 12/05 at [facility] sputum cx not collected as pt without sputum, legionella and strep ag neg No UA was ever obtained on admit by previous provider, pt without any symptoms CXR no acute findings CT chest showed stable changes post lung Ca and no clear consolidation/pna Empiric antibiotics with IV Zosyn for suspected HAP started on admit 12/07 d/w pharmacy--changed to augmentin to complete course for possible pna given sepsis picture on admit leukocytosis resolved, afebrile -12/11 received call from micro lab that [facility] bl cx from 12/05 resulted today 1 set + yeast, no species identified as of yet -consulted ID and discussed (not available to see inpt until wednesday) - - stat repeat bl cxs, stat ua and ucx, as she has no cvc only a peripheral IV will remove peripheral and place new iv, repeat cbc without leukocytosis, however, given her cont nausea and low bps in the last day will treat empirically with Micafungin 100 mg IV daily and cont to monitor--ID agrees this is odd that 6 days later yeast would result one set + and pt clinically improved, but risk vs benefit will treat as such until proven otherwise. -12/11 bl cxs ngtd -UA cloudy with glucose and mod LE, neg nitrites -12/11 ucx no growth ID following, recommendations apprecaited. (2) Abdominal distension Current Visit: Yes Status: Acute Assessment and Plan: Patient has history of constipation. She denies abdominal pain though she appears to have some discomfort with abdominal palpation. Discussed with ID team, KUB ordered, will follow-up. Does have history of constipation, possibly related to this. LAKESHIA Ramirez. (3) Essential hypertension Current Visit: Yes Status: Chronic Assessment and Plan: uncontrolled at times and history of wildly fluctuating BPs in past BP dropped below goal with changes made 12/09, Improved control this admission -uptitrated coreg and lisinopril this admission -prn hydralazine -12/10 decrease dosing of coreg and acei close monitoring of her very labile bp -12/11 cont low normotensive to hypotensive BP--hold am meds, NS 500 cc bolus and improvement to 130s/90s, cont to monitor re evening med doses and treatment of possible fungemia as above, was having dizziness with low bps, orthostat neg and no focal deficits on neuro exam -12/12 Bp stable with coreg 12.5 mg bid, will cont to mnoitor, hold acei for creat increaseand bps first started to get very low when it was added on -norvasc added and thus far good effect - Tody ranges 119-166/63-79, with HR 81-94. Continue current management (4) Hyperlipidemia Current Visit: Yes Status: Chronic Assessment and Plan: Continue statin (5) CAD (coronary artery disease) Current Visit: Yes Status: Chronic Assessment and Plan: Patient has [address] -has been evaluated by cards and stable from cardiac standpoint -july fu outpt -cont asa, statin, coreg, prn nitro, ranexa, holding acei as became hypotensive on it and she had [place] with it -added norvasc this admit (6) Type 2 diabetes mellitus Current Visit: Yes Status: Chronic Assessment and Plan: Hemoglobin A1c 9.6, Hyperglycemia this admission, labile bs Continue SSI and Accu-Checks Levemir up titrated this admission ADA diet resume home gabapentin, reglan will require pcp follow up (7) Chest pain Current Visit: Yes Status: Resolved (8) Weakness Current Visit: Yes Status: Acute Assessment and Plan: Patient usually walks with a walker but has not been able to get out of bed for several days secondary to weakness from deconditioning, no focal deficits PT/OT consulted-rec for ecf on dc (9) Elevated troponin Current Visit: No Status: Acute Assessment and Plan: Patient transferred from [facility] secondary to possible NSTEMI Initial troponin level 0.06, repeat troponins are negative EKGs reveals sinus tachycardia with T-wave abnormality, repeat EKG shows no acute changes Cardiology followed with recommendations as above (10) Healthcare-associated pneumonia Current Visit: Yes Status: Acute Assessment and Plan: Patient with leukocytosis, subjective fever, productive cough, shortness of breath, and multiple recent hospital visits. Possible Pna, organism unknown CXR reveals no evidence of acute cardiopulmonary disease. Urine Legionella and strep pneumo antigens are negative Was emperically treated with Zosyn, was then de escalated to Augmentin. Augmentin DC after 8 days treatment. 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 There is no evidence of acute pulmonary artery embolism -previously on AC in past per pt? though denies hx of any clots -Dopplers bl le neg Hematology was consulted, patient placed on Eliquis BID, plan for 3 months of treatment. (13) Anemia Current Visit: Yes Status: Resolved Assessment and Plan: hgb is stable at 11-12.1 (14) Fungemia Current Visit: Yes Status: Acute Assessment and Plan: 2 bl cx + yeast reported from [facility] on 12/11 as -treatment plan and work up as above -ID following, recommendations appreciated - Continue micafungin (15) DVT prophylaxis Current Visit: No Status: Acute Assessment and Plan: Currently on Eliquis - Time Spent with Patient Total time spent is greater than 50% in coordination of care (as documented) at patient's floor/unit and/or counseling patient: Internal Medicine: Result - Labs CBC & Chem 7: 12/14/17 04:24 12/13/17 04:15 Labs: Short CBC 12/14/17 Range/Units 04:24 WBC 12.2 H (4.3-11.1) K/mcL Hgb 12.1 (11.5-15.4) g/dL Hct 36.9 (35.3-44.9) % Plt Count 296 (140-400) K/mcL Neutrophils # 8.9 (1.6-8.9) K/mcL - ABG Interpretation ABG results: PT/INR, D-dimer PT 13.4 Seconds (9.4-12.1) H 12/08/17 03:50 - Impressions Impressions KUB X-Ray 12/14/17 13:38 IMPRESSION: Nonspecific bowel gas pattern without definite acute abnormality identified. D/ / Truman Anand MD / Truman Anand MD Interpreting Provider: Truman Anand MD Consult Discharge Plan - Plan Referrals: Jonna Mcdermott RADIOLOGIC TECHNICIAN [Primary Care Provider] - (1) Sepsis Qualifiers: Sepsis type: sepsis due to unspecified organism Qualified Code(s): A41.9 - Sepsis, unspecified organism (4) Hyperlipidemia Qualifiers: Hyperlipidemia type: mixed hyperlipidemia Qualified Code(s): E78.2 - Mixed hyperlipidemia (5) CAD (coronary artery disease) Qualifiers: Coronary Disease-Associated Artery/Lesion type: [place] artery [place] vs. transplanted heart: [place] heart Associated angina: without angina Qualified Code(s): I25.10 - Atherosclerotic heart disease of [place] coronary artery without angina pectoris (6) Type 2 diabetes mellitus Qualifiers: Diabetes mellitus half-way insulin use: with half-way use Diabetes mellitus complication status: with kidney complications Diabetes mellitus complication detail: with chronic kidney disease Chronic kidney disease stage: stage 3 (moderate) Qualified Code(s): E11.22 - Type 2 diabetes mellitus with diabetic chronic kidney disease; N18.3 - Chronic kidney disease, stage 3 ( moderate); 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
[2017-12-15] MEDS: Ipratropium/Albuterol Neb 3 ML IH SCH ×5 (04:16→20:35)
[2017-12-15] MEDS: *HR* HYDROcodone/Acet 5/325 mg TABLET PO PRN (05:26)
[2017-12-15 06:36] LABS: Basophils % 0.2 %; Eosinophils # 0.2 K/mcL (0.0-0.6); Hematocrit 35.7 % (35.3-44.9); Hemoglobin 11.6 g/dL (11.5-15.4); Immature Granulocytes % 0.5 % (0-4); Lymphocytes # 1.6 K/mcL (0.6-4.6); Lymphocytes % 15.4 %; Mean Corpuscular HGB Conc 32.5 g/dL (31.6-35.5); Mean Corpuscular Hemoglobin 28.2 pg (28.0-33.3); Mean Corpuscular Volume 86.9 fL (83.0-100.0); Mean Platelet Volume 10.5 fL (9.4-12.4); Monocytes # 1.2 K/mcL (0.0-1.3); Monocytes % 11.5 %; Neutrophils # 7.5 K/mcL (1.6-8.9); Platelet Count 276 K/mcL (140-400); Red Blood Count 4.11 M/mcL (3.82-4.97); Segmented Neutrophils % 70.4 %
[2017-12-15 06:57] LABS: Calcium 10.8 mg/dL (8.6-10.3); Potassium 5.1 mEq/L (3.5-5.1)
[2017-12-15] MEDS: Insulin LISPRO 300 UNITS/3 ML VIAL SQ SCH ×4 (07:42→20:27)
[2017-12-15] MEDS: amLODIPine 5 MG TABLET PO SCH (08:39)
[2017-12-15] MEDS: Ranolazine 500 MG TAB.ER.12H PO SCH ×2 (08:39→20:27)
[2017-12-15] MEDS: Apixaban 5 MG TABLET PO SCH ×2 (08:39→20:27)
[2017-12-15] MEDS: Gabapentin 400 MG CAPSULE PO SCH ×3 (08:39→20:27)
[2017-12-15] MEDS: Aspirin 81 MG TAB.CHEW PO SCH (08:39)
--- NOTE | 2017-12-15 09:00 | Infectious Disease Progress No ---
Date of Encounter: 12/15/17 Time of Encounter: 08:58 - Assessment and Plan (1) Sepsis Current Visit: No Status: Resolved The patient had 3 sepsis criteria plus lactic acidosis and acute kidney injury on admission. Likely secondary to candidemia. Improved. White blood cell count is normalized. Tachycardia has improved. Tachypnea has resolved. Acute kidney injury and lactic acidosis are resolved. Blood cultures obtained 12/05/17 her +1 out of 2 sets for S. ceferrii, sensitivities are pending. Repeat blood cultures 12/11/17 are no growth to date 2 sets. Additional repeat blood cultures obtained 12/12/17 are no growth today 2 sets. Imaging negative for PNA. Received 8 days of Augmentin. 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 Source: Unclear, although given the patient's persistent nausea and vomiting, concern for intra-abdominal. Blood cultures obtained 12/05/17 her +1 out of 2 sets for Stephanoascus ciferrii. Repeat blood cultures obtained 12/11/17 are no growth to date 2 sets. Additional blood cultures obtained 12/12/17 are no growth today 2 sets. Continue micafungin 100 mg IV daily. Await sensitivities. De-escalate if/when able. Await repeat blood cultures to finalize. Recommend ophthalmology to evaluate. Monitor liver and renal function and dose adjust antifungals. LFTs are normal. (3) Nausea, vomiting and diarrhea Current Visit: Yes Status: Acute Etiology unclear. Appears improved. No urinary symptoms reported. Amylase, lipase, and LFTs are normal. May need to consider repeat imaging. Will cancel GI panel since the patient has not had any BM x 2 days now. Recommend GI to evaluate. (4) Abdominal pain Current Visit: Yes Status: Acute Location: Epigastric and RUQ. CT of the abdomen and pelvis 12/05/17 negative. Re-check LFTs, amylase, and lipase are normal. Abdomen does appear distended and firm this morning. KUB was negative. Consider GI to evaluate. Pain management per the primary team. Qualifiers: Abdominal location: epigastric Qualified Code(s): R10.13 - Epigastric pain (5) Acute kidney injury superimposed on chronic kidney disease Current Visit: No Status: Acute Likely pre-renal from poor PO intake and N/V/D prior to admission. Resolved. 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 Hem/Onc consulted for AC management. (7) Chest pain Current Visit: Yes Status: Resolved Cardiology consulted and signed off. Qualifiers: Chest pain type: unspecified Qualified Code(s): R07.9 - Chest pain, unspecified (8) CAD (coronary artery disease) Current Visit: Yes Status: Chronic Qualifiers: Coronary Disease-Associated Artery/Lesion type: [place] artery [place] vs. transplanted heart: [place] heart Associated angina: without angina Qualified Code(s): I25.10 - Atherosclerotic heart disease of [place] coronary artery without angina pectoris (9) Essential hypertension Current Visit: Yes Status: Chronic (10) Hyperlipidemia Current Visit: Yes Status: Chronic Qualifiers: Hyperlipidemia type: mixed hyperlipidemia Qualified Code(s): E78.2 - Mixed hyperlipidemia (11) Type 2 diabetes mellitus Current Visit: Yes Status: Chronic Qualifiers: Diabetes mellitus alf insulin use: with alf use Diabetes mellitus complication status: with kidney complications Diabetes mellitus complication detail: with chronic kidney disease Chronic kidney disease stage : stage 3 (moderate) Qualified Code(s): E11.22 - Type 2 diabetes mellitus with diabetic chronic kidney disease; N18.3 - Chronic kidney disease, stage 3 ( moderate); Z79.4 - custodial (current) use of insulin (12) Elevated troponin Current Visit: No Status: Acute (13) COPD (chronic obstructive pulmonary disease) Current Visit: No Status: Chronic Qualifiers: COPD type: emphysema Emphysema type: centrilobular Qualified Code(s): J43.2 - Centrilobular emphysema - Subjective Interval history: Patient seen and examined. No acute events noted overnight. Patient states overall she feels better today. Denies any fevers or chills or rigors. Denies any shortness of breath or cough or chest pain. She denies any nausea or vomiting this morning and states she was able to eat breakfast. She reports abdominal distention and bloating and generalized discomfort in her abdomen. She denies any urinary complaints. She states she has not had a bowel movement since for two days now. Denies any oral thrush or new skin lesions. Infect Dis PN-Objective Data - Labs CBC & Chem 7: 12/15/17 06:06 12/15/17 06:06 Labs: Laboratory Results - last 24 hr 12/14/17 12/15/17 12/15/17 07:39 06:06 06:06 WBC 10.6 RBC 4.11 Hgb 11.6 Hct 35.7 MCV 86.9 MCH 28.2 MCHC 32.5 RDW 14.0 Plt Count 276 MPV 10.5 Immature Gran % 0.5 Seg Neutrophils % 70.4 Lymphocytes % 15.4 Monocytes % 11.5 Eosinophils % 2.0 Basophils % 0.2 Neutrophils # 7.5 Lymphocytes # 1.6 Monocytes # 1.2 Eosinophils # 0.2 Basophils # 0.0 Sodium 129 L Potassium 5.1 Chloride 99 Carbon Dioxide 23 BUN 25 H Creatinine 1.34 H Est GFR ( Amer) 47 L Est GFR (Non-Af Amer) 39 L BUN/Creatinine Ratio 19 Glucose 145 H POC Glucose 121 H Calculated Osmolality 275 L Calcium 10.8 H Cultures: Cultures 12/11/17 16:21 Urine Culture - Final Urine,Clean Catch No significant growth. 12/12/17 23:15 Blood Culture - Preliminary Peripheral Venipuncture Culture is incubating and being continuously monitored for growth. Final report to follow. 12/12/17 23:15 Blood Culture - Preliminary Peripheral Venipuncture Culture is incubating and being continuously monitored for growth. Final report to follow. 12/11/17 11:11 Blood Culture - Preliminary Peripheral Venipuncture Culture is incubating and being continuously monitored for growth. Final report to follow. 12/11/17 11:12 Blood Culture - Preliminary Peripheral Venipuncture Culture is incubating and being continuously monitored for growth. Final report to follow. 12/06/17 00:20 Legionella Antigen - Final Urine,[place] Streptococcus pneumoniae Antigen (M - Final Serology 12/11/17 12/06/17 Range/Units 16:21 00:20 Urine Color Yellow (Yellow) Urine Clarity Cloudy A (Clear) Urine pH 6.0 (5.0-8.0) pH Units Ur Specific [place] 1.010 (1.010-1.025) Urine Protein Negative (Neg-Trace) mg/dL Urine Glucose (UA) 100 H (Normal) mg/dL Urine Ketones Negative (Negative) mg/dL Urine Blood Negative (Negative) Urine Nitrite Negative (Negative) Urine Bilirubin Negative (Negative) Urine Urobilinogen Normal (Normal) mg/dL Ur Leukocyte Esterase Moderate H (Negative) Nasal Screen MRSA (PCR) Negative (Negative) - Impressions Impressions KUB X-Ray 12/14/17 13:38 IMPRESSION: Nonspecific bowel gas pattern without definite acute abnormality identified. D/ / 12/14/2017 15:19:05 Truman Anand MD / [facility] Interpreting Provider: Truman Anand MD Exam - Constitutional Vitals: Temp Pulse Resp BP Pulse Ox 97.7 F 81 16 141/63 94 12/15/17 08:06 12/15/17 08:06 12/15/17 08:06 12/15/17 08:06 12/15/17 08:06 General appearance: cooperative, no acute distress, obese - Head Head exam: Present: atraumatic, normal inspection, normocephalic - Eye Eye exam: Present: EOMI, normal appearance, PERRL Pupils: Present: normal accommodation - ENT ENT exam: Present: mucous membranes moist - Neck Neck exam: Present: normal inspection - Respiratory Respiratory exam: Present: CTAB. Absent: rales, respiratory distress, rhonchi, wheezes - Cardiovascular Cardiovascular exam: Present: RRR, +S1, +S2 - GI/Abdominal GI/Abdominal exam: Present: distended, firm, normal bowel sounds, tenderness ( generalized) - Extremities Exam Extremities exam: Present: normal inspection. Absent: joint swelling, pedal edema, tenderness - Neurological Exam Neurological exam: Present: alert, oriented X3, no focal deficits - Psychiatric Psychiatric exam: Present: normal affect, normal mood - Skin Skin exam: Present: dry, intact, normal color, warm Consult Discharge Plan - Plan Referrals: Jonna Mcdermott, PLASTER CASTER [Primary Care Provider] - - Attending Attestation I examined this patient and my medical decision-making was reviewed with the Resident Physician. I agree with the documented findings, disposition and treatment plan as described except to the extent set forth below.
[2017-12-15] MEDS: Micafungin 100 MG in 0.9 % Sodium Chloride Mini Bag 100 ML IVPB SCH (09:01)
[2017-12-15] MEDS: Insulin DETEMIR 100 UNIT/ML X5UNITS SQ SCH ×2 (10:26→21:56)
--- NOTE | 2017-12-15 11:33 | Gastroenterology Consult Note ---
<AlexiaTerry Angie - Last Filed: 12/15/17 11:30> Date of Encounter: 12/15/17 Time of Encounter: 11:05 - Assessment and plan (1) Abdominal distension Current Visit: Yes Status: Acute Assessment and plan: KUB with nonspecific bowel gas pattern and no acute abnormalities. 1.) Avoid chewing gum or sucking on hard candies (especially sugarless gum or dietetic candies that contain sorbitol). 2.) Eliminate carbonated beverages and reduce foods containing high-fructose corn syrup from your diet. 3.) Avoid milk and milk products, such as soft cheeses 4.) Eat less gas-producing foods such as: Vegetables: brussel sprouts, broccoli, bagels, bananas, cabbage, cauliflower, cucumbers,carrots, celery and onion. Or when eating such foods, you may consider trying ylit-[id number] gas relief medicines, which may help breakdown the non-absorbable carbohydrates found in these foods. 5.) Exercise helps to stimulate the passage of gas through the digestive tract, consider walking. 6.) Consider trying mpio-kbl-ismheve gas relief medicines such as Activated charcoal one tablet with meals or Beano 1-2 tablets or 5-10 drops with meals or Gas-X 1 tablet three times a day with meals or bismuth subsalicylate 524 mg three times a day with meals as needed. (2) Gastroparesis Current Visit: Yes Status: Acute Assessment and plan: Possible gastroparesis. Last EGD with food residue in stomach. 1. Small frequent meals 2. Avoid fried and fatty foods 3. Chew food well 4. Blenderize food when symptomatic 5. Reduce or avoid high-fiber foods and medications 6. Avoid raw vegetables 7. If you have diabetes, keep blood sugars well controlled 8. Avoid medications that can delay gastric emptying such as narcotics, high- fiber medications, and high-fiber foods - Time Spent With Patient Total time spent is greater than 50% in coordination of care (as documented) at patient's floor/unit and/or counseling patient: GI History of Present Illness - Data of Consult Consult date: 12/15/17 Requesting Physician: Karla Lopez - Consult Narrative Reason for consult: Abdominal pain, distention History of present illness: Ms. Corbin is a 72 year old female with PMHx of asthma, CHF, CD, CVA, DM, fibromyalgia, GERD, HLD, HTN, NM CKD 4, remote history of lung cancer, who presented to the ED with c/o SOB, hest pain secondary to productive cough, nausea, vomiting, and diarrhea multiple times per day for 1 week. She met sepsis criteria and ID was consulted. GI was consulted due to complaints of RUQ and epigastric pain as well abdominal distention and nausea. KUB with nonspecific bowel gas pattern and no acute abnormalities. Patient started to report constipation yesterday, and Bentyl was DC'd. Procedures: EGD 01/07/2015 Dr. Magdaleno: Small to medium amount of food residue in stomach. Colonoscopy 11/10/2011 Dr. Magdaleno: Normal NSAIDs: None Anticoagulation: None Past Med Surg Social Fam HX - Past Medical History Medical history: asthma, cancer (Lung Cancer), CHF, coronary artery disease, CVA , diabetes, fibromyalgia, GERD, hyperlipidemia, hypertension, myocardial infarction, osteoporosis, renal disease, syncope, other Additional medical history: CHRONIC BACK/KNEE PAIN Psychiatric history: anxiety, bipolar, depression - Past Surgical History Surgical History: angioplasty/stent, appendectomy, cancer surgery, cholecystectomy, hysterectomy, orthopedic, other Additional surgical history: 6 stents. - Social History Smoking Status: Former smoker Smokeless Tobacco Status: No Alcohol use: none Drug use: none - Family History Mother Living Status: Sister Living Status: Hx Family Cardiac Disorders: Yes Hx Family Respiratory Disorders: Yes (Lung cancer) Brother Adopted: No Family Member Ethnicity: Non- Living Status: Still Living Hx Family Cardiac Disorders: Yes Hx Family Respiratory Disorders: Yes Hx Family Cancer: Yes Hx Family GI Disorders: No Hx Family Endocrine Disorder: No Hx Family Neuromuscular Disorders: No Hx Family Neurologic Disorders: No Hx Family HEENT Disorders: No Hx Family Autoimmune Disorders: No Father Adopted: No Family Member Ethnicity: Non- Living Status: Hx Family Cardiac Disorders: Yes Hx Family Respiratory Disorders: No Hx Family Cancer: No Hx Family GI Disorders: No Hx Family Endocrine Disorder: No Hx Family Neuromuscular Disorders: No Hx Family Neurologic Disorders: No Hx Family HEENT Disorders: No Hx Family Autoimmune Disorders: No - Gastrointestinal Gastrointestinal: Present: as per HPI - Constitutional Constitutional: as per HPI - EENT Eyes: as per HPI Ears: Present: as per HPI Nose, mouth and throat: Present: as per HPI - Cardiovascular Cardiovascular ROS: Present: as per HPI - Respiratory Respiratory IM: Present: as per HPI - Genitourinary Genitourinary: Absent: change in color, Urinary frequency - Neurological ROS Neurological GI: Present: as per HPI - Hematologic/Lymphatic Hematologic/Lymphatic pediatric: Present: as per HPI - Musculoskeletal Musculoskeletal ROS GI: Present: as per HPI - Integumentary Integumentary GI: Present: as per HPI - Psychiatric ROS Psychiatric GI: Present: as per HPI - Endocrine Endocrine IM: Present: as per HPI - Constitutional Vitals: Temp Pulse Resp BP Pulse Ox 97.7 F 81 16 141/63 94 12/15/17 08:06 12/15/17 08:06 12/15/17 08:06 12/15/17 08:06 12/15/17 08:06 General appearance: Present: cooperative, A&O X 3, no acute distress, answers questions appropriately - Head Head exam: Present: atraumatic, normocephalic - Eye Eye exam: Present: normal appearance, sclera anicteric - ENT ENT exam: Present: mucous membranes dry - Neck Neck exam general surgery: Present: normal inspection, trachea midline - Respiratory Respiratory exam: Present: CTAB. Absent: rales, rhonchi - Cardiovascular Cardiovascular exam: Present: RRR, +S1, +S2 - GI/Abdominal GI/Abdominal exam: Present: distended, soft, no peritoneal signs. Absent: firm , guarding, tenderness - Rectal Rectal exam: Present: deferred - Extremities Exam Extremities exam: Present: warm - Neurological Exam Neurological exam: Present: no focal deficits - Psychiatric Psychiatric exam: Present: normal affect, normal mood - Skin Skin exam: Present: dry, intact, normal color, warm Results - Labs CBC & Chem 7: 12/15/17 06:06 12/15/17 06:06 Labs: Last Result Calcium 10.8 mg/dL (8.6-10.3) H 12/15/17 06:06 Troponin I 0.03 ng/mL (< 0.04) 12/06/17 05:56 Entire Visit Hgb 11.6 g/dL (11.5-15.4) 12/15/17 06:06 Hct 35.7 % (35.3-44.9) 12/15/17 06:06 PT 13.4 Seconds (9.4-12.1) H 12/08/17 03:50 Total Bilirubin 0.4 mg/dL (0.3-1.0) 12/13/17 13:01 AST 12 Units/L (13-39) L 12/13/17 13:01 ALT 12 Units/L (7-52) 12/13/17 13:01 Amylase 21 Units/L (29-103) L 12/13/17 13:01 Lipase 22 Units/L (11-82) 12/13/17 13:01 - ABG ABG results: PT/INR, D-dimer PT 13.4 Seconds (9.4-12.1) H 12/08/17 03:50 - Impressions Impressions KUB X-Ray 12/14/17 13:38 IMPRESSION: Nonspecific bowel gas pattern without definite acute abnormality identified. D/ / 12/14/2017 15:19:05 Truman Anand MD / [facility] Interpreting Provider: Truman Anand MD Consult Discharge Plan - Plan Referrals: Jonna Mcdermott, LEGAL FINANCIAL SPECIALIST [Primary Care Provider] - <Pj Pena - Last Filed: 12/15/17 12:36> Date of Encounter: 12/15/17 - Time Spent With Patient Total time spent is greater than 50% in coordination of care (as documented) at patient's floor/unit and/or counseling patient: GI History of Present Illness - Data of Consult Requesting Physician: Kalra Lopez - Consult Narrative History of present illness: Ms. Corbin is a 72 year old female - Constitutional Vitals: Temp Pulse Resp BP Pulse Ox 98.8 F 76 16 123/73 94 12/15/17 12:00 12/15/17 12:00 12/15/17 12:01 12/15/17 12:00 12/15/17 12:01 Results - Labs CBC & Chem 7: 12/15/17 06:06 12/15/17 06:06 Labs: Last Result Calcium 10.8 mg/dL (8.6-10.3) H 12/15/17 06:06 Troponin I 0.03 ng/mL (< 0.04) 12/06/17 05:56 Entire Visit Hgb 11.6 g/dL (11.5-15.4) 12/15/17 06:06 Hct 35.7 % (35.3-44.9) 12/15/17 06:06 PT 13.4 Seconds (9.4-12.1) H 12/08/17 03:50 Total Bilirubin 0.4 mg/dL (0.3-1.0) 12/13/17 13:01 AST 12 Units/L (13-39) L 12/13/17 13:01 ALT 12 Units/L (7-52) 12/13/17 13:01 Amylase 21 Units/L (29-103) L 12/13/17 13:01 Lipase 22 Units/L (11-82) 12/13/17 13:01 - ABG ABG results: PT/INR, D-dimer PT 13.4 Seconds (9.4-12.1) H 12/08/17 03:50 - Impressions Impressions KUB X-Ray 12/14/17 13:38 IMPRESSION: Nonspecific bowel gas pattern without definite acute abnormality identified. D/ / 12/14/2017 15:19:05 [facility] Provider: Truman Anand MD - Attending Attestation I have personally performed a face to face evaluation on this patient. I have reviewed and agree with the care plan. History and Exam by me shows:
--- NOTE | 2017-12-15 14:58 | Internal Med Progress Note ---
Hospitalist Progress Note - Encounter Date of Encounter: 12/15/17 Time of Encounter: 14:58 - Subjective Interval History: Patient complains of abdominal distension not really changed since yesterday. - Exam Vitals: Temp Pulse Resp BP Pulse Ox 98.8 F 76 16 123/73 94 12/15/17 12:00 12/15/17 12:00 12/15/17 12:01 12/15/17 12:00 12/15/17 12:01 Exam: General: awake, alert, appears stated age Cardiovascular:regular rate and rhythm, normal S1 & S2, no murmurs appreciated No JVD. no lower extremity edema Lungs:Normal breath sounds, no wheezes, no rales Abdomen:Soft, non-tender, + distension Neurological: AAOx3 Skin:Normal color, no rash, no pallor - Assessment and Plan (1) Sepsis Current Visit: No Status: Resolved Assessment and Plan: Patient met sepsis criteria with leukocytosis 14.4, tachycardia heart rate 144, and tachypnea respiratory rate 24. Treated empirically by previous provider for HAP Correction to prior documentation of no blood cultures received: bl cx obtained 12/05 at [facility] sputum cx not collected as pt without sputum, legionella and strep ag neg No UA was ever obtained on admit by previous provider, pt without any symptoms CXR no acute findings CT chest showed stable changes post lung Ca and no clear consolidation/pna Empiric antibiotics with IV Zosyn for suspected HAP started on admit 12/07 d/w pharmacy--changed to augmentin to complete course for possible pna given sepsis picture on admit leukocytosis resolved, afebrile -12/11 received call from micro lab that [facility] bl cx from 12/05 resulted today 1 set + yeast, no species identified as of yet -consulted ID and discussed - is treated empirically with Micafungin 100 mg IV daily and cont to monitor--ID agrees this is odd that 6 days later yeast would result one set + and pt clinically improved, but risk vs benefit will treat as such until proven otherwise. -12/11 bl cxs ngtd -UA cloudy with glucose and mod LE, neg nitrites -12/11 ucx no growth ID following, recommendations apprecaited. (2) Abdominal distension Current Visit: Yes Status: Acute Assessment and Plan: Patient has history of constipation. KUB showed non-spec gas pattern.. DC [facility] consulted, recs appreciated Gas X was added. (3) Essential hypertension Current Visit: Yes Status: Chronic Assessment and Plan: uncontrolled at times and history of wildly fluctuating BPs in past BP dropped below goal with changes made 12/09, Improved control this admission -uptitrated coreg and lisinopril this admission -prn hydralazine -12/10 decrease dosing of coreg and acei close monitoring of her very labile bp -12/11 cont low normotensive to hypotensive BP--hold am meds, NS 500 cc bolus and improvement to 130s/90s, cont to monitor re evening med doses and treatment of possible fungemia as above, was having dizziness with low bps, orthostat neg and no focal deficits on neuro exam -12/12 Bp stable with coreg 12.5 mg bid, will cont to mnoitor, hold acei for creat increaseand bps first started to get very low when it was added on -norvasc added and thus far good effect BP stable Continue Norvasc, Coreg. IV Hydralazine as prn. (4) Hyperlipidemia Current Visit: Yes Status: Chronic Assessment and Plan: Continue statin (5) CAD (coronary artery disease) Current Visit: Yes Status: Chronic Assessment and Plan: Patient has [address] -has been evaluated by cards and stable from cardiac standpoint -july outpt -cont asa, statin, coreg, prn nitro, ranexa, holding acei as became hypotensive on it and she had leland with it -added norvasc this admit (6) Type 2 diabetes mellitus Current Visit: Yes Status: Chronic Assessment and Plan: Hemoglobin A1c 9.6, Hyperglycemia this admission, labile bs Continue SSI and Accu-Checks Levemir up titrated this admission ADA diet resume home gabapentin, reglan will require pcp follow up (7) Chest pain Current Visit: Yes Status: Resolved Assessment and Plan: Patient with acute onset pleuritic chest pain, history of CAD and 6 cardiac stents and now confirmed chronic pulm artery thrombus; ACS ruled out by Cards, Pain Possibly related to possible pna and PE and chronic chest pain with CAD on ranexa CTA showed eccentric chronic appearing thrombus within the right distal main pulmonary artery without any evidence of acute pulmonary artery embolism. EKGs reveals sinus tachycardia with T-wave abnormality, repeat EKG shows no acute changes -Heme consult regarding rec for AC with chronic thrombus on CTA as above -Cardiology consulted with recommendations for echocardiogram which showed preserved LVEF with atypical septal motion consistent with bundle branch block Recommendations to start beta chiquis - cards has signed off and she may fu outpt -Continue aspirin + statin and BB, ranexa -Bp has been very difficult to control- but currently stable. (8) Weakness Current Visit: Yes Status: Acute Assessment and Plan: Patient usually walks with a walker but has not been able to get out of bed for several days secondary to weakness from deconditioning, no focal deficits PT/OT consulted-rec for ecf on dc (9) Elevated troponin Current Visit: No Status: Acute Assessment and Plan: Patient transferred from [facility] secondary to possible NSTEMI Initial troponin level 0.06, repeat troponins are negative EKGs reveals sinus tachycardia with T-wave abnormality, repeat EKG shows no acute changes Cardiology followed with recommendations as above (10) Healthcare-associated pneumonia Current Visit: Yes Status: Acute Assessment and Plan: Patient with leukocytosis, subjective fever, productive cough, shortness of breath, and multiple recent hospital visits. Possible Pna, organism unknown CXR reveals no evidence of acute cardiopulmonary disease. Urine Legionella and strep pneumo antigens are negative Was emperically treated with Zosyn, was then de escalated to Augmentin. Augmentin was DC after 8 days treatment. 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 There is no evidence of acute pulmonary artery embolism -previously on AC in past per pt? though denies hx of any clots -Dopplers bl le neg Hematology was consulted, patient placed on Eliquis BID, plan for 3 months of treatment. (13) Anemia Current Visit: Yes Status: Resolved Assessment and Plan: hgb is stable at 11-12.1 (14) Fungemia Current Visit: Yes Status: Acute Assessment and Plan: 1/2 bl cx + yeast reported from [facility] on 12/11 as -treatment plan and work up as above -ID following, recommendations appreciated - Continue micafungin (15) DVT prophylaxis Current Visit: No Status: Acute Assessment and Plan: Currently on Eliquis - Time Spent with Patient Total time spent is greater than 50% in coordination of care (as documented) at patient's floor/unit and/or counseling patient: Internal Medicine: Result - Labs CBC & Chem 7: 12/15/17 06:06 12/15/17 06:06 Labs: Short CBC 12/15/17 Range/Units 06:06 WBC 10.6 (4.3-11.1) K/mcL Hgb 11.6 (11.5-15.4) g/dL Hct 35.7 (35.3-44.9) % Plt Count 276 (140-400) K/mcL Neutrophils # 7.5 (1.6-8.9) K/mcL BMP 12/15/17 06:06 Sodium 129 L Potassium 5.1 Chloride 99 Carbon Dioxide 23 BUN 25 H Creatinine 1.34 H Glucose 145 H Calcium 10.8 H - ABG Interpretation ABG results: PT/INR, D-dimer PT 13.4 Seconds (9.4-12.1) H 12/08/17 03:50 - Impressions Impressions KUB X-Ray 12/14/17 13:38 IMPRESSION: Nonspecific bowel gas pattern without definite acute abnormality identified. D/ / 12/14/2017 15:19:05 Truman Anand MD / adan Interpreting Provider: Truman Anand MD Consult Discharge Plan - Plan Referrals: Jonna Mcdermott, LABORATORY EQUIPMENT INSTALLER [Primary Care Provider] - (1) Sepsis Qualifiers: Sepsis type: sepsis due to unspecified organism Qualified Code(s): A41.9 - Sepsis, unspecified organism (4) Hyperlipidemia Qualifiers: Hyperlipidemia type: mixed hyperlipidemia Qualified Code(s): E78.2 - Mixed hyperlipidemia (5) CAD (coronary artery disease) Qualifiers: Coronary Disease-Associated Artery/Lesion type: [place] artery [place] vs. transplanted heart: [place] heart Associated angina: without angina Qualified Code(s): I25.10 - Atherosclerotic heart disease of [place] coronary artery without angina pectoris (6) Type 2 diabetes mellitus Qualifiers: Diabetes mellitus longterm insulin use: with overnight stocker use Diabetes mellitus complication status: with kidney complications Diabetes mellitus complication detail: with chronic kidney disease Chronic kidney disease stage: stage 3 (moderate) Qualified Code(s): E11.22 - Type 2 diabetes mellitus with diabetic chronic kidney disease; N18.3 - Chronic kidney disease, stage 3 ( moderate); Z79.4 - filterer (current) use of insulin (7) Chest pain Qualifiers: Chest pain type: unspecified Qualified Code(s): R07.9 - Chest pain, unspecified (13) Anemia Qualifiers: Anemia type: unspecified type Qualified Code(s): D64.9 - Anemia, unspecified
[2017-12-15] MEDS: Acetaminophen 325 MG TABLET PO PRN (15:38)
[2017-12-15] MEDS ORDERED: Simethicone 80 MG TAB.CHEW PO SCH (16:30)
--- NOTE | 2017-12-15 17:24 | Discharge Summary ---
- NOTES TO OUTPATIENT PROVIDER Notes to Outpatient Provider: - Will hold Eliquis for NeuroSurgery to evaluate. - Recommend ID consult to continue management of sepsis and fungemia, maybe Optho eval. - Follow-up hyponatremia. Orders not resulted at time of discharge: Pending orders 12/05/17 22:59 Culture,Sputum with Gram Stain [RM] Routine 12/05/17 23:06 Culture,Blood [BC] Stat 12/11/17 11:11 Culture,Blood [BC] Stat 12/16/17 04:00 BMP [Basic Metabolic Panel] AM 0400 Complete Blood Count [HEME] AM 0400 12/17/17 04:00 BMP [Basic Metabolic Panel] AM 0400 Complete Blood Count [HEME] AM 0400 Date of Encounter: 12/15/17 Time of Encounter: 17:21 - Discharge Diagnosis (1) Sepsis Priority: Primary Status: Resolved Qualifiers: Sepsis type: sepsis due to unspecified organism Qualified Code(s): A41.9 - Sepsis, unspecified organism (2) Midline shift of brain Priority: Secondary Status: Acute (3) Abdominal distension Priority: Secondary Status: Acute (4) Essential hypertension Priority: Secondary Status: Chronic (5) Hyperlipidemia Priority: Secondary Status: Chronic Qualifiers: Hyperlipidemia type: mixed hyperlipidemia Qualified Code(s): E78.2 - Mixed hyperlipidemia (6) CAD (coronary artery disease) Priority: Secondary Status: Chronic Assessment and Plan: Patient has [address] -has been evaluated by cards and stable from cardiac standpoint -july fu outpt -cont asa, statin, coreg, prn nitro, ranexa, holding acei as became hypotensive on it and she had leland with it -added norvasc this admit Qualifiers: Coronary Disease-Associated Artery/Lesion type: [place] artery [place] vs. transplanted heart: [place] heart Associated angina: without angina Qualified Code(s): I25.10 - Atherosclerotic heart disease of [place] coronary artery without angina pectoris (7) Type 2 diabetes mellitus Priority: Secondary Status: Chronic Assessment and Plan: Hemoglobin A1c 9.6, Hyperglycemia this admission, labile bs Continue SSI and Accu-Checks Levemir up titrated this admission ADA diet resume home gabapentin, reglan will require pcp follow up Qualifiers: Diabetes mellitus cart attendant insulin use: with fpc use Diabetes mellitus complication status: with kidney complications Diabetes mellitus complication detail: with chronic kidney disease Chronic kidney disease stage : stage 3 (moderate) Qualified Code(s): E11.22 - Type 2 diabetes mellitus with diabetic chronic kidney disease; N18.3 - Chronic kidney disease, stage 3 ( moderate); Z79.4 - [facility] (current) use of insulin (8) Chest pain Priority: Secondary Status: Resolved Qualifiers: Chest pain type: unspecified Qualified Code(s): R07.9 - Chest pain, unspecified (9) Weakness Priority: Secondary Status: Acute (10) Elevated troponin Priority: Secondary Status: Acute (11) Healthcare-associated pneumonia Priority: Secondary Status: Acute (12) Obesity (BMI 30-39.9) Priority: Secondary Status: Chronic (13) Pulmonary artery thrombosis Priority: Secondary Status: Chronic (14) Anemia Priority: Secondary Status: Resolved Qualifiers: Anemia type: unspecified type Qualified Code(s): D64.9 - Anemia, unspecified (15) Fungemia Priority: Secondary Status: Acute (16) Cerebellar mass Priority: Secondary Status: Acute (17) DVT prophylaxis Priority: Secondary Status: Acute Hospital course: Ms. Corbin is a 72 year old female with a past medical history of DM type 2, hypertension, hyperlipidemia, COPD, CKD 4, CVA without residual deficits, remote lung cancer, and multiple recent ER visits who presented complaining of shortness of breath, pleuritic chest pain, nausea, vomiting, and diarrhea multiple times per day for the past 1 week. Patient was transferred from [facility] to rule out possible NSTEMI. She reports associated subjective fever , chills and recent immobilization secondary to weakness. On admission, she met sepsis criteria with leukocytosis 14.4, tachycardia heart rate 144, and tachypnea respiratory rate 24. Blood cultures 2 were collected and she was started on empiric Cipro and Flagyl. CT abdomen pelvis was performed which showed no acute intra-abdominal abnormality. Initial troponin level was elevated at 0.06 and EKG revealed no acute changes from previous EKGs. Cardiology was consulted for chest pain and elevated troponin, and a repeat echo was done and showed no segmental wall abnormalities. No further Cardiac workup was warranted. A CTA chest was done and was negative for pulmonary embolism but did show pulmonary artery thrombosis. Hematology was consulted and she was placed on Eliquis. In regards to sepsis, she was treated for a suspected HAP with Augmentin for 8 days. On 12/11/17, the hospitalist taking care of the patient received a call that the [place] ED blood cultures (on 12/05/17) came back positive with 1 set of yeast. ID was then consulted. She has been treated with micofungin. Repeat cultures taken here have been no growth to date. She also had some episodes of abdominal distension and a KUB showed non-specific bowel gas pattern and so GI advised for continued treatment of diabetic gastroparesis. Patient was to work with PT/OT today but she was not able to participate because of dizziness and headache. She was having some somnolence as well. She had no focal deficits. 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 There was noted hydrocephalus that is worsened from this. [facility] was contacted and Dr. Chico Caceres has accepted patient. Last dose of Eliquis was given this AM. - Time Spent with Patient Total time spent providing and/or coordinating discharge services: - Discharge Medications Home Medications: Ergocalciferol (VITAMIN D2) [Vitamin D2] 50,000 unit PO QWEEK 11/23/17 [History] Gabapentin [Neurontin] 400 mg PO TID 11/23/17 [History] Lisinopril [Zestril] 20 mg PO DAILY 11/23/17 [History] Montelukast [Singulair] 10 mg PO HS 11/23/17 [History] Ranitidine HCl [Zantac] 300 mg PO HS 11/23/17 [History] Ranolazine [Ranexa] 1,000 mg PO BID 11/23/17 [History] Atorvastatin Calcium 80 mg PO HS 12/06/17 [History] Doxepin HCl 50 mg PO HS 12/06/17 [History] Metoclopramide [Reglan] 5 mg PO Q8H 12/06/17 [History] Artificial Tears SOLN [Akwa Tears] 1 drop BOTH EYES QID PRN bottle 12/15/17 [Rx ] Carvedilol [Coreg] 12.5 mg PO BIDWM tablet 12/15/17 [Rx] Insulin DETEMIR [Levemir] 30 unit SQ BID [id number] 12/15/17 [Rx] Insulin LISPRO [HumaLOG] 0 units SQ HS vial 12/15/17 [Rx] Insulin LISPRO [HumaLOG] 0 units SQ TIDAC vial 12/15/17 [Rx] Ipratropium/Albuterol Neb [Duoneb] 3 ml IH [id number] inhsol 12/15/17 [Rx] Omeprazole [PriLOSEC] 20 mg PO DAILY@0730 capsule. 12/15/17 [Rx] Ondansetron [Zofran] 4 mg IVP Q6HR PRN vial 12/15/17 [Rx] Simethicone [Gas-X] 80 mg PO TIDAC tab.chew 12/15/17 [Rx] amLODIPine [Norvasc] 5 mg PO DAILY tablet 12/15/17 [Rx] hydrALAZINE [HydrALAZINE] 10 mg IVP Q8H PRN vial 12/15/17 [Rx] Allergies/Adverse Reactions: 3 Allergy/AdvReac Type Severity Reaction Status Date / Time Iodinated Contrast- Oral and Allergy Rash Verified 12/01/17 12:39 IV Dye iron Allergy Hives Verified 12/01/17 12:39 [place] Allergy Nausea Verified 12/01/17 12:39 Sulfa (Sulfonamide Allergy Hives Verified 12/01/17 12:39 Antibiotics) Date of admission: 12/06/17 09:55 Primary care physician: Jonna Mcdermott CNP Consults: 12/05/17 23:00 Consult to Nurse Navigator [CONS] Routine Comment: 12/05/17 23:22 Consult to Physical Therapy [CONS] Routine Comment: Evaluate, develop and implement POC Reason for Consult: weakness Does patient have active BEDREST order?: No Is patient medically & hemodynamically stable?: Yes Patient assessed for mobility or mobilized this visit?: No OT [Consult to Occupational Therapy] [CONS] Routine Comment: Evaluate, develop and implement POC Reason for Consult: weakness Does patient have active BEDREST order?: No Is patient medically & hemodynamically stable?: Yes Patient assessed for mobility or mobilized this visit?: No 12/06/17 11:00 Consult to Cardiology [CONS] Routine Comment: Consulting Provider: Cardiology Kaitlyn Reason for Consult: chest pain, NSTEMI diagnosis, Dr. minor to call Call Completed: No 12/07/17 10:16 Consult to Oncology Hematology [CONS] Routine Consulting Provider: Karla Lopez Reason for Consult: symptomatic chronic pulm artery thrombus, eval for AC recommendations please given past med hx, appears to ahve been on AC previously and stopped Call Completed: Yes 12/11/17 11:16 Consult to Infectious Diseases [CONS] Routine Consulting Provider: [facility] [place] Reason for Consult: bl cx from 12/05 now resulted yeast, please assist with further w/u and tx Call Completed: Yes 12/14/17 15:14 Consult to Gastroenterology [CONS] Routine Consulting Provider: Gastroenterology Kaitlyn Reason for Consult: abdominal pain, distension. Call Completed: Yes 12/15/17 14:38 Consult to Physician [CONS] Routine Consulting Provider: Jean Bruce Reason for Consult: Candidemia Call Completed: Yes Discharging clinician: Piper Cole - Constitutional Vitals: Temp Pulse Resp BP Pulse Ox 98.8 F 76 16 123/73 94 12/15/17 12:00 12/15/17 12:00 12/15/17 16:10 12/15/17 12:00 12/15/17 16:10 General appearance: Present: cooperative, pleasant, no acute distress, obese, answers questions appropriately Exam: General: awake, alert, appears stated age, appears in general discomfort. Cardiovascular:regular rate and rhythm, normal S1 & S2, no murmurs appreciated No JVD. no lower extremity edema Lungs:Normal breath sounds, no wheezes, no rales Abdomen:Soft, non-tender, + distension Neurological: AAOx3, CN II-XII in tact. Gait cannot be assessed Skin:Normal color, no rash, no pallor - Patient Status Disposition: Transfer Other Condition: Undetermined Functional capacity at discharge: wheelchair bound Overall status at discharge: patient is not back to baseline - Discharge Instructions Follow Up With: Jonna Mcdermott CNP [Primary Care Provider] - - Diet and Activity Activity: as per physical therapy Diet: other (NPO)
--- NOTE | 2017-12-15 19:49 | Internal Medicine Consult Note ---
Date of Encounter: 12/16/17 Time of Encounter: 19:12 Internal Medicine - CN: HPI - Data of Consult Consult date: 12/15/17 Requesting Physician: Karla Lopez Consulation was requested due to the presence of candidemia. Patient reports good vision with her eyeglasses on and good comfort in her eyes. She reports that her left upper eyelid "droops". Examination reveals near equivalent Snellen visual acuity of 20/100 in the right eye and 20/200 in the left eye without correction. External examination was unremarkable. The pupils were round and equal and sluggish in response to light and no relative afferent defects were noted. Ocular motility testing revealed limited excursions and no restrictions for both eyes. Confrontation visual shah were unremarkable in both eyes. The slit lamp examination revealed normal eyelids, the Both conjunctiva was normal and the cornea was clear and normal in both eyes. The anterior chamber was grade 3 in depth and clear in both eyes. The iris was normal in both eyes. A posterior chamber intraocular lens implant was noted in both eyes. The intraocular pressure was 10 mm Hg in the right eye and 14 mm Hg in the left eye via applanation at 6:45 PM. Both eyes were dilated with tropicamide 1% and phenylephrine 2 1/2% drops. Following dilation of the pupils, further examination revealed posterior chamber intraocular lens implants in both eyes. The posterior capsule was clear in the right eye and there was trace opacification of the posterior lens capsule in the left eye. The vitreous was clear in both eyes. The optic nerve heads were normal in both eyes. A small retinal hemorrhage was noted in both the right eye and the left eye. The optic nerve heads were normal with a cup to disc ratio of 0.35 in each eye. Otherwise , the macula, vessels, posterior pole and retinal periphery was normal in both eyes. Impression: 1. No evidence of endophthalmitis was noted in either eye. 2. Mild nonproliferative diabetic retinopathy was noted in both eyes. 3 Pseudophakia was present in both eyes. Jean Bruce, DO - Consult Narrative History of present illness: Ms. Corbin is a 72 year old female Past Med Surg Social Fam HX - Past Medical History Medical history: asthma, cancer (Lung Cancer), CHF, coronary artery disease, CVA , diabetes, fibromyalgia, GERD, hyperlipidemia, hypertension, myocardial infarction, osteoporosis, renal disease, syncope, other Additional medical history: CHRONIC BACK/KNEE PAIN Psychiatric history: anxiety, bipolar, depression - Past Surgical History Surgical History: angioplasty/stent, appendectomy, cancer surgery, cholecystectomy, hysterectomy, orthopedic, other Additional surgical history: 6 stents. - Social History Smoking Status: Former smoker Smokeless Tobacco Status: No Alcohol use: none Drug use: none - Family History Mother Living Status: Sister Living Status: Hx Family Cardiac Disorders: Yes Hx Family Respiratory Disorders: Yes (Lung cancer) Brother Adopted: No Family Member Ethnicity: Non- Living Status: Still Living Hx Family Cardiac Disorders: Yes Hx Family Respiratory Disorders: Yes Hx Family Cancer: Yes Hx Family GI Disorders: No Hx Family Endocrine Disorder: No Hx Family Neuromuscular Disorders: No Hx Family Neurologic Disorders: No Hx Family HEENT Disorders: No Hx Family Autoimmune Disorders: No Father Adopted: No Family Member Ethnicity: Non- Living Status: Hx Family Cardiac Disorders: Yes Hx Family Respiratory Disorders: No Hx Family Cancer: No Hx Family GI Disorders: No Hx Family Endocrine Disorder: No Hx Family Neuromuscular Disorders: No Hx Family Neurologic Disorders: No Hx Family HEENT Disorders: No Hx Family Autoimmune Disorders: No Internal Medicine - CN: Meds Ergocalciferol (VITAMIN D2) [Vitamin D2] 50,000 unit PO QWEEK 11/23/17 [History] Gabapentin [Neurontin] 400 mg PO TID 11/23/17 [History] Lisinopril [Zestril] 20 mg PO DAILY 11/23/17 [History] Montelukast [Singulair] 10 mg PO HS 11/23/17 [History] Ranitidine HCl [Zantac] 300 mg PO HS 11/23/17 [History] Ranolazine [Ranexa] 1,000 mg PO BID 11/23/17 [History] Atorvastatin Calcium 80 mg PO HS 12/06/17 [History] Doxepin HCl 50 mg PO HS 12/06/17 [History] Metoclopramide [Reglan] 5 mg PO Q8H 12/06/17 [History] Artificial Tears SOLN [Akwa Tears] 1 drop BOTH EYES QID PRN bottle 12/15/17 [Rx ] Carvedilol [Coreg] 12.5 mg PO BIDWM tablet 12/15/17 [Rx] Insulin DETEMIR [Levemir] 30 unit SQ BID [id number] 12/15/17 [Rx] Insulin LISPRO [HumaLOG] 0 units SQ HS vial 12/15/17 [Rx] Insulin LISPRO [HumaLOG] 0 units SQ TIDAC vial 12/15/17 [Rx] Ipratropium/Albuterol Neb [Duoneb] 3 ml IH [id number] inhsol 12/15/17 [Rx] Omeprazole [PriLOSEC] 20 mg PO DAILY@0730 capsule. 12/15/17 [Rx] Ondansetron [Zofran] 4 mg IVP Q6HR PRN vial 12/15/17 [Rx] Simethicone [Gas-X] 80 mg PO TIDAC tab.chew 12/15/17 [Rx] amLODIPine [Norvasc] 5 mg PO DAILY tablet 12/15/17 [Rx] hydrALAZINE [HydrALAZINE] 10 mg IVP Q8H PRN vial 12/15/17 [Rx] 3 Allergy/AdvReac Type Severity Reaction Status Date / Time Iodinated Contrast- Oral and Allergy Rash Verified 12/01/17 12:39 IV Dye iron Allergy Hives Verified 12/01/17 12:39 [place] Allergy Nausea Verified 12/01/17 12:39 Sulfa (Sulfonamide Allergy Hives Verified 12/01/17 12:39 Antibiotics) Internal Med - CN: Exam - Constitutional Vitals: Temp Pulse Resp BP Pulse Ox 98.8 F 76 16 123/73 94 12/15/17 12:00 12/15/17 12:00 12/15/17 16:10 12/15/17 12:00 12/15/17 16:10 Internal Medicine - CN: Reslt - Labs CBC & Chem 7: 12/15/17 06:06 12/15/17 06:06 Labs: Short CBC 12/15/17 Range/Units 06:06 WBC 10.6 (4.3-11.1) K/mcL Hgb 11.6 (11.5-15.4) g/dL Hct 35.7 (35.3-44.9) % Plt Count 276 (140-400) K/mcL Neutrophils # 7.5 (1.6-8.9) K/mcL BMP 12/15/17 06:06 Sodium 129 L Potassium 5.1 Chloride 99 Carbon Dioxide 23 BUN 25 H Creatinine 1.34 H Glucose 145 H Calcium 10.8 H - ABG Interpretation ABG results: PT/INR, D-dimer PT 13.4 Seconds (9.4-12.1) H 12/08/17 03:50 - Impressions Impressions KUB X-Ray 12/14/17 13:38 IMPRESSION: Nonspecific bowel gas pattern without definite acute abnormality identified. D/ / 12/14/2017 15:19:05 Truman Anand MD / earnold Interpreting Provider: Trumna Anand MD Head CT 12/15/17 15:32 IMPRESSION: Significant worsening of the posterior fossa, left cerebellar lesion which currently measures approximately 4.8 x 4.7 cm and creates significant mass effect with midline shift in the posterior fossa and compression of the 4th ventricle. Worsening hydrocephalus noted likely related to this posterior fossa lesion. RECOMMENDATIONS: Brain MRI. D/ / 12/15/2017 16:50:55 Rachana Quezada MD / bcarter Interpreting Provider: Rachana Quezada MD Consult Discharge Plan - Plan Referrals: Jonna Mcdermott, [employer] [Primary Care Provider] -
[2017-12-15 22:12] VITALS: BP 154/83
== END 2017-12-15 22:26 | disposition other institution (70) | DRG 871 ==
LOC: ICNU → SUATTDRO 22:09 → ICNU 22:41 → SUATTDRO 12-06 09:55 → 2NNU 12-08 16:43 → 2SOUTHHOLD 12-14 10:59
PROVIDERS: ADMIT Internal Medicine; ATTEND Internal Medicine

== ENCOUNTER 2018-10-14 15:46 | Inpatient (IN) ==
[2018-10-14] MEDS ORDERED: Naloxone 0.4 MG/ML INJ IVP PRN (22:51)
[2018-10-14] MEDS ORDERED: Dextrose Gel 15 GM/37.5 ML TUBE PO PRN ×2 (22:51)
[2018-10-14] MEDS ORDERED: D5% in Water 1,000 ML IVC PRN (22:51)
[2018-10-14] MEDS ORDERED: *HR* Dextrose 50 % in Water (Syg) 50 ML SYRINGE IVP PRN (22:51)
[2018-10-15] MEDS: Insulin LISPRO 300 UNITS/3 ML VIAL SQ SCH ×5 (00:22→20:51)
--- NOTE | 2018-10-15 03:03 | Internal Med History&Physical ---
Date of Encounter: 10/14/18 Time of Encounter: 20:30 Internal Medicine - H&P: HPI Chief complaint: weakness; falling; transfer from [facility] Admitted From: Hospital to Hospital Transfer Plans for Post Hospital Care: Transfer Detention Facility History of present illness: Ms. Corbin is a 73 year old female who was transferred from [facility] ER for concerns of weakness, falling, and malaise. Patient has an underlying history of lung cancer and brain cancer. She had tumor resection of her brain cancer about [address] scan imaging of the head at the ER in [place] was negative for any acute pathology. She was transferred to [facility] for MRI and further workup per oncology. Upon my assessment of the patient, she confirms the above history. She states that the last 2-3 days she has been bedridden. She is very weak and unable to get herself out of bed. Normally, she is able to ambulate with a walker. She does have an ataxic gait since her brain surgery last fall. However, over the last 3 days, she has been unable to get out of bed without 2 person assist. She denies any focal neurologic deficits, protracted nausea, vomiting, headaches, numbness, weakness, or paralysis. Her ataxic gait has been chronic since her surgery last fall. She denies any confusion, forgetfulness, or hallucinations. She is a little slow to respond cognitively, but she states this is her baseline since her surgery. Past Med Surg Social Fam HX - Past Medical History Attestation: Yes The following information was validated with the patient. Source: patient, old records reviewed Medical history: cancer, CHF, coronary artery disease, CVA, diabetes, fibromyalgia, GERD, hyperlipidemia, hypertension, myocardial infarction, osteoporosis, renal disease, syncope, other Additional medical history: CHRONIC BACK/KNEE PAIN, Brain Cancer, Lung Cancer, Cervical Cancer Psychiatric history: anxiety, bipolar, depression - Past Surgical History Surgical History: angioplasty/stent, appendectomy, cancer surgery, cholecystectomy, hysterectomy Additional surgical history: 6 cardiac stents. - Social History Smoking Status: Former smoker Smokeless Tobacco Status: No Alcohol use: none Drug use: none Current living situation: Home, With Family Activity Level: Uses cane/walker Recent Out of Country Travel Within the Last 8 Weeks: No - Family History Mother Living Status: Sister Living Status: Hx Family Cardiac Disorders: Yes Hx Family Respiratory Disorders: Yes (Lung cancer) Brother Adopted: No Family Member Ethnicity: Non- Living Status: Still Living Hx Family Cardiac Disorders: Yes Hx Family Respiratory Disorders: Yes Hx Family Cancer: Yes Hx Family GI Disorders: No Hx Family Endocrine Disorder: No Hx Family Neuromuscular Disorders: No Hx Family Neurologic Disorders: No Hx Family HEENT Disorders: No Hx Family Autoimmune Disorders: No Father Adopted: No Family Member Ethnicity: Non- Living Status: Hx Family Cardiac Disorders: Yes Hx Family Respiratory Disorders: No Hx Family Cancer: No Hx Family GI Disorders: No Hx Family Endocrine Disorder: No Hx Family Neuromuscular Disorders: No Hx Family Neurologic Disorders: No Hx Family HEENT Disorders: No Hx Family Autoimmune Disorders: No Internal Medicine - H&P: Meds Ergocalciferol (VITAMIN D2) [Vitamin D2] 50,000 unit PO QWEEK 11/23/17 [History] Gabapentin [Neurontin] 400 mg PO TID 11/23/17 [History] Montelukast [Singulair] 10 mg PO HS 11/23/17 [History] Atorvastatin Calcium 80 mg PO HS 12/06/17 [History] Doxepin HCl 50 mg PO HS 12/06/17 [History] Carvedilol [Coreg] 6.25 mg PO BIDWM 01/04/18 [History] Docusate Sodium [Colace] 100 mg PO BID 01/04/18 [History] Famotidine [Heartburn Prevention] 20 mg PO Q12H 01/04/18 [History] Hydroxyzine HCl 5 - 10 mg PO Q12H PRN 01/07/18 [History] Oxycodone HCl [Roxybond] 5 mg PO Q6H PRN 01/07/18 [History] Pantoprazole Sodium [Protonix] 40 mg PO HS 01/07/18 [History] Aspirin [Lo-Dose Aspirin EC] 81 mg PO DAILY 04/19/18 [History] Hydrochlorothiazide [Microzide] 12.5 mg PO DAILY 04/19/18 [History] Morphine Sulfate [Morphine Sulfate ER] 15 mg PO BID 04/19/18 [History] Ascorbic Acid [Vitamin C] 500 mg PO DAILY #30 tablet 07/27/18 [Rx] Ferrous Sulfate 325 mg PO DAILY #30 tablet 07/27/18 [Rx] metFORMIN [Glucophage] 500 mg PO BIDWM #60 tablet 09/12/18 [Rx] Allergy/AdvReac Type Severity Reaction Status Date / Time Iodinated Contrast- Oral and Allergy Rash Verified 10/09/18 21:14 IV Dye iron Allergy Hives Verified 10/09/18 21:14 [place] Allergy Nausea Verified 10/09/18 21:14 Sulfa (Sulfonamide Allergy Hives Verified 10/09/18 21:14 Antibiotics) adhesive tape AdvReac Rash Verified 10/09/18 21:14 - Constitutional Constitutional: fatigue, falls, malaise, weakness, no chills, no fever(s), no night sweats - EENT Eyes: no blurry vision, no change in vision Ears: no ear pain, no tinnitus Nose, mouth and throat: no sinus pressure, no sore throat - Cardiovascular Cardiovascular ROS IM: no chest pain, no dyspnea, no dyspnea on exertion, no orthopnea, no paroxysmal nocturnal dyspnea - Respiratory Respiratory: no cough, no hemoptysis, no chest congestion, no excessive phlegm production, no change in phlegm color - Gastrointestinal Gastrointestinal: no abdominal pain, no diarrhea, no hematemesis, no hematochezia, no melena, no nausea, no vomiting - Genitourinary Genitourinary: no dysuria, no flank pain, no hematuria - Musculoskeletal Musculoskeletal ROS IM: no arthralgias, no back pain - Integumentary Integumentary IM: no rash, no jaundice - Neurological Neurological ROS: abnormal gait, frequent falls, no dizziness, no focal weakness, no headache(s), no numbness, no paresthesias, no tingling - Psychiatric Psychiatric: no anxiety, no depression - Endocrine Endocrine IM: no polydipsia, no polyphagia, no polyuria - Allergic/Immunologic Allergic/Immunologic: no GI upset with certain foods - Constitutional Vitals: Temp Pulse Resp BP Pulse Ox 97.7 F 78 15 147/81 94 10/14/18 23:34 10/14/18 23:34 10/14/18 23:34 10/14/18 23:34 10/14/18 23:34 General appearance: Present: cooperative, A&O X 3, pleasant, no acute distress, answers questions appropriately (slow to respond but appropriate) Exam: see below - Head Head exam: Present: atraumatic, normal inspection - Eye Eye exam: Present: EOMI, PERRL. Absent: scleral icterus Pupils: Present: normal accommodation - ENT ENT exam: Present: mucous membranes dry, normal exam, normal oropharynx - Neck Neck exam general surgery: Present: full ROM, supple, trachea midline. Absent: tenderness, nuchal rigidity, thyromegaly - Respiratory Respiratory exam: Present: CTAB. Absent: chest wall tenderness, rales, rhonchi, wheezes - Cardiovascular Cardiovascular exam: Present: distant heart sounds, +S1, +S2. Absent: diastolic murmur, systolic murmur - GI/Abdominal GI/Abdominal exam: Present: normal bowel sounds, soft. Absent: guarding, hepatomegaly, mass, rebound, splenomegaly, tenderness - Extremities Exam Extremities exam: Present: full ROM, warm, radial pulses palpable and symmetrical. Absent: calf tenderness, joint swelling, pedal edema, tenderness - Back Exam Back exam: Absent: CVA tenderness (L), CVA tenderness (R) - Neurological Exam Neurological exam: Present: alert, oriented X3. Absent: motor sensory deficit Additional comments: slightly abnormal finger to nose testing - Psychiatric Psychiatric exam: Present: normal affect, normal mood - Skin Skin exam: Present: dry, intact, warm Internal Med - H&P Results - Labs Labs: I reviewed the labs from [place] they include the following: WBC 7.8 Hemoglobin 14.0 Hematocrit 41.6 Platelet count 237 Sodium 131 Potassium 4.1 Chloride 93 Carbon dioxide 29 BUN 4 Creatinine 0.9 Glucose 218 Urinalysis suggestive of UTI CT headno acute findings - Assessment and Plan (1) Weakness generalized Current Visit: Yes Status: Acute Assessment and plan: 1. Will consult PT/OT and oncology given findings and underlying brain CA history. 2. MRI brain ordered. 3. Treat UTI as this may exacerbate symptoms. 4. Monitor and correct electrolytes. (2) UTI (urinary tract infection) Current Visit: Yes Status: Acute Assessment and plan: 1. Urine culture obtained at [place]. 2. Continue Rocephin daily and follow cultures. Qualifiers: Urinary tract infection type: acute cystitis Hematuria presence: with hematuria Qualified Code(s): N30.01 - Acute cystitis with hematuria (3) Brain cancer Current Visit: Yes Status: Chronic Assessment and plan: 1. MRI brain as noted above. 2. Consult oncology for guidance. Qualifiers: Malignant neoplasm of brain location: cerebellum Qualified Code(s): C71.6 - Malignant neoplasm of cerebellum (4) DVT prophylaxis Current Visit: Yes Status: Acute Assessment and plan: 1. Heparin SQ.
[2018-10-15] MEDS: *HR* Heparin 5,000 UNIT/ML VIAL SQ SCH ×2 (05:57→17:37)
[2018-10-15 07:08] LABS: Basophils % 0.4 %; Eosinophils # 0.2 K/mcL (0.0-0.6); Eosinophils % 2.4 %; Hemoglobin 13.6 g/dL (11.5-15.4); Immature Granulocytes % 0.1 % (0-4); Lymphocytes # 1.8 K/mcL (0.6-4.6); Lymphocytes % 21.7 %; Mean Corpuscular HGB Conc 33.2 g/dL (31.6-35.5); Mean Corpuscular Hemoglobin 28.2 pg (28.0-33.3); Mean Corpuscular Volume 84.9 fL (83.0-100.0); Monocytes # 0.6 K/mcL (0.0-1.3); Monocytes % 7.2 %; Neutrophils # 5.7 K/mcL (1.6-8.9); Platelet Count 241 K/mcL (140-400); Red Blood Count 4.83 M/mcL (3.82-4.97); Red Cell Distribution Width 13.2 % (11.5-14.5); Segmented Neutrophils % 68.2 %; White Blood Count 8.4 K/mcL (4.3-11.1)
[2018-10-15 07:14] LABS: INR 1.1; Prothrombin Time 12.4 Seconds (9.4-12.1)
[2018-10-15 07:17] LABS: Activated Partial Thrombo Time 32.4 Seconds (26.0-36.0)
[2018-10-15 07:30] LABS: Alanine Aminotransferase 14 Units/L (7-52); Albumin 3.8 g/dL (3.5-5.7); Albumin/Globulin Ratio 1.1 (1.1-2.2); Alkaline Phosphatase 52 Units/L (34-104); Aspartate Amino Transferase 18 Units/L (13-39); BUN/Creatinine Ratio 7 (6-26); Bilirubin,Total 0.6 mg/dL (0.3-1.0); Blood Urea Nitrogen 7 mg/dL (8-23); Calcium 10.1 mg/dL (8.6-10.3); Carbon Dioxide 26 mEq/L (23-29); Chloride 95 mEq/L (98-107); Globulin 3.5 g/dL (2.4-3.5); Glucose 200 mg/dL (70-105); Magnesium 1.8 mg/dL (1.6-2.6); Osmolality,Calculated 278 (280-300); Phosphorous 3.3 mg/dL (2.7-4.5); Potassium 3.8 mEq/L (3.5-5.1); Sodium 132 mEq/L (136-145); Total Protein 7.3 g/dL (6.4-8.9); eGFR For African Americans > 60 (> 60); eGFR For Non-African Americans 54 (> 60)
[2018-10-15] MEDS: cefTRIAXone 1,000 MG in Water for inj. (sterile) 10 ML IVP SCH (08:44)
--- NOTE | 2018-10-15 09:05 | Event Note ---
Date of Encounter: 10/15/18 Time of Encounter: 09:05 Patient seen and examined this morning at bedside. Admitted overnight for weakness. Patient history of metastatic cancer with recent brain metastasis status post surgery. Patient was seen after MRI was done. Had discussed case with oncology. Patient had few falls where she felt weak. Has suprapubic pain with UA suggestive of UTI. We will continue treatment for it. MRI showed 4 cm stable cystic mass in the left cerebellar hemisphere with focal area of nodular enhancement with suspicion of stable recurrent tumor. We will keep the patient here for now for radiation oncology evaluation on Wednesday. We will hold steroids for now. Currently with only minimal headache on my interview. Has suprapubic discomfort and lower extremity bilateral weakness. We will continue ceftriaxone for UTI in follow-up urine cultures . We will get PT and OT consultation.
--- NOTE | 2018-10-15 10:06 | Oncology Inp Consult Note ---
Date of Encounter: 10/15/18 Time of Encounter: 09:00 Assessment and Plan (1) Brain metastases Status: Acute Assessment and plan: Patient with left cerebellar metastatic disease status post resection in December 2017 at [facility], consistent with metastatic disease from lung cancer, from which she was diagnosed in 2013 which was squamous cell. Patient had CyberKnife treatment to her lung lesions, resection of the cerebellar metastatic disease. She is progressively become weaker, PET scan and MRI showed possible recurrence in the brain at the resection foci, in August. PET imaging was also concerning for metastatic disease in the medial right lower lobe. CT abdomen findings left anterior abdomen? Increased calcified lymphadenopathy compared to December 2017 report from [facility]. [address] head showing encephalomalacia/lt cerebellar region. MRI of brain with contrast to be completed today. If there is evidence of multiple metastatic disease, we will consider palliative brain radiation after consultation with radiation oncology. If there is focal recurrence she is to be referred to [facility] or [place] for additional treatment. Dexamethasone for headaches after MRI brain findings. Possible UTI. On abx. Hyponatremia sec to dehydration. PT/OT for wkness. She has not taken any systemic therapy before. Discussed plan with Dr morton, will await MRI results. - Data of Consult Requesting Physician: Annemarie Ulrich Primary Care Provider: PCP NONE - Consult Narrative Reason for consult: Lung cancer, [place] metastatic disease History of present illness: 73 y.o. female with a history of squamous cell lung cancer, diagnosed in 2013 with 2 lung nodules, T4 she completed CyberKnife treatment to both nodules the right lower lobe nodule measured 3.1 cm in size. She was diagnosed with the left cerebellar metastatic disease in December 2017 status post resection, left posterior fossa craniotomy, at [facility], CT scan of the head that showed a 4.8 x 4.7 cm left cerebellar mass with hydrocephalus, and pathology was consistent with metastatic disease. She also has history of DM, HTN, COPD, CKD stage 4, prior CVA, prior PR with 6 stents, cr PE. She had a PET imaging in August 2018 which showed a metabolically active enlarging nodule in the medial right lower lobe concerning for metastatic disease, focal intense activity in the posterior margin of the left cerebellar resection cavity could be recurrent disease MRI was recommended. Patient was not seen in oncology clinic since July 2018. She underwent an MRI of brain August 2018 that showed increased nodular enhancement along the posterior margin of resection cavity consistent with recurrent/worsening malignancy Patient presented to [place] ED with weakness status post fall times twice at home. Weakness going on for 3 weeks, not able to do much for past 3 days. She also complains of headaches. She denies chest pain or abd pain, nausea or SOB. She lives with her son. Past Med Surg Social Fam HX - Past Medical History Medical history: cancer, CHF, coronary artery disease, CVA, diabetes, fibromyalgia, GERD, hyperlipidemia, hypertension, myocardial infarction, osteoporosis, renal disease, syncope, other Additional medical history: CHRONIC BACK/KNEE PAIN, Brain Cancer, Lung Cancer, Cervical Cancer Psychiatric history: anxiety, bipolar, depression - Past Surgical History Surgical History: angioplasty/stent, appendectomy, cancer surgery, cholecystectomy, hysterectomy Additional surgical history: 6 cardiac stents. - Social History Smoking Status: Former smoker Smokeless Tobacco Status: No Alcohol use: none Drug use: none - Family History Mother Living Status: Sister Living Status: Hx Family Cardiac Disorders: Yes Hx Family Respiratory Disorders: Yes (Lung cancer) Brother Adopted: No Family Member Ethnicity: Non- Living Status: Still Living Hx Family Cardiac Disorders: Yes Hx Family Respiratory Disorders: Yes Hx Family Cancer: Yes Hx Family GI Disorders: No Hx Family Endocrine Disorder: No Hx Family Neuromuscular Disorders: No Hx Family Neurologic Disorders: No Hx Family HEENT Disorders: No Hx Family Autoimmune Disorders: No Father Adopted: No Family Member Ethnicity: Non- Living Status: Hx Family Cardiac Disorders: Yes Hx Family Respiratory Disorders: No Hx Family Cancer: No Hx Family GI Disorders: No Hx Family Endocrine Disorder: No Hx Family Neuromuscular Disorders: No Hx Family Neurologic Disorders: No Hx Family HEENT Disorders: No Hx Family Autoimmune Disorders: No Medications and Allergies Ergocalciferol (VITAMIN D2) [Vitamin D2] 50,000 unit PO QWEEK 11/23/17 [History] Gabapentin [Neurontin] 400 mg PO TID 11/23/17 [History] Montelukast [Singulair] 10 mg PO HS 11/23/17 [History] Atorvastatin Calcium 80 mg PO HS 12/06/17 [History] Doxepin HCl 50 mg PO HS 12/06/17 [History] Carvedilol [Coreg] 6.25 mg PO BIDWM 01/04/18 [History] Docusate Sodium [Colace] 100 mg PO BID 01/04/18 [History] Famotidine [Heartburn Prevention] 20 mg PO Q12H 01/04/18 [History] Hydroxyzine HCl 5 - 10 mg PO Q12H PRN 01/07/18 [History] Oxycodone HCl [Roxybond] 5 mg PO Q6H PRN 01/07/18 [History] Pantoprazole Sodium [Protonix] 40 mg PO HS 01/07/18 [History] Aspirin [Lo-Dose Aspirin EC] 81 mg PO DAILY 04/19/18 [History] Hydrochlorothiazide [Microzide] 12.5 mg PO DAILY 04/19/18 [History] Morphine Sulfate [Morphine Sulfate ER] 15 mg PO BID 04/19/18 [History] Ascorbic Acid [Vitamin C] 500 mg PO DAILY #30 tablet 07/27/18 [Rx] Ferrous Sulfate 325 mg PO DAILY #30 tablet 07/27/18 [Rx] metFORMIN [Glucophage] 500 mg PO BIDWM #60 tablet 09/12/18 [Rx] Allergy/AdvReac Type Severity Reaction Status Date / Time Iodinated Contrast- Oral and Allergy Rash Verified 10/09/18 21:14 IV Dye iron Allergy Hives Verified 10/09/18 21:14 [place] Allergy Nausea Verified 10/09/18 21:14 Sulfa (Sulfonamide Allergy Hives Verified 10/09/18 21:14 Antibiotics) adhesive tape AdvReac Rash Verified 10/09/18 21:14 Constitutional: Present: lethargy Additional comments: denies dysphagia Additional comments: no CP, palpitations Additional comments: denies SOB o cough Additional comments: no change in bowels Additional comments: neck pain and headache Neurological: Present: headache(s) Hematologic/Lymphatic: Present: as per HPI Oncology - Exam - Constitutional General appearance: no acute distress - Head Head exam: Present: atraumatic, normal inspection - Eye Eye exam: Present: sclera anicteric - ENT ENT exam: Present: mucous membranes dry - Neck Neck exam: Present: full ROM - Respiratory Respiratory exam: Present: CTAB - Cardiovascular Cardiovascular exam: Present: +S1, +S2 - GI/Abdominal GI/Abdominal exam: Present: normal bowel sounds, soft - Extremities Exam Extremities exam: Present: normal inspection - Back Exam Additional comments: no tenderness - Neurological Exam Neurological exam: Present: alert, oriented X3 Additional comments: gait not assessed, no facial droop or motor findings or speech difficulty - Psychiatric Psychiatric exam: Present: normal affect Oncology Inpatient Results CT abd. Prior PET/MRI brain reviewed Consult Discharge Plan - Plan Referrals: Jonna Mcdermott CNP [Advanced Practice Nurse] - Inpatient Charges Provider: Dr. Isiah Naidu Consult - Inpatient: [id number]
[2018-10-15 11:41] LABS: Estimated Average Glucose 197 mg/dl
[2018-10-16] MEDS: *HR* Heparin 5,000 UNIT/ML VIAL SQ SCH ×2 (06:06→16:51)
[2018-10-16] MEDS: cefTRIAXone 1,000 MG in Water for inj. (sterile) 10 ML IVP SCH (08:08)
[2018-10-16] MEDS: Insulin LISPRO 300 UNITS/3 ML VIAL SQ SCH ×4 (08:16→21:02)
--- NOTE | 2018-10-16 09:13 | Oncology Inp Progress Note ---
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 Patient had CyberKnife treatment to her lung lesions, resection of the cerebellar metastatic disease. She is progressively become weaker, PET scan and MRI showed possible recurrence in the brain at the resection foci, in August. PET imaging was also concerning for metastatic disease in the medial right lower lobe. CT abdomen findings left anterior abdomen? Increased calcified lymphade nopathy compared to December 2017 report from [facility]. Plain Ct head showing encephalomalacia/lt cerebellar region. MRI of brain with contrast yesterday-stable recurrence (compared to 09/07) Possible UTI. On abx. Hyponatremia sec to dehydration. PT/OT for wkness. She has not taken any systemic therapy before. Results MRI d.w patient. Will consult with rad onc in AM tomorrow Oncology: Subj Interval history: Headaches little better today. NAusea+ - Constitutional General appearance: no acute distress, obese - Head Head exam: Present: normal inspection Additional comments: s/p prior craniotomy - Eye Eye exam: Present: sclera anicteric - Neck Neck exam: Present: full ROM - Respiratory Respiratory exam: Present: CTAB - Cardiovascular Cardiovascular exam: Present: +S1, +S2 - GI/Abdominal GI/Abdominal exam: Present: normal bowel sounds, soft Oncology: Obj Data - Labs CBC & Chem 7: 10/15/18 06:49 10/15/18 06:49 Consult Discharge Plan - Plan Referrals: Jonna Mcdermott NARRATIVE WRITER [Advanced Practice Nurse] - Inpatient Charges Provider: Dr. Isiah Naidu Follow up - Inpatient: [id number]
--- NOTE | 2018-10-16 09:42 | Internal Med Progress Note ---
Hospitalist Progress Note - Encounter Date of Encounter: 10/16/18 Time of Encounter: 08:42 - Subjective Interval History: Patient seen and examined this morning of this. No acute overnight events. Patient alert oriented 3. Complains of lower quadrant abdominal pain. Denies any fever or chills nausea vomiting or diarrhea. - Exam Vitals: Temp Pulse Resp BP Pulse Ox 98.2 F 88 20 188/92 95 10/16/18 07:29 10/16/18 07:29 10/16/18 07:29 10/16/18 07:29 10/16/18 07:29 Exam: General: In no acute distress. Respiratory exam: CTAB. no accessory muscle use, rales, rhonchi, wheezes Cardiovascular exam: RRR, +S1, +S2. no murmur, gallop, rubs. GI/Abdominal exam: Non-distended, normal bowel sounds, soft, no peritoneal signs, suprapubic pain on deep palpation. Extremities exam: no pedal edema, pulses palpable in b/l lower extremities. no calf tenderness Neurological exam: CN II-XII intact, AO X3, no focal deficits except some LE weakness. Skin exam: No skin rash - Assessment and Plan (1) DVT prophylaxis Current Visit: Yes Status: Acute (2) Brain cancer Current Visit: Yes Status: Chronic (3) Weakness generalized Current Visit: Yes Status: Acute (4) UTI (urinary tract infection) Current Visit: Yes Status: Acute - Summary of Assessment and Plan Summary of Assessment and Plan: Assessment Acute Weakness UTI Brain metastasis HTN Uncontrolled diabetes omental metastais. Chronic Lung ca HTN CAD DM GERD HLD Plan - MRI showed 4 cm stable cystic mass in the left cerebellar hemisphere with focal area of nodular enhancement with suspicion of stable recurrent tumor. Oncology following, recommendation appreciated. radiation oncology evaluation to mmorow. - Has suprapubic discomfort. UA was supicious but culture with No growth. Was good sample. Also previously with MSRO ecoli for with ceftriaxone will not work. will stop ceftriaxone.Pain likely from calcifield omental mets - f/u PT and OT - Start home antihypertensive except HCTZ. Will start lisinopril given DM and some proteinuria. hydralazine PRN for sbp>180 - SSI and accucheck - Heparin for dvt prophylaxis Internal Medicine: Result - Labs CBC & Chem 7: 10/15/18 06:49 07/27/19 06:49 - ABG Interpretation ABG results: PT/INR, D-dimer PT 12.4 Seconds (9.4-12.1) H 10/15/18 06:49 - Impressions Impressions Brain MRI 10/15/18 22:51 IMPRESSION: Stable 4 cm cystic mass within the left cerebellar hemisphere with a focal area of nodular enhancement measuring 1.7 cm. Stable recurrent tumor is suspected. Left occipital craniotomy changes. 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 Stable ventriculomegaly likely related to central atrophy. Stable moderate chronic microvascular disease within the periventricular white matter. D/ / 10/15/2018 12:28:14 Oj Hanna MD / [email or web address] Interpreting Provider: Oj Hanna MD Consult Discharge Plan - Plan Referrals: Jonna Mcdermott, HOLLOW TILE PARTITION ERECTOR [Advanced Practice Nurse] - (2) Brain cancer Qualifiers: Malignant neoplasm of brain location: cerebellum Qualified Code(s): C71.6 - Malignant neoplasm of cerebellum (4) UTI (urinary tract infection) Qualifiers: Urinary tract infection type: acute cystitis Hematuria presence: with hematuria Qualified Code(s): N30.01 - Acute cystitis with hematuria
[2018-10-16] MEDS ORDERED: Famotidine 20 MG TABLET PO SCH (11:00)
[2018-10-16] MEDS: Acetaminophen 325 MG TABLET PO PRN (11:34)
[2018-10-16] MEDS: Ondansetron 4 MG/2 ML VIAL IVP PRN (11:34)
[2018-10-16] MEDS: Aspirin Enteric Coated 81 MG Tablet PO SCH (11:34)
--- NOTE | 2018-10-16 11:41 | Electrocardiograph Report ---
[place] [id number] Test Date: 2018-10-14 Pat Name: Pat Corbin Department: 115 Room: 3A52 Gender: F Security Sales Consultant: : 1945 Requested By: Rick Mccracken Order Number: [id number] Reading MD: Debby Serrato Measurements Intervals [place] Rate: 78 P: 33 [place]: 197 QRS: -39 QRSD: 97 T: 0 QT: 392 QTc: 425 Interpretive Statements SINUS RHYTHM LEFT AXIS DEVIATION SEPTAL MYOCARDIAL INFARCTION, PROBABLY OLD Electronically Signed On 10-16-2018 11:40:04 EDT by Debby Serrato
[2018-10-16] MEDS: Gabapentin 300 MG CAPSULE PO SCH ×2 (14:24→20:40)
[2018-10-16] MEDS ORDERED: Morphine Sulfate ER (12 HR) 15 MG TABLET.ER PO ONE (16:35)
[2018-10-17] MEDS ORDERED: 0.9 % Sodium Chloride 500 ML IVC ONE ×4 (00:11→13:11)
[2018-10-17] MEDS: Acetaminophen 325 MG TABLET PO PRN ×2 (00:36→16:00)
[2018-10-17] MEDS: *HR* Heparin 5,000 UNIT/ML VIAL SQ SCH ×2 (05:48→17:06)
[2018-10-17] MEDS: Insulin LISPRO 300 UNITS/3 ML VIAL SQ SCH ×4 (08:47→22:24)
[2018-10-17] MEDS: Gabapentin 300 MG CAPSULE PO SCH (08:48)
[2018-10-17] MEDS: Aspirin Enteric Coated 81 MG Tablet PO SCH (08:48)
[2018-10-17] MEDS: Famotidine 20 MG TABLET PO SCH (08:48)
--- NOTE | 2018-10-17 09:01 | Internal Med Progress Note ---
Hospitalist Progress Note - Encounter Date of Encounter: 10/17/18 Time of Encounter: 09:10 - Subjective Interval History: Patient seen and examined this morning. No acute overnight events. Patient did have blood pressure running on the lower end. Denies any chest pain. She has been having headache since almost a month and low back pain. Denies any chest pain or difficulty breathing or lightheadedness. Denies any abdominal pain. Afebrile. Had decreased by mouth intake yesterday. Eating well today. Had some urinary retention yesterday. - Exam Vitals: Temp Pulse Resp BP Pulse Ox 97.8 F 82 16 80/52 95 10/17/18 07:48 10/17/18 07:48 10/17/18 07:48 10/17/18 08:27 10/17/18 07:48 Exam: General: In no acute distress. Respiratory exam: CTAB. no accessory muscle use, rales, rhonchi, wheezes Cardiovascular exam: RRR, +S1, +S2. no murmur, gallop, rubs. GI/Abdominal exam: Non-distended, normal bowel sounds, soft, no peritoneal signs, suprapubic pain on deep palpation. Extremities exam: no pedal edema, pulses palpable in b/l lower extremities. no calf tenderness Neurological exam: CN II-XII intact, AO X3, no focal deficits except some LE weakness. Skin exam: No skin rash - Assessment and Plan (1) DVT prophylaxis Current Visit: Yes Status: Acute (2) Brain cancer Current Visit: Yes Status: Chronic (3) Weakness generalized Current Visit: Yes Status: Acute (4) UTI (urinary tract infection) Current Visit: Yes Status: Acute - Summary of Assessment and Plan Summary of Assessment and Plan: Assessment Acute Weakness Brain metastasis Uncontrolled diabetes omental metastais. Sinus tachycardia hypotension Chronic Lung ca HTN CAD DM GERD HLD Plan - MRI showed 4 cm stable cystic mass in the left cerebellar hemisphere with focal area of nodular enhancement with suspicion of stable recurrent tumor. Oncology following, recommendation appreciated. radiation oncology evaluation today. - Has suprapubic discomfort. UA was supicious but culture with No growth. Was good sample. ceftriaxone was stopped. However has urinary retention and hy potension. Urine repeat UA and culture. c/w IVF resuscitation. however without any fevers, Obtain stat cbc, bmp, lactate. Had sinus tachycardia yesterday. c/w fluid bolus. - hold all antihypertensives. Unclear cause of hypotension. Possible UTI but culture without growth. testing as above - SSI and accucheck. BG better controlled. A1c 8.5 - Heparin for dvt prophylaxis Internal Medicine: Result - Labs CBC & Chem 7: 10/15/18 06:49 10/15/18 06:49 Labs: Cardiac Enzymes 10/16/18 10/16/18 Range/Units 18:58 22:55 Troponin I < 0.03 < 0.03 (< 0.04) ng/mL - ABG Interpretation ABG results: PT/INR, D-dimer PT 12.4 Seconds (9.4-12.1) H 10/15/18 06:49 D-Dimer 779 ng/mLFEU (0-500) H 10/16/18 18:58 Consult Discharge Plan - Plan Referrals: Jonna Mcdermott, SENIOR MEDICAL DIRECTOR [Advanced Practice Nurse] - (2) Brain cancer Qualifiers: Malignant neoplasm of brain location: cerebellum Qualified Code(s): C71.6 - Malignant neoplasm of cerebellum (4) UTI (urinary tract infection) Qualifiers: Urinary tract infection type: acute cystitis Hematuria presence: with hematuria Qualified Code(s): N30.01 - Acute cystitis with hematuria
[2018-10-17 09:25] LABS: Basophils # 0.1 K/mcL (0.0-0.2); Basophils % 0.6 %; Eosinophils # 0.2 K/mcL (0.0-0.6); Eosinophils % 2.4 %; Hematocrit 39.7 % (35.3-44.9); Hemoglobin 12.7 g/dL (11.5-15.4); Immature Granulocytes % 0.2 % (0-4); Lymphocytes % 33.8 %; Mean Corpuscular Volume 87.6 fL (83.0-100.0); Mean Platelet Volume 9.9 fL (9.4-12.4); Monocytes # 0.6 K/mcL (0.0-1.3); Monocytes % 6.9 %; Platelet Count 280 K/mcL (140-400); Red Blood Count 4.53 M/mcL (3.82-4.97); Red Cell Distribution Width 14.1 % (11.5-14.5); Segmented Neutrophils % 56.1 %; White Blood Count 8.8 K/mcL (4.3-11.1)
[2018-10-17 09:44] LABS: Calcium 9.9 mg/dL (8.6-10.3); Potassium 3.7 mEq/L (3.5-5.1)
[2018-10-17] MEDS: 0.9 % Sodium Chloride 1,000 ML IVC SCH ×2 (11:04→22:23)
[2018-10-17 11:14] LABS: Squamous Epithelial Cell,Urine Many per lpf (None-Few); Urobilinogen,Urine Normal (Normal); WBC,Urine TNTC per hpf (0-3)
[2018-10-17 11:15] LABS: Clarity,Urine Cloudy (Clear); Color,Urine Yellow (Yellow)
[2018-10-17 11:16] LABS: Bilirubin,Urine Small (Negative); Blood,Urine Negative (Negative); Glucose,Urine (UA) Normal (Normal); Ketones,Urine Trace mg/dL (Negative); Leukocyte Esterase,Urine Moderate (Negative); Nitrite,Urine Negative (Negative); Protein,Urine Trace mg/dL (Neg-Trace)
[2018-10-17 11:33] LABS: Amorphous Sediment,Urine Many (Few); Bacteria,Urine Few per hpf (None-Few)
[2018-10-17] MEDS ORDERED: 0.9 % Sodium Chloride 500 ML ONE (13:15)
--- NOTE | 2018-10-17 16:31 | Electrocardiograph Report ---
[place] [id number] Test Date: 2018-10-16 Pat Name: Pat Corbin Department: 115 Room: 3A52 Gender: F Mgmt Consultant: : 1945 Requested By: Jagjit Corbett Order Number: [id number] Reading MD: Ac Gallagher Measurements Intervals [place] Rate: 117 P: 51 MS: 170 QRS: -48 QRSD: 84 T: 27 QT: 336 QTc: 405 Interpretive Statements SINUS TACHYCARDIA LEFT ANTERIOR FASCICULAR BLOCK POSSIBLE ANTERIOR MYOCARDIAL INFARCTION, PROBABLY OLD Electronically Signed On 10-17-2018 16:29:46 EDT by Ac Gallagher
[2018-10-18 02:56] LABS: Basophils % 0.5 %; Eosinophils # 0.3 K/mcL (0.0-0.6); Eosinophils % 4.3 %; Hematocrit 34.6 % (35.3-44.9); Hemoglobin 10.9 g/dL (11.5-15.4); Immature Granulocytes % 0.2 % (0-4); Lymphocytes # 2.2 K/mcL (0.6-4.6); Lymphocytes % 35.7 %; Mean Corpuscular HGB Conc 31.5 g/dL (31.6-35.5); Mean Corpuscular Hemoglobin 28.5 pg (28.0-33.3); Mean Corpuscular Volume 90.6 fL (83.0-100.0); Mean Platelet Volume 10.3 fL (9.4-12.4); Monocytes # 0.5 K/mcL (0.0-1.3); Monocytes % 7.6 %; Neutrophils # 3.1 K/mcL (1.6-8.9); Platelet Count 197 K/mcL (140-400); Red Blood Count 3.82 M/mcL (3.82-4.97); Red Cell Distribution Width 13.9 % (11.5-14.5); Segmented Neutrophils % 51.7 %
[2018-10-18 03:13] LABS: Calcium 9.2 mg/dL (8.6-10.3); Potassium 3.8 mEq/L (3.5-5.1)
[2018-10-18] MEDS: *HR* Heparin 5,000 UNIT/ML VIAL SQ SCH ×2 (05:15→17:09)
[2018-10-18] MEDS: 0.9 % Sodium Chloride 1,000 ML IVC SCH (06:54)
[2018-10-18] MEDS ORDERED: 0.9 % Sodium Chloride 1,000 ML IVC SCH (08:14)
[2018-10-18] MEDS: Famotidine 20 MG TABLET PO SCH (08:28)
[2018-10-18] MEDS: Insulin LISPRO 300 UNITS/3 ML VIAL SQ SCH ×4 (08:29→20:26)
[2018-10-18] MEDS: Gabapentin 300 MG CAPSULE PO SCH (08:29)
[2018-10-18] MEDS: Aspirin Enteric Coated 81 MG Tablet PO SCH (08:29)
--- NOTE | 2018-10-18 10:11 | Internal Med Progress Note ---
Hospitalist Progress Note - Encounter Date of Encounter: 10/18/18 Time of Encounter: 10:11 - Subjective Interval History: Patient seen and examined this morning at bedside. No acute overnight events. Denies new complaints. Denies any fevers chills nausea vomiting or diarrhea. Has harris draining well. Has some headache and neck pain which is chronic. - Exam Vitals: Temp Pulse Resp BP Pulse Ox 98.5 F 88 18 127/77 99 10/18/18 07:00 10/18/18 07:00 10/18/18 07:00 10/18/18 07:00 10/18/18 08:00 Exam: General: In no acute distress. Respiratory exam: CTAB. no accessory muscle use, rales, rhonchi, wheezes Cardiovascular exam: RRR, +S1, +S2. no murmur, gallop, rubs. GI/Abdominal exam: Non-distended, normal bowel sounds, soft, no peritoneal signs, suprapubic pain on deep palpation. Extremities exam: no pedal edema, pulses palpable in b/l lower extremities. no calf tenderness Neurological exam: CN II-XII intact, AO X3, no focal deficits except some LE weakness. Skin exam: No skin rash - Assessment and Plan (1) DVT prophylaxis Current Visit: Yes Status: Acute (2) Brain cancer Current Visit: Yes Status: Chronic (3) Weakness generalized Current Visit: Yes Status: Acute (4) UTI (urinary tract infection) Current Visit: Yes Status: Acute - Summary of Assessment and Plan Summary of Assessment and Plan: Assessment Acute Weakness Stable recurrent Brain metastasis Uncontrolled diabetes omental metastais. hypotension- resolved anemia CASTRO Chronic metastatic Lung ca HTN CAD DM GERD HLD Plan - MRI with stable recurrent tumor. Oncology after discussion with radiation oncology recommended follow up at [facility] in 1-2 weeks. - Hypotension resolved. Unclear exact reason. Possibly dehydration with extra dose of hydralazine IV and starting home coreg. Lactic acid normal, afebrile. Did develop urine retention and CASTRO. Now resolved. improved with fluid resuscitation. Will stop IV ertapneman and f/u urine cultures. CASTRO improved with IVF and good urine output. Retroperitoneal US unremarkable. keep maintainance LR at 50 cc. - D-dimer normal for age adjustment. Did not get further PE evaluation given contrast allergy. - anemia possibly dilutional after fluid resuscitation. No signs of active bleeding. Monitor for now. - SSI and accucheck. BG better controlled. A1c 8.5 - Heparin for dvt prophylaxis - f/u PT/OT. Internal Medicine: Result - Labs CBC & Chem 7: 10/18/18 01:46 10/18/18 01:46 Labs: Short CBC 10/18/18 Range/Units 01:46 WBC 6.0 (4.3-11.1) K/mcL Hgb 10.9 L D (11.5-15.4) g/dL Hct 34.6 L (35.3-44.9) % Plt Count 197 (140-400) K/mcL Neutrophils # 3.1 (1.6-8.9) K/mcL BMP 10/18/18 01:46 Sodium 135 L Potassium 3.8 Chloride 104 Carbon Dioxide 24 BUN 16 Creatinine 1.27 H Glucose 164 H Calcium 9.2 Urine 10/17/18 Range/Units 10:30 Urine Color Yellow (Yellow) Urine Clarity Cloudy A (Clear) Urine pH 5.0 (5.0-8.0) pH Units Ur Specific Shaniko 1.030 H (1.010-1.025) Urine Protein Trace (Neg-Trace) mg/dL Urine Glucose (UA) Normal (Normal) mg/dL - ABG Interpretation ABG results: PT/INR, D-dimer PT 12.4 Seconds (9.4-12.1) H 10/15/18 06:49 D-Dimer 779 ng/mLFEU (0-500) H 10/16/18 18:58 - Impressions Impressions Abdomen/Pelvis CT 10/17/18 13:31 IMPRESSION: No acute intra-abdominal or pelvic abnormality to explain the patient's presenting hypotension. D/ / 10/17/2018 14:59:34 Sal Nelson MD / [email or web address] Interpreting Provider: Sal Nelson MD Retroperitoneum Ultrasound 10/17/18 18:00 IMPRESSION: Unremarkable ultrasound of the kidneys and urinary bladder. D/ / Oj Hanna MD / Oj Hanna MD Interpreting Provider: Oj Hanna MD Consult Discharge Plan - Plan Referrals: Jonna Mcdermott, FINE CHEMICALS OPERATOR [Advanced Practice Nurse] - (2) Brain cancer Qualifiers: Malignant neoplasm of brain location: cerebellum Qualified Code(s): C71.6 - Malignant neoplasm of cerebellum (4) UTI (urinary tract infection) Qualifiers: Urinary tract infection type: acute cystitis Hematuria presence: with hematuria Qualified Code(s): N30.01 - Acute cystitis with hematuria
[2018-10-18] MEDS ORDERED: Ringers Solution, Lactated 1,000 ML IVC SCH (15:45)
[2018-10-18] MEDS ORDERED: Artificial Tears SOLN 15 ML BOTTLE BOTH EYES PRN (19:45)
[2018-10-18] MEDS: Acetaminophen 325 MG TABLET PO PRN (20:27)
[2018-10-19 04:55] LABS: Hematocrit 37.1 % (35.3-44.9)
[2018-10-19 05:13] LABS: BUN/Creatinine Ratio 13 (6-26); Blood Urea Nitrogen 10 mg/dL (8-23); Calcium 9.8 mg/dL (8.6-10.3); Carbon Dioxide 23 mEq/L (23-29); Chloride 105 mEq/L (98-107); Glucose 150 mg/dL (70-105); Osmolality,Calculated 284 (280-300); Sodium 136 mEq/L (136-145); eGFR For African Americans > 60 (> 60); eGFR For Non-African Americans > 60 (> 60)
[2018-10-19] MEDS: *HR* Heparin 5,000 UNIT/ML VIAL SQ SCH ×2 (05:28→17:33)
--- NOTE | 2018-10-19 06:52 | Oncology Inp Progress Note ---
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 Patient had CyberKnife treatment to her lung lesions, resection of the cerebellar me tastatic disease. She is progressively become weaker, PET scan and MRI showed possible recurrence in the brain at the resection foci, in August. PET imaging was also concerning for metastatic disease in the medial right lower lobe. CT abdomen findings left anterior abdomen? Increased calcified l ymphadenopathy compared to December 2017 report from [facility]. MRI of brain with contrast yesterday-stable recurrence (compared to 09/07) REviewedimages with rad onc. She is neurologically stable though she is generally wk and has declined in performance status gradually. Recommend evaluation at [facility] for possible SRS as outpatient. Plan was d.w patient bedside. Oncology: Subj Interval history: Min headaches and tiredness-on 10/17/18 - Constitutional General appearance: no acute distress - Head Additional comments: s/p craniotomy - Eye Eye exam: Present: conjuntiva pink - Respiratory Respiratory exam: Present: CTAB - Cardiovascular Cardiovascular exam: Present: +S1, +S2 - GI/Abdominal GI/Abdominal exam: Present: normal bowel sounds, soft - Extremities Exam Extremities exam: Present: normal inspection - Neurological Exam Neurological exam: Present: alert, CN II-XII intact, oriented X3 - Psychiatric Psychiatric exam: Present: normal affect Oncology: Obj Data - Labs CBC & Chem 7: 10/19/18 04:28 10/19/18 04:28 Consult Discharge Plan - Plan Referrals: Jonna Mcdermott, ELECTRIC BRAIN WAVE EQUIPMENT MECHANIC [Advanced Practice Nurse] - Inpatient Charges Provider: Dr. Isiah Naidu Follow up - Inpatient: [id number]
[2018-10-19] MEDS: Aspirin Enteric Coated 81 MG Tablet PO SCH (07:45)
[2018-10-19] MEDS: Famotidine 20 MG TABLET PO SCH (07:45)
[2018-10-19] MEDS: Gabapentin 300 MG CAPSULE PO SCH (07:45)
[2018-10-19] MEDS: Insulin LISPRO 300 UNITS/3 ML VIAL SQ SCH ×4 (07:46→20:29)
[2018-10-19] MEDS: Acetaminophen 325 MG TABLET PO PRN ×2 (07:50→17:39)
[2018-10-19] MEDS ORDERED: hydroCHLOROthiazide 25 MG TABLET PO SCH (09:00)
--- NOTE | 2018-10-19 10:56 | Discharge Summary ---
- NOTES TO OUTPATIENT PROVIDER Notes to Outpatient Provider: Follow-up at [facility] for possible SRS. HCTZ d/jose and coreg uptitrated. Date of Encounter: 10/19/18 Time of Encounter: 08:00 - Discharge Diagnosis (1) DVT prophylaxis Priority: Secondary Status: Acute (2) Brain cancer Priority: Secondary Status: Chronic Qualifiers: Malignant neoplasm of brain location: cerebellum Qualified Code(s): C71.6 - Malignant neoplasm of cerebellum (3) Weakness generalized Priority: Primary Status: Acute (4) UTI (urinary tract infection) Priority: Secondary Status: Ruled-out Qualifiers: Urinary tract infection type: acute cystitis Hematuria presence: with hematuria Qualified Code(s): N30.01 - Acute cystitis with hematuria (5) Acute kidney injury superimposed on chronic kidney disease Priority: Secondary Status: Acute Hospital course: Ms. Corbin is a 73 year old female with history of metastatic lung cancer to brain s/p resection but with recurrence in 08/2018, who was admitted for generalized weakness secondary to CASTRO. MRI brain only showed stable, known recurrent brain mets at the resection foci compared to the study done on 08/2018. HCTZ was held and Cr improved IVF. Managed in consultation with oncology, who in turn review the case with radiation oncology, and the decision was made to refer her back to [facility] for consideration of SRS. She was recommended to be transferred to swing bed for further rehab but declined and opted to be discharged home instead. Discussed the risk of fall and further complications related to falls but stated that she has enough support with aide services coming 5 days a week. She was referred to home health for PT/OT. Discharge discussed with: patient, nurse, case management - Time Spent with Patient Total time spent providing and/or coordinating discharge services:32 mins - Discharge Medications Prescriptions: New Carvedilol [Coreg] 12.5 mg PO BID #30 tablet Continued Atorvastatin Calcium 80 mg PO HS Doxepin HCl 50 mg PO HS Famotidine [Heartburn Prevention] 20 mg PO Q12H Pantoprazole Sodium [Protonix] 40 mg PO HS Oxycodone HCl [Roxybond] 5 mg PO Q8H PRN PRN Reason: Pain Aspirin [Lo-Dose Aspirin EC] 81 mg PO DAILY Dicyclomine [Bentyl] 10 mg PO QID Gabapentin 600 mg PO TID Morphine Sulfate ER (12 HR) [MS Contin] 15 mg PO Q12H PRN PRN Reason: Pain Montelukast [Singulair] 10 mg PO HS metFORMIN [Glucophage] 500 mg PO BIDWM #60 tablet Discontinued Carvedilol [Coreg] 6.25 mg PO BIDWM Hydrochlorothiazide [Microzide] 12.5 mg PO DAILY Home Medications: Montelukast [Singulair] 10 mg PO HS 11/23/17 [History] Atorvastatin Calcium 80 mg PO HS 12/06/17 [History] Doxepin HCl 50 mg PO HS 12/06/17 [History] Famotidine [Heartburn Prevention] 20 mg PO Q12H 01/04/18 [History] Oxycodone HCl [Roxybond] 5 mg PO Q8H PRN 01/07/18 [History] Pantoprazole Sodium [Protonix] 40 mg PO HS 01/07/18 [History] Aspirin [Lo-Dose Aspirin EC] 81 mg PO DAILY 04/19/18 [History] metFORMIN [Glucophage] 500 mg PO BIDWM #60 tablet 09/12/18 [Rx] Dicyclomine [Bentyl] 10 mg PO QID 10/15/18 [History] Gabapentin 600 mg PO TID 10/15/18 [History] Morphine Sulfate ER (12 HR) [MS Contin] 15 mg PO Q12H PRN 10/15/18 [History] Carvedilol [Coreg] 12.5 mg PO BID #30 tablet 10/19/18 [Rx] Allergies/Adverse Reactions: Allergy/AdvReac Type Severity Reaction Status Date / Time Iodinated Contrast- Oral and Allergy Rash Verified 10/15/18 16:46 IV Dye iron Allergy Hives Verified 10/15/18 16:46 Parc Allergy Nausea Verified 10/15/18 16:46 Sulfa (Sulfonamide Allergy Hives Verified 10/15/18 16:46 Antibiotics) adhesive tape AdvReac Rash Verified 10/15/18 16:46 Date of admission: 10/17/18 09:03 Primary care physician: PCP NONE Consults: 10/14/18 18:08 Consult to Nutrition [CONS] Routine Comment: Consulting Provider: NUTRITION Reason for Dietary Consult: MST Score 10/14/18 22:58 Consult to Occupational Therapy [CONS] Routine Comment: Evaluate, develop and implement POC Reason for Consult: falling; brain CA; weakness Does patient have active BEDREST order?: No Is patient medically & hemodynamically stable?: Yes Patient assessed for mobility or mobilized this visit?: No Consult to Oncology [CONS] Routine Consulting Provider: Oncology [facility] Reason for Consult: lung CA/brain CA; falling/weakness Call Completed: No Consult to Physical Therapy [CONS] Routine Comment: Evaluate, develop and implement POC Reason for Consult: falling; brain CA; weakness Does patient have active BEDREST order?: No Is patient medically & hemodynamically stable?: Yes Patient assessed for mobility or mobilized this visit?: No - Constitutional Vitals: Temp Pulse Resp BP Pulse Ox 98.2 F 87 16 153/72 97 10/19/18 10:06 10/19/18 10:06 10/19/18 10:06 10/19/18 10:06 10/19/18 10:06 General appearance: Present: cooperative, A&O X 3, pleasant, no acute distress, answers questions appropriately (slow to respond but appropriate) Exam: General: In no acute distress. Respiratory exam: CTAB. no accessory muscle use, rales, rhonchi, wheezes Cardiovascular exam: RRR, +S1, +S2. no murmur, gallop, rubs. GI/Abdominal exam: Off, nontender. Non-distended, normal bowel sounds, no peritoneal signs Extremities exam: no pedal edema, pulses palpable in b/l lower extremities. no calf tenderness Neurological exam: CN II-XII intact, AO X3, no focal deficits except some LE weakness. - Patient Status Disposition: Home Health Service Condition: Fair Functional capacity at discharge: uses cane/walker Overall status at discharge: patient is progressing back to baseline - Discharge Instructions Instructions: Acute Kidney Injury (DC) Follow Up With: Jonna Mcdermott FELT HAT FLANGING OPERATOR [Advanced Practice Nurse] - - Diet and Activity Activity: as per physical therapy Diet: diabetic diet
--- NOTE | 2018-10-19 11:05 | Physician Discharge Referral ---
Home Health/Hosp Referral Info Transfer to: Home Health - Diagnosis (1) DVT prophylaxis Priority: Secondary Status: Acute (2) Brain cancer Priority: Secondary Status: Chronic (3) Weakness generalized Priority: Primary Status: Acute (4) UTI (urinary tract infection) Priority: Secondary Status: Ruled-out (5) Acute kidney injury superimposed on chronic kidney disease Priority: Secondary Status: Acute - Respiratory Orders Smoking Cessation: Smoking cessation has been advised. For more information, call the [place] Tobacco Quit Line at 4-927-GUOL-NOW. - Services Needed Following services are medically necessary services: Physical Therapy, Occupational Therapy - Transfer Medications Prescriptions: Carvedilol [Coreg] 12.5 mg PO BID #30 tablet Home Medications: Montelukast [Singulair] 10 mg PO HS 11/23/17 [History] Atorvastatin Calcium 80 mg PO HS 12/06/17 [History] Doxepin HCl 50 mg PO HS 12/06/17 [History] Famotidine [Heartburn Prevention] 20 mg PO Q12H 01/04/18 [History] Oxycodone HCl [Roxybond] 5 mg PO Q8H PRN 01/07/18 [History] Pantoprazole Sodium [Protonix] 40 mg PO HS 01/07/18 [History] Aspirin [Lo-Dose Aspirin EC] 81 mg PO DAILY 04/19/18 [History] metFORMIN [Glucophage] 500 mg PO BIDWM #60 tablet 09/12/18 [Rx] Dicyclomine [Bentyl] 10 mg PO QID 10/15/18 [History] Gabapentin 600 mg PO TID 10/15/18 [History] Morphine Sulfate ER (12 HR) [MS Contin] 15 mg PO Q12H PRN 10/15/18 [History] Carvedilol [Coreg] 12.5 mg PO BID #30 tablet 10/19/18 [Rx] Allergies/Adverse Reactions: Allergy/AdvReac Type Severity Reaction Status Date / Time Iodinated Contrast- Oral and Allergy Rash Verified 10/15/18 16:46 IV Dye iron Allergy Hives Verified 10/15/18 16:46 [place] Allergy Nausea Verified 10/15/18 16:46 Sulfa (Sulfonamide Allergy Hives Verified 10/15/18 16:46 Antibiotics) adhesive tape AdvReac Rash Verified 10/15/18 16:46 Certification: Further, I certify that my clinical findings support that this patient is homebound (i.e. absences from home require considerable and taxing effort and are for medical reasons or congregation services or infrequently or short duration when for other reasons) because: Homebound Reason: Patient requires assistance of a person or device to safely leave home Attestation: My signature below is to certify that this patient is under my care and that I, or nurse practitioner, or a physician's housekeeper and laundry assistant working with me, has a [id number] encounter with this patient.
--- NOTE | 2018-10-19 14:12 | Physician Discharge Referral ---
ExtendedCare Referral Info Institutional Level of Care: Intermediate - Diagnosis (1) DVT prophylaxis Priority: Secondary Status: Acute (2) Brain cancer Priority: Secondary Status: Chronic (3) Weakness generalized Priority: Primary Status: Acute (4) UTI (urinary tract infection) Priority: Secondary Status: Ruled-out (5) Acute kidney injury superimposed on chronic kidney disease Priority: Secondary Status: Acute Prognosis: Fair - Transfer Medications Prescriptions: Carvedilol [Coreg] 12.5 mg PO BID #30 tablet Home Medications: Montelukast [Singulair] 10 mg PO HS 11/23/17 [History] Atorvastatin Calcium 80 mg PO HS 12/06/17 [History] Doxepin HCl 50 mg PO HS 12/06/17 [History] Famotidine [Heartburn Prevention] 20 mg PO Q12H 01/04/18 [History] Oxycodone HCl [Roxybond] 5 mg PO Q8H PRN 01/07/18 [History] Pantoprazole Sodium [Protonix] 40 mg PO HS 01/07/18 [History] Aspirin [Lo-Dose Aspirin EC] 81 mg PO DAILY 04/19/18 [History] metFORMIN [Glucophage] 500 mg PO BIDWM #60 tablet 09/12/18 [Rx] Dicyclomine [Bentyl] 10 mg PO QID 10/15/18 [History] Gabapentin 600 mg PO TID 10/15/18 [History] Morphine Sulfate ER (12 HR) [MS Contin] 15 mg PO Q12H PRN 10/15/18 [History] Carvedilol [Coreg] 12.5 mg PO BID #30 tablet 10/19/18 [Rx] Allergies/Adverse Reactions: Allergy/AdvReac Type Severity Reaction Status Date / Time Iodinated Contrast- Oral and Allergy Rash Verified 10/15/18 16:46 IV Dye iron Allergy Hives Verified 10/15/18 16:46 [place] Allergy Nausea Verified 10/15/18 16:46 Sulfa (Sulfonamide Allergy Hives Verified 10/15/18 16:46 Antibiotics) adhesive tape AdvReac Rash Verified 10/15/18 16:46 - Respiratory Orders Smoking Cessation: Smoking cessation has been advised. For more information, call the [place] Tobacco Quit Line at 1-768-PGDI-NOW. - Rehabiliation Orders Rehab Orders: Evaluation for Physical Therapy, Evaluation for Occupational Therapy CERTIFICATION: I certify that the transfer of the above named patient to an Extended Care Facility is necessary for the continuing treatment of the diagnosis listed. The above information is true and accurate reflection of patient's current condition. Confidential - Redisclosure prohibited without a patient's written consent.
[2018-10-19] MEDS ORDERED: *HR* OxyCODONE Immed Rel 5 MG TABLET PO PRN (19:41)
[2018-10-20] MEDS: Morphine Sulfate ER (12 HR) 15 MG TABLET.ER PO SCH ×2 (01:44→14:00)
[2018-10-20] MEDS: *HR* Heparin 5,000 UNIT/ML VIAL SQ SCH (05:14)
[2018-10-20] MEDS: Aspirin Enteric Coated 81 MG Tablet PO SCH (08:23)
[2018-10-20] MEDS: Famotidine 20 MG TABLET PO SCH (08:23)
[2018-10-20] MEDS: Insulin LISPRO 300 UNITS/3 ML VIAL SQ SCH (08:23)
[2018-10-20] MEDS: Gabapentin 300 MG CAPSULE PO SCH (08:23)
[2018-10-20] MEDS: Ondansetron 4 MG/2 ML VIAL IVP PRN (08:27)
[2018-10-20] MEDS: Acetaminophen 325 MG TABLET PO PRN (08:27)
[2018-10-20 11:13] VITALS: BP 129/72
== END 2018-10-20 13:59 | disposition other institution (70) | DRG 683 ==
LOC: 3ANU → SUATTDRO 17:06
PROVIDERS: ADMIT Internal Medicine Nephrology; ATTEND Internal Medicine